=== PATIENT | female | born 1940 | race Caucasian/White ===

== ENCOUNTER 2018-11-05 11:22 | Inpatient (IN) ==
[2018-11-05 12:27] LABS: Basophils # (auto) 0.02 K/uL (0-0.2); Basophils % (auto) 0.2 %; Eosinophils # (auto) 0.08 K/uL (0-0.5); Eosinophils % (auto) 0.9 %; Hematocrit (blood only) 36.6 % (37-47); Hemoglobin 11.3 g/dL (12.0-16.0); Immature Granulocytes # (auto) 0.03 K/uL (0.00-0.02); Immature Granulocytes % (auto) 0.3 %; Lymphocytes # (auto) 0.52 K/uL (1.2-3.4); Mean Corpuscular Hgb Conc 30.9 g/dL (32-36); Mean Corpuscular Volume 79.9 fL (80-100); Mean Platelet Volume 9.9 fL (7.4-10.4); Monocytes # (auto) 0.63 K/uL (0.11-0.59); Monocytes % (auto) 7.3 %; Neutrophils # (auto) 7.35 K/uL (1.4-6.5); Neutrophils % (auto) 85.3 %; Platelet Count 189 K/uL (130-400); RDW Coefficient of Variation 19.1 % (11.5-14.5); RDW Standard Deviation 55.2 fL (36.4-46.3); Red Blood Count 4.58 M/uL (4.2-5.4); White Blood Count 8.63 K/uL (4.8-10.8)
[2018-11-05 12:38] LABS: Albumin Level 2.8 gm/dl (3.4-5.0); BUN Creatinine Ratio 22.7 (10-20); Calcium 9.1 mg/dl (8.5-10.1); Creatinine Clr Calc Pharmacy 29.3 ml/min; Est GFR (African American) 40.7; Est GFR (Non-African American) 35.1; Magnesium 2.4 mg/dl (1.8-2.4); Potassium 4.8 mmol/L (3.5-5.1)
[2018-11-05 12:51] LABS: Albumin Globulin Ratio 0.8 (0.9-2); Globulin 3.5 gm/dl (2.5-4.0); Total Protein 6.3 gm/dl (6.4-8.2); Troponin I 0.048 ng/ml (0-0.045)
[2018-11-05] MEDS ORDERED: NITROGLYCERIN 2% OINTMENT 30GM TUBE EXT STA (13:19)
[2018-11-05] MEDS ORDERED: FUROSEMIDE 40 MG/4 ML VIAL IV STA (13:19)
--- NOTE | 2018-11-05 13:24 | XRay Report ---
XR chest 1V portable CLINICAL HISTORY: sob COMPARISON STUDY: No previous studies for comparison. FINDINGS: Components of mild congestive heart failure present. Moderate prominence of pulmonary vascu lature. Moderate cardiomegaly. Degenerative change left shoulder. IMPRESSION: Developing congestive heart failure. The above report was generated using voice recognition software. It may contain grammatical, syntax or spelling errors. Electronically signed by: Fredo Hawkins M.D. 11/05/2018 1:23 PM
--- NOTE | 2018-11-05 14:51 | Emergency Department Note ---
Entered by Michelet Calixto acting as a scribe for Jovana Lucia DO History of Present Illness General Chief complaint: Leg Weakness, Bilateral Stated complaint: weakness/legs Time Seen by Provider: 11/05/18 11:54 Source: patient History of Present Illness Onset (ago): hour(s) (today) Location: lower extremity (bilateral) Pain Consistency: + other (persistent) Quality: + other (leg weakness) Exacerbated By: + other (walking) Associated symptoms: + shortness of breath; no chest pain, no fever/chills and no loss of appetite The patient is an 78 year old female with a history of COPD who presents to the Emergency Room with complaints of persistent bilateral leg weakness today. The patient reports that this morning when waking up she mostly felt fine aside from a little weakness when climbing steps. She states that she went to the [facility] at 09:00 for her usual standing morning exercise, but she needed to sit down in a wheelchair because �my legs wouldn�t hold me� and �I was slower to move.� EMS reports that the patient�s oxygen saturation was in the 80s, and she was placed on a non-rebreather. The patient states that she is unsure if her legs were weak yesterday. She notes that she has recently been short of breath exacerbated with walking. Family notes that she had been wheezing and coughing with her recent viral bronchitis a few weeks ago that is now improved, although she has been somewhat short of breath for the past two weeks per family. She states that she has been using an inhaler intermittently. The patient reports that she wears supplemental oxygen only at night. She notes that she does not feel any difference between currently wearing the supplemental oxygen or having it turned off. She reports that her legs are chronically swollen at baseline and denies recent changes. She denies recent leg injury, numbness, tingling, pain, arm weakness, dizziness, lightheadedness, nausea, back pain, chest pain, fevers, chills, changes in bowel movements, urinary symptoms, recent illness, changes in medications or exercise, loss of appetite, or history of these symptoms. She states that she usually uses a cane when walking. She denies a history of back problems or hip pain. She reports that she was diagnosed with A- fib a few months ago by Dr. Mcconnell � Cardiology. She states that she regularly takes Xarelto and has not missed any doses. The patient notes that her knee sometimes gives out when walking but does not feel that this contributed to her symptoms today. She has never smoked but reports second-hand exposure from her . Family notes that they were told by [facility] staff that the patient did not know where she was or what day it was, but the patient has been completely appropriate and oriented during her time in the ER. Home Medications Home Medications Medication Instructions Recorded Confirmed Type alprazolam 0.5 mg PO UD PRN 11/05/18 11/05/18 History atorvastatin 10 mg PO HS 11/05/18 11/05/18 History cholecalciferol (vitamin D3) 1,000 unit PO QAM 11/05/18 11/05/18 History [Vitamin D3] cyanocobalamin (vitamin B-12) 500 mcg PO QAM 11/05/18 11/05/18 History [Vitamin B-12] digoxin [Digox] 125 mcg PO Q2D 11/05/18 11/05/18 History furosemide 20 mg PO PM 11/05/18 11/05/18 History furosemide 30 mg PO QAM 11/05/18 11/05/18 History hydralazine 50 mg PO BID 11/05/18 11/05/18 History levothyroxine 50 mcg PO MOTUWETHFR 11/05/18 11/05/18 History levothyroxine 75 mg PO SUSA 11/05/18 11/05/18 History losartan 100 mg PO QAM 11/05/18 11/05/18 History metoprolol succinate 100 mg PO BID 11/05/18 11/05/18 History potassium chloride 20 meq PO TID 11/05/18 11/05/18 History rivaroxaban [Xarelto] 15 mg PO QAM 11/05/18 11/05/18 History tramadol 50 mg PO BID PRN 11/05/18 11/05/18 History Allergies Allergy/AdvReac Type Severity Reaction Status Date / Time quinapril AdvReac Mild H/A Verified 11/05/18 13:13 nifedipine AdvReac Unknown pounding Verified 11/05/18 13:13 headache Past Med/Surg History Medical History Atrial fibrillation (Chronic) COPD (chronic obstructive pulmonary disease) (Chronic) Family History Other Diabetes Hypertension Social History current occupational status: retired Feels Safe at Home: Yes Smoking Status: Never smoker Hx Alcohol Use: No Review of Systems See HPI for pertinent positives & negatives. and A total of 10 systems reviewed and were otherwise negative Physical Exam Vital Signs Vital Signs - 24 hr 11/05/18 11:25 11/05/18 11:26 11/05/18 11:31 Temperature 36.9 C Temperature Source Oral Sepsis Recent Fever Within 48 Hours No Sepsis Action Taken by Nursing No Action Required Pulse Rate 90 89 85 Pulse Strength Normal Respiratory Rate 30 H 12 22 Respiratory Depth Normal Blood Pressure 181/106 H 181/106 H Blood Pressure Mean 131 131 Blood Pressure Position Lying Pulse Oximetry 94 94 93 Oxygen Delivery Method Nasal Cannula Oxygen Flow Rate 2 11/05/18 11:57 11/05/18 12:00 11/05/18 12:01 Temperature Temperature Source Sepsis Recent Fever Within 48 Hours Sepsis Action Taken by Nursing Pulse Rate 94 H 95 H 83 Pulse Strength Respiratory Rate 31 H 18 16 Respiratory Depth Blood Pressure 158/112 H 155/116 H Blood Pressure Mean 127 129 Blood Pressure Position Pulse Oximetry 93 93 92 Oxygen Delivery Method Oxygen Flow Rate 11/05/18 12:30 11/05/18 12:31 11/05/18 13:00 Temperature Temperature Source Sepsis Recent Fever Within 48 Hours Sepsis Action Taken by Nursing Pulse Rate 89 97 H 86 Pulse Strength Respiratory Rate 15 28 H 34 H Respiratory Depth Blood Pressure 180/109 H Blood Pressure Mean 132 Blood Pressure Position Pulse Oximetry 90 90 91 Oxygen Delivery Method Oxygen Flow Rate 11/05/18 13:01 11/05/18 13:02 11/05/18 13:30 Temperature Temperature Source Sepsis Recent Fever Within 48 Hours Sepsis Action Taken by Nursing Pulse Rate 85 92 H 98 H Pulse Strength Respiratory Rate 33 H 28 H 25 H Respiratory Depth Blood Pressure 175/115 H Blood Pressure Mean 135 Blood Pressure Position Pulse Oximetry 91 90 92 Oxygen Delivery Method Oxygen Flow Rate 11/05/18 13:31 11/05/18 14:00 11/05/18 14:01 Temperature Temperature Source Sepsis Recent Fever Within 48 Hours Sepsis Action Taken by Nursing Pulse Rate 87 87 95 H Pulse Strength Respiratory Rate 25 H 28 H 31 H Respiratory Depth Blood Pressure 180/114 H 177/106 H Blood Pressure Mean 136 129 Blood Pressure Position Pulse Oximetry 92 91 95 Oxygen Delivery Method Oxygen Flow Rate GENERAL: alert, well appearing, well nourished, no distress, non-toxic EYE EXAM: normal conjunctiva, PERRL and EOM's grossly intact OROPHARYNX: no exudate, no erythema, lips, buccal mucosa, and tongue normal and mucous membranes are moist NECK: supple, no nuchal rigidity, no adenopathy, non-tender LUNGS: Clear to auscultation. Normal chest wall mechanics, no w/r/r HEART: A-fib on telemonitor, irregular, no murmurs, S1 normal and S2 normal ABDOMEN: abdomen soft, non-tender, normo-active bowel sounds, no masses, no rebound or guarding. BACK: Back is symmetrical on inspection and there is no deformity, no midline tenderness, no CVA tenderness. SKIN: no rashes and no bruising UPPER EXTREMITIES: upper extremities are grossly normal. FROM, nml pulses b/l. LOWER EXTREMITIES: 3+ pitting edema, right greater than left. FROM, nml pulses b/l. NEURO EXAM: Normal sensorium, cranial nerves II-XII grossly intact, normal speech, no gross weakness of arms, no gross weakness of legs. Gross sensation intact. Course 1159: Past medical records reviewed. The patient was evaluated in room C11A, and a complete history and physical examination were performed. 1208: The patient�s oxygen saturation decreased to 86% when the supplemental oxygen was turned off. The patient states that she does not notice any difference. 1245: Review of the echo from 02/28/2016 obtained by case management shows: Mild LV wall thickness. LVEF 55-59%. Left atrium moderately enlarged. Normal wall motion. Mild MR. Moderate TR. Moderate pulmonary hypertension. 1302: The patient�s troponin is elevated. 1323: I updated the patient on current results. 1345: I consulted Keyanna Kothari PA-C: [facility]. She will reevaluate the patient for hospitalization. Consultations Consultation #1: I consulted Keyanna Kothari PA-C: [facility]. She will reevaluate the patient for hospitalization. Time: 13:45 Administered Medications Discontinued Medications Furosemide (Lasix) 40 mg IV NOW STA Stop: 11/05/18 13:20 Last Admin: 11/05/18 14:26 Dose: 40 mg Nitroglycerin (Nitro-Bid 2%) 1 inch EXT NOW STA Stop: 11/05/18 13:20 Last Admin: 11/05/18 14:26 Dose: 1 inch Medical Decision Making Differential Diagnosis Differential diagnosis: Etiologies such as metabolic, infection, hypo/hyperglycemia, electrolyte abnormalities, cardiac sources, intracerebral event, toxicologic, neurologic, as well as others were entertained. Medical Records Attestation: I reviewed the patient's medical records. Home Medications Current Medication List: was personally reviewed by me Laboratory Data Attestation: I reviewed the patient's lab results. Result diagrams: 11/05/18 11:40 11/05/18 11:40 Lab Results 11/05/18 11/05/18 Range/Units 11:40 11:40 WBC 8.63 (4.8-10.8) K/uL RBC 4.58 (4.2-5.4) M/uL Hgb 11.3 L (12.0-16.0) g/dL Hct 36.6 L (37-47) % MCV 79.9 L (80-100) fL MCH 24.7 L (25-34) pg MCHC 30.9 L (32-36) g/dL RDW Std Deviation 55.2 H (36.4-46.3) fL RDW Coeff of Sandie 19.1 H (11.5-14.5) % Plt Count 189 (130-400) K/uL MPV 9.9 (7.4-10.4) fL Immature Gran % (Auto) 0.3 % Neut % (Auto) 85.3 % Lymph % (Auto) 6.0 % [place] % (Auto) 7.3 % Eos % (Auto) 0.9 % Baso % (Auto) 0.2 % Immature Gran # (Auto) 0.03 H (0.00-0.02) K/uL Neut # (Auto) 7.35 H (1.4-6.5) K/uL Lymph # (Auto) 0.52 L (1.2-3.4) K/uL [place] # (Auto) 0.63 H (0.11-0.59) K/uL Eos # (Auto) 0.08 (0-0.5) K/uL Baso # (Auto) 0.02 (0-0.2) K/uL Sodium 141 (136-145) mmol/L Potassium 4.8 (3.5-5.1) mmol/L Chloride 110 H (98-107) mmol/L Carbon Dioxide 27 (21-32) mmol/L Anion Gap 4.0 (3-11) BUN 32 H (7-18) mg/dl Creatinine 1.41 H (0.6-1.2) mg/dl Est Cr Clr Drug Dosing 29.3 ml/min Est GFR ( Amer) 40.7 Est GFR (Non-Af Amer) 35.1 BUN/Creatinine Ratio 22.7 H (10-20) Glucose 115 H (70-99) mg/dl Calcium 9.1 (8.5-10.1) mg/dl Magnesium 2.4 (1.8-2.4) mg/dl Total Bilirubin 1.0 (0.2-1) mg/dl AST 42 H (15-37) U/L ALT 60 (12-78) U/L Alkaline Phosphatase 97 (45-117) U/L Troponin I 0.048 H* (0-0.045) ng/ml NT-Pro-B Natriuret Pep 73479 H (0-1800) pg/ml Total Protein 6.3 L (6.4-8.2) gm/dl Albumin 2.8 L (3.4-5.0) gm/dl Globulin 3.5 (2.5-4.0) gm/dl Albumin/Globulin Ratio 0.8 L (0.9-2) TSH 1.200 (0.300-4.500) uIu/ml Imaging Data Radiologist's Impression: Radiology results as stated below per my review and the radiologist's interpretation: XR chest 1V portable CLINICAL HISTORY: sob COMPARISON STUDY: No previous studies for comparison. FINDINGS: Components of mild congestive heart failure present. Moderate prominence of pulmonary vasculature. Moderate cardiomegaly. Degenerative change left shoulder. IMPRESSION: Developing congestive heart failure. The above report was generated using voice recognition software. It may contain grammatical, syntax or spelling errors. Electronically signed by: Fredo Hawkins M.D. 11/05/2018 1:23 PM ECG Data Attestation: I personally reviewed and interpreted this ECG as follows: Indication: weakness Rate (beats per minute): 90 Rhythm: atrial fibrillation Findings: + other (normal axis, normal QRS and QTC); no ST depression and no ST elevation Blood Pressure Blood Pressure Findings: Elevated blood pressure Blood Pressure Disposition: further management by hospitalist [facility] Narrative Patient well-appearing here despite complaints. No focal neurologic deficit. I do not suspect [employer] cause of her lower extremity weakness. Patient's weakness is bilateral. No back pain or recent trauma. I do not suspect new spinal cord injury, cauda equina, epidural abscess/hematoma. Given new hypoxia noted with this, chest x-ray added to routine labs. Patient denies missing any of her Xarelto for atrial fibrillation recently. Patient found to be in congestive heart failure. Patient's troponin mildly elevated, I suspect secondary to the CHF. I do not suspect primary ACS. Patient's prior echo from 2016 was reviewed. Patient with mild renal insufficiency noted, no old to compare to in EMR. I feel the likely evolving CHF is the reason for her hypoxia, her noted increased shortness of breath, as well as her potential increased weakness particularly with exertion. I do not suspect occult infectious etiology, vascular etiology. Patient was started on Lasix as well as Nitropaste here in the emergency room, and case discussed with hospitalist for admission. Mild anemia noted, likely chronic for patient. Patient with no reported change in bowel movements, no black or bloody stools. Patient with no pain here, denies any trouble breathing while at rest. Patient and family aware of all results were in agreement with plan. Impression & Plan CHF (congestive heart failure), Hypoxia, Elevated troponin, A-fib, Weakness, Chronic kidney disease Discharge Plan Visit Data Chief Complaint: Leg Weakness, Bilateral Stated Complaint: weakness/legs ED Provider: Jovana Lucia Discharge Problem: CHF (congestive heart failure), Hypoxia, Elevated troponin, A-fib, Weakness, Chronic kidney disease Patient Disposition: Being Evaluated by Hospitalist Forms Stand Alone Forms: My [facility] Prescriptions Prescriptions: No Action atorvastatin 10 mg tablet 10 mg PO HS RF: 0 metoprolol succinate 100 mg tablet extended release 24 hr 100 mg PO BID RF: 0 tramadol 50 mg tablet 50 mg PO BID PRN (Reason: Pain) RF: 0 levothyroxine 75 mcg tablet 75 mg PO SUSA RF: 0 alprazolam 0.5 mg tablet 0.5 mg PO UD PRN (Reason: Anxiety) RF: 0 potassium chloride 20 mEq tablet,ER particles/crystals 20 meq PO TID RF: 0 cyanocobalamin (vitamin B-12) [Vitamin B-12] 500 mcg Tablet 500 mcg PO QAM RF: 0 levothyroxine 50 mcg tablet 50 mcg PO MOTUWETHFR RF: 0 hydralazine 50 mg tablet 50 mg PO BID RF: 0 digoxin [Digox] 125 mcg tablet 125 mcg PO Q2D RF: 0 furosemide 20 mg tablet 30 mg PO QAM RF: 0 furosemide 20 mg tablet 20 mg PO PM RF: 0 losartan 100 mg tablet 100 mg PO QAM RF: 0 cholecalciferol (vitamin D3) [Vitamin D3] 1,000 unit Capsule 1,000 unit PO QAM RF: 0 rivaroxaban [Xarelto] 15 mg tablet 15 mg PO QAM RF: 0 Referrals Referrals: Donna Tate MD [Primary Care Provider] - The scribe's documentation has been prepared under my direction and personally reviewed by me in its entirety. I confirm that the note above accurately reflects all work, treatment, procedures, and medical decision making performed by me.
--- NOTE | 2018-11-05 14:58 | Communication Note ---
Date of Service: November 05, 2018 Patient new to the area. Brought to the ED today because of confusion, abdominal pain, fluid retention. She was thought to be an uassigned patient and was admitted by the [facility] Medicine team. It became apparent that she is establishing with Dr. Leung ([facility]) for primary care. We will transfer the patient to the [facility] Medicine service and assume care. Son Fransico called and given update. Recently hospitalized at [facility] in [place] with CHF, pneumonia, cellulitis. Transferred to [facility] in [place] for skilled care, discharged last week. Now staying in [facility] with family. Fransico will sign release of information for [facility] and [facility] when he returns to the hospital.
--- NOTE | 2018-11-05 16:22 | History & Physical Report ---
Addendum entered and electronically signed by Keyanna Kothari PA-C 17:53: Addendum (Blank) Addendum November 05, 2018 17:52 Starting 11/06/18 Patient will be followed by Dr. Romero Original Note: Date of Service November 05, 2018 Assessment & Plan (1) Acute respiratory failure with hypoxia: (2) Acute on chronic diastolic CHF (congestive heart failure): Initial evaluation revealed CXR consistent [place] [address], troponin elevated 0.048 H/H 11.3 and 36.6, wbc 8.6 Bun/Cr stable at 32 and 1.41. ECG was consistent with rate controlled afib with nonspecific ST T wave changes -admit to med/surg telemetry -consult cardiology, Dr. Rod -IV lasix 40mg BID17, titrate based on response -Strict I and O -daily standing weights -Low NA, Heart Healthy diet -continue metoprolol, losartan, nitro paste -obtain echocardiogram (last done in 2015 revealed preserved EF, mod dilated LA , mild MR, mod TR, pulm HTN and AV sclerosis) -trend troponin -monitor renal function and electrolytes (3) Elevated troponin: -most likely in setting of demand ischemia given CHF -will trend troponin q6 -obtain echocardiogram -further plan as above (4) CKD (chronic kidney disease) stage 3, GFR 30-59 ml/min: -baseline Cr 1.4 -bun/cr stable at 32/1.41 -monitor renal function and electrolytes with diuresis (5) HTN (hypertension): -blood pressure significantly elevated upon admission, 182/119 -received IV lasix 40mg x 1 and nitro paste -continue IV lasix 40mg BID17 and nitropaste 1in q6 -continue home regimen of metoprolol, hydralazine, and losartan -monitor (per Dr. Mcconnell notes from 09/16/18 BP was notable elevated at office visit, recommendation was to monitor and if continues to elevate increase hydralazine to 75mg TID) -was on amlodipine, but this was recently discontinued due to peripheral edema (6) Permanent atrial fibrillation: -rate and rhythm controlled with metoprolol -continue xarelto for anticoagulation, renal dose (7) Hypothyroidism: -continue levothyroxine, TSH 1.2 (8) HLD (hyperlipidemia): -continue statin (9) Nocturnal hypoxia: -wears 2L O2 at HS (10) DVT prophylaxis: -continue xarelto Disposition: to be determined Follow up: with PCP Dr. Tate upon discharge Pt was seen in collaboration with Dr. Luna, please see addendum Starting 11/06/17 Patient will be followed by Dr. Romero History of Present Illness Chief Complaint: Weakness x 1 day. Primary Care Provider: Donna Tate MD This is a 78-year-old white female with significant PMH of chronic atrial fibrillation on Xarelto, chronic diastolic CHF, HTN, HLD, CKD stage III, YESICA, GERD, osteoporosis, OA DJD who presents to [facility] secondary to weakness times 1 day. Son and granddaughter at bedside. Patient awoke this morning, feeling very weak but still able to do ADLs. She goes to [employer] twice weekly in which she attempted to attend this morning. While at [facility] she persisted to feel more weak, EMS was summoned and she presented to the ED. Patient has chronic PUTNAM, and nocturnal hypoxia in which she wears O2 via NC at bedtime. She has noted increased in swelling in bilateral lower extremities x 1 week. Approximately 3 months ago she had episode of viral bronchitis, but this has since resolved. She denies fever, chills, sweats, lightheadedness, dizziness, syncope, chest pain, shortness of breath at rest, palpitations, hemoptysis, cough, nausea, vomiting, diarrhea, change in bowel habits. Today she noted decrease in urine frequency, denies hematuria, increased urinary urgency. Overall appetite has been normal. She does not monitor her weight on a regular basis; therefore, unsure if notable weight gain. States she has been eating microwavable dinners more frequently. Also of note she recently has not been taking her evening Lasix. Allergies Allergy/AdvReac Type Severity Reaction Status Date / Time quinapril AdvReac Mild H/A Verified 11/05/18 13:13 nifedipine AdvReac Unknown pounding Verified 11/05/18 13:13 headache Home Medications Home Medications Medication Instructions Recorded Confirmed Type alprazolam 0.5 mg PO UD PRN 11/05/18 11/05/18 History atorvastatin 10 mg PO HS 11/05/18 11/05/18 History cholecalciferol (vitamin D3) 1,000 unit PO QAM 11/05/18 11/05/18 History [Vitamin D3] cyanocobalamin (vitamin B-12) 500 mcg PO QAM 11/05/18 11/05/18 History [Vitamin B-12] digoxin [Digox] 125 mcg PO Q2D 11/05/18 11/05/18 History furosemide 20 mg PO PM 11/05/18 11/05/18 History furosemide 30 mg PO QAM 11/05/18 11/05/18 History hydralazine 50 mg PO TID 11/05/18 11/05/18 History levothyroxine 50 mcg PO MOTUWETHFR 11/05/18 11/05/18 History levothyroxine 75 mg PO SUSA 11/05/18 11/05/18 History losartan 100 mg PO QAM 11/05/18 11/05/18 History metoprolol succinate 100 mg PO BID 11/05/18 11/05/18 History potassium chloride 20 meq PO TID 11/05/18 11/05/18 History rivaroxaban [Xarelto] 15 mg PO QAM 11/05/18 11/05/18 History tramadol 50 mg PO BID PRN 11/05/18 11/05/18 History Past Med/Surg History Medical History Hypothyroidism Permanent atrial fibrillation YESICA (generalized anxiety disorder) (Chronic) GERD (gastroesophageal reflux disease) (Chronic) Osteoporosis (Chronic) CKD (chronic kidney disease) stage 3, GFR 30-59 ml/min (Chronic) HTN (hypertension) (Chronic) HLD (hyperlipidemia) (Chronic) Chronic diastolic (congestive) heart failure (Chronic) Atrial fibrillation (Chronic) COPD (chronic obstructive pulmonary disease) (Chronic) Surgical History History of total left knee replacement (TKR) (Chronic) Hx of fracture of radius (Chronic) History of nasal polypectomy (Chronic) Family History Mother Diabetes Hypertension Father Hypertension CAD (coronary artery disease) Social History marital status: / Current Living Situation: Alone current occupational status: retired Other Information That Helps Us Care for You: No Feels Safe at Home: Yes Smoking Status: Never smoker Second Hand Exposure: Yes ( was smoker) Hx Alcohol Use: No Hx Substance Use: No Beliefs That Will Affect Care: None Preferred Language: Wallisian Communication Ability: Effective Review of Systems All systems reviewed & are unremarkable except as noted in HPI & below Physical Exam 2 Vital Signs (Past 24 Hours): Last Vital Signs Temp 36.9 C 11/05/18 11:25 Pulse 95 H 11/05/18 14:01 Resp 31 H 11/05/18 14:01 BP 177/106 H 11/05/18 14:01 Pulse Ox 95 11/05/18 14:01 Physical Exam: Gen: WD/WN, Elderly, F, NAD, on O2 via NC, sitting up in bed, pleasant, conversing easily but dyspneic with conversation Head: Normocephalic, Atraumatic Eyes: Sclera normal, no conjunctival injection, PERRLA, EOMI ENT: Gross hearing intact, normal pharynx, mucous membranes moist Neck: supple, no adenopathy, No JVD, Resp: Bibasilar rales and rhonchi. 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 Extremities: B/L lower ext +2 pitting edema Skin: warm, moist, no rash, negative turgor, cap refill < 2sec Neuro: Alert and oriented x 3, speech normal, good mood/affect, cran nerve 2-12 intact grossly : deferred Results & Data Laboratory Results Short CBC 11/05/18 Range/Units 11:40 WBC 8.63 (4.8-10.8) K/uL Hgb 11.3 L (12.0-16.0) g/dL Hct 36.6 L (37-47) % Plt Count 189 (130-400) K/uL BMP 11/05/18 11:40 Sodium 141 Potassium 4.8 Chloride 110 H Carbon Dioxide 27 BUN 32 H Creatinine 1.41 H Glucose 115 H Calcium 9.1 Cardiac Enzymes 11/05/18 Range/Units 11:40 Troponin I 0.048 H* (0-0.045) ng/ml Liver Function 11/05/18 Range/Units 11:40 Total Bilirubin 1.0 (0.2-1) mg/dl AST 42 H (15-37) U/L ALT 60 (12-78) U/L Alkaline Phosphatase 97 (45-117) U/L Albumin 2.8 L (3.4-5.0) gm/dl Diagnostic Findings CXR: IMPRESSION: Developing congestive heart failure. ECG Rate (beats per minute): 90 Rhythm: atrial fibrillation Findings: + nonspecific-ST abn Code Status & VTE Plan Code Status Full Code VTE Prophylaxis Plan VTE Prophylaxis will be ordered: Yes Supervising Physician Co-Signing Physician Notes HISTORY: Record reviewed. Patient interviewed and examined. Care coordinated with Keyanna Kothari PA-C. Please refer to her documentation for patient's history. Briefly, 78-year-old female with history of diastolic CHF, chronic atrial fibrillation, CKD, and other problems noted below. She attended an exercise class this morning and was noted to be very weak. She was brought to the Emergency Department for evaluation and was found to be in congestive heart failure. EXAM: General- no distress Lungs- bilateral rales; no respiratory distress Cardiovascular- irregular; no gallop; + JVD; 1+ pretibial edema Abdomen- + bowel sounds, soft, nontender Extremities- no cyanosis; no calf tenderness Neuro- alert, mild confusion Skin- warm & dry DATA: Oxygen saturation 86% on room air at 1125. Oxygen saturation 80% on room air at time of my assessment. Hemoglobin 11.3, WBC 8630. BUN 32, creatinine 1.41. Troponin I 0.048. BNP 11,902. Other lab studies as noted. Chest x-ray reviewed by the undersigned and formally interpreted by Radiology. Cardiomegaly and congestive heart failure were noted. EKG performed at 1131 reviewed and demonstrated atrial fibrillation at 90/ minute, ST depression inferiorly and laterally.. ASSESSMENT AND PLAN: Acute on chronic left ventricular diastolic heart failure. Diuresed with furosemide 40 mg IV twice daily. Topical nitrates ordered for CHF and elevated blood pressures. Serum troponin slightly elevated, probably secondary to CHF. Cardiology consulted. History of nocturnal hypoxia on home O2. Hypoxic with O2 saturations as low as 80% in ED. Hypoxia secondary to congestive heart failure. Supplemental oxygen as needed, then wean as tolerated. Please refer to GENNARO Kothari's documentation for discussion of other issues.
[2018-11-05] MEDS ORDERED: ALPRAZolam 0.5 MG TABLET PO PRN (16:58)
[2018-11-05] MEDS ORDERED: ALUMINUM/MAGNESIUM SUSP 30 ML UDC PO PRN (16:58)
[2018-11-05] MEDS ORDERED: POLYETHYLENE (MIRALAX) 17 GM PACK PO PRN (16:58)
[2018-11-05] MEDS ORDERED: ACETAMINOPHEN 325 MG TAB PO PRN (16:58)
[2018-11-05] MEDS ORDERED: ONDANSETRON INJ 2 MG/ML 2 ML VIAL IV PRN (16:58)
[2018-11-05] MEDS ORDERED: MAGNESIUM HYDROXIDE SUSP 30 ML UDC PO PRN (16:58)
[2018-11-05] MEDS ORDERED: TRAMADOL HCL 50 MG TABLET PO PRN (16:58)
[2018-11-05] MEDS ORDERED: FUROSEMIDE 40 MG/4 ML VIAL IV SCH (17:00)
--- NOTE | 2018-11-05 17:06 | Cardiology Consultation ---
Date of Consultation November 05, 2018 Assessment & Plan (1) Acute on chronic diastolic CHF (congestive heart failure): I would continue diuretics overnight and reevaluate her in the morning. Cardiac markers should be obtained. An echocardiogram is planned. (2) Permanent atrial fibrillation: (3) Acute respiratory failure with hypoxia: History of Present Illness Attending Physician: Yuri Pino MD History of Present Illness This is a pleasant 78-year-old female who usually follows with Dr. Mcconnell through our clinic. He follows her for history of atrial fibrillation. She was in her usual state of health and went to the [facility] for Silver sneakers. While there she states her legs became weak and she was played out. She was taken from the [facility] in [place] to the emergency department where now she has been admitted with respiratory failure due to diastolic dysfunction. During my interview she is actually sitting in a chair comfortable and joking about going home. PAST MEDICAL HISTORY: 1. Persistent atrial fibrillation rate controlled on chronic Xarelto anticoagulation. 2. Stage III chronic kidney disease. 3. Chronic venous insufficiency 4. Nocturnal hypoxemia. Allergies Allergy/AdvReac Type Severity Reaction Status Date / Time quinapril AdvReac Mild H/A Verified 11/05/18 13:13 nifedipine AdvReac Unknown pounding Verified 11/05/18 13:13 headache Home Medications Home Medications Medication Instructions Recorded Confirmed Type alprazolam 0.5 mg PO UD PRN 11/05/18 11/05/18 History atorvastatin 10 mg PO HS 11/05/18 11/05/18 History cholecalciferol (vitamin D3) 1,000 unit PO QAM 11/05/18 11/05/18 History [Vitamin D3] cyanocobalamin (vitamin B-12) 500 mcg PO QAM 11/05/18 11/05/18 History [Vitamin B-12] digoxin [Digox] 125 mcg PO Q2D 11/05/18 11/05/18 History furosemide 20 mg PO PM 11/05/18 11/05/18 History furosemide 30 mg PO QAM 11/05/18 11/05/18 History hydralazine 50 mg PO TID 11/05/18 11/05/18 History levothyroxine 50 mcg PO MOTUWETHFR 11/05/18 11/05/18 History levothyroxine 75 mg PO SUSA 11/05/18 11/05/18 History losartan 100 mg PO QAM 11/05/18 11/05/18 History metoprolol succinate 100 mg PO BID 11/05/18 11/05/18 History potassium chloride 20 meq PO TID 11/05/18 11/05/18 History rivaroxaban [Xarelto] 15 mg PO QAM 11/05/18 11/05/18 History tramadol 50 mg PO BID PRN 11/05/18 11/05/18 History Patient History Medical History Hypothyroidism Permanent atrial fibrillation YESICA (generalized anxiety disorder) (Chronic) GERD (gastroesophageal reflux disease) (Chronic) Osteoporosis (Chronic) CKD (chronic kidney disease) stage 3, GFR 30-59 ml/min (Chronic) HTN (hypertension) (Chronic) HLD (hyperlipidemia) (Chronic) Chronic diastolic (congestive) heart failure (Chronic) Atrial fibrillation (Chronic) COPD (chronic obstructive pulmonary disease) (Chronic) Surgical History History of total left knee replacement (TKR) (Chronic) Hx of fracture of radius (Chronic) History of nasal polypectomy (Chronic) Family History Mother Diabetes Hypertension Father Hypertension CAD (coronary artery disease) Social History marital status: / Current Living Situation: Alone current occupational status: retired Other Information That Helps Us Care for You: No Feels Safe at Home: Yes Smoking Status: Never smoker Second Hand Exposure: Yes ( was smoker) Hx Alcohol Use: No Hx Substance Use: No Beliefs That Will Affect Care: None Preferred Language: Croatian Communication Ability: Effective Review of Systems Review of Systems: See HPI for pertinent positives. All other 10 point review of systems are negative. Physical Exam 2 Vital Signs (Past 24 Hours): Last Vital Signs Temp 36.9 C 11/05/18 11:25 Pulse 88 11/05/18 16:01 Resp 20 11/05/18 16:01 BP 182/119 H 11/05/18 16:01 Pulse Ox 90 11/05/18 16:01 Physical Exam: General: no acute distress and stated age Head: normocephalic, no masses, lesions, tenderness or abnormalities Eyes: conjunctiva are pink and non-injected, sclera clear Neck: supple, no adenopathy, no bruits, normal jugular venous pulse, no hepatojugular reflux Chest: normal shape and normal respiratory effort Lungs: clear to auscultation and percussion Cardiac Exam: - irregular rate & rhythm, no murmurs gallops or rubs - normal S1 , normal S2 Pulses: 2(+) throughout Abdomen: abdomen soft, non-tender, no abnormal masses and no hepatosplenomegaly Musculoskeletal: no gait disturbance, no joint inflammation, no deforming arthritis Extremities: no edema and no cyanosis Neuro: grossly normal exam Results & Data Laboratory Results Laboratory Results - last 24 hr 11/05/18 11/05/18 11:40 11:40 WBC 8.63 RBC 4.58 Hgb 11.3 L Hct 36.6 L MCV 79.9 L MCH 24.7 L MCHC 30.9 L RDW Std Deviation 55.2 H RDW Coeff of Sandie 19.1 H Plt Count 189 MPV 9.9 Immature Gran % (Auto) 0.3 Neut % (Auto) 85.3 Lymph % (Auto) 6.0 Stewart % (Auto) 7.3 Eos % (Auto) 0.9 Baso % (Auto) 0.2 Immature Gran # (Auto) 0.03 H Neut # (Auto) 7.35 H Lymph # (Auto) 0.52 L Stewart # (Auto) 0.63 H Eos # (Auto) 0.08 Baso # (Auto) 0.02 Sodium 141 Potassium 4.8 Chloride 110 H Carbon Dioxide 27 Anion Gap 4.0 BUN 32 H Creatinine 1.41 H Est Cr Clr Drug Dosing 29.3 Est GFR ( Amer) 40.7 Est GFR (Non-Af Amer) 35.1 BUN/Creatinine Ratio 22.7 H Glucose 115 H Calcium 9.1 Magnesium 2.4 Total Bilirubin 1.0 AST 42 H ALT 60 Alkaline Phosphatase 97 Troponin I 0.048 H* NT-Pro-B Natriuret Pep 60133 H Total Protein 6.3 L Albumin 2.8 L Globulin 3.5 Albumin/Globulin Ratio 0.8 L TSH 1.200 Medications Administered Current Inpatient Medications Acetaminophen (Tylenol) 650 mg PO Q4H PRN PRN Reason: Pain or Fever Stop: 12/05/18 16:57 Al Hydrox/Mg Hydrox/Simethicone (Maalox) 15 ml PO Q4H PRN PRN Reason: Dyspepsia Stop: 12/05/18 16:57 Alprazolam (Xanax) 0.5 mg PO UD PRN PRN Reason: Anxiety Stop: 12/05/18 16:57 Atorvastatin Calcium (Lipitor) 10 mg PO HS [facility] Stop: 12/05/18 20:59 Cyanocobalamin (Vitamin B-12) 500 mcg PO QAM [facility] Stop: 12/06/18 08:59 Digoxin (Lanoxin) 0.125 mg PO Q2D [facility] Stop: 12/05/18 16:57 Furosemide (Lasix) 40 mg IV BID17 [facility] Stop: 12/05/18 16:59 Hydralazine HCl (Apresoline) 50 mg PO TID [facility] Stop: 12/05/18 20:59 Levothyroxine Sodium (Synthroid) 50 mcg PO MOTUWETHFR [facility] Stop: 12/05/18 16:57 Levothyroxine Sodium (Synthroid) 75,000 mcg PO SUSA [facility] Stop: 12/09/18 14:50 Losartan Potassium (Cozaar) 100 mg PO QAM [facility] Stop: 12/06/18 08:59 Magnesium Hydroxide (Milk Of Magnesia) 30 ml PO Q12H PRN PRN Reason: Constipation Stop: 12/05/18 16:57 Metoprolol Succinate (Toprol Xl) 100 mg PO BID [facility] Stop: 12/05/18 20:59 Nitroglycerin (Nitro-Bid 2%) 1 inch EXT Q6H [facility] Stop: 12/05/18 16:57 Non-Formulary Medication (Cholecalciferol (Vitamin D3) [Vitamin D3]) 1,000 units PO QAM [facility] Stop: 12/06/18 08:59 Ondansetron HCl (Zofran) 4 mg IV Q6H PRN PRN Reason: Nausea Stop: 12/05/18 16:57 Polyethylene Glycol (Miralax Powder Packet) 17 gm PO DAILY PRN PRN Reason: Constipation Stop: 12/05/18 16:57 Potassium Chloride (Klor-Con M20) 20 meq PO TID [facility] Stop: 12/05/18 20:59 Rivaroxaban (Xarelto) 15 mg PO QAM [facility] Stop: 12/06/18 08:59 Tramadol HCl (Ultram) 50 mg PO BID PRN PRN Reason: Pain Stop: 12/05/18 16:57
[2018-11-05] MEDS: FUROSEMIDE 40 MG in SYRINGE 0 ML IV SCH (18:42)
[2018-11-05] MEDS: NITROGLYCERIN 2% OINTMENT 30GM TUBE EXT SCH (20:23)
[2018-11-05] MEDS: POTASSIUM CHLORIDE 20 MEQ TABCR PO SCH (20:25)
[2018-11-05] MEDS: HydrALAZINE TAB 50 MG TAB PO SCH (20:25)
[2018-11-05] MEDS: METOPROLOL SUCC 50MG EXT REL TAB PO SCH (20:26)
[2018-11-05] MEDS ORDERED: ATORVASTATIN 10 MG TAB PO SCH (21:00)
[2018-11-06] MEDS: NITROGLYCERIN 2% OINTMENT 30GM TUBE EXT SCH ×3 (02:07→13:48)
[2018-11-06 05:17] LABS: Appearance Urine Clear (Clear); Bilirubin Urine Negative (Negative); Color Urine Yellow; Glucose Urine UA Negative (Negative); Ketones Urine Negative (Negative); Leukocyte Esterase Urine Negative (Negative); Nitrite Urine Negative (Negative); Protein Urine Negative (Negative); Specific Gravity Urine 1.012 (1.000-1.030); Urobilinogen Urine Negative (Negative); pH Urine 6.5 (4.5-7.5)
[2018-11-06] MEDS ORDERED: LEVOTHYROXINE SODIUM 50 MCG TABLET PO SCH (06:30)
[2018-11-06 07:18] LABS: Hematocrit (blood only) 33.5 % (37-47); Hemoglobin 10.6 g/dL (12.0-16.0); Mean Corpuscular Hgb Conc 31.6 g/dL (32-36); Mean Corpuscular Volume 78.5 fL (80-100); Mean Platelet Volume 9.3 fL (7.4-10.4); Platelet Count 169 K/uL (130-400); RDW Coefficient of Variation 18.7 % (11.5-14.5); RDW Standard Deviation 53.6 fL (36.4-46.3); Red Blood Count 4.27 M/uL (4.2-5.4); White Blood Count 7.08 K/uL (4.8-10.8)
[2018-11-06 08:03] LABS: BUN Creatinine Ratio 25.2 (10-20); Calcium 8.5 mg/dl (8.5-10.1); Creatinine Clr Calc Pharmacy 33.4 ml/min; Magnesium 2.1 mg/dl (1.8-2.4); Potassium 3.5 mmol/L (3.5-5.1)
[2018-11-06] MEDS: METOPROLOL SUCC 50MG EXT REL TAB PO SCH (08:24)
[2018-11-06] MEDS: POTASSIUM CHLORIDE 20 MEQ TABCR PO SCH ×2 (08:25→13:48)
[2018-11-06] MEDS: HydrALAZINE TAB 50 MG TAB PO SCH ×2 (08:25→13:48)
[2018-11-06] MEDS: FUROSEMIDE 40 MG in SYRINGE 0 ML IV SCH (08:26)
[2018-11-06] MEDS ORDERED: CHOLECALCIFEROL 1,000 UNITS TAB PO SCH (09:00)
[2018-11-06] MEDS ORDERED: CYANOCOBALAMIN 500 MCG TABLET (VITAMIN B-12) PO SCH (09:00)
[2018-11-06] MEDS ORDERED: LOSARTAN POTASSIUM 50 MG TAB PO SCH (09:00)
--- NOTE | 2018-11-06 13:40 | Cardiology Progress Note ---
Date of Service November 06, 2018 Assessment & Plan (1) Acute on chronic diastolic CHF (congestive heart failure): I believe the patient is stable enough to go home with outpatient follow- up. She normally has home oxygen which she mainly uses at night. I would continue diuretics after discharge. (2) Permanent atrial fibrillation: (3) Acute respiratory failure with hypoxia: Subjective The patient had an uneventful night. She would like to go home. Physical Exam 2 Vital Signs (Past 24 Hours): Last Vital Signs Temp 36.7 C 11/06/18 12:01 Pulse 78 11/06/18 12:01 Resp 20 11/06/18 12:01 BP 108/67 11/06/18 12:01 Pulse Ox 95 11/06/18 12:01 Physical Exam: General: no acute distress and stated age Head: normocephalic, no masses, lesions, tenderness or abnormalities Eyes: conjunctiva are pink and non-injected, sclera clear Neck: supple, no adenopathy, no bruits, normal jugular venous pulse, no hepatojugular reflux Chest: normal shape and normal respiratory effort Lungs: clear to auscultation and percussion Cardiac Exam: - regular rate & rhythm, no murmurs gallops or rubs - normal S1, normal S2 Pulses: 2(+) throughout Abdomen: abdomen soft, non-tender, no abnormal masses and no hepatosplenomegaly Musculoskeletal: no gait disturbance, no joint inflammation, no deforming arthritis Extremities: Minimal edema bilateral lower extremities Neuro: grossly normal exam Results & Data Laboratory Results Laboratory Results - last 24 hr 11/05/18 11/05/18 11/05/18 16:56 21:50 23:49 WBC RBC Hgb Hct MCV MCH MCHC RDW Std Deviation RDW Coeff of Sandie Plt Count MPV Sodium Potassium Chloride Carbon Dioxide Anion Gap BUN Creatinine Est Cr Clr Drug Dosing Est GFR ( Amer) Est GFR (Non-Af Amer) BUN/Creatinine Ratio Glucose Calcium Magnesium Troponin I 0.041 0.037 Urine Color Cancelled Urine Appearance Cancelled Urine pH Cancelled Ur Specific [place] Cancelled Urine Protein Cancelled Urine Glucose (UA) Cancelled Urine Ketones Cancelled Urine Blood Cancelled Urine Nitrite Cancelled Urine Bilirubin Cancelled Urine Urobilinogen Cancelled Ur Leukocyte Esterase Cancelled Urine WBC (Auto) Cancelled Urine RBC (Auto) Cancelled U Hyaline Cast (Auto) Cancelled U Epithel Cells (Auto) Cancelled Urine Bacteria (Auto) Cancelled Ur Renal Epithelial Cell Cancelled Urine Crystals Cancelled Calcium Oxalate Crystal Cancelled Uric Acid Crystals Cancelled Triple Phos Crystals Cancelled Other Crystals Cancelled Amorphous Sediment Cancelled Granular Casts Cancelled Waxy Casts Cancelled RBC Casts Cancelled WBC Casts Cancelled Other Casts Cancelled Urine Mucus Cancelled Urine Other Cancelled Urine Trichomonas Cancelled Urine Yeast Cancelled Urine Sperm Cancelled Ur Oval Fat Bodies Cancelled 11/06/18 11/06/18 11/06/18 05:05 06:44 06:44 WBC 7.08 RBC 4.27 Hgb 10.6 L Hct 33.5 L MCV 78.5 L MCH 24.8 L MCHC 31.6 L RDW Std Deviation 53.6 H RDW Coeff of Sandie 18.7 H Plt Count 169 MPV 9.3 Sodium 142 Potassium 3.5 D Chloride 107 Carbon Dioxide 29 Anion Gap 6.0 BUN 30 H Creatinine 1.17 Est Cr Clr Drug Dosing 33.4 Est GFR ( Amer) 51.0 Est GFR (Non-Af Amer) 44.0 BUN/Creatinine Ratio 25.2 H Glucose 83 Calcium 8.5 Magnesium 2.1 Troponin I Urine Color Yellow Urine Appearance Clear Urine pH 6.5 Ur Specific [place] 1.012 Urine Protein Negative Urine Glucose (UA) Negative Urine Ketones Negative Urine Blood Negative Urine Nitrite Negative Urine Bilirubin Negative Urine Urobilinogen Negative Ur Leukocyte Esterase Negative Urine WBC (Auto) Urine RBC (Auto) U Hyaline Cast (Auto) U Epithel Cells (Auto) Urine Bacteria (Auto) Ur Renal Epithelial Cell Urine Crystals Calcium Oxalate Crystal Uric Acid Crystals Triple Phos Crystals Other Crystals Amorphous Sediment Granular Casts Waxy Casts RBC Casts WBC Casts Other Casts Urine Mucus Urine Other Urine Trichomonas Urine Yeast Urine Sperm Ur Oval Fat Bodies Medications Administered Current Inpatient Medications Acetaminophen (Tylenol) 650 mg PO Q4H PRN PRN Reason: Pain or Fever Stop: 12/05/18 16:57 Al Hydrox/Mg Hydrox/Simethicone (Maalox) 15 ml PO Q4H PRN PRN Reason: Dyspepsia Stop: 12/05/18 16:57 Alprazolam (Xanax) 0.5 mg PO DAILY PRN PRN Reason: Anxiety Stop: 12/05/18 16:57 Atorvastatin Calcium (Lipitor) 10 mg PO HS [facility] Stop: 12/05/18 20:59 Last Admin: 11/05/18 20:27 Dose: 10 mg Cyanocobalamin (Vitamin B-12) 500 mcg PO QAM [facility] Stop: 12/06/18 08:59 Last Admin: 11/06/18 08:24 Dose: 500 mcg Digoxin (Lanoxin) 0.125 mg PO Q2D@1600 [facility] Stop: 12/06/18 15:59 Hydralazine HCl (Apresoline) 50 mg PO TID [facility] Stop: 12/05/18 20:59 Last Admin: 11/06/18 08:25 Dose: 50 mg Furosemide 40 mg/ Syringe 4 mls @ 4 mls/min IV BID17 [facility] Stop: 12/05/18 17:59 Last Admin: 11/06/18 08:26 Dose: 4 mls/min Levothyroxine Sodium (Synthroid) 50 mcg PO [id number]@0630 [facility] Stop: 12/06/18 06:29 Last Admin: 11/06/18 06:01 Dose: 50 mcg Levothyroxine Sodium (Synthroid) 75 mcg PO [id number] [facility] Stop: 12/09/18 06:29 Losartan Potassium (Cozaar) 100 mg PO QAM [facility] Stop: 12/06/18 08:59 Last Admin: 11/06/18 08:24 Dose: 100 mg Magnesium Hydroxide (Milk Of Magnesia) 30 ml PO Q12H PRN PRN Reason: Constipation Stop: 12/05/18 16:57 Metoprolol Succinate (Toprol Xl) 100 mg PO BID [facility] Stop: 12/05/18 20:59 Last Admin: 11/06/18 08:24 Dose: 100 mg Nitroglycerin (Nitro-Bid 2%) 1 inch EXT Q6H [facility] Stop: 12/05/18 19:59 Last Admin: 11/06/18 08:28 Dose: 1 inch Ondansetron HCl (Zofran) 4 mg IV Q6H PRN PRN Reason: Nausea Stop: 12/05/18 16:57 Polyethylene Glycol (Miralax Powder Packet) 17 gm PO DAILY PRN PRN Reason: Constipation Stop: 12/05/18 16:57 Potassium Chloride (Klor-Con M20) 20 meq PO TID [facility] Stop: 12/05/18 20:59 Last Admin: 11/06/18 08:25 Dose: 20 meq Rivaroxaban (Xarelto) 15 mg PO QDD [facility] Stop: 12/06/18 16:29 Tramadol HCl (Ultram) 50 mg PO BID PRN PRN Reason: Pain Stop: 12/05/18 16:57 Vitamin D (Vitamin D3) 1,000 units PO QAM [facility] Stop: 12/06/18 08:59 Last Admin: 11/06/18 08:24 Dose: 1,000 units
--- NOTE | 2018-11-06 14:21 | Hospitalist Progress Note ---
Date of Service November 06, 2018 Assessment & Plan (1) Acute respiratory failure with hypoxia: (2) Acute on chronic diastolic CHF (congestive heart failure): Chronic respiratory failure: On 2 liters QHS Likely secondary to non-compliance 2/2 nocturnal enuresis CXR: Developing congestive heart failure. ECHO: EF:60%, Left and right atrium severely dilated Received IV lasix Appreciate Cardiology Input Continue I and O; daily weight Counselled on low salt diet and compliance with lasix Needs FU with Cardiology upon discharge (3) Elevated troponin: Likely demand ischemia 2/2 CHF, HTN Troponin trened down ECHO: no wall motion abnormalities (4) CKD (chronic kidney disease) stage 3, GFR 30-59 ml/min: Cr at baseline monitor renal function (5) HTN (hypertension): Elevated on Presentation BP stable now Continue metoprolol, hydralazine, and losartan Was on amlodipine, but this was recently discontinued due to peripheral edema (6) Permanent atrial fibrillation: Rate controlled Continue metoprolol continue xarelto for anticoagulation (7) Hypothyroidism: continue levothyroxine (8) HLD (hyperlipidemia): continue statin (9) Nocturnal hypoxia: On 2 liters HS (10) DVT prophylaxis: On xarelto Subjective Patient is seen and examined at bedside Feels much better today Eager to get discharged Leg swelling improved Denies chest pain, dyspnea, dizziness, nausea Family at bedside Physical Exam 2 Vital Signs (Past 24 Hours): Last Vital Signs Temp 36.7 C 11/06/18 12:01 Pulse 78 11/06/18 12:01 Resp 20 11/06/18 12:01 BP 108/67 11/06/18 12:01 Pulse Ox 95 11/06/18 12:01 Physical Exam: Physical Exam: Vitals signs as noted above General Appearance:Moderately built and nourished, no apparent distress Head: normocephalic, Atraumatic Eyes: normal inspection, EOMI Neck: supple, Trachea midline Respiratory/Chest: Normal breath sounds, CTA Cardiovascular: Irregularly Irregular, No murmur Abdomen/GI:Soft, Non tender, Bowel sounds present Extremities/Musculoskelatal:normal inspection, 1-1+ b/l le edema Neurologic/Psych:AAOX3, grossly no focal neurological deficits Skin: normal color, warm Results & Data Laboratory Results Short CBC 11/06/18 Range/Units 06:44 WBC 7.08 (4.8-10.8) K/uL Hgb 10.6 L (12.0-16.0) g/dL Hct 33.5 L (37-47) % Plt Count 169 (130-400) K/uL BMP 11/06/18 06:44 Sodium 142 Potassium 3.5 D Chloride 107 Carbon Dioxide 29 BUN 30 H Creatinine 1.17 Glucose 83 Calcium 8.5 Cardiac Enzymes 11/05/18 11/05/18 Range/Units 16:56 21:50 Troponin I 0.041 0.037 (0-0.045) ng/ml Urine 11/05/18 11/06/18 Range/Units 23:49 05:05 Urine Color Cancelled Yellow Urine Appearance Cancelled Clear Urine pH Cancelled 6.5 Ur Specific [place] Cancelled 1.012 Urine Protein Cancelled Negative Urine Glucose (UA) Cancelled Negative Diagnostic Findings CXR: Developing congestive heart failure.
--- NOTE | 2018-11-06 14:44 | Discharge Summary ---
Date of Service November 06, 2018 Admission HPI Per Admitting Provider This is a 78-year-old white female with significant PMH of chronic atrial fibrillation on Xarelto, chronic diastolic CHF, HTN, HLD, CKD stage III, YESICA, GERD, osteoporosis, OA DJD who presents to [facility] secondary to weakness times 1 day. Son and granddaughter at bedside. Patient awoke this morning, feeling very weak but still able to do ADLs. She goes to [facility] twice weekly in which she attempted to attend this morning. While at [facility] she persisted to feel more weak, EMS was summoned and she presented to the ED. Patient has chronic [place], and nocturnal hypoxia in which she wears O2 via NC at bedtime. She has noted increased in swelling in bilateral lower extremities x 1 week. Approximately 3 months ago she had episode of viral bronchitis, but this has since resolved. She denies fever, chills, sweats, lightheadedness, dizziness, syncope, chest pain, shortness of breath at rest, palpitations, hemoptysis, cough, nausea, vomiting, diarrhea, change in bowel habits. Today she noted decrease in urine frequency, denies hematuria, increased urinary urgency. Overall appetite has been normal. She does not monitor her weight on a regular basis; therefore, unsure if notable weight gain. States she has been eating microwavable dinners more frequently. Also of note she recently has not been taking her evening Lasix. Admission Exam Per Admitting Provider Gen: WD/WN, Elderly, F, NAD, on O2 via NC, sitting up in bed, pleasant, conversing easily but dyspneic with conversation Head: Normocephalic, Atraumatic Eyes: Sclera normal, no conjunctival injection, PERRLA, EOMI ENT: Gross hearing intact, normal pharynx, mucous membranes moist Neck: supple, no adenopathy, No JVD, Resp: Bibasilar rales and rhonchi. Normal insp/exp effort, no accessory muscle use on O2 via 2L CV: irregular rate, irregular rhythm, no murmur, rub, gallop, or ectopy Abd: +BS x 4, soft, nontender, nondistended Musculoskeletal: moves extremities active rom x 4, strength intact, good capacity manager strength Extremities: B/L lower ext +2 pitting edema Skin: warm, moist, no rash, negative turgor, cap refill < 2sec Neuro: Alert and oriented x 3, speech normal, good mood/affect, cran nerve 2-12 intact grossly : deferred Principal Diagnosis Discharge Information Discharge Diagnosis Acute Diastolic CHF Exacerbation Discharge Goals Decrease discomfort,Improve disease control, Improve function Discharge Activity Limitations Resume your previous activity Discharge Data Allergies Allergy/AdvReac Type Severity Reaction Status Date / Time quinapril AdvReac Mild H/A Verified 11/05/18 13:13 nifedipine AdvReac Unknown pounding Verified 11/05/18 13:13 headache Consultations 11/05/18 13:48 ED Decision to Admit Stat 11/05/18 14:53 Consult Cardiology Routine 11/05/18 16:58 Consult Case Management - Discharge Planning Routine Procedures Performed CXR: Developing congestive heart failure. ECHO: Patient is in atrial fibrillation during the study Qualitatively left ventricle systolic function is normal with an estimated left ventricular ejection fraction of 60% The right ventricular systolic function is normal Left and right atrium are severely dilated The right ventricular systolic function is normal No significant valvular pathology Hospital Course (1) Acute respiratory failure with hypoxia: (2) Acute on chronic diastolic CHF (congestive heart failure): Chronic respiratory failure: On 2 liters QHS Likely secondary to non-compliance 2/2 nocturnal enuresis CXR: Developing congestive heart failure. ECHO: EF:60%, Left and right atrium severely dilated Received IV lasix Appreciate Cardiology Input Continue I and O; daily weight Counselled on low salt diet and compliance with lasix Needs FU with Cardiology upon discharge (3) Elevated troponin: Likely demand ischemia 2/2 CHF, HTN Troponin trened down ECHO: no wall motion abnormalities (4) CKD (chronic kidney disease) stage 3, GFR 30-59 ml/min: Cr at baseline monitor renal function (5) HTN (hypertension): Elevated on Presentation BP stable now Continue metoprolol, hydralazine, and losartan Was on amlodipine, but this was recently discontinued due to peripheral edema (6) Permanent atrial fibrillation: Rate controlled Continue metoprolol continue xarelto for anticoagulation (7) Hypothyroidism: continue levothyroxine (8) HLD (hyperlipidemia): continue statin (9) Nocturnal hypoxia: On 2 liters HS (10) DVT prophylaxis: On xarelto Total Time Total Time Spent Total Time Spent (In Minutes): 38 minutes Total Time Includes: Examination of the Patient, Discharge Planning, Medication Reconciliation, Communication With Other Providers and Other Discharge Plan Discharge Items Patient Disposition: Home - Self-Care Reason For Visit: ACUTE ON CHRONIC DIASTOLIC CHF Discharge Diagnosis: Acute Diastolic CHF Exacerbation Discharge Goals: Decrease discomfort, Improve disease control and Improve function Activity: Resume your previous activity Non-emergency contact: Primary Care Provider and Cardiac Cath Lab Technologist Call non-emergency contact if: you have any medication questions, your symptoms worsen, your pain is not controlled, your pain is worsening, your pain is unusual for you, your pain is concerning for you and you have a fever Diet: Heart Healthy and Low Sodium (2gm) Addtl Provider Instructions: Follow up with your PCP on 11/11/18 at 12:45pm Follow up with your Cardiac Cath Lab Technologist on 11/18/18 at 10:45AM Seek immediate medical attention if your symptoms reoccur or worsen Call your Primary Care doctor if any of the following symptoms or problems start or get worse: * Shortness of breath or difficulty breathing * Wake up at night short of breath * Chest pain * Cough * Swelling of your hands, feet, or legs * More fatigued or tired with your normal activity * Palpitations - sudden fast heart beats WEIGHT * Weigh yourself every morning after using the bathroom. * Use the same scale. * Wear the same amount of clothing. * Write your weight down on a chart. * Call your Primary Care doctor if you gain more than 2-3 pounds in 1-2 days. MEDICATIONS * Use this discharge instruction sheet for medication instructions. * Take your medications at the time your doctor ordered. * Do not skip a dose of your medicines. * If you miss a dose of medicine, take it as soon as possible, but DO NOT DOUBLE A DOSE. * Read your medicine information when you get home. * Know all of the side effects of your medicine. If in doubt, ask your pharmacist * Call your Primary Care doctor's office if you have any side effects. * Be sure all of your doctors know what medicine and herbs you take (including cold, flu, and herbal medicine). Take the following with you to your follow-up doctor appointments: * Weight Chart * Medication List * List of questions Do not drink excessive alcohol, beer or wine. Prescriptions: Continue atorvastatin 10 mg tablet 10 mg PO HS RF: 0 metoprolol succinate 100 mg tablet extended release 24 hr 100 mg PO BID RF: 0 tramadol 50 mg tablet 50 mg PO BID PRN (Reason: Pain) RF: 0 levothyroxine 75 mcg tablet 75 mg PO SUSA RF: 0 alprazolam 0.5 mg tablet 0.5 mg PO UD PRN (Reason: Anxiety) RF: 0 potassium chloride 20 mEq tablet,ER particles/crystals 20 meq PO TID RF: 0 cyanocobalamin (vitamin B-12) [Vitamin B-12] 500 mcg Tablet 500 mcg PO QAM RF: 0 levothyroxine 50 mcg tablet 50 mcg PO MOTUWETHFR RF: 0 hydralazine 50 mg tablet 50 mg PO TID RF: 0 digoxin [Digox] 125 mcg tablet 125 mcg PO Q2D RF: 0 furosemide 20 mg tablet 30 mg PO QAM RF: 0 furosemide 20 mg tablet 20 mg PO PM RF: 0 losartan 100 mg tablet 100 mg PO QAM RF: 0 cholecalciferol (vitamin D3) [Vitamin D3] 1,000 unit Capsule 1,000 unit PO QAM RF: 0 rivaroxaban [Xarelto] 15 mg tablet 15 mg PO QAM RF: 0 Visit Report Forms: My [facility] Stand-Alone Forms: [facility] Discharge Orders: Discharge Order (Routine); Ordered 11/06/18 Ordered By: Berto Romero Admission Data Admit Date/Time: 11/05/18 14:53 Attending Provider: Berto Romero Admit Provider: Guillermo Luna Primary Care Provider: Donna Tate Other Providers: Diego Rod ; Guillermo Luna ; Yuri Pino Service: Telemetry Medical Other Pending Studies at Discharge: No
[2018-11-06] MEDS ORDERED: DIGOXIN 0.125 MG TAB PO SCH (16:00)
[2018-11-06] MEDS ORDERED: RIVAROXABAN 15 MG TAB PO SCH (16:30)
[2018-11-06] MEDS ORDERED: FUROSEMIDE 40 MG TAB PO SCH (17:00)
[2018-11-09] MEDS ORDERED: LEVOTHYROXINE SODIUM 75 MCG TABLET PO SCH (06:30)
== END 2018-11-06 15:26 | disposition home or self-care (01) | DRG 291 ==
LOC: ED 11:22 → SUATTDRO 14:53 → 2N 14:53

== ENCOUNTER 2020-09-11 20:28 | Inpatient (IN) ==
--- NOTE | 2020-09-11 20:51 | Emergency Department Note ---
Impression & Plan Unwitnessed fall, Elevated troponin, CKD (chronic kidney disease), Closed fracture of right anterior superior iliac spine, Closed fracture of right anterior inferior iliac spine ED Provider Note NAME: RADHA RAYA AGE: 80 SEX: F ARRIVES VIA: Walk-In INFORMANT: Patient, ED PROVIDER(S): Jai Bose MD CHIEF COMPLAINT: Fall PLAN: Disposition: Admit MEDICAL DECISION MAKING: The patient is an 80-year-old woman with a past medical history of A. fib on Xarelto, GERD, diastolic heart failure, CKD presents emergency department from home after being found down on the ground by her niece where there is question of whether she had been there for several hours though the patient reports she fell just prior to her knees finding her. However she is a poor historian and frequently forgets details. For instance, while she did tell me that her niece found her she also told me that she had called for help but then had to clarify that. Then I asked her if her niece was coming to the hospital and she replied that once she becomes aware that she is here despite the fact that she had told me that her niece had found her initially. The patient does feel as though she tripped on a rug it is unclear if this is a reliable report of what occurred. The patient's son arrived at the bedside and does report that her memory has b een poor recently and does not remember details. He is aware that the patient's niece called the patient and when she did not bean picker the phone grew concerned and that is why she went to her home where she found her down on the ground. He reports the patient's niece thought she had been down for hours given that her mouth was dry and cracked and the several hours that transpired from her initial phone call to finding her. He is not aware of any recent illnesses including fevers, chills, cough, congestion, nausea, vomiting, diarrhea, urinary symptoms. On arrival the patient is pleasantly confused but alert to self and place, no acute distress, afebrile stable vital signs. The patient's main complaint is pain in both elbows. However, she is able to fully range her elbows without difficulty including pronation and supination. She has no midline CT L-spine tenderness to palpation or step-offs. Does have mild right lateral thoracic/posterior lateral chest wall tenderness without bony crepitus. She moves all extremities equally with generalized weakness with 4+/5 strength. Flexion of the right hip and knee however are slightly more uncomfortable for the patient, or there is no overt shortening. Distal PMS intact. Pelvis is grossly stable. EKG demonstrates frequent PVCs without overt acute ischemia. Chest x-ray with question of possible right sided rib fractures with no overt pneumothorax. Otherwise, plain films of the bilateral elbows, pelvis, right knee without overt fracture per my preliminary review. WBC 13.6, nonspecific. H/H and platelets within normal limits. Chemistry without acidosis. Creatinine 1.5 within prior range of values in the setting of CKD. Total bilirubin 1.3, nonspecific. AST 176, also nonspecific given no abdominal pain. Troponin is slightly elevated at 0.279 which is likely related to demand in the patient in the setting of the patient's CKD and CHF. CT of the C-spine was negative for acute process. CT of the head with equivocal cortical finding where it is difficult to exclude trace left convexity subarachnoid hemorrhage. I did review the findings with the patient and her son at the bedside. After extensive discussion and the son reviewing this with his brother who was waiting in the parking lot they agreed that they would like to clarify if this is indeed a true subarachnoid hemorrhage and if it is and the recommendation is for transfer then they would agree to this. Given the patient's right chest wall tenderness on reevaluation we did order a CT of the chest and abdomen pelvis. This demonstrated right iliac bone fractures involving the superior and inferior iliac spines with surrounding soft tissue edema. CT of the chest per preliminary stat report identifies age- indeterminate fractures of the left anterior second and third ribs. Patient for likely acute left sixth anterior rib fracture and possibly left fifth anterior rib fracture. No pneumothorax. A Delta 3-hour CT head was ordered to further clarify her previous left cerebral convexity finding. I did review these results with Dr. Grande, [facility] radiologist, and repeat CT findings further clarified that previous finding is not consistent with blood/SAH. Favors vascular malformation or chronic parenchymal calcification. Thus, reasonable to admit the patient here to [facility] for further management including likely orthopedic consultation, and PT/OT. Patient and son were agreeable with plan. Case was discussed with Dr. Rose, [facility] hospitalist, who will evaluate the patient for admission. Triage Nursing notes reviewed and agree them. Prior medical records reviewed Vital Signs: reviewed and remarkable for no significant abnormalities Differential diagnosis: Fracture, dislocation, contusion, intra-abdominal, pneumothorax, intrathoracic, intracranial, neurologic, compartment syndrome, rhabdomyolysis, as well as other pathologies. ER treatment provided: See below. Diagnostics interpreted by me: ECG: Sinus rhythm with first-degree AV block with frequent PVCs, 90 bpm, nonsp ecific TW abnormality no overt ST elevation or depression. Cardiac Monitoring: An order for continuous cardiac monitoring was placed and demonstrated An order for continuous cardiac monitoring was placed and demonstrated Sinus rhythm with first-degree AV block with frequent PVCs, 90 bpm. Laboratory studies: See below Imaging studies: CXR and right rib series: question of possible right sided rib fractures with no overt pneumothorax per my preliminary review. XR bilateral elbows, pelvis, right knee: No overt fracture per my preliminary review. [facility] Preliminary Findings Only See Final Report For Complete Findings CT HEAD: Difficult to exclude trace left convexity subarachnoid hemorrhage axial 21 and 22 No calvarial fracture or mass effect Ventricles are within limits and midline Chronic and involutional changes Visualized paranasal sinuses, mastoids and orbits appear within limits Radiologist: Shady Cox M.D. Study ready at 21:38 and initial results transmitted at 22:00 -- Preliminary Findings Only See Final Report For Complete Findings CT C SPINE: No fracture or malalignment Accentuated cervical lordosis may represent positioning No evidence of prevertebral swelling Multilevel spondylosis/discogenic change Radiologist: Shady Cox M.D. Study ready at 21:48 and initial results transmitted at 21:59 -- Preliminary Findings Only See Final Report For Complete Findings CT ABDOMEN & PELVIS Without Contrast: Right iliac bone fractures involving the superior and inferior iliac spines Surrounding soft tissue swelling. No dislocation. L4 and L5 spinous process fractures, age-indeterminate. Degenerative changes of the spine. Mild anterolisthesis of L4 on 5, degenerative changes. No evidence of acute internal traumatic injury on somewhat limited noncontrast evaluation. Mild basilar atelectasis. Small hiatal hernia. Gallstone. Right renal isodense lesions, not adequately characterized. Bilateral adrenal adenomas. Normal appendix. Fat-containing umbilical hernia. Radiologist: Brent Grande M.D. -- Preliminary Findings Only See Final Report For Complete Findings CT HEAD: Prior 09/11/20 2137 hrs. No evidence of acute intracranial abnormality or skull fracture. Thinner cut images obtained in axial, coronal and sagittal. Minimal curvilinear hyperdensity in the left frontoparietal region favored to the vascular etiology or chronic parenchymal calcification rather than subarachnoid hemorrhage. Volume loss and small vessel disease. Radiologist: Brent Grande M.D. Study ready at 01:12 and initial results transmitted at 01:20 Communications: Clear Time Type Notes 09/12/20 01:22 Call Doctor Regarding Above results, called Dr. Bose on 01:22 (-05:00) Consultation(s): Dr. Rose, [facility] hospitalist. HPI: The patient is an 80-year-old woman with a past medical history of A. fib on Xarelto, GERD, diastolic heart failure, CKD presents emergency department from home after being found down on the ground by her niece where there is question of whether she had been there for several hours though the patient reports she fell just prior to her knees finding her. However she is a poor historian and frequently forgets details. For instance, while she did tell me that her niece found her she also told me that she had called for help but then had to clarify that. Then I asked her if her niece was coming to the hospital and she replied that once she becomes aware that she is here despite the fact that she had told me that her niece had found her initially. Patient's son is at the bedside and does report that her memory has been poor recently and does not remember details. He is aware that the patient's niece called the patient and when she did not bean picker the phone grew concerned and that is why she went to her home where she found her down on the ground. He reports the patient's niece thought she had been down for hours given that her mouth was dry and cracked and the several hours that transpired from her initial phone call to finding her. He is not aware of any recent illnesses including fevers, chills, cough, congestion, nausea, vomiting, diarrhea, urinary symptoms. ROS: See above HPI for pertinent positives & negatives. A total of 10 systems reviewed and were otherwise negative. PAST MEDICAL HISTORY:See Below PAST SURGICAL HISTORY:See Below FAMILY HISTORY:See Below SOCIAL HISTORY:See Below HOME MEDICATIONS:See Below ALLERGIES:See Below VITALS:See Below PHYSICAL EXAMINATION: GENERAL: Awake, alert, pleasantly confused, fatigued-appearing, in no distress HENT: Normocephalic, atraumatic. Oropharynx unremarkable. EYES: Normal conjunctiva. Sclera non-icteric. NECK: Supple. No nuchal rigidity. FROM. No JVD. RESPIRATORY: Clear to auscultation. CARDIAC: Regular rate, normal rhythm. Extremities warm and well perfused. Pulses equal. ABDOMEN: Soft, non-distended. No tenderness to palpation. No rebound or guarding. No masses. RECTAL: Deferred. MUSCULOSKELETAL: Elbows with FROM without difficulty including pronation and nieto pination. No midline CTL-spine tenderness to palpation or step-offs. Mild right lateral thoracic/posterior lateral chest wall tenderness without bony crepitus. Flexion of the right hip and knee with mild discomfort. No overt shortening. Distal PMS intact. Pelvis is grossly stable. There is no CVA tenderness to palpation. No joint edema. LOWER EXTREMITIES: Calves are equal size bilaterally and non-tender. No edema. No discoloration. NEURO: Pleasantly confused but alert to self and place. Moves all extremities equally with generalized weakness with 4+/5 strength. SKIN: No rash or jaundice noted. Jai Bose MD Past Med/Surg History Medical History Atrial fibrillation Chronic diastolic (congestive) heart failure CKD (chronic kidney disease) stage 3, GFR 30-59 ml/min COPD (chronic obstructive pulmonary disease) YESICA (generalized anxiety disorder) GERD (gastroesophageal reflux disease) HLD (hyperlipidemia) HTN (hypertension) Hypothyroidism Osteoporosis Permanent atrial fibrillation Surgical History History of nasal polypectomy History of total left knee replacement (TKR) Hx of fracture of radius Family History Mother Diabetes Hypertension Father Hypertension Coronary heart disease Social History Smoking Status: Former smoker Second Hand Exposure: Yes ( was smoker); Hx Alcohol Use: No Hx Substance Use: No Preferred Language: Italian Communication Ability: Effective Valance Cutter Required: No Beliefs That Will Affect Care: None marital status: / Current Living Situation: Alone current occupational status: retired Feels Safe at Home: Yes Assistive Devices: Cane and Oxygen - Continuous Allergies Allergies Allergy/AdvReac Type Severity Reaction Status Date / Time quinapril AdvReac Mild H/A Verified 09/11/20 21:39 nifedipine AdvReac Unknown pounding Verified 09/11/20 21:39 headache Home Meds Home Medications Medication Instructions Recorded Confirmed alprazolam 0.5 mg PO UD PRN 11/05/18 09/11/20 atorvastatin 10 mg PO HS 11/05/18 09/11/20 cholecalciferol (vitamin D3) 1,000 unit PO QAM 11/05/18 09/11/20 [Vitamin D3] cyanocobalamin (vitamin B-12) 500 mcg PO QAM 11/05/18 09/11/20 [Vitamin B-12] digoxin 125 mcg PO Q2D 11/05/18 09/11/20 furosemide 20 mg PO QAM 11/05/18 09/11/20 hydralazine 50 mg PO BID 11/05/18 09/11/20 levothyroxine 75 mg PO DAILY 11/05/18 09/11/20 losartan 100 mg PO QAM 11/05/18 09/11/20 metoprolol succinate 100 mg PO BID 11/05/18 09/11/20 potassium chloride 40 meq PO QAM 11/05/18 09/11/20 rivaroxaban 15 mg PO DAILY 11/05/18 09/11/20 tramadol 50 mg PO DAILY PRN 11/05/18 09/11/20 camphor-menthol [Icy Hot Advanced 1 applic TOPICAL UD 09/11/20 09/11/20 Relief] ferrous sulfate 325 mg PO DAILY 09/11/20 09/11/20 furosemide [Lasix] 40 mg PO BID 09/11/20 09/11/20 potassium chloride [Klor-Con M20] 20 meq PO .DAILY UD 09/11/20 09/11/20 Results & Data (ED) Vital Signs Vital Signs - 24 hr 09/11/20 20:30 09/11/20 20:48 09/11/20 22:31 Temperature 36.6 C Temperature Source Oral Pulse Rate 92 H 102 H Pulse Rate from SpO2 Sensor 85 Pulse Rhythm Regular Pulse Strength Normal Respiratory Rate 20 22 Respiratory Effort / Characteristics Non-Labored Spontaneous Respiratory Depth Normal Respiratory Pattern Regular Blood Pressure 170/74 H 166/99 H Blood Pressure Mean 106 140 Pulse Oximetry 93 91 Oxygen Delivery Method Nasal Cannula Room Air Nasal Cannula Oxygen Flow Rate 2.5 3 Sepsis Recent Fever Within 48 Hours No Sepsis New/Unexplained Change in Mental Status N/A Sepsis Action Taken by Nursing No Action Required Oxygen Flow Rate - Titration Pulse Oximetry Post Tiitration 09/11/20 22:59 09/11/20 23:00 09/11/20 23:30 Temperature Temperature Source Pulse Rate 97 H 98 H Pulse Rate from SpO2 Sensor 97 H 100 H Pulse Rhythm Pulse Strength Respiratory Rate 25 H 23 Respiratory Effort / Characteristics Respiratory Depth Respiratory Pattern Blood Pressure 173/94 H 163/90 H Blood Pressure Mean 118 110 Pulse Oximetry 88 L 93 93 Oxygen Delivery Method Nasal Cannula Nasal Cannula Nasal Cannula Oxygen Flow Rate 3 4 4 Sepsis Recent Fever Within 48 Hours Sepsis New/Unexplained Change in Mental Status Sepsis Action Taken by Nursing Oxygen Flow Rate - Titration 4 Pulse Oximetry Post Tiitration 94 09/12/20 00:00 09/12/20 00:30 09/12/20 01:00 Temperature Temperature Source Pulse Rate 91 H 89 93 H Pulse Rate from SpO2 Sensor 91 H 89 94 H Pulse Rhythm Pulse Strength Respiratory Rate 21 19 20 Respiratory Effort / Characteristics Respiratory Depth Respiratory Pattern Blood Pressure 143/76 H 117/63 142/71 H Blood Pressure Mean 115 76 100 Pulse Oximetry 93 92 90 Oxygen Delivery Method Nasal Cannula Nasal Cannula Nasal Cannula Oxygen Flow Rate 4 4 4 Sepsis Recent Fever Within 48 Hours Sepsis New/Unexplained Change in Mental Status Sepsis Action Taken by Nursing Oxygen Flow Rate - Titration Pulse Oximetry Post Tiitration 09/12/20 01:30 09/12/20 03:00 Temperature Temperature Source Pulse Rate 86 89 Pulse Rate from SpO2 Sensor 85 Pulse Rhythm Pulse Strength Respiratory Rate 24 24 Respiratory Effort / Characteristics Respiratory Depth Respiratory Pattern Blood Pressure 123/61 131/66 Blood Pressure Mean 77 89 Pulse Oximetry 94 91 Oxygen Delivery Method Nasal Cannula Oxygen Flow Rate 4 Sepsis Recent Fever Within 48 Hours Sepsis New/Unexplained Change in Mental Status Sepsis Action Taken by Nursing Oxygen Flow Rate - Titration Pulse Oximetry Post Tiitration Laboratory Data Attestation: I reviewed the patient's lab results. Result diagrams: 09/11/20 21:15 09/11/20 21:15 Lab Results 09/11/20 09/11/20 09/11/20 Range/Units 21:15 21:15 21:15 WBC 13.62 H (4.8-10.8) K/uL RBC 4.71 (4.2-5.4) M/uL Hgb 12.8 (12.0-16.0) g/dL Hct 39.9 (37-47) % MCV 84.7 (80-100) fL MCH 27.2 (25-34) pg MCHC 32.1 (32-36) g/dL RDW Std Deviation 46.3 (36.4-46.3) fL RDW Coeff of Sandie 14.9 H (11.5-14.5) % Plt Count 288 (130-400) K/uL MPV 9.6 (7.4-10.4) fL Immature Gran % (Auto) 0.4 % Neut % (Auto) 87.0 % Lymph % (Auto) 5.3 % Henry % (Auto) 7.1 % Eos % (Auto) 0.1 % Baso % (Auto) 0.1 % Neut # (Auto) 11.86 H (1.4-6.5) K/uL Lymph # (Auto) 0.72 L (1.2-3.4) K/uL Henry # (Auto) 0.97 H (0.11-0.59) K/uL Eos # (Auto) 0.01 (0-0.5) K/uL Baso # (Auto) 0.01 (0-0.2) K/uL Immature Gran # (Auto) 0.05 H (0.00-0.02) K/uL PT 10.7 (9.0-12.0) Seconds INR 1.0 (0.9-1.1) APTT 23.7 (21.0-31.0) Seconds PTT Ratio 0.8 Sodium 143 (136-145) mmol/L Potassium 4.1 (3.5-5.1) mmol/L Chloride 108 H (98-107) mmol/L Carbon Dioxide 29 (21-32) mmol/L Anion Gap 5.0 (3-11) BUN 34 H (7-18) mg/dl Creatinine 1.56 H (0.6-1.2) mg/dl Est Cr Clr Drug Dosing 24.6 ml/min Est GFR ( Amer) 35.5 Est GFR (Non-Af Amer) 30.6 BUN/Creatinine Ratio 22.0 H (10-20) Glucose 120 H (70-99) mg/dl Calcium 10.1 (8.5-10.1) mg/dl Phosphorus 2.6 (2.5-4.9) mg/dl Magnesium 2.3 (1.8-2.4) mg/dl Total Bilirubin 1.3 H (0.2-1) mg/dl AST 176 H (15-37) U/L ALT 53 (12-78) U/L Alkaline Phosphatase 73 (45-117) U/L Troponin I 0.279 H* (0-0.045) ng/ml Total Protein 7.2 (6.4-8.2) gm/dl Albumin 3.3 L (3.4-5.0) gm/dl Globulin 3.9 (2.5-4.0) gm/dl Albumin/Globulin Ratio 0.8 L (0.9-2) Lipase 225 (73-393) U/L Procalcitonin (0-0.5) ng/ml TSH 3.080 (0.300-4.500) uIu/ml COVID-19 Eval Order Influ A Molecular Assay (Negative) Influ B Molecular Assay (Negative) SARS-CoV-2, RNA, NAAT (NEGATIVE) 09/11/20 09/12/20 09/12/20 Range/Units 21:15 01:50 01:50 WBC (4.8-10.8) K/uL RBC (4.2-5.4) M/uL Hgb (12.0-16.0) g/dL Hct (37-47) % MCV (80-100) fL MCH (25-34) pg MCHC (32-36) g/dL RDW Std Deviation (36.4-46.3) fL RDW Coeff of Sandie (11.5-14.5) % Plt Count (130-400) K/uL MPV (7.4-10.4) fL Immature Gran % (Auto) % Neut % (Auto) % Lymph % (Auto) % Henry % (Auto) % Eos % (Auto) % Baso % (Auto) % Neut # (Auto) (1.4-6.5) K/uL Lymph # (Auto) (1.2-3.4) K/uL Henry # (Auto) (0.11-0.59) K/uL Eos # (Auto) (0-0.5) K/uL Baso # (Auto) (0-0.2) K/uL Immature Gran # (Auto) (0.00-0.02) K/uL PT (9.0-12.0) Seconds INR (0.9-1.1) APTT (21.0-31.0) Seconds PTT Ratio Sodium (136-145) mmol/L Potassium (3.5-5.1) mmol/L Chloride (98-107) mmol/L Carbon Dioxide (21-32) mmol/L Anion Gap (3-11) BUN (7-18) mg/dl Creatinine (0.6-1.2) mg/dl Est Cr Clr Drug Dosing ml/min Est GFR ( Amer) Est GFR (Non-Af Amer) BUN/Creatinine Ratio (10-20) Glucose (70-99) mg/dl Calcium (8.5-10.1) mg/dl Phosphorus (2.5-4.9) mg/dl Magnesium (1.8-2.4) mg/dl Total Bilirubin (0.2-1) mg/dl AST (15-37) U/L ALT (12-78) U/L Alkaline Phosphatase (45-117) U/L Troponin I (0-0.045) ng/ml Total Protein (6.4-8.2) gm/dl Albumin (3.4-5.0) gm/dl Globulin (2.5-4.0) gm/dl Albumin/Globulin Ratio (0.9-2) Lipase (73-393) U/L Procalcitonin 0.22 (0-0.5) ng/ml TSH (0.300-4.500) uIu/ml COVID-19 Eval [facility] A Molecular Assay (Negative) Influ B Molecular Assay (Negative) SARS-CoV-2, RNA, NAAT NEGATIVE (NEGATIVE) 09/12/20 Range/Units 02:15 WBC (4.8-10.8) K/uL RBC (4.2-5.4) M/uL Hgb (12.0-16.0) g/dL Hct (37-47) % MCV (80-100) fL MCH (25-34) pg MCHC (32-36) g/dL RDW Std Deviation (36.4-46.3) fL RDW Coeff of Sandie (11.5-14.5) % Plt Count (130-400) K/uL MPV (7.4-10.4) fL Immature Gran % (Auto) % Neut % (Auto) % Lymph % (Auto) % Henry % (Auto) % Eos % (Auto) % Baso % (Auto) % Neut # (Auto) (1.4-6.5) K/uL Lymph # (Auto) (1.2-3.4) K/uL Henry # (Auto) (0.11-0.59) K/uL Eos # (Auto) (0-0.5) K/uL Baso # (Auto) (0-0.2) K/uL Immature Gran # (Auto) (0.00-0.02) K/uL PT (9.0-12.0) Seconds INR (0.9-1.1) APTT (21.0-31.0) Seconds PTT Ratio Sodium (136-145) mmol/L Potassium (3.5-5.1) mmol/L Chloride (98-107) mmol/L Carbon Dioxide (21-32) mmol/L Anion Gap (3-11) BUN (7-18) mg/dl Creatinine (0.6-1.2) mg/dl Est Cr Clr Drug Dosing ml/min Est GFR ( Amer) Est GFR (Non-Af Amer) BUN/Creatinine Ratio (10-20) Glucose (70-99) mg/dl Calcium (8.5-10.1) mg/dl Phosphorus (2.5-4.9) mg/dl Magnesium (1.8-2.4) mg/dl Total Bilirubin (0.2-1) mg/dl AST (15-37) U/L ALT (12-78) U/L Alkaline Phosphatase (45-117) U/L Troponin I (0-0.045) ng/ml Total Protein (6.4-8.2) gm/dl Albumin (3.4-5.0) gm/dl Globulin (2.5-4.0) gm/dl Albumin/Globulin Ratio (0.9-2) Lipase (73-393) U/L Procalcitonin (0-0.5) ng/ml TSH (0.300-4.500) uIu/ml COVID-19 Eval Order Influ A Molecular Assay Negative (Negative) Influ B Molecular Assay Negative (Negative) SARS-CoV-2, RNA, NAAT (NEGATIVE) Administered Medications Discontinued Medications Acetaminophen (Ofirmev) 1,000 mg in 100 mls @ 400 mls/hr IV NOW STA Stop: 09/11/20 23:25 Last Infusion: 09/11/20 23:56 Dose: 0 mls/hr Documented by: [id number] Admin: 09/11/20 23:40 Dose: 400 mls/hr Documented by: [id number] Discharge Plan Visit Data Chief Complaint: Fall Stated Complaint: FALL X2 TODAY ED Provider: Jai Bose Discharge Problem: Unwitnessed fall, Elevated troponin, CKD (chronic kidney disease), Closed fracture of right anterior superior iliac spine, Closed fracture of right anterior inferior iliac spine Forms Stand Alone Forms: My [facility] Prescriptions Prescriptions: No Action atorvastatin 10 mg tablet 10 mg PO HS RF: 0 metoprolol succinate 100 mg tablet extended release 24 hr 100 mg PO BID RF: 0 tramadol 50 mg tablet 50 mg PO DAILY PRN (Reason: Pain) RF: 0 levothyroxine 75 mcg tablet 75 mg PO DAILY RF: 0 alprazolam 0.5 mg tablet 0.5 mg PO UD PRN (Reason: Anxiety) RF: 0 potassium chloride 20 mEq tablet,ER particles/crystals 40 meq PO QAM RF: 0 cyanocobalamin (vitamin B-12) [Vitamin B-12] 500 mcg Tablet 500 mcg PO QAM RF: 0 hydralazine 50 mg tablet 50 mg PO BID RF: 0 digoxin 125 mcg tablet 125 mcg PO Q2D RF: 0 furosemide 20 mg tablet 20 mg PO QAM RF: 0 losartan 100 mg tablet 100 mg PO QAM RF: 0 cholecalciferol (vitamin D3) [Vitamin D3] 1,000 unit Capsule 1,000 unit PO QAM RF: 0 rivaroxaban 15 mg tablet 15 mg PO DAILY RF: 0 furosemide [Lasix] 40 mg tablet 40 mg PO BID RF: 0 potassium chloride [Klor-Con M20] 20 mEq tablet,ER particles/crystals 20 meq PO .DAILY UD RF: 0 ferrous sulfate 325 mg (65 mg iron) Tablet 325 mg PO DAILY RF: 0 Icy Hot Advanced Relief 11-16 % Cream 1 applic TOPICAL UD RF: 0 Discharge Problem: CKD (chronic kidney disease) Qualifiers: Chronic kidney disease stage: unspecified stage Qualified Code(s): N18.9 - Chronic kidney disease, unspecified Closed fracture of right anterior superior iliac spine Qualifiers: Encounter type: initial encounter Qualified Code(s): S32.391A - Other fracture of right ilium, initial encounter for closed fracture Closed fracture of right anterior inferior iliac spine Qualifiers: Encounter type: initial encounter Qualified Code(s): S32.391A - Other fracture of right ilium, initial encounter for closed fracture
[2020-09-11 21:28] LABS: Basophils # (auto) 0.01 K/uL (0-0.2); Basophils % (auto) 0.1 %; Eosinophils # (auto) 0.01 K/uL (0-0.5); Eosinophils % (auto) 0.1 %; Hematocrit (blood only) 39.9 % (37-47); Hemoglobin 12.8 g/dL (12.0-16.0); Immature Granulocytes # (auto) 0.05 K/uL (0.00-0.02); Immature Granulocytes % (auto) 0.4 %; Lymphocytes # (auto) 0.72 K/uL (1.2-3.4); Lymphocytes % (auto) 5.3 %; Mean Corpuscular Hemoglobin 27.2 pg (25-34); Mean Corpuscular Hgb Conc 32.1 g/dL (32-36); Mean Corpuscular Volume 84.7 fL (80-100); Mean Platelet Volume 9.6 fL (7.4-10.4); Monocytes # (auto) 0.97 K/uL (0.11-0.59); Monocytes % (auto) 7.1 %; Neutrophils # (auto) 11.86 K/uL (1.4-6.5); Platelet Count 288 K/uL (130-400); RDW Coefficient of Variation 14.9 % (11.5-14.5); RDW Standard Deviation 46.3 fL (36.4-46.3); Red Blood Count 4.71 M/uL (4.2-5.4); White Blood Count 13.62 K/uL (4.8-10.8)
[2020-09-11 21:40] LABS: Partial Thromboplastin Ratio 0.8; Partial Thromboplastin Time 23.7 Seconds (21.0-31.0); Prothrombin Time 10.7 Seconds (9.0-12.0)
[2020-09-11 21:46] LABS: Albumin Level 3.3 gm/dl (3.4-5.0); Calcium 10.1 mg/dl (8.5-10.1); Creatinine Clr Calc Pharmacy 24.6 ml/min; Est GFR (African American) 35.5; Est GFR (Non-African American) 30.6; Magnesium 2.3 mg/dl (1.8-2.4); Potassium 4.1 mmol/L (3.5-5.1)
[2020-09-11 22:05] LABS: Albumin Globulin Ratio 0.8 (0.9-2); Bilirubin,Total 1.3 mg/dl (0.2-1); Globulin 3.9 gm/dl (2.5-4.0); Phosphorus 2.6 mg/dl (2.5-4.9); Thyroid Stimulating Hormone 3.08 uIu/ml (0.300-4.500); Total Protein 7.2 gm/dl (6.4-8.2); Troponin I 0.279 ng/ml (0-0.045)
[2020-09-11] MEDS ORDERED: ACETAMINOPHEN 1,000 MG/100 ML VIAL IV STA (23:11)
--- NOTE | 2020-09-12 02:44 | History & Physical Report ---
Date of Service September 12, 2020 Assessment & Plan (1) Acute on chronic respiratory failure with hypoxemia: History chronic respiratory failure on home O2 Secondary to traumatic rib fracture left ARF on CKD secondary to traumatic rhabdomyolysis Lip asymmetry ? unknown duration rule out CVA Transient encephalopathy secondary to illness rule out UTI chronic diastolic heart failure as per records, patient on the dry side A. fib on Xarelto hypertension, slight elevated Traumatic pelvic fracture secondary to mechanical fall prediabetes as per records, hemoglobin A1c of 5.30 June 2020 Medical telemetry Supplemental O2 Baseline ABG Analgesia, Lidoderm patch for rib fracture, encourage incentive spirometry Baseline UA, monitor creatinine, CPK response to IVF Appropriate to hold losartan and home diuretic until creatinine back to baseline Neurochecks for now until stroke ruled out, MRI/MRA brain RE lip asymmetry Orthopedics consult Re: Pelvic fracture PT OT eval DVT prophylaxis. SCDs for now until official appendicular x-ray results in Resume Xarelto if no bony injury requiring surgery. Full code Patient son requesting updates from providers. Mr. Fuentes Smith, contact #[phone]. Text document was generated using [employer] voice recognition software. It may contain grammatical or spelling errors. Kindly contact undersigned for clarification of any documentation item in question. History of Present Illness Chief Complaint: Fall Primary Care Provider: Donna Tate MD History obtained from patient, family, and records. Medical history significant for chronic hypoxemic respiratory failure secondary to nocturnal hypoxemia on home O2, chronic diastolic heart failure as per records, A. fib on Xarelto, hypertension, hyperlipidemia, CRI (baseline creatinine 1.2 ), prediabetes as per records. Last confinement October 2018 for CHF exacerbation. Both legs feeling weak and giving out as per patient. Patient had 2 unwitnessed falls at home yesterday. Appetite not too good the last few days. Was on the ground for a few hours. Patient denies syncope, headache, LOC, S OB. No unusual cough symptoms. Left-sided chest pain without radiation from chest trauma as per patient. Patient also complaining of achy right pelvic pain. Patient a little more confused than usual as per son. Lower lip symmetry somewhat new as per son. O2 sats noted to be 80s on room air at the ER at some point. 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 Allergies Allergy/AdvReac Type Severity Reaction Status Date / Time quinapril AdvReac Mild H/A Verified 09/11/20 21:39 nifedipine AdvReac Unknown pounding Verified 09/11/20 21:39 headache Home Medications Medication Instructions Recorded Confirmed Type alprazolam 0.5 mg PO UD PRN 11/05/18 09/11/20 History atorvastatin 10 mg PO HS 11/05/18 09/11/20 History cholecalciferol (vitamin D3) 1,000 unit PO QAM 11/05/18 09/11/20 History [Vitamin D3] cyanocobalamin (vitamin B-12) 500 mcg PO QAM 11/05/18 09/11/20 History [Vitamin B-12] digoxin 125 mcg PO Q2D 11/05/18 09/11/20 History furosemide 20 mg PO QAM 11/05/18 09/11/20 History hydralazine 50 mg PO BID 11/05/18 09/11/20 History levothyroxine 75 mcg PO DAILY 11/05/18 09/12/20 History losartan 100 mg PO QAM 11/05/18 09/11/20 History metoprolol succinate 100 mg PO BID 11/05/18 09/11/20 History potassium chloride 40 meq PO QAM 11/05/18 09/11/20 History rivaroxaban 15 mg PO DAILY 11/05/18 09/11/20 History tramadol 50 mg PO DAILY PRN 11/05/18 09/11/20 History camphor-menthol [Icy Hot Advanced 1 applic TOPICAL UD 09/11/20 09/11/20 History Relief] ferrous sulfate 325 mg PO DAILY 09/11/20 09/11/20 History furosemide [Lasix] 40 mg PO BID 09/11/20 09/11/20 History potassium chloride [Klor-Con M20] 20 meq PO .DAILY UD 09/11/20 09/11/20 History Past Med/Surg History Medical History (Updated 09/12/20 @ 11:50 by Bina Jules PA-C) Atrial fibrillation Chronic diastolic (congestive) heart failure CKD (chronic kidney disease) stage 3, GFR 30-59 ml/min COPD (chronic obstructive pulmonary disease) YESICA (generalized anxiety disorder) GERD (gastroesophageal reflux disease) HLD (hyperlipidemia) HTN (hypertension) Hypothyroidism Osteoporosis Permanent atrial fibrillation Surgical History History of nasal polypectomy History of total left knee replacement (TKR) Hx of fracture of radius Family History Mother Diabetes Hypertension Father Hypertension Coronary heart disease Social History Smoking Status: Never smoker Second Hand Exposure: Yes ( was smoker); Hx Alcohol Use: No Hx Substance Use: No Preferred Language: Welsh Communication Ability: Effective Nurse Technician Required: No Beliefs That Will Affect Care: None marital status: / Current Living Situation: Alone current occupational status: retired Feels Safe at Home: Yes Safety Concerns: Feels Safe At This Time Assistive Devices: Cane, Denture - Upper, Glasses and Oxygen - Continuous Review of Systems Review of Systems: As per HPI, all 10 systems reviewed, all other ROS negative Physical Exam Physical Exam: GENERAL: Comfortable, wane, no respiratory distress SKIN: Pallor , warm HEENT: [place] palpebral conjunctivae, no ptosis, dry buccal mucosa, lip asymmetry (new as per patient son), nasal cannula in place NECK : Supple, no tenderness CHEST : Decreased breath sounds, tenderness left chest wall HEART : RRR, no obvious murmurs ABDOMEN: Some distention, nontender EXTREMITIES : Chronic LE swelling (R greater than the left), right hip tenderness, no other conspicuous deformities noted NEUROLOGIC : Coherent, lip asymmetry more pronounced during speech, gait and stance not assessed Results & Data Results & Data ([facility]) Vital Signs (Past 12 Hours) Vital Signs Temp Pulse Resp BP Pulse Ox 09/12/20 01:30 86 24 123/61 94 09/12/20 01:00 93 H 20 142/71 H 90 09/12/20 00:30 89 19 117/63 92 09/12/20 00:00 91 H 21 143/76 H 93 09/11/20 23:30 98 H 23 163/90 H 93 09/11/20 23:00 97 H 25 H 173/94 H 93 09/11/20 22:59 88 L 09/11/20 22:31 102 H 22 166/99 H 91 09/11/20 20:30 36.6 C 92 H 20 170/74 H 93 Laboratory Results Laboratory Results WBC 13.62 K/uL (4.8-10.8) H 09/11/20 21:15 RBC 4.71 M/uL (4.2-5.4) 09/11/20 21:15 Hgb 12.8 g/dL (12.0-16.0) 09/11/20 21:15 Hct 39.9 % (37-47) 09/11/20 21:15 MCV 84.7 fL (80-100) 09/11/20 21:15 MCH 27.2 pg (25-34) 09/11/20 21:15 MCHC 32.1 g/dL (32-36) 09/11/20 21:15 RDW Std Deviation 46.3 fL (36.4-46.3) 09/11/20 21:15 RDW Coeff of Sandie 14.9 % (11.5-14.5) H 09/11/20 21:15 Plt Count 288 K/uL (130-400) 09/11/20 21:15 MPV 9.6 fL (7.4-10.4) 09/11/20 21:15 Immature Gran % (Auto) 0.4 % 09/11/20 21:15 Neut % (Auto) 87.0 % 09/11/20 21:15 Lymph % (Auto) 5.3 % 09/11/20 21:15 Esmeralda % (Auto) 7.1 % 09/11/20 21:15 Eos % (Auto) 0.1 % 09/11/20 21:15 Baso % (Auto) 0.1 % 09/11/20 21:15 Neut # (Auto) 11.86 K/uL (1.4-6.5) H 09/11/20 21:15 Lymph # (Auto) 0.72 K/uL (1.2-3.4) L 09/11/20 21:15 Esmeralda # (Auto) 0.97 K/uL (0.11-0.59) H 09/11/20 21:15 Eos # (Auto) 0.01 K/uL (0-0.5) 09/11/20 21:15 Baso # (Auto) 0.01 K/uL (0-0.2) 09/11/20 21:15 Immature Gran # (Auto) 0.05 K/uL (0.00-0.02) H 09/11/20 21:15 PT 10.7 Seconds (9.0-12.0) 09/11/20 21:15 INR 1.0 (0.9-1.1) 09/11/20 21:15 APTT 23.7 Seconds (21.0-31.0) 09/11/20 21:15 PTT Ratio 0.8 09/11/20 21:15 Sodium 143 mmol/L (136-145) 09/11/20 21:15 Potassium 4.1 mmol/L (3.5-5.1) 09/11/20 21:15 Chloride 108 mmol/L (98-107) H 09/11/20 21:15 Carbon Dioxide 29 mmol/L (21-32) 09/11/20 21:15 Anion Gap 5.0 (3-11) 09/11/20 21:15 BUN 34 mg/dl (7-18) H 09/11/20 21:15 Creatinine 1.56 mg/dl (0.6-1.2) H 09/11/20 21:15 Est Cr Clr Drug Dosing 24.6 ml/min 09/11/20 21:15 Est GFR ( Amer) 35.5 09/11/20 21:15 Est GFR (Non-Af Amer) 30.6 09/11/20 21:15 BUN/Creatinine Ratio 22.0 (10-20) H 09/11/20 21:15 Glucose 120 mg/dl (70-99) H 09/11/20 21:15 Calcium 10.1 mg/dl (8.5-10.1) 09/11/20 21:15 Phosphorus 2.6 mg/dl (2.5-4.9) 09/11/20 21:15 Magnesium 2.3 mg/dl (1.8-2.4) 09/11/20 21:15 Total Bilirubin 1.3 mg/dl (0.2-1) H 09/11/20 21:15 AST 176 U/L (15-37) H 09/11/20 21:15 ALT 53 U/L (12-78) 09/11/20 21:15 Alkaline Phosphatase 73 U/L (45-117) 09/11/20 21:15 Troponin I 0.279 ng/ml (0-0.045) H* 09/11/20 21:15 Total Protein 7.2 gm/dl (6.4-8.2) 09/11/20 21:15 Albumin 3.3 gm/dl (3.4-5.0) L 09/11/20 21:15 Globulin 3.9 gm/dl (2.5-4.0) 09/11/20 21:15 Albumin/Globulin Ratio 0.8 (0.9-2) L 09/11/20 21:15 Lipase 225 U/L (73-393) 09/11/20 21:15 TSH 3.080 uIu/ml (0.300-4.500) 09/11/20 21:15 [facility] 09/12/20 01:50 SARS-CoV-2, RNA, NAAT NEGATIVE (NEGATIVE) 09/12/20 01:[address] head initial read: No evidence of acute intracranial abnormality or skull fracture. Minimal curvilinear hyperdensity in left frontoparietal region favored to be vascular etiology or chronic parenchymal calcification rather than subarachnoid hemorrhage. Volume loss and small vessel disease. CT cervical spine initial read: No fracture or malalignment. Accentuated cervical lordosis. CT chest initial read: Mild deformity left anterior and second third ribs age-indeterminate. Left 6th anterior rib fracture likely acute. Possible left anterior fifth rib fracture. Minimal anterior wedging midthoracic spine. Exaggerated kyphosis. Chronic changes. Mild atelectasis. No pneumothorax. CT abdomen pelvis initial read: Right iliac bone fracture involving superior and inferior iliac spines with surrounding soft tissue swelling. No dislocation. L4 and L5 spinous process fractures, age indeterminate. Degenerative changes. Mild anterolisthesis of L4 and 5. Atelectasis. Hiatal hernia. Gallstones. Bilateral adrenal adenomas. Normal appendix. Fat-containing umbilical hernia. Right knee x-ray official read pending Bilateral elbow x-ray official read pending EKG as per my interpretation: Rate 98, NSR, LAD, LAFB, 1 AVB, PVCs
[2020-09-12 02:49] LABS: Influenza A virus by PCR Negative (Negative); Influenza B virus by PCR Negative (Negative)
[2020-09-12] MEDS ORDERED: SODIUM CHLORIDE 0.45 % 1,000 ML IV STA (03:01)
[2020-09-12 03:43] LABS: Basophils # (auto) 0.01 K/uL (0-0.2); Basophils % (auto) 0.1 %; Eosinophils # (auto) 0.04 K/uL (0-0.5); Eosinophils % (auto) 0.4 %; Hematocrit (blood only) 34.3 % (37-47); Hemoglobin 11.2 g/dL (12.0-16.0); Immature Granulocytes # (auto) 0.02 K/uL (0.00-0.02); Immature Granulocytes % (auto) 0.2 %; Lymphocytes # (auto) 1.15 K/uL (1.2-3.4); Lymphocytes % (auto) 10.6 %; Mean Corpuscular Hemoglobin 27.7 pg (25-34); Mean Corpuscular Hgb Conc 32.7 g/dL (32-36); Mean Corpuscular Volume 84.9 fL (80-100); Mean Platelet Volume 9.9 fL (7.4-10.4); Monocytes # (auto) 0.75 K/uL (0.11-0.59); Monocytes % (auto) 6.9 %; Neutrophils # (auto) 8.87 K/uL (1.4-6.5); Neutrophils % (auto) 81.8 %; Platelet Count 248 K/uL (130-400); RDW Standard Deviation 46.4 fL (36.4-46.3); Red Blood Count 4.04 M/uL (4.2-5.4); White Blood Count 10.84 K/uL (4.8-10.8)
[2020-09-12] MEDS ORDERED: ACETAMINOPHEN 325 MG TAB PO PRN (03:53)
[2020-09-12] MEDS ORDERED: traMADol HCL 50 MG TABLET PO PRN (03:53)
[2020-09-12] MEDS ORDERED: PROMETHAZINE HCL 6.25 MG in SODIUM CHLORIDE 0.9% 50 ML IV PRN (03:53)
[2020-09-12 04:00] LABS: Base Excess ABG 4.7 mEq/L (-9-1.8); HCO3 ABG 28 mmol/L (19-24); Oxygen Saturation ABG 93.7 % (90-95); PCO2 ABG 38 mmHg (35-46); PO2 ABG 70 mmHg (80-95); pH ABG 7.49 (7.35-7.45)
[2020-09-12 04:01] LABS: Allen Test Pos (Pos)
[2020-09-12 04:02] LABS: BUN Creatinine Ratio 22.5 (10-20); Calcium 9.3 mg/dl (8.5-10.1); Creatinine Clr Calc Pharmacy 26.7 ml/min; Est GFR (African American) 39.1; Est GFR (Non-African American) 33.7; Potassium 4.2 mmol/L (3.5-5.1)
[2020-09-12 04:19] LABS: Troponin I 0.234 ng/ml (0-0.045)
[2020-09-12] MEDS ORDERED: ALPRAZolam 0.25 MG TABLET PO PRN (04:52)
[2020-09-12] MEDS: LIDOCAINE 5% 1 PATCH TD SCH (04:54)
[2020-09-12] MEDS: LACTATED RINGER'S 1,000 ML IV SCH ×2 (05:09→18:33)
[2020-09-12] MEDS: LEVOTHYROXINE SODIUM 75 MCG TABLET PO SCH (06:13)
[2020-09-12] MEDS: hydrALAZINE TAB 50 MG TAB PO SCH ×2 (06:13→21:04)
--- NOTE | 2020-09-12 07:50 | CT Scan Report ---
CT head/brain wo con CLINICAL HISTORY: pain fall COMPARISON STUDY: No previous studies for comparison. TECHNIQUE: Axial CT of the brain is performed from the vertex to the skull base. IV contrast was not administered for this examination. A dose lowering technique was utilized adhering to the principles of ALARA. CT DOSE: FINDINGS: No intra or extra-axial mass lesions are visualized. There is no CT evidence of acute cortical infarc tion. There is no evidence of midline shift. No calvarial fractures are visualized. There are moderately extensive white matter hypodensities likely on a small vessel basis. There is equivocal trace subarachnoid hemorrhage within the left frontoparietal convexity. There is no evidence of pathologic ventricular dilatation. There is no evidence of acute sinusitis IMPRESSION: 1. Equivocal trace subarachnoid hemorrhage within the left frontoparietal convexity. ACT 112: Negative or not required by law. Electronically signed by: Pop James M.D. 09/12/2020 7:49 AM
--- NOTE | 2020-09-12 07:51 | CT Scan Report ---
HEAD CT NONCONTRAST CT DOSE: 537.48 mGy.cm HISTORY: re-eval trace L convexity ?SAH TECHNIQUE: Multiaxial CT images of the head were performed without the use of intravenous contrast. A utomated exposure control was utilized for this study. A dose lowering technique was utilized adheri ng to the principles of ALARA. Comparison: Head CT 09/11/2020. Findings: The paranasal sinuses and mastoid air cells are clear. The calvarium and skull base are int act. There is again noted a tiny focus of increased density within the left high convexity sulcus on image 22. Trace subarachnoid hemorrhage would be the diagnosis of exclusion. Mild atrophy and microva scular ischemic changes are again noted. There is no mass, midline shift, or acute infarct. Impression: No change in the tiny focus of increased density within the left high convexity sulcus. Trace subarac hnoid hemorrhage remains the diagnosis of exclusion. ACT 112: Negative or not required by law. Electronically signed by: Lloyd Angulo M.D. 09/12/2020 7:49 AM
[2020-09-12] MEDS: FERROUS SULFATE 325 MG TAB PO SCH (08:07)
--- NOTE | 2020-09-12 08:17 | CT Scan Report ---
CERVICAL SPINE CT CT DOSE: 862.55 mGy.cm HISTORY: Fall. Neck pain. TECHNIQUE: Multiaxial CT images of the cervical spine were performed and reformatted in the sagittal and coronal plane without the use of contrast. A dose lowering technique was utilized adhering to th e principles of ALARA. COMPARISON: None. FINDINGS: No fractures. No subluxation. Prevertebral soft tissues and the C1-C2 interval are intact. No pneumothorax. A 1 cm left thyroid nodule. IMPRESSION: No fractures within the cervical spine. ACT 112: Negative or not required by law. Electronically signed by: Lloyd Angulo M.D. 09/12/2020 8:16 AM
--- NOTE | 2020-09-12 08:28 | CT Scan Report ---
CT chest wo con CT DOSE: HISTORY: Right-sided chest pain. TECHNIQUE: Multiaxial CT images of the chest were performed without contrast. A dose lowering techni que was utilized adhering to the principles of ALARA. COMPARISON: None. FINDINGS: There is an old, healed distal sternal fracture. No acute fractures within the thoracic spi ne. A few old, healed right-sided rib fractures. Old, healed left anterior second and third rib fract ures. Deformity within the left anterior fifth and sixth ribs may represent acute fractures. No pneum othorax. The central airways are patent. Mild mosaic attenuation within the lungs suggestive of air-t rapping. This can be seen in the setting of small airways disease. Small patchy densities within the lung bases posteriorly. This favors atelectasis. A pneumonia could also have a similar appearance. Fo [place] irregular density within the right lower lobe medially adjacent to the vertebral body osteophytes favor scarring or chronic atelectasis. This measures 2.1 cm. However, a pulmonary lesion is not enti rely excluded. Moderate hiatus hernia. Normal caliber esophagus. No mediastinal hematoma. Normal deandre robinson thoracic aorta. The heart is enlarged. Trace pericardial effusion. No pleural effusions. No media stinal or hilar lymphadenopathy. IMPRESSION: 1. Deformity within the left fifth and sixth anterior ribs may represent acute fractures. 2. A few bilateral old, healed rib fractures. 3. No pneumothorax. 4. Moderate hiatus hernia. 5. Mild mosaic attenuation within the lungs suggestive of air-trapping. This could be seen in the set ting of small airways disease. 6. Small patchy densities within the lung bases posteriorly favor atelectasis. A pneumonia could also have a similar appearance. 7. A 2.1 cm focal irregular density within the right lower lobe medially adjacent to the vertebral kenji dy osteophytes. This favors scarring. A pulmonary lesion cannot be excluded but is considered less li horacio. ACT 112: Negative or not required by law. Electronically signed by: Lloyd Angulo M.D. 09/12/2020 8:27 AM
--- NOTE | 2020-09-12 08:38 | CT Scan Report ---
CT SCAN OF THE ABDOMEN AND PELVIS WITHOUT CONTRAST CLINICAL HISTORY: Abdominal pain status post trauma COMPARISON STUDY: No previous studies for comparison. TECHNIQUE: CT scan of the abdomen and pelvis was performed from the lung bases to the proximal femurs . Images are reviewed in the axial, sagittal, and coronal planes. IV contrast was not administered fo r this examination. A dose lowering technique was utilized adhering to the principles of ALARA. CT DOSE: 581.51 mGy.cm FINDINGS: Lower chest: The heart is enlarged. There is mild basilar septal edema and dependent atelectatic leger ge. There is trace pericardial fluid. There is a hiatal hernia. Liver: There is a to small to characterize subcentimeter hypodensity within the right hepatic lobe nieto periorly likely representing a cyst. Gallbladder: Cholelithiasis. Spleen: Normal in size and attenuation. Pancreas: Unremarkable. Adrenal glands: There is a 24 mm left adrenal adenoma Kidneys: There is a 14 mm exophytic right renal lesion which exceeds water attenuation and is therefo re indeterminate. There is a 29 mm left renal hypodense lesion which also exceeds water attenuation a nd is indeterminate. There is a punctate nonobstructing left renal calculus. Bowel: There are no transition zone to indicate bowel obstruction. The appendix appears normal. There is no evidence of acute diverticulitis. There is no pathologic interloop fluid. There are no extralu sina gas collections. Peritoneum: There is a fat-containing umbilical hernia. There is no ascites. There is no free intrape ritoneal air. There are bilateral fat-containing inguinal hernias Vasculature: The abdominal aorta is normal in course and caliber. Adenopathy: None. Pelvic viscera: There is evidence for pelvic floor relaxation. The uterus is enlarged, likely seconda ry to fibroids. Skeletal structures: There is a right iliac wing fracture extending to the superior acetabulum. The b ones are osteopenic. There are age indeterminant L4 and L5 spinous fractures IMPRESSION: 1. Acute right iliac bone fracture extending to the superior acetabulum 2. Age-indeterminate L4 and L5 spinous process fractures. 3. No evidence of solid organ injury given the limitations of a noncontrast study 4. Cholelithiasis 5. 24 mm left adrenal adenoma 6. Indeterminate bilateral renal masses including an indeterminate 29 mm left renal lesion. Dedicated renal imaging is recommended in follow-up. 7. Fat-containing umbilical and inguinal hernias. ACT 112: Negative or not required by law. Electronically signed by: Pop James M.D. 09/12/2020 8:37 AM
--- NOTE | 2020-09-12 09:02 | XRay Report ---
XR knee RT 3V CLINICAL HISTORY: Right knee pain status post trauma COMPARISON: None. DISCUSSION: The bones are osteopenic. There are advanced osteophytic changes with marked medial joint compartment narrowing. There are dorsal patellar spurs. There is chondrocalcinosis. Vascular calcifi cations are evident. There is a suprapatellar joint effusion. No acute fractures are visualized IMPRESSION: 1. No acute fractures identified 2. Advanced osteoarthritic changes. Chondrocalcinosis. 3. Joint effusion. ACT 112: Negative or not required by law. Electronically signed by: Pop James M.D. 09/12/2020 9:01 AM
--- NOTE | 2020-09-12 09:04 | XRay Report ---
XR elbow LT min 3V routine, XR elbow RT min 3V routine CLINICAL HISTORY: Fall. Bilateral elbow pain. COMPARISON STUDY: None. FINDINGS: No definite fracture or dislocation within the right or left elbow. Chondrocalcinosis and d egenerative changes are noted. Mild posterior soft tissue swelling bilaterally. Suspect small bilater al effusions. This may be chronic given the asymmetry. IMPRESSION: 1. No definite fracture or dislocation within the right or left elbow. 2. Suspect small bilateral effusions which may be chronic given the symmetry and associated degenerat jonathan change/chondrocalcinosis. ACT 112: Negative or not required by law. Electronically signed by: Lloyd Angulo M.D. 09/12/2020 9:02 AM
--- NOTE | 2020-09-12 09:09 | XRay Report ---
XR pelvis 1-2V routine CLINICAL HISTORY: Pelvic pain status post trauma COMPARISON: None DISCUSSION: The bones are osteopenic. There is an acute right iliac fracture extending to the superio r acetabulum. There is no evidence for hip dislocation. IMPRESSION: Acute right iliac fracture extending to the superior acetabulum. ACT 112: Negative or not required by law. Electronically signed by: Pop James M.D. 09/12/2020 9:08 AM
--- NOTE | 2020-09-12 09:13 | XRay Report ---
XR ribs RT min 2V w CXR1V CLINICAL HISTORY: Right-sided rib pain status post trauma COMPARISON STUDY: Chest x-ray dated November 05, 2018 FINDINGS: The heart is enlarged with mild vascular/interstitial prominence. No pneumothorax is visual ized. There is a right upper quadrant calcification likely representing a gallstone. There are fractu res of the right fourth, fifth, and seventh ribs. IMPRESSION: 1. Fractures of the right fourth, fifth, seventh ribs 2. No evidence of pneumothorax ACT 112: Negative or not required by law. Electronically signed by: Pop James M.D. 09/12/2020 9:11 AM
--- NOTE | 2020-09-12 11:34 | Orthopedic Consultation ---
Date of Consultation September 12, 2020 Assessment & Plan (1) Pelvis acetabulum fracture: Acute right iliac bone fracture extending to the superior acetabulum Age-indeterminate L4 and L5 spinous process fractures Patient may continue to use Walker for ambulation limiting weight to right leg. PT/OT evaluation May need rehab facility prior to returning home given 2 story home and living alone. DVT prophylaxis TEDS, SCDs, Please follow up [place] [address] [place] [facility] [phone]. Supervising Physician Co-Signing Physician Notes Patient was seen and examined at bedside. No acute complaints. Pleasant in conversation however poor historian. Physical exam demonstrates tenderness to moderate palpation right iliac wing and hemipelvis. Some discomfort with passive range of motion right hip and lower extremity. No significant bruising. Mild weakness due to discomfort. Neurovascular status intact bilateral lower extremities. No subcutaneous air or crepitation noted with passive range of motion bilateral hips. Skin is warm dry and intact. Assessment: Nonoperative acetabular and pelvic fractures right hemipelvis. Low energy fall. Recommendation: Weightbearing as tolerated with walker. Assist x1. Will likely require supervised rehabilitation. Follow-up in clinic with Dr. Johnson as noted above. [facility] [place] Thank you for the opportunity to consult in the care of this patient. Zen Johnson DO History of Present Illness Attending Physician: Grzegorz Perkins MD History of Present Illness 80-year-old female presenting to the ER last evening after a fall in her kitchen. She notes that she tripped over a rug and landed on her knees. She is unsure how long she was on the kitchen floor, she was unable to get up on her own. She notes that she does live alone however she has family that checks on her daily. And and her niece found her on the floor last evening. she has a medical history of atrial fibrillation congestive heart failure high blood pressure high cholesterol osteoporosis GERD anxiety COPD. She is sitting comfortably in the chair upon evaluation today and seems pleasantly confused. She denies any pain as she is sitting and notes that she is not having any difficulties getting around on her own. She notes that she does use a walker to ambulate she does live alone in a two-story house Allergies Allergy/AdvReac Type Severity Reaction Status Date / Time quinapril AdvReac Mild H/A Verified 09/11/20 21:39 nifedipine AdvReac Unknown pounding Verified 09/11/20 21:39 headache Home Medications Medication Instructions Recorded Confirmed Type alprazolam 0.5 mg PO UD PRN 11/05/18 09/11/20 History atorvastatin 10 mg PO HS 11/05/18 09/11/20 History cholecalciferol (vitamin D3) 1,000 unit PO QAM 11/05/18 09/11/20 History [Vitamin D3] cyanocobalamin (vitamin B-12) 500 mcg PO QAM 11/05/18 09/11/20 History [Vitamin B-12] digoxin 125 mcg PO Q2D 11/05/18 09/11/20 History furosemide 20 mg PO QAM 11/05/18 09/11/20 History hydralazine 50 mg PO BID 11/05/18 09/11/20 History levothyroxine 75 mcg PO DAILY 11/05/18 09/12/20 History losartan 100 mg PO QAM 11/05/18 09/11/20 History metoprolol succinate 100 mg PO BID 11/05/18 09/11/20 History potassium chloride 40 meq PO QAM 11/05/18 09/11/20 History rivaroxaban 15 mg PO DAILY 11/05/18 09/11/20 History tramadol 50 mg PO DAILY PRN 11/05/18 09/11/20 History camphor-menthol [Icy Hot Advanced 1 applic TOPICAL UD 09/11/20 09/11/20 History Relief] ferrous sulfate 325 mg PO DAILY 09/11/20 09/11/20 History furosemide [Lasix] 40 mg PO BID 09/11/20 09/11/20 History potassium chloride [Klor-Con M20] 20 meq PO .DAILY UD 09/11/20 09/11/20 History Patient History Medical History (Updated 09/12/20 @ 11:50 by Bina Jules PA-C) Atrial fibrillation Chronic diastolic (congestive) heart failure CKD (chronic kidney disease) stage 3, GFR 30-59 ml/min COPD (chronic obstructive pulmonary disease) YESICA (generalized anxiety disorder) GERD (gastroesophageal reflux disease) HLD (hyperlipidemia) HTN (hypertension) Hypothyroidism Osteoporosis Permanent atrial fibrillation Surgical History History of nasal polypectomy History of total left knee replacement (TKR) Hx of fracture of radius Family History Mother Diabetes Hypertension Father Hypertension Coronary heart disease Social History Smoking Status: Never smoker Second Hand Exposure: Yes ( was smoker); Hx Alcohol Use: No Hx Substance Use: No Preferred Language: Azeri Communication Ability: Effective 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: No Beliefs That Will Affect Care: None marital status: / Current Living Situation: Alone current occupational status: retired Feels Safe at Home: Yes Safety Concerns: Feels Safe At This Time Assistive Devices: Cane, Denture - Upper, Glasses and Oxygen - Continuous Review of Systems Constitutional: no fever, no chills, no sweats and no weight loss Respiratory: no cough and no dyspnea Cardiovascular: no chest pain and no dyspnea Musculoskeletal: + limited range of motion and + muscle weakness t Physical Exam Musculoskeletal: Hip: no deformity, no skin erythema and no ecchymosis She is able to lift the left leg without any discomfort. She does have some pain in to the pelvis with motion of the right leg, pain with IR and ER of the right hip. She denies any tenderness to light palpation of the pelvis. Some discomfort with moderate palpation of the pelvis. She does have some muscle weakness in the right leg. No edema or bruising noted. Neurovascularly intact Results & Data ([facility]) Vital Signs (Past 12 Hours) Vital Signs Temp Pulse Pulse Resp BP BP Pulse Ox 09/12/20 07:43 36.8 C 79 20 134/72 92 09/12/20 05:50 89 09/12/20 04:14 36.9 C 78 20 158/82 H 93 09/12/20 04:10 37.0 C 18 167/84 H 96 09/12/20 03:30 92 H 22 145/73 H 93 09/12/20 03:00 89 24 131/66 91 09/12/20 01:30 86 24 123/61 94 09/12/20 01:00 93 H 20 142/71 H 90 09/12/20 00:30 89 19 117/63 92 09/12/20 00:00 91 H 21 143/76 H 93
--- NOTE | 2020-09-12 13:12 | Magnetic Resonance Report ---
MRI OF THE BRAIN WITHOUT CONTRAST CLINICAL HISTORY: Trauma. Change in mental status. Confusion. Lip asymmetry. Possible acute stroke. COMPARISON STUDY: Noncontrast head CT dated 09/12/2020 FINDINGS: Sagittal T1, axial diffusion, proton density and T2 weighted axial, coronal FLAIR, and axial T1-weigh gisele images were acquired. No intra or extra-axial mass lesions are visualized Axial diffusion-weighted images reveal no evidence of acute or subacute infarction. There is no evidence of ventricular dilatation. Proton density T2-weighted and FLAIR images reveal moderate foci of increased T2 signal within the wh ite matter, likely on a small vessel basis. There are scattered small lacunar infarcts. There are no abnormal flow voids. There are foci of gyral decreased T2 signal within the left parietal convexity corresponding to the f ocus of equivocal subarachnoid hemorrhage on the prior CT scan. This could represent a tiny focus of hemorrhage or represent cortical mineralization/calcification, with the latter favored IMPRESSION: 1. No evidence of acute or subacute infarction 2. No evidence of intracranial mass given the limitations of a noncontrast study 3. Gyriform focus of decreased T2 signal within the left parietal convexity. Cortical mineralization/ calcification, favored over subarachnoid hemorrhage. ACT 112: Negative or not required by law. Electronically signed by: Pop James M.D. 09/12/2020 1:11 PM
--- NOTE | 2020-09-12 14:08 | Magnetic Resonance Report ---
MR ANGIOGRAPHY OF THE [place] NO CONTRAST CLINICAL HISTORY: Possible acute stroke COMPARISON STUDY: None. A 3-D [id number] MR angiographic sequence of the [place] was performed. Both the source and projection images were reviewed. There are no lesion suspicious for aneurysm. There is no evidence for anterior circulation stenosis o r occlusion. There is diminished signal within the distal right vertebral artery. A distal right vert ebral artery stenosis cannot be excluded. If desired, CT angiography could be obtained in follow-up f or further evaluation IMPRESSION: 1. Decreased signal within the distal right vertebral artery. A distal right vertebral artery stenosi s cannot be excluded 2. Otherwise unremarkable MR angiography of the [place] ACT 112: Negative or not required by law. Electronically signed by: Pop James M.D. 09/12/2020 2:06 PM
[2020-09-12] MEDS: DIGOXIN 0.125 MG TAB PO SCH (15:57)
--- NOTE | 2020-09-12 16:45 | CT Scan Report ---
CT head/brain wo con CLINICAL HISTORY: Head trauma. Possible trace subarachnoid hemorrhage. COMPARISON STUDY: 08/11/2020 TECHNIQUE: Axial CT of the brain is performed from the vertex to the skull base. IV contrast was not administered for this examination. A dose lowering technique was utilized adhering to the principles of ALARA. CT DOSE: 537.48 mGy.cm FINDINGS: No intra or extra-axial mass lesions are visualized. There is no CT evidence of acute cortical infarc tion. There is no evidence of midline shift. There is no acute hemorrhage. No calvarial fractures ar e visualized. There are moderate white matter hypodensities likely on a small vessel basis. There is no evidence of pathologic ventricular dilatation. There is no evidence of acute sinusitis IMPRESSION: 1. No acute intracranial findings 2. The previously queried subarachnoid hemorrhage is not visualized on current study. ACT 112: Negative or not required by law. Electronically signed by: Pop James M.D. 09/12/2020 4:44 PM
--- NOTE | 2020-09-12 18:52 | Hospitalist Progress Note ---
Date of Service September 12, 2020 Assessment & Plan Admission and Anticipated Discharge Date Admission Date: September 12, 2020 Subjective Patient admitted this morning. Currently using 4 L of oxygen. Patient states she uses about 3 L at home. She does remember falling however does not remember exactly what happened. Currently she is comfortable, sitting up in the chair, eating. Denies any pain despite her new fractures. Seen by orthopedics, nonoperable. Patient lives alone, PT OT needed prior to discharge. Continue to closely monitor her breathing status, oxygen requirement, and labs ordered on admission. Sima Perkins MD Results & Data Results & Data ([facility]) Vital Signs (Past 12 Hours) Vital Signs Temp Pulse Pulse Resp BP BP Pulse Ox 09/12/20 15:57 82 09/12/20 15:27 85 09/12/20 15:15 36.6 C 87 20 122/75 92 09/12/20 11:44 36.7 C 84 18 104/68 96 09/12/20 07:43 36.8 C 79 20 134/72 92
[2020-09-12 21:50] LABS: Appearance Urine Turbid (Clear); Bacteria Urine Automated 4+ (Negative); Bilirubin Urine Negative (Negative); Blood Urine Trace (Negative); Color Urine Yellow; Epithelial Cell Urine Auto >30 /lpf (0-5); Glucose Urine UA Negative (Negative); Ketones Urine Trace (Negative); Leukocyte Esterase Urine 3+ (Negative); Nitrite Urine Positive (Negative); Protein Urine 1+ (Negative); Specific Gravity Urine 1.023 (1.000-1.030); Urobilinogen Urine Negative (Negative); WBC Urine Automated >30 /hpf (0-5); pH Urine 5.5 (4.5-7.5)
--- NOTE | 2020-09-12 21:51 | Electrocardiogram Report ---
Test Reason : Blood Pressure : / mmHG Vent. Rate : 098 BPM Atrial Rate : 098 BPM P-R Int : 222 ms QRS Dur : 076 ms QT Int : 360 ms P-R-T Axes : 078 -04 012 degrees QTc Int : 459 ms Poor data quality, interpretation may be adversely affected Sinus rhythm with 1st degree A-V block with frequent Premature ventricular complexes Cannot rule out Anterior infarct (cited on or before 05-NOV-2018) Abnormal ECG When compared with ECG of 05-NOV-2018 11:31, Sinus rhythm has replaced Atrial fibrillation Questionable change in QRS axis Nonspecific T wave abnormality, worse in Lateral leads QT has lengthened Confirmed by Marcelo Shah ([id number]) on 09/12/2020 9:50:44 PM Referred By: REFERRED SELF Confirmed By:Marcelo Shah
--- NOTE | 2020-09-12 22:12 | Communication Note ---
Date of Service: September 12, 2020 Made aware by RN of abnormal UA results. WBC esterase, nitrite positive AP Complicated UTI Following urine cultures, Ceftriaxone for now Will relay to AM provider.
[2020-09-12 22:14] LABS: Amphetamines+Metham, Urine Neg (Neg); Barbiturates, Urine Neg (Neg); Benzodiazepine, Urine Neg (Neg); Cocaine, Urine Neg (Neg); MDMA (Ecstacy), Urine Neg (Neg); Methadone, Urine Neg (Neg); Opiate, Urine Neg (Neg); Phencyclidine, Urine Neg (Neg)
[2020-09-12] MEDS: cefTRIAXone SODIUM 1,000 MG in DEXTROSE 5% 50 ML IV SCH (22:58)
[2020-09-13] MEDS ORDERED: hydrALAZINE TAB 50 MG TAB PO STA (00:57)
[2020-09-13] MEDS: METOPROLOL SUCC 50MG EXT REL TAB PO SCH ×3 (01:32→21:40)
[2020-09-13] MEDS: LACTATED RINGER'S 1,000 ML IV SCH ×3 (01:43→21:40)
[2020-09-13] MEDS: LEVOTHYROXINE SODIUM 75 MCG TABLET PO SCH (06:17)
[2020-09-13 07:25] LABS: Basophils # (auto) 0.01 K/uL (0-0.2); Basophils % (auto) 0.1 %; Hematocrit (blood only) 33.3 % (37-47); Hemoglobin 10.4 g/dL (12.0-16.0); Immature Granulocytes # (auto) 0.02 K/uL (0.00-0.02); Immature Granulocytes % (auto) 0.2 %; Lymphocytes # (auto) 1.05 K/uL (1.2-3.4); Lymphocytes % (auto) 10.3 %; Mean Corpuscular Hemoglobin 26.9 pg (25-34); Mean Corpuscular Hgb Conc 31.2 g/dL (32-36); Mean Platelet Volume 9.8 fL (7.4-10.4); Monocytes # (auto) 0.72 K/uL (0.11-0.59); Monocytes % (auto) 7.1 %; Neutrophils % (auto) 80.3 %; Platelet Count 227 K/uL (130-400); RDW Coefficient of Variation 15.2 % (11.5-14.5); RDW Standard Deviation 47.7 fL (36.4-46.3); Red Blood Count 3.87 M/uL (4.2-5.4)
[2020-09-13 07:33] LABS: Albumin Level 2.4 gm/dl (3.4-5.0); BUN Creatinine Ratio 23.3 (10-20); Calcium 8.3 mg/dl (8.5-10.1); Creatinine Clr Calc Pharmacy 25.6 ml/min; Est GFR (African American) 38.8; Est GFR (Non-African American) 33.5; Magnesium 2.4 mg/dl (1.8-2.4); Potassium 3.9 mmol/L (3.5-5.1)
[2020-09-13 07:37] LABS: Albumin Globulin Ratio 0.7 (0.9-2); Bilirubin,Total 0.7 mg/dl (0.2-1); Globulin 3.3 gm/dl (2.5-4.0); Phosphorus 2.5 mg/dl (2.5-4.9); Total Protein 5.7 gm/dl (6.4-8.2)
[2020-09-13] MEDS: FERROUS SULFATE 325 MG TAB PO SCH (08:42)
[2020-09-13] MEDS: hydrALAZINE TAB 50 MG TAB PO SCH ×3 (08:42→21:40)
[2020-09-13] MEDS: LIDOCAINE 5% 1 PATCH TD SCH (08:42)
--- NOTE | 2020-09-13 10:23 | Hospitalist Progress Note ---
Date of Service September 13, 2020 Assessment & Plan (1) Acute on chronic respiratory failure with hypoxemia: Metabolic enecphalopathy secondary to UTI Chronic respiratory failure on home O2, at baseline uses 3L of O2 now only mildly incr. to 4L of O2 Secondary to traumatic rib fracture left and UTI, pelvic fx ARF on CKD secondary to traumatic rhabdomyolysis and UTI Metabolic encephalopathy - mental status seems to be improved UTI Started on ceftriaxone, will continue urine cultx - gram negative Pelvic fx, rib fx Traumatic pelvic fracture secondary to mechanical fall Acute right iliac bone fracture extending to the superior acetabulum Age-indeterminate L4 and L5 spinous process fractures Analgesia, Lidoderm patch for rib fracture, encourage incentive spirometry Orthopedics consulted Nonoperative acetabular and pelvic fractures right hemipelvis. Low energy fall. Weightbearing as tolerated with walker. Assist x1. Will likely require supervised rehabilitation. PT/OT evaluation. May need rehab facility prior to returning home given 2 story home and living alone. DVT prophylaxis TEDS, SCDs,pt is on xarelto Please follow up in [address] Johnson at [phone]. Rhabdomyolysis - pt started on IVF - CK decreased to 700 from 2700 - hold losartan and home diuretics - monitor BMP Lip asymmetry ? unknown duration rule out CVA MRI -no evidence of acute or subacute infarction. No evidence of intracranial mass given the limitations of a noncontrast study. Guarded from focus of decreased T2 signal within the left parietal convexity. Cortical mineralization/calcification, favored over subarachnoid hemorrhage. CT head repeated -the previously carried subarachnoid hemorrhage is not visualized on current study Chronic diastolic heart failure as per records, patient on the dry side on admission A. fib on Xarelto Hypertension, slight elevated Prediabetes as per records, hemoglobin A1c of 5.30 June 2020 PT OT eval - recommend SNF/ rehab DVT prophylaxis. SCDs, will resume xarelto Resume Xarelto if no bony injury requiring surgery. Full code Patient's son, Mr. Fuentes Smith, can be contacted at #[phone]. Admission and Anticipated Discharge Date Admission Date: September 12, 2020 Subjective Patient is sitting up bed, in no acute distress, she is alert and oriented and answering questions appropriately. Currently denies any complaints. Specifically denies any fevers, chills, chest pain, shortness of breath. She states that she uses 2.5 to 3 L of oxygen continuously. Denies any abdominal pain, nausea or vomiting. She has good appetite. Review of Systems Review of Systems: All systems reviewed & are unremarkable except as noted in HPI & below Constitutional: no fever and no chills Respiratory: no cough and no dyspnea Cardiovascular: no chest pain and no palpitations Gastrointestinal: no abdominal pain, no nausea and no vomiting Physical Exam Physical Exam: GENERAL: Elderly female, sitting up in the bed,comfortable, no respiratory distress, on suppl. O2 via NC HEENT: NC/AT, pink palpebral conjunctivae, no ptosis, nasal cannula in place NECK : Supple, no tenderness CHEST : Decreased breath sounds, no wheezing, rhonchi, crackles noted,+ tenderness left chest wall HEART : RRR, no obvious murmurs ABDOMEN: + bowel sounds, some distention, nontender, obese SKIN: warm, dry EXTREMITIES : Chronic LE swelling (R greater than the left), right hip tenderness, no other conspicuous deformities noted NEUROLOGIC : alert and oriented, mild lip asymmetry more pronounced during speech, moves extremities Results & Data Results & Data ([facility]) Vital Signs (Past 12 Hours) Vital Signs Temp Pulse Pulse Resp BP BP Pulse Ox 09/13/20 07:49 36.5 C 74 16 146/72 H 94 09/13/20 07:30 82 09/13/20 03:10 36.5 C 71 18 168/91 H 90 09/13/20 00:49 36.8 C 98 H 18 170/67 H 93 09/12/20 23:18 36.6 C 91 H 16 170/78 H 91 Laboratory Results 09/13/20 09/13/20 09/12/20 Range/Units 06:48 06:48 Unknown WBC 10.20 (4.8-10.8) K/uL RBC 3.87 L (4.2-5.4) M/uL Hgb 10.4 L (12.0-16.0) g/dL Hct 33.3 L (37-47) % MCV 86.0 (80-100) fL MCH 26.9 (25-34) pg MCHC 31.2 L (32-36) g/dL RDW Std Deviation 47.7 H (36.4-46.3) fL RDW Coeff of Sandie 15.2 H (11.5-14.5) % Plt Count 227 (130-400) K/uL MPV 9.8 (7.4-10.4) fL Immature Gran % (Auto) 0.2 % Neut % (Auto) 80.3 % Lymph % (Auto) 10.3 % Prentiss % (Auto) 7.1 % Eos % (Auto) 2.0 % Baso % (Auto) 0.1 % Neut # (Auto) 8.20 H (1.4-6.5) K/uL Lymph # (Auto) 1.05 L (1.2-3.4) K/uL Prentiss # (Auto) 0.72 H (0.11-0.59) K/uL Eos # (Auto) 0.20 (0-0.5) K/uL Baso # (Auto) 0.01 (0-0.2) K/uL Immature Gran # (Auto) 0.02 (0.00-0.02) K/uL Sodium 142 (136-145) mmol/L Potassium 3.9 (3.5-5.1) mmol/L Chloride 109 H (98-107) mmol/L Carbon Dioxide 28 (21-32) mmol/L Anion Gap 5.0 (3-11) BUN 34 H (7-18) mg/dl Creatinine 1.45 H (0.6-1.2) mg/dl Est Cr Clr Drug Dosing 25.6 ml/min Est GFR ( Amer) 38.8 Est GFR (Non-Af Amer) 33.5 BUN/Creatinine Ratio 23.3 H (10-20) Glucose 93 (70-99) mg/dl Calcium 8.3 L (8.5-10.1) mg/dl Phosphorus 2.5 (2.5-4.9) mg/dl Magnesium 2.4 (1.8-2.4) mg/dl Total Bilirubin 0.7 D (0.2-1) mg/dl AST 66 H (15-37) U/L ALT 37 (12-78) U/L Alkaline Phosphatase 53 (45-117) U/L Total Creatine Kinase 708 H (26-192) U/L Total Protein 5.7 L D (6.4-8.2) gm/dl Albumin 2.4 L (3.4-5.0) gm/dl Globulin 3.3 (2.5-4.0) gm/dl Albumin/Globulin Ratio 0.7 L (0.9-2) Urine Color Yellow Urine Appearance Turbid A (Clear) Urine pH 5.5 (4.5-7.5) Ur Specific Kiana 1.023 (1.000-1.030) Urine Protein 1+ H (Negative) Urine Glucose (UA) Negative (Negative) Urine Ketones Trace H (Negative) Urine Blood Trace H (Negative) Urine Nitrite Positive A (Negative) Urine Bilirubin Negative (Negative) Urine Urobilinogen Negative (Negative) Ur Leukocyte Esterase 3+ H (Negative) Urine WBC (Auto) >30 H (0-5) /hpf Urine RBC (Auto) 5-10 H (0-4) /hpf U Hyaline Cast (Auto) Not Reportable U Epithel Cells (Auto) >30 H (0-5) /lpf Urine Bacteria (Auto) 4+ H (Negative) Urine Opiates Screen (Neg) Ur Methadone, Qual (Neg) Urine Barbiturates (Neg) Ur Phencyclidine (PCP) (Neg) U Amphetamin/Meth Scrn (Neg) MDMA (Ecstasy) Screen (Neg) U Benzodiazepines Scrn (Neg) Ur Cocaine Metabolite (Neg) U Marijuana (THC) Screen (Neg) 09/12/20 Range/Units Unknown WBC (4.8-10.8) K/uL RBC (4.2-5.4) M/uL Hgb (12.0-16.0) g/dL Hct (37-47) % MCV (80-100) fL MCH (25-34) pg MCHC (32-36) g/dL RDW Std Deviation (36.4-46.3) fL RDW Coeff of Sandie (11.5-14.5) % Plt Count (130-400) K/uL MPV (7.4-10.4) fL Immature Gran % (Auto) % Neut % (Auto) % Lymph % (Auto) % Prentiss % (Auto) % Eos % (Auto) % Baso % (Auto) % Neut # (Auto) (1.4-6.5) K/uL Lymph # (Auto) (1.2-3.4) K/uL Prentiss # (Auto) (0.11-0.59) K/uL Eos # (Auto) (0-0.5) K/uL Baso # (Auto) (0-0.2) K/uL Immature Gran # (Auto) (0.00-0.02) K/uL Sodium (136-145) mmol/L Potassium (3.5-5.1) mmol/L Chloride (98-107) mmol/L Carbon Dioxide (21-32) mmol/L Anion Gap (3-11) BUN (7-18) mg/dl Creatinine (0.6-1.2) mg/dl Est Cr Clr Drug Dosing ml/min Est GFR ( Amer) Est GFR (Non-Af Amer) BUN/Creatinine Ratio (10-20) Glucose (70-99) mg/dl Calcium (8.5-10.1) mg/dl Phosphorus (2.5-4.9) mg/dl Magnesium (1.8-2.4) mg/dl Total Bilirubin (0.2-1) mg/dl AST (15-37) U/L ALT (12-78) U/L Alkaline Phosphatase (45-117) U/L Total Creatine Kinase (26-192) U/L Total Protein (6.4-8.2) gm/dl Albumin (3.4-5.0) gm/dl Globulin (2.5-4.0) gm/dl Albumin/Globulin Ratio (0.9-2) Urine Color Urine Appearance (Clear) Urine pH (4.5-7.5) Ur Specific Kiana (1.000-1.030) Urine Protein (Negative) Urine Glucose (UA) (Negative) Urine Ketones (Negative) Urine Blood (Negative) Urine Nitrite (Negative) Urine Bilirubin (Negative) Urine Urobilinogen (Negative) Ur Leukocyte Esterase (Negative) Urine WBC (Auto) (0-5) /hpf Urine RBC (Auto) (0-4) /hpf U Hyaline Cast (Auto) U Epithel Cells (Auto) (0-5) /lpf Urine Bacteria (Auto) (Negative) Urine Opiates Screen Neg (Neg) Ur Methadone, Qual Neg (Neg) Urine Barbiturates Neg (Neg) Ur Phencyclidine (PCP) Neg (Neg) U Amphetamin/Meth Scrn Neg (Neg) MDMA (Ecstasy) Screen Neg (Neg) U Benzodiazepines Scrn Neg (Neg) Ur Cocaine Metabolite Neg (Neg) U Marijuana (THC) Screen Neg (Neg) Medications Administered Current Inpatient Medications Acetaminophen (Acetaminophen 325 Mg Tab) 650 mg PO Q4H PRN PRN Reason: Pain or Fever Stop: 10/12/20 03:52 Alprazolam (Alprazolam 0.25 Mg Tablet) 0.25 mg PO DAILY PRN PRN Reason: Anxiety Stop: 10/12/20 04:51 Digoxin (Digoxin 0.125 Mg Tab) 0.125 mg PO Q2D@1600 [facility] Stop: 10/12/20 15:59 Last Admin: 09/12/20 15:57 Dose: 0.125 mg Documented by: Ferrous Sulfate (Ferrous Sulfate 325 Mg Tab) 325 mg PO DAILY [facility] Stop: 10/12/20 08:59 Last Admin: 09/13/20 08:42 Dose: 325 mg Documented by: Hydralazine HCl (Hydralazine Tab 50 Mg Tab) 50 mg PO TID [facility] Stop: 10/13/20 08:59 Last Admin: 09/13/20 08:42 Dose: 50 mg Documented by: Promethazine HCl 6.25 mg/ (Sodium Chloride) 50.25 mls @ 201 mls/hr IV Q6H PRN PRN Reason: Nausea And Vomiting Stop: 10/12/20 03:52 Ceftriaxone Sodium 1,000 mg/ (Dextrose) 50 mls @ 100 mls/hr IV Q24H [facility]; Protocol Stop: 09/22/20 22:14 Last Infusion: 09/12/20 23:20 Dose: Infused Documented by: Lactated Ringer's (Lr) 1,000 mls @ 100 mls/hr IV .Q10H [facility] Stop: 10/13/20 01:44 Last Admin: 09/13/20 01:43 Dose: 100 mls/hr Documented by: Levothyroxine Sodium (Levothyroxine Sodium 75 Mcg Tablet) 75 mcg PO DAILYBB [facility] Stop: 10/12/20 06:29 Last Admin: 09/13/20 06:17 Dose: 75 mcg Documented by: Lidocaine (Lidocaine 5% 1 Patch) 1 patch TD QAM [facility] Stop: 10/12/20 04:14 Last Admin: 09/13/20 08:42 Dose: 1 patch Documented by: Metoprolol Succinate (Metoprolol Succ 50mg Ext Rel Tab) 100 mg PO BID [facility] Stop: 10/13/20 00:59 Last Admin: 09/13/20 08:43 Dose: 100 mg Documented by: Miscellaneous (Remove Lidoderm Patch) 1 ea N/A DAILY@2100 [facility] Stop: 10/12/20 20:59 Last Admin: 09/12/20 21:04 Dose: Not Given Documented by: Tramadol HCl (Tramadol Hcl 50 Mg Tablet) 25 - 50 mg PO Q4H PRN PRN Reason: Pain Stop: 10/12/20 03:52 Last Admin: 09/12/20 21:06 Dose: 50 mg Documented by:
[2020-09-13] MEDS: cefTRIAXone SODIUM 1,000 MG in DEXTROSE 5% 50 ML IV SCH (22:41)
[2020-09-14] MEDS: LEVOTHYROXINE SODIUM 75 MCG TABLET PO SCH (06:18)
[2020-09-14] MEDS: LACTATED RINGER'S 1,000 ML IV SCH (06:18)
[2020-09-14] MEDS: METOPROLOL SUCC 50MG EXT REL TAB PO SCH (08:03)
[2020-09-14] MEDS: hydrALAZINE TAB 50 MG TAB PO SCH ×2 (08:03→15:29)
[2020-09-14] MEDS: LIDOCAINE 5% 1 PATCH TD SCH (08:04)
[2020-09-14] MEDS: FERROUS SULFATE 325 MG TAB PO SCH (08:04)
--- NOTE | 2020-09-14 12:03 | Hospitalist Progress Note ---
Date of Service September 14, 2020 Assessment & Plan (1) Acute on chronic respiratory failure with hypoxemia: Metabolic enecphalopathy secondary to UTI Chronic respiratory failure on home O2, at baseline uses 3L of O2 now only mildly incr. to 4L of O2 (can not say with certainty this is acute on chronic) Secondary to traumatic rib fracture left and UTI, pelvic fx ARF on CKD secondary to traumatic rhabdomyolysis and UTI Metabolic encephalopathy - mental status seems to be much improved, encephalopathy resolved Currently patient knows where she is, current year, she can even tell me the names of her children and where they reside. She does not seems to be confused at all. UTI Started on ceftriaxone, continued while inpt Urine cultx - positive for E.coli sensitive to ceftriaxone and cefuroxime Plan to switch to cefuroxime on discharge to finish Abx course Pelvic fx, rib fx Traumatic pelvic fracture secondary to mechanical fall Acute right iliac bone fracture extending to the superior acetabulum Age-indeterminate L4 and L5 spinous process fractures Analgesia, Lidoderm patch for rib fracture, encourage incentive spirometry Orthopedics consulted Nonoperative acetabular and pelvic fractures right hemipelvis. Low energy fall. Weightbearing as tolerated with walker. Assist x1. Will likely require supervised rehabilitation. PT/OT evaluation. May need rehab facility prior to returning home given 2 story home and living alone. DVT prophylaxis TEDS, SCDs,pt is on xarelto Please follow up in [address] Johnson at [facility] [phone]. Rhabdomyolysis - pt started on IVF on admission - CK decreased to 700 from 2700 - held losartan and home diuretics, recommend to cont. to hold for next 2 days and have a BMP obtained in 2 days -Monitor urine output and fluid status, daily weights -If BMP/renal function adequate, restart losartan and furosemide Lip asymmetry ? unknown duration rule out CVA MRI -no evidence of acute or subacute infarction. No evidence of intracranial mass given the limitations of a noncontrast study. Gyriform focus of decreased T2 signal within the left parietal convexity. Cortical mineralization/calcification, favored over subarachnoid hemorrhage. CT head repeated -the previously questioned subarachnoid hemorrhage is not visualized on current study Chronic diastolic heart failure as per records, patient on the dry side on admission A. fib on Xarelto Hypertension, slight elevated Prediabetes as per records, hemoglobin A1c of 5.30 June 2020 PT OT eval - recommend SNF/ rehab DVT prophylaxis. SCDs, will resume xarelto Full code Patient's son, Mr. Feuntes Smith, can be contacted at #[phone]. Disposition -plan to discharge to [facility] Admission and Anticipated Discharge Date Admission Date: September 12, 2020 Subjective Patient is sitting up bed, in no acute distress, she is alert and oriented and answering questions appropriately. She can tell me where she is, current year, names of her children and where they live. Patient does not seem to be confused at all at this time. Currently denies any complaints. Specifically denies any fevers, chills, chest pain, shortness of breath. She states that she uses 3 L of oxygen continuously at home. Denies any abdominal pain, nausea or vomiting. She has good appetite. Review of Systems Review of Systems: All systems reviewed & are unremarkable except as noted in HPI & below Constitutional: no fever and no chills Respiratory: no cough and no dyspnea Cardiovascular: no chest pain and no palpitations Gastrointestinal: no abdominal pain, no nausea and no vomiting Physical Exam Physical Exam: GENERAL: Elderly female, sitting up in the bed,comfortable, no respiratory distress, on suppl. O2 via NC HEENT: NC/AT, pink palpebral conjunctivae, no ptosis, nasal cannula in place NECK : Supple, no tenderness CHEST : Decreased breath sounds, no wheezing, rhonchi, crackles noted,+ tenderness left chest wall HEART : RRR, no obvious murmurs ABDOMEN: + bowel sounds, some distention, nontender, obese SKIN: warm, dry EXTREMITIES : Chronic LE swelling (R greater than the left), right hip tenderness, no other conspicuous deformities noted NEUROLOGIC : alert and oriented, mild lip asymmetry more pronounced during speech, moves extremities Results & Data Results & Data ([facility]) Vital Signs (Past 12 Hours) Vital Signs Temp Pulse Pulse Resp BP Pulse Ox 09/14/20 11:40 36.4 C L 58 L 16 151/78 H 91 09/14/20 07:31 36.4 C L 77 16 133/65 90 09/14/20 07:00 68 09/14/20 03:09 36.3 C L 57 L 67 16 144/67 H 95 Medications Administered Current Inpatient Medications Acetaminophen (Acetaminophen 325 Mg Tab) 650 mg PO Q4H PRN PRN Reason: Pain or Fever Stop: 10/12/20 03:52 Alprazolam (Alprazolam 0.25 Mg Tablet) 0.25 mg PO DAILY PRN PRN Reason: Anxiety Stop: 10/12/20 04:51 Atorvastatin Calcium (Atorvastatin 10 Mg Tab) 10 mg PO HS [facility] Stop: 10/14/20 20:59 Cyanocobalamin (Cyanocobalamin 500 Mcg Tablet (Vitamin B-12)) 500 mcg PO QAM [facility] Stop: 10/15/20 08:59 Digoxin (Digoxin 0.125 Mg Tab) 0.125 mg PO Q2D@1600 [facility] Stop: 10/12/20 15:59 Last Admin: 09/12/20 15:57 Dose: 0.125 mg Documented by: Ferrous Sulfate (Ferrous Sulfate 325 Mg Tab) 325 mg PO DAILY [facility] Stop: 10/12/20 08:59 Last Admin: 09/14/20 08:04 Dose: 325 mg Documented by: Hydralazine HCl (Hydralazine Tab 50 Mg Tab) 50 mg PO TID [facility] Stop: 10/13/20 08:59 Last Admin: 09/14/20 08:03 Dose: 50 mg Documented by: Promethazine HCl 6.25 mg/ (Sodium Chloride) 50.25 mls @ 201 mls/hr IV Q6H PRN PRN Reason: Nausea And Vomiting Stop: 10/12/20 03:52 Ceftriaxone Sodium 1,000 mg/ (Dextrose) 50 mls @ 100 mls/hr IV Q24H [facility]; Protocol Stop: 09/22/20 22:14 Last Infusion: 09/14/20 00:31 Dose: Infused Documented by: Levothyroxine Sodium (Levothyroxine Sodium 75 Mcg Tablet) 75 mcg PO DAILYBB [facility] Stop: 10/12/20 06:29 Last Admin: 09/14/20 06:18 Dose: 75 mcg Documented by: Lidocaine (Lidocaine 5% 1 Patch) 1 patch TD QAM [facility] Stop: 10/12/20 04:14 Last Admin: 09/14/20 08:04 Dose: Not Given Documented by: Metoprolol Succinate (Metoprolol Succ 50mg Ext Rel Tab) 100 mg PO BID [facility] Stop: 10/13/20 00:59 Last Admin: 09/14/20 08:03 Dose: 100 mg Documented by: Miscellaneous (Remove Lidoderm Patch) 1 ea N/A DAILY@2100 [facility] Stop: 10/12/20 20:59 Last Admin: 09/13/20 21:42 Dose: 1 ea Documented by: Rivaroxaban (Rivaroxaban 15 Mg Tab) 15 mg PO QDD [facility] Stop: 10/14/20 16:29 Tramadol HCl (Tramadol Hcl 50 Mg Tablet) 25 - 50 mg PO Q4H PRN PRN Reason: Pain Stop: 10/12/20 03:52 Last Admin: 09/12/20 21:06 Dose: 50 mg Documented by: Vitamin D (Cholecalciferol 1,000 Units 25 Mcg Tab) 1,000 units PO QAM [facility] Stop: 10/15/20 08:59
--- NOTE | 2020-09-14 14:51 | Discharge Summary ---
Date of Service September 14, 2020 Admission HPI Per Admitting Provider History obtained from patient, family, and records. Medical history significant for chronic hypoxemic respiratory failure secondary to nocturnal hypoxemia on home O2, chronic diastolic heart failure as per records, A. fib on Xarelto, hypertension, hyperlipidemia, CRI (baseline creatinine 1.2 ), prediabetes as per records. Last confinement October 2018 for CHF exacerbation. Both legs feeling weak and giving out as per patient. Patient had 2 unwitnessed falls at home yesterday. Appetite not too good the last few days. Was on the ground for a few hours. Patient denies syncope, headache, LOC, S OB. No unusual cough symptoms. Left-sided chest pain without radiation from chest trauma as per patient. Patient also complaining of achy right pelvic pain. Patient a little more confused than usual as per son. Lower lip symmetry somewhat new as per son. O2 sats noted to be 80s on room air at the ER at some point. 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 Admission Exam Per Admitting Provider GENERAL: Comfortable, wane, no respiratory distress SKIN: Pallor , warm HEENT: Boring palpebral conjunctivae, no ptosis, dry buccal mucosa, lip asymmetry (new as per patient son), nasal cannula in place NECK : Supple, no tenderness CHEST : Decreased breath sounds, tenderness left chest wall HEART : RRR, no obvious murmurs ABDOMEN: Some distention, nontender EXTREMITIES : Chronic LE swelling (R greater than the left), right hip tenderness, no other conspicuous deformities noted NEUROLOGIC : Coherent, lip asymmetry more pronounced during speech, gait and stance not assessed Principal Diagnosis Metabolic encephalopathy secondary to UTI Nonoperative acetabular and pelvic fractures right hemipelvis, rib fractures FABIOLA, rhabdomyolysis Discharge Exam GENERAL: Elderly female, sitting up in the bed,comfortable, no respiratory distress, on suppl. O2 via NC HEENT: NC/AT, pink palpebral conjunctivae, no ptosis, nasal cannula in place NECK : Supple, no tenderness CHEST : Decreased breath sounds, no wheezing, rhonchi, crackles noted,+ tenderness left chest wall HEART : RRR, no obvious murmurs ABDOMEN: + bowel sounds, some distention, nontender, obese SKIN: warm, dry EXTREMITIES : Chronic LE swelling (R greater than the left), right hip tenderness, no other conspicuous deformities noted NEUROLOGIC : alert and oriented, mild lip asymmetry more pronounced during speech, moves extremities Discharge Data Allergies Allergy/AdvReac Type Severity Reaction Status Date / Time quinapril AdvReac Mild H/A Verified 09/11/20 21:39 nifedipine AdvReac Unknown pounding Verified 09/11/20 21:39 headache Consultations 09/12/20 01:28 ED Decision to Admit Stat 09/12/20 03:53 Consult Case Management - Discharge Planning Routine 09/12/20 06:00 Consult Orthopedic Surgery QSE 09/12/20 14:00 Consult Orthopedic Surgery QSE 09/12/20 22:00 Consult Orthopedic Surgery QSE Ordered Studies 09/11/20 20:46 CT cervical spine wo con Urgent CT head/brain wo con Urgent 09/11/20 23:11 CT chest wo con Urgent 09/11/20 23:16 CT abd pelvis wo con Urgent IMPRESSION: 1. Acute right iliac bone fracture extending to the superior acetabulum 2. Age-indeterminate L4 and L5 spinous process fractures. 3. No evidence of solid organ injury given the limitations of a noncontrast anthony dy 4. Cholelithiasis 5. 24 mm left adrenal adenoma 6. Indeterminate bilateral renal masses including an indeterminate 29 mm left renal lesion. Dedicated renal imaging is recommended in follow-up. 7. Fat-containing umbilical and inguinal hernias. 09/12/20 00:39 CT head/brain wo con Urgent 09/12/20 03:53 MR angio head wo con Routine IMPRESSION: 1. Decreased signal within the distal right vertebral artery. A distal right vertebral artery stenosis cannot be excluded 2. Otherwise unremarkable MR angiography of the [place] MR brain wo con Routine IMPRESSION: 1. No evidence of acute or subacute infarction 2. No evidence of intracranial mass given the limitations of a noncontrast study 3. Gyriform focus of decreased T2 signal within the left parietal convexity. Cortical mineralization/calcification, favored over subarachnoid hemorrhage. 09/12/20 16:04 CT head/brain wo con Routine IMPRESSION: 1. No acute intracranial findings 2. The previously queried subarachnoid hemorrhage is not visualized on current study. Hospital Course (1) Acute on chronic respiratory failure with hypoxemia: Metabolic encephalopathy secondary to UTI Chronic respiratory failure on home O2, at baseline uses 3L of O2 now only mildly incr. to 4L of O2 (can not say with certainty this is acute on chronic) Secondary to traumatic rib fracture left and UTI, pelvic fx ARF on CKD secondary to traumatic rhabdomyolysis and UTI Metabolic encephalopathy - mental status seems to be much improved, encephalopathy resolved Currently patient knows where she is, current year, she can even tell me the names of her children and where they reside. She does not seems to be confused at all. UTI Started on ceftriaxone, continued while inpt Urine cultx - positive for E.coli sensitive to ceftriaxone and cefuroxime Plan to switch to cefuroxime on discharge to finish Abx course Pelvic fx, rib fx Traumatic pelvic fracture secondary to mechanical fall Acute right iliac bone fracture extending to the superior acetabulum Age-indeterminate L4 and L5 spinous process fractures Analgesia, Lidoderm patch for rib fracture, encourage incentive spirometry Orthopedics consulted Nonoperative acetabular and pelvic fractures right hemipelvis. Low energy fall. Weightbearing as tolerated with walker. Assist x1. Will likely require supervised rehabilitation. PT/OT evaluation. May need rehab facility prior to returning home given 2 story home and living alone. DVT prophylaxis TEDS, SCDs,pt is on xarelto Please follow up in [address] Johnson at [facility] [phone]. Rhabdomyolysis - pt started on IVF on admission - CK decreased to 700 from 2700 - held losartan and home diuretics, recommend to cont. to hold for next 2 days and have a BMP obtained in 2 days -Monitor urine output and fluid status, daily weights -If BMP/renal function adequate, restart losartan and furosemide Lip asymmetry ? unknown duration rule out CVA MRI -no evidence of acute or subacute infarction. No evidence of intracranial mass given the limitations of a noncontrast study. Gyriform focus of decreased T2 signal within the left parietal convexity. Cortical mineralization/calcification, favored over subarachnoid hemorrhage. CT head repeated -the previously questioned subarachnoid hemorrhage is not visualized on current study On MRA decreased signal within the distal right vertebral artery. A distal right vertebral artery stenosis cannot be excluded Follow up w/ outpt neurology Incidental finding Indeterminate bilateral renal masses including an indeterminate 29 mm left renal lesion. Dedicated renal imaging is recommended in follow-up. Follow up w/ PCP Chronic diastolic heart failure as per records, patient on the dry side on admission A. fib on Xarelto Hypertension, slight elevated Prediabetes as per records, hemoglobin A1c of 5.30 June 2020 PT OT eval - recommend SNF/ rehab DVT prophylaxis. SCDs, will resume xarelto Full code Patient's son, Mr. Fuentes Smith, can be contacted at #[phone]. Disposition - plan to discharge to [facility] Total Time Total Time Spent Total Time Spent (In Minutes): 45 Total Time Includes: Examination of the Patient, Discharge Planning, Medication Reconciliation and Communication With Other Providers Discharge Plan Discharge Items Patient Disposition: Transfer Longterm Fac Reason For Visit: RESP FAILURE Discharge Diagnosis: Metabolic encephalopathy secondary to UTI Nonoperative acetabular and pelvic fractures right hemipelvis, rib fractures FABIOLA, rhabdomyolysis Activity: Per Instructions section Non-emergency contact: Primary Care Provider and Surgeon Call non-emergency contact if: you have any medication questions and your symptoms worsen Follow-up/Referrals: Donna Tate MD [Primary Care Provider] - Diet: Heart Healthy Addtl Attending Provider Instructions: You should have a blood work done, BMP, in 2 days. For next 2 days do not take your diuretics, furosemide and losartan. After reviewing your BMP, if your kidney function is adequate, you can restart your diuretics-furosemide and losartan. You should also have your weight monitored daily and fluid status. Your urine output should also be monitored daily until rhabdomyolysis/FABIOLA resolved. Take antibiotic, cefuroxime, for your UTI. For pain you can take Tylenol 1000 mg 3 times a day, and use a lidocaine patch. For your pelvic fractures, please follow up in [address] Johnson (orthopedic surgeon ) at [facility] [phone]. Pending Studies at Discharge: No Stand-Alone Forms: My [facility] Skilled Items Patient informed of condition?: Yes DNR: No Discharge Level of Care: Skilled Communicable Disease: No Discharge Prognosis: Improving Lines: None Urinary Catheter: No Medications and DC Order Prescriptions: New lidocaine 5 % Adhesive Patch,Medicated 1 patch transdermal QAM Qty: 15 RF: 0 cefuroxime axetil 250 mg tablet 250 mg PO BID 3 Days Qty: 6 RF: 0 Continued atorvastatin 10 mg tablet 10 mg PO HS RF: 0 metoprolol succinate 100 mg tablet extended release 24 hr 100 mg PO BID RF: 0 tramadol 50 mg tablet 50 mg PO DAILY PRN (Reason: Pain) RF: 0 levothyroxine 75 mcg tablet 75 mcg PO DAILY RF: 0 alprazolam 0.5 mg tablet 0.5 mg PO UD PRN (Reason: Anxiety) RF: 0 cyanocobalamin (vitamin B-12) [Vitamin B-12] 500 mcg Tablet 500 mcg PO QAM RF: 0 hydralazine 50 mg tablet 50 mg PO BID RF: 0 digoxin 125 mcg tablet 125 mcg PO Q2D RF: 0 cholecalciferol (vitamin D3) [Vitamin D3] 1,000 unit Capsule 1,000 unit PO QAM RF: 0 rivaroxaban 15 mg tablet 15 mg PO DAILY RF: 0 ferrous sulfate 325 mg (65 mg iron) Tablet 325 mg PO DAILY RF: 0 Icy Hot Advanced Relief 11-16 % Cream 1 applic TOPICAL UD RF: 0 Discontinued potassium chloride 20 mEq tablet,ER particles/crystals 40 meq PO QAM RF: 0 furosemide 20 mg tablet 20 mg PO QAM RF: 0 losartan 100 mg tablet 100 mg PO QAM RF: 0 furosemide [Lasix] 40 mg tablet 40 mg PO BID RF: 0 potassium chloride [Klor-Con M20] 20 mEq tablet,ER particles/crystals 20 meq PO .DAILY UD RF: 0 Discharge Orders: Discharge Order (Routine); Ordered 09/14/20 Ordered By: Grzegorz Perkins Admission Data Admit Date/Time: 09/12/20 02:49 Attending Provider: Grzegorz Perkins Admit Provider: Casey Rose Primary Care Provider: Donna Tate Other Providers: Casey Rose ; Lico Taylor ; Zen Johnson ; Otilio Peres ; Enriqueta Amos ; Kevin Reddy ; Bina Potter ; Ayo Maxwell ; Fredo Velarde ; Anthony Jackson ; Fredo Tucker ; Ibrahima Navarro. ; Anthony Miller ; Diego Evans ; Sly Shaw ; Jayjay Bautista ; Rob Jimenez ; Zackery Smiley ; Bina Jules ; Derek Gutierrez ; Efra Wise ; Molly Escalante ; Guillermo Roblero ; Delia Gu ; [facility] ; [facility]
[2020-09-14] MEDS: DIGOXIN 0.125 MG TAB PO SCH (15:29)
[2020-09-14] MEDS ORDERED: RIVAROXABAN 15 MG TAB PO SCH (16:30)
[2020-09-14] MEDS ORDERED: ATORVASTATIN 10 MG TAB PO SCH (21:00)
[2020-09-15] MEDS ORDERED: CYANOCOBALAMIN 500 MCG TABLET (VITAMIN B-12) PO SCH (09:00)
[2020-09-15] MEDS ORDERED: CHOLECALCIFEROL 1,000 UNITS 25 MCG TAB PO SCH (09:00)
== END 2020-09-14 16:30 | DRG 557 ==
LOC: ED 20:28 → 2W 09-12 02:49

== ENCOUNTER 2020-10-19 10:54 | Inpatient (IN) ==
[2020-10-19] MEDS ORDERED: DEXAMETHASONE SOD INJ 10 MG/ML VIAL IV ONE (11:38)
[2020-10-19] MEDS ORDERED: ACETAMINOPHEN 1,000 MG/100 ML VIAL IV STA (11:38)
[2020-10-19 11:52] LABS: Basophils # (auto) 0.01 K/uL (0-0.2); Basophils % (auto) 0.2 %; Eosinophils # (auto) 0.02 K/uL (0-0.5); Eosinophils % (auto) 0.4 %; Hematocrit (blood only) 39.4 % (37-47); Hemoglobin 12.1 g/dL (12.0-16.0); Immature Granulocytes # (auto) 0.01 K/uL (0.00-0.02); Immature Granulocytes % (auto) 0.2 %; Lymphocytes # (auto) 0.75 K/uL (1.2-3.4); Lymphocytes % (auto) 16.1 %; Mean Corpuscular Hemoglobin 26.6 pg (25-34); Mean Corpuscular Hgb Conc 30.7 g/dL (32-36); Mean Corpuscular Volume 86.6 fL (80-100); Mean Platelet Volume 9.7 fL (7.4-10.4); Monocytes # (auto) 0.28 K/uL (0.11-0.59); Neutrophils # (auto) 3.58 K/uL (1.4-6.5); Neutrophils % (auto) 77.1 %; Platelet Count 172 K/uL (130-400); RDW Coefficient of Variation 17.2 % (11.5-14.5); RDW Standard Deviation 54.5 fL (36.4-46.3); Red Blood Count 4.55 M/uL (4.2-5.4); White Blood Count 4.65 K/uL (4.8-10.8)
[2020-10-19 12:04] LABS: Albumin Level 2.9 gm/dl (3.4-5.0); BUN Creatinine Ratio 17.2 (10-20); C Reactive Protein 3.94 mg/dl (0-0.29); Calcium 8.8 mg/dl (8.5-10.1); Creatinine Clr Calc Pharmacy 37.5 ml/min; Est GFR (African American) 57.3; Est GFR (Non-African American) 49.4; Magnesium 2.2 mg/dl (1.8-2.4); Potassium 4.3 mmol/L (3.5-5.1)
[2020-10-19 12:09] LABS: INR 1.1 (0.9-1.1); Partial Thromboplastin Ratio 1.1; Partial Thromboplastin Time 31.3 Seconds (21.0-31.0); Prothrombin Time 11.3 Seconds (9.0-12.0)
[2020-10-19 12:12] LABS: Albumin Globulin Ratio 0.8 (0.9-2); Bilirubin,Total 0.6 mg/dl (0.2-1); Ferritin 279.9 ng/ml (8-388); Globulin 3.7 gm/dl (2.5-4.0); Total Protein 6.6 gm/dl (6.4-8.2); Troponin I 0.187 ng/ml (0-0.045)
--- NOTE | 2020-10-19 13:02 | XRay Report ---
SINGLE VIEW CHEST CLINICAL HISTORY: Sepsis. FINDINGS: An AP, portable, upright chest radiograph is compared to chest x-ray and chest CT dated . The examination is degraded by portable technique and patient rotation. The heart is enlarge d noting atherosclerotic calcification of the thoracic aorta. Hazy airspace opacities are seen throug hout both lungs. No large pleural effusion or pneumothorax is identified. The skeletal structures are osteopenic. The bony thorax is grossly intact. IMPRESSION: 1. Cardiomegaly. 2. Hazy airspace opacities are seen throughout both lungs. Differential considerations including an i nfectious/inflammatory pneumonitis and/or pulmonary edema. Clinical correlation will be essential. ACT 112: Negative or not required by law. Electronically signed by: Tino Greenberg M.D. 10/19/2020 1:00 PM
[2020-10-19 13:21] LABS: D Dimer 1040 ug/L FEU (0-500)
[2020-10-19] MEDS ORDERED: OPTIRAY 320 125ml IV ONE (13:48)
--- NOTE | 2020-10-19 14:05 | CT Scan Report ---
CT ANGIOGRAM OF THE CHEST CLINICAL HISTORY: Dyspnea. Covid. COMPARISON STUDY: Chest x-ray dated 10/19/2020. Chest CT dated 09/11/2020. TECHNIQUE: Following the IV administration of 120 cc of Optiray 320, CT angiogram of the chest was pe rformed from the upper abdomen to the thoracic inlet utilizing the pulmonary embolus protocol. Images are reviewed in the axial, sagittal, and coronal planes. 3-D MIPS images are created and assessed. I V contrast was administered without complication. A dose lowering technique was utilized adhering to the principles of ALARA. The examination is degraded by motion artifact, and by streak artifact from the left arm which could not be elevated above the chest. CT DOSE: 438.37 mGycm FINDINGS: Thyroid: Imaged portions of the thyroid gland are normal in size and attenuation. Low-attenuation thy roid nodules measure up to 10 mm. Thoracic aorta: There is atherosclerotic calcification of the thoracic aorta, which is normal in deandre robinson and demonstrates bovine variant arch anatomy. The thoracic aorta is not well opacified. Pulmonary vasculature: The pulmonary trunk is dilated, measuring 3.4 cm diameter. This suggests pulmo nary artery hypertension. There are no filling defects identified in main, lobar, or segmental pulmon angelia branches to suggest pulmonary embolus. Evaluation of the peripheral branches is degraded by motio n artifact. Heart: The heart is enlarged noting a small pericardial effusion. Pulmonary arteries are densely calc ified. Lungs and pleural spaces: Evaluation of the lung parenchyma is degraded by motion artifact. Diffuse i ntralobular septal thickening is noted. There are small pleural effusions with bibasilar atelectasis. Patchy groundglass consolidation is seen throughout both lungs. The trachea and central airways are clear. Mediastinum: Mildly enlarged mediastinal nodes measure up to 10 mm in short axis. Sayda: Mildly enlarged hilar nodes measure up to 11 mm in short axis. Axillae: There is no axillary lymphadenopathy. Upper abdomen: There is a moderate hiatal hernia. Partially visualized upper abdominal viscera is oth erwise within normal limits. Skeletal structures: The skeletal structures are osteopenic. There is an acute to subacute compressio n fracture of T12 with moderate loss of height. Fragments are retropulsed by up to 7 mm. Paravertebra l edema is noted. There subacute/healing right-sided rib fractures. No lytic or blastic bony lesions are seen. IMPRESSION: 1. There is no evidence of pulmonary embolus in the main, lobar, or segmental pulmonary arteries. 2. Marked cardiomegaly with evidence of congestive failure. 3. Patchy airspace consolidation throughout both lungs could represent pulmonary edema and/or an infe ctious/inflammatory pneumonitis. Clinical correlation will be essential. 4. Small pleural effusions. 5. There is an acute to subacute compression fracture of T12 with moderate loss of height and retropu lsion of fragments. This is new from 09/11/2020. 6. There are subacute/healing right-sided rib fractures. 7. Mildly enlarged mediastinal and hilar nodes are likely reactive. 8. Additional findings as above. ACT 112: Negative or not required by law. Electronically signed by: Tino Greenberg M.D. 10/19/2020 2:04 PM
[2020-10-19] MEDS ORDERED: FUROSEMIDE 40 MG/4 ML VIAL IV STA ×3 (14:23→18:40)
[2020-10-19] MEDS ORDERED: hydrALAZINE HCL 20 MG/ML VIAL IV STA (14:36)
--- NOTE | 2020-10-19 14:42 | Emergency Department Note ---
History of Present Illness General Chief complaint: Shortness of Breath/Dyspnea Time Seen by Provider: 10/19/20 11:28 Source: patient, family (son, POA), EMS, RN notes reviewed and old records reviewed Mode of arrival: EMS Limitations: altered mental status History of Present Illness Provider complaint: Covid, increasing oxygen Onset (ago): day(s) 3 Maximum Pain Intensity: 0 Current Pain Intensity: 0 Relieved By: + immobilization and + rest Exacerbated By: + movement Associated symptoms: + confusion, + cough, + fever/chills and + nausea/vomiting; no chest pain Treatments prior to arrival: other (Increased oxygen ) This is an 80-year-old female who presents the emergency department after being diagnosed with Covid approximately 3 days ago. Per jail staff the patient has become more altered and is requiring more oxygen than she is normall y on. She they report that the patient is normally on 2 L of oxygen. Upon arrival to the emergency department the patient herself has no complaints. They report the hypoxia is made better with rest however exacerbation makes it worse. Her oxygen was increased to 4 L prior to arrival with improvement in her symptoms. Home Medications Medication Instructions Recorded Confirmed Type atorvastatin 10 mg PO HS 11/05/18 10/19/20 History cholecalciferol (vitamin D3) 1,000 unit PO QAM 11/05/18 10/19/20 History [Vitamin D3] cyanocobalamin (vitamin B-12) 500 mcg PO QAM 11/05/18 10/19/20 History [Vitamin B-12] digoxin 125 mcg PO Q2D 11/05/18 10/19/20 History hydralazine 50 mg PO BID 11/05/18 10/19/20 History levothyroxine 75 mcg PO DAILY 11/05/18 10/19/20 History metoprolol succinate 100 mg PO BID 11/05/18 10/19/20 History rivaroxaban 15 mg PO DAILY 11/05/18 10/19/20 History ferrous sulfate 325 mg PO DAILY 09/11/20 10/19/20 History lidocaine 1 patch TRANSDERMAL QAM #15 ea 09/14/20 10/19/20 Rx tramadol 50 mg PO Q8H PRN #14 tab 09/14/20 10/19/20 Rx acetaminophen [Tylenol Extra 1,000 mg PO TID 10/19/20 10/19/20 History Strength] acetaminophen [Tylenol] 650 mg PO Q4H PRN 10/19/20 10/19/20 History bisacodyl [Dulcolax (bisacodyl)] 10 mg IA DAILY PRN 10/19/20 10/19/20 History docusate sodium [Colace] 100 mg PO DAILY PRN 10/19/20 10/19/20 History furosemide 40 mg PO DAILY 10/19/20 10/19/20 History furosemide 40 mg PO DAILY PRN 10/19/20 10/19/20 History polyethylene glycol 3350 [Miralax] 17 g PO DAILY PRN 10/19/20 10/19/20 History potassium chloride 20 meq PO BID 10/19/20 10/19/20 History Allergies Allergy/AdvReac Type Severity Reaction Status Date / Time quinapril AdvReac Mild H/A Verified 09/11/20 21:39 nifedipine AdvReac Unknown pounding Verified 09/11/20 21:39 headache Past Med/Surg History Medical History Chronic diastolic (congestive) heart failure Chronic respiratory failure with hypoxia CKD (chronic kidney disease) stage 3, GFR 30-59 ml/min Closed fracture of right anterior inferior iliac spine Closed fracture of right anterior superior iliac spine COPD (chronic obstructive pulmonary disease) YESICA (generalized anxiety disorder) GERD (gastroesophageal reflux disease) HLD (hyperlipidemia) HTN (hypertension) Hypothyroidism Nocturnal hypoxia Osteoporosis Paroxysmal A-fib Pelvis acetabulum fracture Surgical History History of nasal polypectomy History of total left knee replacement (TKR) Hx of fracture of radius Family History Mother Diabetes Hypertension Father Hypertension Coronary heart disease Social History Smoking Status: Never smoker Second Hand Exposure: Yes ( was smoker); Hx Alcohol Use: No Hx Substance Use: No Preferred Language: Persian Communication Ability: Effective 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: No Beliefs That Will Affect Care: None marital status: / Current Living Situation: Alone current occupational status: retired Feels Safe at Home: Yes Assistive Devices: Denture - Upper, Glasses and Oxygen - Continuous Review of Systems A total of 10 systems reviewed and were otherwise negative Physical Exam Vital Signs Vital Signs - 24 hr 10/19/20 10:44 10/19/20 10:55 10/19/20 11:00 Temperature 37 C Temperature Source Oral Pulse Rate 52 L Pulse Rate from SpO2 Sensor Respiratory Rate 31 H Respiratory Effort / Characteristics Non-Labored Spontaneous Non-Labored Spontaneous Respiratory Depth Shallow Shallow Respiratory Pattern Tachypnea Tachypnea Blood Pressure 218/101 H Blood Pressure Mean 140 Blood Pressure Position Lying Pulse Oximetry 86 L 86 L Oxygen Delivery Method Nasal Cannula Nasal Cannula Room Air Nasal Cannula Oxygen Flow Rate 2 2 2 Sepsis Recent Fever Within 48 Hours Yes Sepsis New/Unexplained Change in Mental Status Yes Sepsis Action Taken by Nursing Physician Notified Oxygen Flow Rate - Titration 4 Pulse Oximetry Post Tiitration 95 10/19/20 11:01 10/19/20 11:21 10/19/20 11:31 Temperature Temperature Source Pulse Rate 49 L 51 L 45 L Pulse Rate from SpO2 Sensor 49 L 50 L 45 L Respiratory Rate 20 23 21 Respiratory Effort / Characteristics Respiratory Depth Respiratory Pattern Blood Pressure 218/101 H 205/95 H 162/79 H Blood Pressure Mean 180 133 98 Blood Pressure Position Pulse Oximetry 86 L 94 98 Oxygen Delivery Method Nasal Cannula Nasal Cannula Nasal Cannula Oxygen Flow Rate 2 4 4 Sepsis Recent Fever Within 48 Hours Sepsis New/Unexplained Change in Mental Status Sepsis Action Taken by Nursing Oxygen Flow Rate - Titration Pulse Oximetry Post Tiitration 10/19/20 11:38 10/19/20 12:00 10/19/20 12:01 Temperature Temperature Source Pulse Rate 52 L 45 L 43 L Pulse Rate from SpO2 Sensor 45 L 44 L Respiratory Rate 24 23 22 Respiratory Effort / Characteristics Non-Labored Spontaneous Respiratory Depth Respiratory Pattern Blood Pressure 167/87 H Blood Pressure Mean 114 Blood Pressure Position Pulse Oximetry 95 99 98 Oxygen Delivery Method Nasal Cannula Nasal Cannula Nasal Cannula Oxygen Flow Rate 4 4 4 Sepsis Recent Fever Within 48 Hours Sepsis New/Unexplained Change in Mental Status Sepsis Action Taken by Nursing Oxygen Flow Rate - Titration Pulse Oximetry Post Tiitration 10/19/20 12:15 10/19/20 12:30 10/19/20 12:31 Temperature Temperature Source Pulse Rate 45 L 50 L 51 L Pulse Rate from SpO2 Sensor 41 L 45 L 48 L Respiratory Rate 22 12 25 H Respiratory Effort / Characteristics Respiratory Depth Respiratory Pattern Blood Pressure 178/93 H Blood Pressure Mean 142 Blood Pressure Position Pulse Oximetry 99 99 98 Oxygen Delivery Method Nasal Cannula Nasal Cannula Nasal Cannula Oxygen Flow Rate 4 4 4 Sepsis Recent Fever Within 48 Hours Sepsis New/Unexplained Change in Mental Status Sepsis Action Taken by Nursing Oxygen Flow Rate - Titration Pulse Oximetry Post Tiitration 10/19/20 12:38 10/19/20 12:45 10/19/20 13:00 Temperature Temperature Source Pulse Rate 43 L 49 L Pulse Rate from SpO2 Sensor 43 L 46 L Respiratory Rate 12 22 Respiratory Effort / Characteristics Non-Labored Spontaneous Respiratory Depth Respiratory Pattern Blood Pressure 202/89 H Blood Pressure Mean 127 Blood Pressure Position Pulse Oximetry 99 99 Oxygen Delivery Method Nasal Cannula Nasal Cannula Oxygen Flow Rate 4 4 Sepsis Recent Fever Within 48 Hours Sepsis New/Unexplained Change in Mental Status Sepsis Action Taken by Nursing Oxygen Flow Rate - Titration Pulse Oximetry Post Tiitration 10/19/20 13:01 10/19/20 13:08 10/19/20 13:15 Temperature Temperature Source Pulse Rate 48 L 45 L Pulse Rate from SpO2 Sensor 43 L 41 L Respiratory Rate 22 20 Respiratory Effort / Characteristics Non-Labored Spontaneous Respiratory Depth Respiratory Pattern Blood Pressure Blood Pressure Mean Blood Pressure Position Pulse Oximetry 99 98 Oxygen Delivery Method Nasal Cannula Nasal Cannula Oxygen Flow Rate 4 4 Sepsis Recent Fever Within 48 Hours Sepsis New/Unexplained Change in Mental Status Sepsis Action Taken by Nursing Oxygen Flow Rate - Titration Pulse Oximetry Post Tiitration 10/19/20 13:30 10/19/20 13:31 Temperature Temperature Source Pulse Rate 44 L 40 L Pulse Rate from SpO2 Sensor 45 L 40 L Respiratory Rate 25 H 23 Respiratory Effort / Characteristics Respiratory Depth Respiratory Pattern Blood Pressure 192/71 H Blood Pressure Mean 89 Blood Pressure Position Pulse Oximetry 95 97 Oxygen Delivery Method Nasal Cannula Nasal Cannula Oxygen Flow Rate 4 4 Sepsis Recent Fever Within 48 Hours Sepsis New/Unexplained Change in Mental Status Sepsis Action Taken by Nursing Oxygen Flow Rate - Titration Pulse Oximetry Post Tiitration VITAL SIGNS - Vital signs and nursing notes were reviewed. GENERAL - 80-year-old female appearing stated age who is in no acute distress. SKIN - Without rashes. HEAD - NC/AT. EYES - PERRL with EOMI bilaterally. Sclera anicteric. Palpebral conjunctiva pink and moist with no injection noted. EARS - No deformities of external structures noted on gross examination bilaterally. No pain elicited with palpation of the tragus bilaterally. External auditory canals without discharge or otorrhea. Tympanic membranes pearly adams without retraction or bulging. No fluid or purulent material visualized behind the TM. Handle of malleus, umbo, cone of light, pars tensa/flaccid all easily visualized. NOSE - Midline and without cyanosis. No epistaxis or purulent drainage noted. Septum midline without deviation or septal hematoma noted. MOUTH/OROPHARYNX - Without perioral cyanosis. Buccal mucosa pink and moist and without leukoplakia. Tongue midline with equal elevation of palate bilaterally. No tonsillar hypertrophy, erythema, or exudates noted. dentition noted. NECK - Neck with FROM. Supple to palpation. lymphadenopathy noted. No nuchal rigidity. LUNGS - Chest wall symmetric without accessory muscle use, intercostals retractions, or central cyanosis. Normal vesicular breath sounds CTA B/L. No wheezes, rales, or rhonchi appreciated. CARDIAC - RRR with S1/S2. No murmur, rubs, or gallops appreciated. ABDOMEN - Abdominal contour without pulsations or visible masses. BS normoactive all four quadrants. No tenderness, palpable masses, hepatosplenomegaly, or ascites noted. EXTREMITIES - No clubbing or peripheral cyanosis. No pretibial edema present. +3/5 radial, posterior tibial, and dorsalis pedis pulses palpated throughout. +5/5 strength noted in UE/LE bilaterally. NEUROLOGIC - Cranial nerves II through XII grossly intact. Sensory intact to light touch throughout. Course Administered Medications Atorvastatin Calcium (Atorvastatin 10 Mg Tab) 10 mg PO HS [facility] Stop: 11/18/20 20:59 Last Admin: 10/20/20 20:34 Dose: 10 mg Documented by: [id number] Admin: 10/19/20 19:47 Dose: 10 mg Documented by: [id number] Cyanocobalamin (Cyanocobalamin 500 Mcg Tablet (Vitamin B-12)) 500 mcg PO QAM [facility] Stop: 11/19/20 08:59 Last Admin: 10/20/20 07:53 Dose: 500 mcg Documented by: [id number] Hydralazine HCl (Hydralazine Hcl 20 Mg/Ml Vial) 10 mg IV Q6H PRN PRN Reason: for SBP above 170 Stop: 11/18/20 18:22 Last Admin: 10/21/20 01:00 Dose: 10 mg Documented by: [id number] Admin: 10/20/20 18:13 Dose: 10 mg Documented by: [id number] Hydralazine HCl (Hydralazine Hcl 25 Mg Tab) 75 mg PO BID [facility] Stop: 11/19/20 20:59 Last Admin: 10/20/20 20:33 Dose: 75 mg Documented by: [id number] Ceftriaxone Sodium 1,000 mg/ (Dextrose) 50 mls @ 100 mls/hr IV Q24H [facility]; Protocol Stop: 10/26/20 14:59 Last Infusion: 10/20/20 17:19 Dose: 0 mls/hr Documented by: [id number] Admin: 10/20/20 15:29 Dose: 100 mls/hr Documented by: [id number] Infusion: 10/19/20 16:25 Dose: 0 mls/hr Documented by: [id number] Admin: 10/19/20 15:42 Dose: 100 mls/hr Documented by: [id number] Azithromycin 500 mg/ Dextrose 255 mls @ 125 mls/hr IV Q24H [facility] Stop: 10/26/20 19:59 Last Infusion: 10/20/20 19:25 Dose: 0 mls/hr Documented by: [id number] Admin: 10/20/20 17:18 Dose: 125 mls/hr Documented by: [id number] Infusion: 10/19/20 21:53 Dose: 0 mls/hr Documented by: [id number] Admin: 10/19/20 19:48 Dose: 125 mls/hr Documented by: [id number] Remdesivir 100 mg/ Sodium (Chloride) 250 mls @ 250 mls/hr IV Q24H [facility]; Protocol Stop: 10/23/20 20:59 Last Infusion: 10/20/20 21:32 Dose: 0 mls/hr Documented by: [id number] Admin: 10/20/20 20:31 Dose: 250 mls/hr Documented by: [id number] Furosemide 40 mg/ Syringe 4 mls @ 4 mls/min IV Q12H [facility] Stop: 11/19/20 05:59 Last Admin: 10/20/20 20:33 Dose: 4 mls/min Documented by: [id number] Admin: 10/20/20 07:49 Dose: 4 mls/min Documented by: [id number] Dexamethasone Sodium Phosphate (6 mg/ Syringe) 1.5 mls @ 1 mls/min IV DAILY [facility] Stop: 11/19/20 08:59 Last Admin: 10/20/20 07:50 Dose: 1 mls/min Documented by: [id number] Levothyroxine Sodium (Levothyroxine Sodium 75 Mcg Tablet) 75 mcg PO DAILYBB [facility] Stop: 11/19/20 06:29 Last Admin: 10/21/20 05:12 Dose: 75 mcg Documented by: [id number] Admin: 10/20/20 06:08 Dose: 75 mcg Documented by: [id number] Metoprolol Succinate (Metoprolol Succ 25mg Ext Rel Tab) 25 mg PO BID [facility] Stop: 11/19/20 20:59 Last Admin: 10/20/20 20:34 Dose: Not Given Documented by: [id number] Potassium Chloride (Potassium Chloride Crtab 20 Meq Tabcr) 20 meq PO BID17 [facility] Stop: 11/18/20 20:59 Last Admin: 10/20/20 17:16 Dose: 20 meq Documented by: [id number] Admin: 10/20/20 07:51 Dose: 20 meq Documented by: [id number] Admin: 10/19/20 19:47 Dose: 20 meq Documented by: [id number] Rivaroxaban (Rivaroxaban 15 Mg Tab) 15 mg PO DAILY [facility] Stop: 11/19/20 08:59 Last Admin: 10/20/20 07:52 Dose: 15 mg Documented by: [id number] Sodium Chloride (Sodium Chloride 0.9% 10ml Flush) 30 ml IV Q24H [facility] Stop: 10/23/20 20:01 Last Admin: 10/20/20 20:32 Dose: 30 ml Documented by: [id number] Admin: 10/19/20 19:47 Dose: 30 ml Documented by: [id number] Vitamin D (Cholecalciferol 1,000 Units 25 Mcg Tab) 1,000 units PO QAM [facility] Stop: 11/19/20 08:59 Last Admin: 10/20/20 07:51 Dose: 1,000 units Documented by: [id number] Discontinued Medications Dexamethasone (Dexamethasone Sod Inj 10 Mg/Ml Vial) 6 mg IV NOW ONE Stop: 10/19/20 11:39 Last Admin: 10/19/20 12:55 Dose: 6 mg Documented by: [id number] Furosemide (Furosemide 40 Mg/4 Ml Vial) 40 mg IV NOW STA Stop: 10/19/20 14:24 Last Admin: 10/19/20 15:38 Dose: 40 mg Documented by: [id number] Furosemide (Furosemide 40 Mg/4 Ml Vial) 40 mg IV NOW STA Stop: 10/19/20 15:17 Last Admin: 10/19/20 15:40 Dose: Not Given Documented by: [id number] Furosemide (Furosemide 40 Mg/4 Ml Vial) 40 mg IV ONE STA Stop: 10/19/20 18:41 Last Admin: 10/19/20 19:47 Dose: 40 mg Documented by: [id number] Hydralazine HCl (Hydralazine Hcl 20 Mg/Ml Vial) 5 mg IV NOW STA Stop: 10/19/20 14:37 Last Admin: 10/19/20 15:39 Dose: 5 mg Documented by: [id number] Hydralazine HCl (Hydralazine Hcl 20 Mg/Ml Vial) 5 mg IV Q6H PRN PRN Reason: Hypertension Stop: 11/18/20 18:22 Last Admin: 10/20/20 08:29 Dose: 5 mg Documented by: [id number] Hydralazine HCl (Hydralazine Tab 50 Mg Tab) 50 mg PO BID [facility] Stop: 11/18/20 18:29 Last Admin: 10/20/20 07:50 Dose: 50 mg Documented by: [id number] Admin: 10/19/20 21:53 Dose: 50 mg Documented by: [id number] Admin: 10/19/20 19:47 Dose: 50 mg Documented by: [id number] Acetaminophen (Ofirmev) 1,000 mg in 100 mls @ 400 mls/hr IV NOW STA Stop: 10/19/20 11:52 Last Admin: 10/19/20 12:07 Dose: Not Given Documented by: [id number] Remdesivir 200 mg/ Sodium (Chloride) 250 mls @ 125 mls/hr IV ONE STA; Protocol Stop: 10/19/20 16:55 Last Infusion: 10/19/20 19:00 Dose: 0 mls/hr Documented by: [id number] Admin: 10/19/20 15:42 Dose: 125 mls/hr Documented by: [id number] Ioversol (Optiray 320 125ml) 120 ml IV ONCE ONE Stop: 10/19/20 13:49 Last Admin: 10/19/20 13:48 Dose: 120 ml Documented by: [id number] Naloxone HCl (Naloxone Hcl 0.4 Mg/1 Ml Vial/Carp) 0.4 mg IV NOW STA Stop: 10/19/20 15:17 Last Admin: 10/19/20 15:39 Dose: 0.2 mg Documented by: [id number] Nitroglycerin (Nitroglycerin 2% Ointment 30gm Tube) 1 inch EXT Q6 [facility] Stop: 11/18/20 18:22 Last Admin: 10/20/20 17:17 Dose: Not Given Documented by: [id number] Admin: 10/20/20 12:37 Dose: 1 inch Documented by: [id number] Admin: 10/20/20 06:08 Dose: 1 inch Documented by: [id number] Admin: 10/20/20 00:25 Dose: 1 inch Documented by: [id number] Admin: 10/19/20 19:47 Dose: 1 inch Documented by: [id number] Critical Care Time I have personally spent greater than 90 minutes of critical care time in the direct management of this patient. This includes bedside care, interpretation of diagnostic studies, and testing, discussion with consultants, patient, and family members, and other required patient management activities. This 90 minutes is in excess of all separately billable procedures. Medical Decision Making Differential Diagnosis Infection, dehydration, metabolic abnormality, hypo/hyperglycemia, electrolyte disturbance, anemia, hypoxia, cardiac sources, intracerebral event, toxicologic, neurologic, as well as other pathologies. Medical Records Attestation: I reviewed the patient's medical records. Home Medications Current Medication List: was personally reviewed by me Laboratory Data Attestation: I reviewed the patient's lab results. Result diagrams: 10/20/20 04:48 10/21/20 04:43 Lab Results 10/19/20 10/19/20 10/19/20 Range/Units 11:11 11:11 11:11 WBC 4.65 L (4.8-10.8) K/uL RBC 4.55 (4.2-5.4) M/uL Hgb 12.1 (12.0-16.0) g/dL Hct 39.4 (37-47) % MCV 86.6 (80-100) fL MCH 26.6 (25-34) pg MCHC 30.7 L (32-36) g/dL RDW Std Deviation 54.5 H (36.4-46.3) fL RDW Coeff of Sandie 17.2 H (11.5-14.5) % Plt Count 172 (130-400) K/uL MPV 9.7 (7.4-10.4) fL Immature Gran % (Auto) 0.2 % Neut % (Auto) 77.1 % Lymph % (Auto) 16.1 % Haakon % (Auto) 6.0 % Eos % (Auto) 0.4 % Baso % (Auto) 0.2 % Neut # (Auto) 3.58 (1.4-6.5) K/uL Lymph # (Auto) 0.75 L (1.2-3.4) K/uL Haakon # (Auto) 0.28 (0.11-0.59) K/uL Eos # (Auto) 0.02 (0-0.5) K/uL Baso # (Auto) 0.01 (0-0.2) K/uL Immature Gran # (Auto) 0.01 (0.00-0.02) K/uL ESR 32 H (0-21) mm/hr PT 11.3 (9.0-12.0) Seconds INR 1.1 (0.9-1.1) APTT 31.3 H (21.0-31.0) Seconds PTT Ratio 1.1 D-Dimer (0-500) ug/L FEU ABG pH (7.35-7.45) ABG pCO2 (35-46) mmHg ABG pO2 (80-95) mmHg ABG HCO3 (19-24) mmol/L ABG O2 Saturation (90-95) % ABG Base Excess (-9-1.8) mEq/L Dixon Test (Pos) Barometric Pressure mm/Hg Oxygen Given Sodium (136-145) mmol/L Potassium (3.5-5.1) mmol/L Chloride (98-107) mmol/L Carbon Dioxide (21-32) mmol/L Anion Gap (3-11) BUN (7-18) mg/dl Creatinine (0.6-1.2) mg/dl Est Cr Clr Drug Dosing ml/min Est GFR ( Amer) Est GFR (Non-Af Amer) BUN/Creatinine Ratio (10-20) Glucose (70-99) mg/dl Lactate (0.4-2.0) mmol/L Calcium (8.5-10.1) mg/dl Magnesium (1.8-2.4) mg/dl Ferritin (8-388) ng/ml Total Bilirubin (0.2-1) mg/dl AST (15-37) U/L ALT (12-78) U/L Alkaline Phosphatase (45-117) U/L Lactate Dehydrogenase (84-246) U/L Troponin I (0-0.045) ng/ml C-Reactive Protein (0-0.29) mg/dl NT-Pro-B Natriuret Pep (0-1800) pg/ml Total Protein (6.4-8.2) gm/dl Albumin (3.4-5.0) gm/dl Globulin (2.5-4.0) gm/dl Albumin/Globulin Ratio (0.9-2) Procalcitonin (0-0.5) ng/ml Digoxin (0.8-2.0) ng/ml 10/19/20 10/19/20 10/19/20 Range/Units 11:11 11:11 11:11 WBC (4.8-10.8) K/uL RBC (4.2-5.4) M/uL Hgb (12.0-16.0) g/dL Hct (37-47) % MCV (80-100) fL MCH (25-34) pg MCHC (32-36) g/dL RDW Std Deviation (36.4-46.3) fL RDW Coeff of Sandie (11.5-14.5) % Plt Count (130-400) K/uL MPV (7.4-10.4) fL Immature Gran % (Auto) % Neut % (Auto) % Lymph % (Auto) % Haakon % (Auto) % Eos % (Auto) % Baso % (Auto) % Neut # (Auto) (1.4-6.5) K/uL Lymph # (Auto) (1.2-3.4) K/uL Haakon # (Auto) (0.11-0.59) K/uL Eos # (Auto) (0-0.5) K/uL Baso # (Auto) (0-0.2) K/uL Immature Gran # (Auto) (0.00-0.02) K/uL ESR (0-21) mm/hr PT (9.0-12.0) Seconds INR (0.9-1.1) APTT (21.0-31.0) Seconds PTT Ratio D-Dimer (0-500) ug/L FEU ABG pH (7.35-7.45) ABG pCO2 (35-46) mmHg ABG pO2 (80-95) mmHg ABG HCO3 (19-24) mmol/L ABG O2 Saturation (90-95) % ABG Base Excess (-9-1.8) mEq/L Dixon Test (Pos) Barometric Pressure mm/Hg Oxygen Given Sodium 142 (136-145) mmol/L Potassium 4.3 (3.5-5.1) mmol/L Chloride 106 (98-107) mmol/L Carbon Dioxide 31 (21-32) mmol/L Anion Gap 5.0 (3-11) BUN 18 (7-18) mg/dl Creatinine 1.05 (0.6-1.2) mg/dl Est Cr Clr Drug Dosing 37.5 ml/min Est GFR ( Amer) 57.3 Est GFR (Non-Af Amer) 49.4 BUN/Creatinine Ratio 17.2 (10-20) Glucose 104 H (70-99) mg/dl Lactate 0.9 (0.4-2.0) mmol/L Calcium 8.8 (8.5-10.1) mg/dl Magnesium 2.2 (1.8-2.4) mg/dl Ferritin 279.9 (8-388) ng/ml Total Bilirubin 0.6 (0.2-1) mg/dl AST 30 (15-37) U/L ALT 25 (12-78) U/L Alkaline Phosphatase 110 (45-117) U/L Lactate Dehydrogenase 346 H (84-246) U/L Troponin I 0.187 H* (0-0.045) ng/ml C-Reactive Protein 3.94 H (0-0.29) mg/dl NT-Pro-B Natriuret Pep (0-1800) pg/ml Total Protein 6.6 (6.4-8.2) gm/dl Albumin 2.9 L (3.4-5.0) gm/dl Globulin 3.7 (2.5-4.0) gm/dl Albumin/Globulin Ratio 0.8 L (0.9-2) Procalcitonin (0-0.5) ng/ml Digoxin (0.8-2.0) ng/ml 10/19/20 10/19/20 10/19/20 Range/Units 11:11 11:11 11:11 WBC (4.8-10.8) K/uL RBC (4.2-5.4) M/uL Hgb (12.0-16.0) g/dL Hct (37-47) % MCV (80-100) fL MCH (25-34) pg MCHC (32-36) g/dL RDW Std Deviation (36.4-46.3) fL RDW Coeff of Sandie (11.5-14.5) % Plt Count (130-400) K/uL MPV (7.4-10.4) fL Immature Gran % (Auto) % Neut % (Auto) % Lymph % (Auto) % Haakon % (Auto) % Eos % (Auto) % Baso % (Auto) % Neut # (Auto) (1.4-6.5) K/uL Lymph # (Auto) (1.2-3.4) K/uL Haakon # (Auto) (0.11-0.59) K/uL Eos # (Auto) (0-0.5) K/uL Baso # (Auto) (0-0.2) K/uL Immature Gran # (Auto) (0.00-0.02) K/uL ESR (0-21) mm/hr PT (9.0-12.0) Seconds INR (0.9-1.1) APTT (21.0-31.0) Seconds PTT Ratio D-Dimer 1040 H* (0-500) ug/L FEU ABG pH (7.35-7.45) ABG pCO2 (35-46) mmHg ABG pO2 (80-95) mmHg ABG HCO3 (19-24) mmol/L ABG O2 Saturation (90-95) % ABG Base Excess (-9-1.8) mEq/L Dixon Test (Pos) Barometric Pressure mm/Hg Oxygen Given Sodium (136-145) mmol/L Potassium (3.5-5.1) mmol/L Chloride (98-107) mmol/L Carbon Dioxide (21-32) mmol/L Anion Gap (3-11) BUN (7-18) mg/dl Creatinine (0.6-1.2) mg/dl Est Cr Clr Drug Dosing ml/min Est GFR ( Amer) Est GFR (Non-Af Amer) BUN/Creatinine Ratio (10-20) Glucose (70-99) mg/dl Lactate (0.4-2.0) mmol/L Calcium (8.5-10.1) mg/dl Magnesium (1.8-2.4) mg/dl Ferritin (8-388) ng/ml Total Bilirubin (0.2-1) mg/dl AST (15-37) U/L ALT (12-78) U/L Alkaline Phosphatase (45-117) U/L Lactate Dehydrogenase (84-246) U/L Troponin I (0-0.045) ng/ml C-Reactive Protein (0-0.29) mg/dl NT-Pro-B Natriuret Pep 20025 H (0-1800) pg/ml Total Protein (6.4-8.2) gm/dl Albumin (3.4-5.0) gm/dl Globulin (2.5-4.0) gm/dl Albumin/Globulin Ratio (0.9-2) Procalcitonin 0.06 (0-0.5) ng/ml Digoxin (0.8-2.0) ng/ml 10/19/20 10/19/20 Range/Units 14:46 14:55 WBC (4.8-10.8) K/uL RBC (4.2-5.4) M/uL Hgb (12.0-16.0) g/dL Hct (37-47) % MCV (80-100) fL MCH (25-34) pg MCHC (32-36) g/dL RDW Std Deviation (36.4-46.3) fL RDW Coeff of Sandie (11.5-14.5) % Plt Count (130-400) K/uL MPV (7.4-10.4) fL Immature Gran % (Auto) % Neut % (Auto) % Lymph % (Auto) % Haakon % (Auto) % Eos % (Auto) % Baso % (Auto) % Neut # (Auto) (1.4-6.5) K/uL Lymph # (Auto) (1.2-3.4) K/uL Haakon # (Auto) (0.11-0.59) K/uL Eos # (Auto) (0-0.5) K/uL Baso # (Auto) (0-0.2) K/uL Immature Gran # (Auto) (0.00-0.02) K/uL ESR (0-21) mm/hr PT (9.0-12.0) Seconds INR (0.9-1.1) APTT (21.0-31.0) Seconds PTT Ratio D-Dimer (0-500) ug/L FEU ABG pH 7.39 (7.35-7.45) ABG pCO2 48 H (35-46) mmHg ABG pO2 114 H (80-95) mmHg ABG HCO3 28 H (19-24) mmol/L ABG O2 Saturation 98.2 H (90-95) % ABG Base Excess 2.5 H (-9-1.8) mEq/L Dixon Test POS (Pos) Barometric Pressure 746.5 mm/Hg Oxygen Given 4L O2 Sodium (136-145) mmol/L Potassium (3.5-5.1) mmol/L Chloride (98-107) mmol/L Carbon Dioxide (21-32) mmol/L Anion Gap (3-11) BUN (7-18) mg/dl Creatinine (0.6-1.2) mg/dl Est Cr Clr Drug Dosing ml/min Est GFR ( Amer) Est GFR (Non-Af Amer) BUN/Creatinine Ratio (10-20) Glucose (70-99) mg/dl Lactate (0.4-2.0) mmol/L Calcium (8.5-10.1) mg/dl Magnesium (1.8-2.4) mg/dl Ferritin (8-388) ng/ml Total Bilirubin (0.2-1) mg/dl AST (15-37) U/L ALT (12-78) U/L Alkaline Phosphatase (45-117) U/L Lactate Dehydrogenase (84-246) U/L Troponin I (0-0.045) ng/ml C-Reactive Protein (0-0.29) mg/dl NT-Pro-B Natriuret Pep (0-1800) pg/ml Total Protein (6.4-8.2) gm/dl Albumin (3.4-5.0) gm/dl Globulin (2.5-4.0) gm/dl Albumin/Globulin Ratio (0.9-2) Procalcitonin (0-0.5) ng/ml Digoxin 1.0 (0.8-2.0) ng/ml Imaging Data Radiologist's Impression: [facility], [phone] XRay Report Patient: RADHA RAYA HAdmit Date: 10/19/20MR#: [id number]: 1951 [place] DRAcct ID:[id number]: [facility] - SNFBirth Date: [facility] Zip: [place], [place] [address]Yvc: [id number]: EDSex: FRoom/Bed:Att Phy:Diagnosis: SOBPri Phy: [facility] Date: 10/19/20Fam Phy:Interpreting Phy: Tino Greenberg MDAdmit Phy: Ordering Phy: Fuentes Roberts MD cc: ~ SINGLE VIEW CHEST CLINICAL HISTORY: Sepsis. FINDINGS: An AP, portable, upright chest radiograph is compared to chest x-ray and chest CT dated 09/11/2020. The examination is degraded by portable technique and patient rotation. The heart is enlarged noting atherosclerotic calcification of the thoracic aorta. Hazy airspace opacities are seen throughout both lungs. No large pleural effusion or pneumothorax is identified. The skeletal structures are osteopenic. The bony thorax is grossly intact. IMPRESSION: 1. Cardiomegaly. 2. Hazy airspace opacities are seen throughout both lungs. Differential considerations including an infectious/inflammatory pneumonitis and/or pulmonary edema. Clinical correlation will be essential. ACT 112: Negative or not required by law. Electronically signed by: Tino Greenberg M.D. 10/19/2020 1:00 PM Dictated: 10/19/20 1255Transcribed: 10/19/20 1255 [facility], [phone] CT Scan Report Patient: RADHA RAYA Date: 10/19/20MR#: [id number]: 1952 [facility] DRAcct ID:[id number]: MALU MONTGOMERY - SNFBirth Date: 1940City Zip: [place], [place] [address]Nhx: 80Location: EDSex: FRoom/Bed:Att Phy:Diagnosis: SOBPri Phy: [facility]: 10/19/20Fam Phy:Interpreting Phy: Tino Greenberg MDAdmit Phy: Ordering Phy: Fuentes Roberts MD cc: ~ CT ANGIOGRAM OF THE CHEST CLINICAL HISTORY: Dyspnea. Covid. COMPARISON STUDY: Chest x-ray dated 10/19/2020. Chest CT dated 09/11/2020. TECHNIQUE: Following the IV administration of 120 cc of Optiray 320, CT angiogram of the chest was performed from the upper abdomen to the thoracic inlet utilizing the pulmonary embolus protocol. Images are reviewed in the axial, sagittal, and coronal planes. 3-D MIPS images are created and assessed. IV contrast was administered without complication. A dose lowering technique was utilized adhering to the principles of ALARA. The examination is degraded by motion artifact, and by streak artifact from the left arm which could not be elevated above the chest. CT DOSE: 438.37 mGycm FINDINGS: Thyroid: Imaged portions of the thyroid gland are normal in size and attenuation. Low-attenuation thyroid nodules measure up to 10 mm. Thoracic aorta: There is atherosclerotic calcification of the thoracic aorta, which is normal in caliber and demonstrates bovine variant arch anatomy. The thoracic aorta is not well opacified. Pulmonary vasculature: The pulmonary trunk is dilated, measuring 3.4 cm diamet er. This suggests pulmonary artery hypertension. There are no filling defects identified in main, lobar, or segmental pulmonary branches to suggest pulmonary embolus. Evaluation of the peripheral branches is degraded by motion artifact. Heart: The heart is enlarged noting a small pericardial effusion. Pulmonary arteries are densely calcified. Lungs and pleural spaces: Evaluation of the lung parenchyma is degraded by motion artifact. Diffuse intralobular septal thickening is noted. There are sm all pleural effusions with bibasilar atelectasis. Patchy groundglass consolidation is seen throughout both lungs. The trachea and central airways are clear. Mediastinum: Mildly enlarged mediastinal nodes measure up to 10 mm in short axis. Sayda: Mildly enlarged hilar nodes measure up to 11 mm in short axis. Axillae: There is no axillary lymphadenopathy. Upper abdomen: There is a moderate hiatal hernia. Partially visualized upper abdominal viscera is otherwise within normal limits. Skeletal structures: The skeletal structures are osteopenic. There is an acute to subacute compression fracture of T12 with moderate loss of height. Fragments are retropulsed by up to 7 mm. Paravertebral edema is noted. There subacute/healing right-sided rib fractures. No lytic or blastic bony lesions are seen. IMPRESSION: 1. There is no evidence of pulmonary embolus in the main, lobar, or segmental pulmonary arteries. 2. Marked cardiomegaly with evidence of congestive failure. 3. Patchy airspace consolidation throughout both lungs could represent pulmonary edema and/or an infectious/inflammatory pneumonitis. Clinical correlation will be essential. 4. Small pleural effusions. 5. There is an acute to subacute compression fracture of T12 with moderate loss of height and retropulsion of fragments. This is new from 09/11/2020. 6. There are subacute/healing right-sided rib fractures. 7. Mildly enlarged mediastinal and hilar nodes are likely reactive. 8. Additional findings as above. ACT 112: Negative or not required by law. Electronically signed by: Tino Greenberg M.D. 10/19/2020 2:04 PM Dictated: 10/19/201352Transcribed: 10/19/201352 ECG Data Attestation: I personally reviewed and interpreted this ECG as follows: Indication: + weakness Rate (beats per minute): 52 Rhythm: + sinus bradycardia ECG Intervals/blocks: + First degree AV block and + Normal QT-c (383) ECG Turner: + Normal ECG ST segments: no ST depression and no ST elevation Comparison ECG Date: from (09/11/2020) Change: no significant change Additional Comments: Repeat EKG shows a sinus bradycardia no ST elevation or depression QTC is 399 ventricular rate is 499 it is unchanged from the previous EKG. MDM Narrative Patient was seen and evaluated as above in room B8. Review was performed of nursing notes and vital signs. I did review pertinent previous visits and patient history. After obtaining a thorough history and physical examination the above work up was performed. This is an 80-year-old female who presents emergency department with altered mental status. The patient has Covid pneumonia on her chest x-ray. She is requiring more oxygen. She was typed and screened. In addition the patient was also started on Decadron. Due to the fact that [facility] is full and there are no available beds I did discuss the case with the patient's son. I went over the patient's results as well as chest x-ray revealing worsening Covid pneumonia. I gave the patient's son to options to [facility] or to have the patient transferred. The patient's son would like the patient transferred to [facility]. I did discuss the case with Dr. Abarca at [place] who did accept the patient however they have a 1 to 2-day wait on beds. For this reason [facility]. In the meantime the patient was placed on Lasix. An order was placed for continuous cardiac monitoring. The monitor shows a rate of 40 with Sinus bradycardia rhythm. The patient was evaluated during a period of high volume and high acuity while the hospital was at overcapacity during the global COVID-19 pandemic, and that diagnosis was suspected/considered upon their initial presentation. Their evaluation, treatment and testing was consistent with current guidelines for patients who present with complaints or symptoms that may be related to COVID- 19. Impression & Plan Elevated troponin, Hypoxia, CKD (chronic kidney disease) stage 3, GFR 30-59 ml/min Discharge Plan Visit Data Chief Complaint: Shortness of Breath/Dyspnea ED Provider: Fuentes Roberts Discharge Problem: Elevated troponin, Hypoxia, CKD (chronic kidney disease) stage 3, GFR 30-59 ml/min Patient Disposition: Admitted As Inpatient Discharge Instructions Interventions: ED Discharge Assessment Last Done: 10/19/20 17:01 Discharge Problem: CKD (chronic kidney disease) stage 3, GFR 30-59 ml/min Qualifiers: Chronic kidney disease stage 3 subtype: unspecified whether 3a or 3b Qualified Code(s): N18.30 - Chronic kidney disease, stage 3 unspecified
[2020-10-19] MEDS ORDERED: REMDESIVIR 200 MG in SODIUM CHLORIDE 0.9% 210 ML IV STA (14:56)
--- NOTE | 2020-10-19 15:07 | Electrocardiogram Report ---
Test Reason : Blood Pressure : / mmHG Vent. Rate : 052 BPM Atrial Rate : 052 BPM P-R Int : 222 ms QRS Dur : 072 ms QT Int : 412 ms P-R-T Axes : 078 -04 -16 degrees QTc Int : 383 ms Sinus bradycardia with 1st degree A-V block Nonspecific ST abnormality Abnormal ECG Confirmed by Johann Luong ([id number]) on 10/19/2020 3:07:09 PM Referred By: Confirmed By:Chris Luong
--- NOTE | 2020-10-19 15:09 | Electrocardiogram Report ---
Test Reason : Blood Pressure : / mmHG Vent. Rate : 049 BPM Atrial Rate : 049 BPM P-R Int : 204 ms QRS Dur : 090 ms QT Int : 442 ms P-R-T Axes : 072 006 -14 degrees QTc Int : 399 ms Sinus bradycardia Nonspecific ST and T wave abnormality Abnormal ECG When compared with ECG of 19-OCT-2020 11:01, (unconfirmed) Minimal criteria for Inferior infarct are no longer Present Confirmed by Johann Luong ([id number]) on 10/19/2020 3:09:03 PM Referred By: Franco hawley [facility] Confirmed By:Chris Luong
[2020-10-19] MEDS ORDERED: NALOXONE HCL 0.4 MG/1 ML VIAL/CARP IV STA (15:16)
[2020-10-19 15:17] LABS: Base Excess ABG 2.5 mEq/L (-9-1.8); HCO3 ABG 28 mmol/L (19-24); Oxygen Saturation ABG 98.2 % (90-95); PCO2 ABG 48 mmHg (35-46); PO2 ABG 114 mmHg (80-95); pH ABG 7.39 (7.35-7.45)
--- NOTE | 2020-10-19 15:35 | History & Physical Report ---
Date of Service October 19, 2020 Assessment & Plan (1) Acute on chronic respiratory failure with hypoxemia: (2) Pneumonia due to COVID-19 virus: (3) Acute on chronic diastolic CHF (congestive heart failure): -Admit to telemetry -Patient presenting from [facility] for increasing lethargy and increasing O2 requirements. Tested positive for COVID-19 at the facility this morning. -Chronically on 2L, currently saturating well on 4 L however tachypneic. Given evidence of CHF and volume overload, will place patient on BiPAP. -CXR showing bilateral hazy opacities. CTA chest negative for pulmonary embolism however show evidence of CHF and bilateral pneumonia. -Afebrile, WBC 4.6K, D-dimer 1040, ferritin 279, procalcitonin 0.06, CRP 3.94 -IV dexamethasone, IV remdesivir. Will not start convalescent plasma at this time given patient's hypervolemic status. -Empiric IV ceftriaxone and IV azithromycin -Previously was on Lasix however discontinued during admission in 08/2020 due to FABIOLA. Lasix 40 mg p.o. resumed at long-term on 10/11. -Lasix 40 mg IV twice daily -Echo 10/2018: EF 60%, no significant valvular pathology (4) Bradycardia: (5) Paroxysmal A-fib: -Heart rate persistently in the 40s -EKG shows sinus bradycardia -Dig level 1.0 -Typically rate controlled with digoxin 125 mcg every other day and metoprolol succinate 100 mg twice daily -Discussed with cardiology, hold dig and metoprolol today. If heart rate impro ves tomorrow, resume metoprolol succinate at reduced dose 50 mg twice daily. (6) Hypertensive emergency: -Holding metoprolol as above due to bradycardia -Continue home dose p.o. hydralazine -Nitropaste 1 inch given acute CHF -As needed IV hydralazine -Continue Xarelto (7) Elevated troponin: -Troponin 0.187 -Likely due to demand ischemia in the setting of acute illness, doubt ACS -Continue to cycle cardiac enzymes (8) DVT prophylaxis: -Anticoagulated on Xarelto Admission and Anticipated Discharge Date Admission Date: October 19, 2020 History of Present Illness Chief Complaint: Weakness, dyspnea Primary Care Provider: Malu Gamez at [place] 80-year-old female with PMH chronic hypoxic respiratory failure on 2 L, paroxysmal atrial fibrillation anticoagulated on Xarelto, chronic diastolic CHF, HTN, hypothyroidism, CKD stage III, and other problems listed below who presents to the ED for evaluation of generalized weakness and dyspnea. Patient recently admitted to [facility] 09/12 through 09/14 for metabolic encephalopathy secondary to UTI, fall, pelvic fracture. Patient discharged to the [facility] for rehab needs. History is very limited from the patient at this time. Information obtained from patient's outpatient chart. Patient has been having increasing lethargy the past 2 days. Typically wears 2 L of oxygen at all times, now requiring 4 L of oxygen via nasal cannula. Patient tested positive for COVID-19 at the [facility] home this morning. Patient was sent to the ED for further evaluation. In the ED, CXR shows bilateral opacities. proBNP 14,000. Troponin 0.187, EKG without acute ST changes. Patient is bradycardic in the 40s, hypertensive with systolic BPs 170s-200s. Saturating well on 4 L of oxygen via nasal cannula however tachypneic. Patient was given IV Tylenol, IV dexamethasone. After hospitalist evaluation, patient was given Lasix 40 mg IV and started on BiPAP. Allergies Allergy/AdvReac Type Severity Reaction Status Date / Time quinapril AdvReac Mild H/A Verified 09/11/20 21:39 nifedipine AdvReac Unknown pounding Verified 09/11/20 21:39 headache Home Medications Medication Instructions Recorded Confirmed Type atorvastatin 10 mg PO HS 11/05/18 10/19/20 History cholecalciferol (vitamin D3) 1,000 unit PO QAM 11/05/18 10/19/20 History [Vitamin D3] cyanocobalamin (vitamin B-12) 500 mcg PO QAM 11/05/18 10/19/20 History [Vitamin B-12] digoxin 125 mcg PO Q2D 11/05/18 10/19/20 History hydralazine 50 mg PO BID 11/05/18 10/19/20 History levothyroxine 75 mcg PO DAILY 11/05/18 10/19/20 History metoprolol succinate 100 mg PO BID 11/05/18 10/19/20 History rivaroxaban 15 mg PO DAILY 11/05/18 10/19/20 History ferrous sulfate 325 mg PO DAILY 09/11/20 10/19/20 History lidocaine 1 patch TRANSDERMAL QAM #15 ea 09/14/20 10/19/20 Rx tramadol 50 mg PO Q8H PRN #14 tab 09/14/20 10/19/20 Rx acetaminophen [Tylenol Extra 1,000 mg PO TID 10/19/20 10/19/20 History Strength] acetaminophen [Tylenol] 650 mg PO Q4H PRN 10/19/20 10/19/20 History bisacodyl [Dulcolax (bisacodyl)] 10 mg MI DAILY PRN 10/19/20 10/19/20 History docusate sodium [Colace] 100 mg PO DAILY PRN 10/19/20 10/19/20 History furosemide 40 mg PO DAILY 10/19/20 10/19/20 History furosemide 40 mg PO DAILY PRN 10/19/20 10/19/20 History polyethylene glycol 3350 [Miralax] 17 g PO DAILY PRN 10/19/20 10/19/20 History potassium chloride 20 meq PO BID 10/19/20 10/19/20 History Past Med/Surg History Medical History Chronic diastolic (congestive) heart failure Chronic respiratory failure with hypoxia CKD (chronic kidney disease) stage 3, GFR 30-59 ml/min Closed fracture of right anterior inferior iliac spine Closed fracture of right anterior superior iliac spine COPD (chronic obstructive pulmonary disease) YESICA (generalized anxiety disorder) GERD (gastroesophageal reflux disease) HLD (hyperlipidemia) HTN (hypertension) Hypothyroidism Nocturnal hypoxia Osteoporosis Paroxysmal A-fib Pelvis acetabulum fracture Surgical History History of nasal polypectomy History of total left knee replacement (TKR) Hx of fracture of radius Family History Mother Diabetes Hypertension Father Hypertension Coronary heart disease Social History Smoking Status: Never smoker Second Hand Exposure: Yes ( was smoker); Hx Alcohol Use: No Hx Substance Use: No Preferred Language: Senegalese Communication Ability: Effective 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 Redmond's addendum for physical exam. Results & Data Results & Data ([facility]) Vital Signs (Past 12 Hours) Vital Signs Temp Pulse Resp BP Pulse Ox 10/19/20 13:31 40 L 23 192/71 H 97 10/19/20 13:30 44 L 25 H 95 10/19/20 13:15 45 L 20 98 10/19/20 13:01 48 L 22 99 10/19/20 13:00 49 L 22 202/89 H 99 10/19/20 12:45 43 L 12 99 10/19/20 12:31 51 L 25 H 98 10/19/20 12:30 50 L 12 178/93 H 99 10/19/20 12:15 45 L 22 99 10/19/20 12:01 43 L 22 167/87 H 98 10/19/20 12:00 45 L 23 99 10/19/20 11:38 52 L 24 95 10/19/20 11:31 45 L 21 162/79 H 98 10/19/20 11:21 51 L 23 205/95 H 94 10/19/20 11:01 49 L 20 218/101 H 86 L 10/19/20 11:00 86 L 10/19/20 10:55 37 C 52 L 31 H 218/101 H 86 L Laboratory Results Short CBC 10/19/20 Range/Units 11:11 WBC 4.65 L (4.8-10.8) K/uL Hgb 12.1 (12.0-16.0) g/dL Hct 39.4 (37-47) % Plt Count 172 (130-400) K/uL BMP 10/19/20 11:11 Sodium 142 Potassium 4.3 Chloride 106 Carbon Dioxide 31 BUN 18 Creatinine 1.05 Glucose 104 H Calcium 8.8 Cardiac Enzymes 10/19/20 Range/Units 11:11 Troponin I 0.187 H* (0-0.045) ng/ml Liver Function 10/19/20 Range/Units 11:11 Total Bilirubin 0.6 (0.2-1) mg/dl AST 30 (15-37) U/L ALT 25 (12-78) U/L Alkaline Phosphatase 110 (45-117) U/L Albumin 2.9 L (3.4-5.0) gm/dl Urine 10/19/20 Range/Units 15:27 Urine Color Yellow Urine Appearance Clear (Clear) Urine pH 7.5 (4.5-7.5) Ur Specific [place] 1.025 (1.000-1.030) Urine Protein 2+ H (Negative) Urine Glucose (UA) Negative (Negative) Diagnostic Findings CXR IMPRESSION: 1. Cardiomegaly. 2. Hazy airspace opacities are seen throughout both lungs. Differential considerations including an infectious/inflammatory pneumonitis and/or pulmonary edema. Clinical correlation will be essential. CTA CHEST IMPRESSION: 1. There is no evidence of pulmonary embolus in the main, lobar, or segmental pulmonary arteries. 2. Marked cardiomegaly with evidence of congestive failure. 3. Patchy airspace consolidation throughout both lungs could represent pulmonary edema and/or an infectious/inflammatory pneumonitis. Clinical correlation will be essential. 4. Small pleural effusions. 5. There is an acute to subacute compression fracture of T12 with moderate loss of height and retropulsion of fragments. This is new from 09/11/2020. 6. There are subacute/healing right-sided rib fractures. 7. Mildly enlarged mediastinal and hilar nodes are likely reactive. 8. Additional findings as above Code Status & VTE Plan Code Status Please refer to Dr. Redmond's addendum regarding discussion with patient's son. VTE Prophylaxis Plan VTE Prophylaxis will be ordered: No Supervising Physician Co-Signing Physician Notes Pt seen and examined by me, care coordinated with LAUREN Rousseau, pls see her note above for further detail. Pt is an 80-year-old female with hx of chronic hypoxic respiratory failure on 2- 3 L, paroxysmal atrial fibrillation anticoagulated on Xarelto, chronic diastolic CHF, HTN, hypothyroidism, CKD stage III, who presents with generalized weakness and dyspnea. History is very limited from the patient at this time. Patient has been having increasing lethargy the past 2 days. Patient tested positive for COVID-19 at the long-term this AM, now requiring 4L of suppl. O2. In the ED, CXR shows bilateral opacities. proBNP 14,000. Troponin 0.187, EKG without acute ST changes. Patient is bradycardic in the 40s, hypertensive with systolic BPs 170s-200s. Saturating well on 4 L of oxygen via nasal cannula however tachypneic. Patient was given IV Tylenol, IV dexamethasone. Pt is laying in bed appears tachypneic and only answers some questions. She denies any chest pain. She states that she is at [facility] however does not answer any other questions. Hx confirmed with RAMO Caballero who saw the pt at the long-term this AM. Lung sounds w/ diffuse crackles and some mild expiratory wheezing noted. Heart sounds seem regular, + bradycardic. Abdomen is soft, nontender, + bowel sounds, nondistended. Pt moves extremities spontaneously. Skin is warm, dry. Given crackles on lung exam and on imaging, incr. proBNP, ordered Lasix 40 mg IV and started on BiPAP. ABG ordered. Pulmonary notified. Discussed bradycardia and hypertension w/ cardiology. Contacted pt's son regarding code status - per son, has paperwork at home that he plans to bring to the hospital. At this point he can not make decisions such as DNR/DNI and therefore pt is Full code. Sima Perkins MD
[2020-10-19 15:40] LABS: Allen Test POS (Pos)
[2020-10-19] MEDS: cefTRIAXone SODIUM 1,000 MG in DEXTROSE 5% 50 ML IV SCH (15:42)
[2020-10-19 15:52] LABS: Appearance Urine Clear (Clear); Bacteria Urine Automated 1+ (Negative); Bilirubin Urine Negative (Negative); Blood Urine Trace (Negative); Color Urine Yellow; Glucose Urine UA Negative (Negative); Ketones Urine Negative (Negative); Leukocyte Esterase Urine Negative (Negative); Nitrite Urine Negative (Negative); RBC Urine Automated 0-4 /hpf (0-4); Specific Gravity Urine 1.025 (1.000-1.030); Urobilinogen Urine Negative (Negative); pH Urine 7.5 (4.5-7.5)
[2020-10-19 16:11] LABS: Protein Urine 2+ (Negative)
[2020-10-19 16:12] LABS: Sulfosalicylic Acid Urine Positive (Negative)
[2020-10-19] MEDS ORDERED: ACETAMINOPHEN 325 MG TAB PO PRN (18:23)
[2020-10-19] MEDS ORDERED: hydrALAZINE HCL 20 MG/ML VIAL IV PRN (18:23)
[2020-10-19] MEDS: NITROGLYCERIN 2% OINTMENT 30GM TUBE EXT SCH (19:47)
[2020-10-19] MEDS: ATORVASTATIN 10 MG TAB PO SCH (19:47)
[2020-10-19] MEDS: hydrALAZINE TAB 50 MG TAB PO SCH ×2 (19:47→21:53)
[2020-10-19] MEDS: SODIUM CHLORIDE 0.9% 10ML FLUSH IV SCH (19:47)
[2020-10-19] MEDS: POTASSIUM CHLORIDE CRTAB 20 MEQ TABCR PO SCH (19:47)
[2020-10-19] MEDS: AZITHROMYCIN 500 MG in DEXTROSE 5% 250 ML IV SCH (19:48)
[2020-10-19] MEDS ORDERED: hydrALAZINE TAB 50 MG TAB PO SCH (21:00)
[2020-10-20] MEDS: NITROGLYCERIN 2% OINTMENT 30GM TUBE EXT SCH ×4 (00:25→17:17)
[2020-10-20 05:04] LABS: Hematocrit (blood only) 39.6 % (37-47); Hemoglobin 12.1 g/dL (12.0-16.0); Mean Corpuscular Hemoglobin 26.2 pg (25-34); Mean Corpuscular Hgb Conc 30.6 g/dL (32-36); Mean Corpuscular Volume 85.9 fL (80-100); Mean Platelet Volume 9.7 fL (7.4-10.4); Platelet Count 175 K/uL (130-400); RDW Coefficient of Variation 17.1 % (11.5-14.5); RDW Standard Deviation 53.6 fL (36.4-46.3); Red Blood Count 4.61 M/uL (4.2-5.4); White Blood Count 2.36 K/uL (4.8-10.8)
[2020-10-20 05:28] LABS: BUN Creatinine Ratio 21.5 (10-20); Calcium 8.6 mg/dl (8.5-10.1); Est GFR (Non-African American) 51.8
[2020-10-20] MEDS: LEVOTHYROXINE SODIUM 75 MCG TABLET PO SCH (06:08)
[2020-10-20] MEDS: FUROSEMIDE 40 MG in SYRINGE 0 ML IV SCH ×2 (07:49→20:33)
[2020-10-20] MEDS: dexAMETHasone 6 MG in SYRINGE 0 ML IV SCH (07:50)
[2020-10-20] MEDS: hydrALAZINE TAB 50 MG TAB PO SCH (07:50)
[2020-10-20] MEDS: POTASSIUM CHLORIDE CRTAB 20 MEQ TABCR PO SCH ×2 (07:51→17:16)
[2020-10-20] MEDS: CHOLECALCIFEROL 1,000 UNITS 25 MCG TAB PO SCH (07:51)
[2020-10-20] MEDS: RIVAROXABAN 15 MG TAB PO SCH (07:52)
[2020-10-20] MEDS: CYANOCOBALAMIN 500 MCG TABLET (VITAMIN B-12) PO SCH (07:53)
--- NOTE | 2020-10-20 08:04 | XRay Report ---
XR chest 1V portable HISTORY: Covid positive. Follow-up. COMPARISON: Chest 10/19/2020. FINDINGS: Perihilar airspace opacities and interstitial thickening have improved. No pneumothorax. No pleural effusions. The heart remains mildly enlarged. Degenerative changes within the left shoulder with possible avascular necrosis of the humeral head. IMPRESSION: 1. Interval improvement in the perihilar airspace opacities and interstitial thickening. This could r epresent a resolving pulmonary edema or pneumonia. 2. Stable cardiomegaly. 3. Left humeral head avascular necrosis, unchanged. ACT 112: Negative or not required by law. Electronically signed by: Lloyd Angulo M.D. 10/20/2020 8:02 AM
[2020-10-20] MEDS ORDERED: DEXAMETHASONE SOD INJ 4 MG/ML VIAL IV SCH (09:00)
--- NOTE | 2020-10-20 12:16 | Pulmonary Consultation ---
Date of Consultation October 20, 2020 Assessment & Plan (1) Pneumonia due to COVID-19 virus: Continue with Decadron and remdesivir therapy as per hospital protocol. Procalcitonin was within normal limits. Can likely discontinue antibiotics from a pulmonary perspective. I personally reviewed the CT chest and chest x-ray. Chest x-ray demonstrates mild improvement in pulmonary edema status post Lasix. Continue with as needed Lasix. Management of hypertension bradycardia per hospitalist service. TSH on 09/11/2020 within normal limits. (2) Acute on chronic respiratory failure with hypoxemia: (3) Paroxysmal A-fib: (4) Bradycardia: History of Present Illness Reason for Consultation: Covid pneumonitis Requesting Physician: Dr. Perkins Attending Physician: Josh Trujillo MD History of Present Illness I did a chart review and evaluated the patient through the window in an effort to reduce exposure, risk and PPE utilization during the COVID-19 pandemic. I also discussed the case with the patient's hospitalist and bedside nurse. From chart review this appears to be an 80-year-old female with a past medical history of paroxysmal atrial fibrillation on Xarelto, chronic diastolic heart failure, hypertension, CKD stage III and chronic hypoxemic respiratory failure on 2 L of oxygen who resides in a intermediate and presented to the hospital due to weakness and dyspnea. She was recently discharged from the hospital on 09/14/2020 due to encephalopathy. She was found to have COVID-19 at the intermediate on 10/19/2020. She has been started on remdesivir, Decadron, ceftriaxone and azithromycin. proBNP was elevated to 14,000. Mild elevation in troponin was noted. Patient was admitted under telemetry and placed on BiPAP. She received 40 mg of IV Lasix yesterday. She does appear comfortable through the window at bedside. She is laying in bed. Allergies Allergy/AdvReac Type Severity Reaction Status Date / Time quinapril AdvReac Mild H/A Verified 09/11/20 21:39 nifedipine AdvReac Unknown pounding Verified 09/11/20 21:39 headache Home Medications Medication Instructions Recorded Confirmed Type atorvastatin 10 mg PO HS 11/05/18 10/19/20 History cholecalciferol (vitamin D3) 1,000 unit PO QAM 11/05/18 10/19/20 History [Vitamin D3] cyanocobalamin (vitamin B-12) 500 mcg PO QAM 11/05/18 10/19/20 History [Vitamin B-12] digoxin 125 mcg PO Q2D 11/05/18 10/19/20 History hydralazine 50 mg PO BID 11/05/18 10/19/20 History levothyroxine 75 mcg PO DAILY 11/05/18 10/19/20 History metoprolol succinate 100 mg PO BID 11/05/18 10/19/20 History rivaroxaban 15 mg PO DAILY 11/05/18 10/19/20 History ferrous sulfate 325 mg PO DAILY 09/11/20 10/19/20 History lidocaine 1 patch TRANSDERMAL QAM #15 ea 09/14/20 10/19/20 Rx tramadol 50 mg PO Q8H PRN #14 tab 09/14/20 10/19/20 Rx acetaminophen [Tylenol Extra 1,000 mg PO TID 10/19/20 10/19/20 History Strength] acetaminophen [Tylenol] 650 mg PO Q4H PRN 10/19/20 10/19/20 History bisacodyl [Dulcolax (bisacodyl)] 10 mg ID DAILY PRN 10/19/20 10/19/20 History docusate sodium [Colace] 100 mg PO DAILY PRN 10/19/20 10/19/20 History furosemide 40 mg PO DAILY 10/19/20 10/19/20 History furosemide 40 mg PO DAILY PRN 10/19/20 10/19/20 History polyethylene glycol 3350 [Miralax] 17 g PO DAILY PRN 10/19/20 10/19/20 History potassium chloride 20 meq PO BID 10/19/20 10/19/20 History Patient History Medical History Chronic diastolic (congestive) heart failure Chronic respiratory failure with hypoxia CKD (chronic kidney disease) stage 3, GFR 30-59 ml/min Closed fracture of right anterior inferior iliac spine Closed fracture of right anterior superior iliac spine COPD (chronic obstructive pulmonary disease) YESICA (generalized anxiety disorder) GERD (gastroesophageal reflux disease) HLD (hyperlipidemia) HTN (hypertension) Hypothyroidism Nocturnal hypoxia Osteoporosis Paroxysmal A-fib Pelvis acetabulum fracture Surgical History History of nasal polypectomy History of total left knee replacement (TKR) Hx of fracture of radius Family History Mother Diabetes Hypertension Father Hypertension Coronary heart disease Social History Smoking Status: Never smoker Second Hand Exposure: Yes ( was smoker); Hx Alcohol Use: No Hx Substance Use: No Preferred Language: Amharic Communication Ability: Effective 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 From the window she does appear comfortable. Nasal cannula in place. She is laying in bed. Results & Data Results & Data ([facility]) Vital Signs (Past 12 Hours) Vital Signs Temp Pulse Resp BP Pulse Ox 10/20/20 11:55 46 L 19 146/79 H 95 10/20/20 11:39 62 25 H 200/100 H 94 10/20/20 10:39 47 L 10/20/20 08:21 76 17 90 10/20/20 08:20 67 23 211/100 H 93 10/20/20 05:00 46 L 19 95 10/20/20 04:13 45 L 17 168/86 H 95 10/20/20 04:10 58 L 20 95 10/20/20 03:55 97.7 F 10/20/20 02:12 42 L 14 174/78 H 97 10/20/20 00:25 97.7 F 10/20/20 00:12 47 L 20 198/85 H 96 10/20/20 00:10 45 L 20 100 I reviewed the vital signs, labs and imaging PG Care Time/CCT Total # of Minutes Spent Total Time Spent with Patient: Total time spent is greater than 50% in coordination of care (as documented) at patient's floor/unit and/or counseling patient: Coding Level of Care Code 39268 Initial Inpt Care Lvl 2 Diagnoses Pneumonia due to COVID-19 virus U07.1; J12.89 Acute on chronic respiratory failure with hypoxemia J96.21 Paroxysmal A-fib I48.0 Bradycardia R00.1
[2020-10-20] MEDS: cefTRIAXone SODIUM 1,000 MG in DEXTROSE 5% 50 ML IV SCH (15:29)
--- NOTE | 2020-10-20 17:17 | Hospitalist Progress Note ---
Date of Service October 20, 2020 Assessment & Plan (1) Acute on chronic respiratory failure with hypoxemia: (2) Pneumonia due to COVID-19 virus: Present on admission with shortness of breath and lethargy Possible related to COVID 19 pneumonia vs acute on chronic diastolic CHF COVID 19 positive at the assisted facility CXR showing bilateral hazy opacities. CTA chest negative for pulmonary embolism. Marked cardiomegaly with evidence of congestive failure. Patchy airspace consolidation throughout both lungs Was placed on Bipap in the ER, then transition on 4L [place] oxygen Afebrile, WBC 4.6K, D-dimer 1040, ferritin 279, procalcitonin 0.06, CRP 3.94 Continue IV dexamethasone for 10 days and Remdesivir for 5 days or on discharge Will d/c abx if repeat procalcitonin negative Continue oxygen supplement (3) Acute on chronic diastolic CHF (congestive heart failure): CT showed marked cardiomegaly with evidence of congestive failure. Received Lasix IV in the ER Echo 10/2018: EF 60%, no significant valvular pathology Will monitor BMP while on IV lasix (4) Bradycardia: Metoprolol has been on hold due to HR was in the 40's Will decrease metoprolol to 50mg BID Continue monitor Metoprolol (5) Paroxysmal A-fib: Heart rate in the 40s on admission EKG shows sinus bradycardia Rate has been control on Digoxin and metoprolol Admitting team discussed with cardiology that recommended to hold dig and metoprolol, but If heart rate improves, resume metoprolol succinate at reduced dose 50 mg twice daily. (6) Hypertensive emergency: Might be related to hospital setting Will resume metoprolol at 50mg BID Will increase hydralazine to 75mg BID Will d/c Nitropaste Continue as needed IV hydralazine Continue Xarelto (7) Elevated troponin: Possible related to demand ischemia due to CHF and hypoxia Troponin 0.187 on admission, then trending to 0.133 Denies any chest pain Elevated D-Dimer Mostly related to COVID 19 CTA chest was negative for PE (8) DVT prophylaxis: On Anticoagulated on Xarelto CODE STATUS DNR Admission and Anticipated Discharge Date Admission Date: October 19, 2020 Subjective Pt was seen and examined for follow up of respiratory distress Pt said that she feels a lot better She said that her breathing slightly improves She said that she used oxygen supplement Denies any chest pain, palpitation, dizziness and fever Review of Systems Review of Systems: All systems reviewed & are unremarkable except as noted in Subjective Physical Exam Physical Exam: General- No acute distress Head- atraumatic Eyes- PERRL, EOMI, ENT- oropharynx clear Neck- supple, no JVD Lungs- diminished BS Heart- no murmur Abdomen- normal bowel sounds, soft, nontender Extremities- no calf tenderness Neuro- alert, oriented; PERRL, EOMI; no facial palsy; no dysarthria Skin- warm & dry Results & Data Results & Data ([facility]) Vital Signs (Past 12 Hours) Vital Signs Pulse Resp BP Pulse Ox 10/20/20 12:35 67 26 H 169/95 H 92 10/20/20 11:55 46 L 19 146/79 H 95 10/20/20 11:39 62 25 H 200/100 H 94 10/20/20 10:39 47 L 10/20/20 08:21 76 17 90 10/20/20 08:20 67 23 211/100 H 93
[2020-10-20] MEDS: AZITHROMYCIN 500 MG in DEXTROSE 5% 250 ML IV SCH (17:18)
[2020-10-20] MEDS: hydrALAZINE HCL 20 MG/ML VIAL IV PRN (18:13)
[2020-10-20] MEDS: REMDESIVIR 100 MG in SODIUM CHLORIDE 0.9% 230 ML IV SCH (20:31)
[2020-10-20] MEDS: SODIUM CHLORIDE 0.9% 10ML FLUSH IV SCH (20:32)
[2020-10-20] MEDS: hydrALAZINE HCL 25 MG TAB PO SCH (20:33)
[2020-10-20] MEDS: ATORVASTATIN 10 MG TAB PO SCH (20:34)
[2020-10-20] MEDS: METOPROLOL SUCC 25MG EXT REL TAB PO SCH (20:34)
[2020-10-21] MEDS: hydrALAZINE HCL 20 MG/ML VIAL IV PRN ×2 (01:00→11:45)
[2020-10-21] MEDS: LEVOTHYROXINE SODIUM 75 MCG TABLET PO SCH (05:12)
[2020-10-21 05:33] LABS: Creatinine Clr Calc Pharmacy 34.9 ml/min; Est GFR (African American) 56.6; Est GFR (Non-African American) 48.9
[2020-10-21 05:37] LABS: C Reactive Protein 2.24 mg/dl (0-0.29); Ferritin 327.4 ng/ml (8-388)
--- NOTE | 2020-10-21 07:12 | Communication Note ---
Date of Service: October 21, 2020 Made aware by RN of dark tarry stools. No abdominal pain complaints. AP Dark tarry stools rule out UGIB Stool FOBT Hold Xarelto for now until UGI bleed ruled out SCDs interim for DVT prophylaxis Will relay to AM provider.
[2020-10-21 08:27] LABS: Hematocrit (blood only) 39.6 % (37-47); Hemoglobin 12.4 g/dL (12.0-16.0); Immature Granulocytes # (auto) 0.01 K/uL (0.00-0.02); Immature Granulocytes % (auto) 0.2 %; Lymphocytes # (auto) 0.55 K/uL (1.2-3.4); Lymphocytes % (auto) 10.1 %; Mean Corpuscular Hemoglobin 26.5 pg (25-34); Mean Corpuscular Hgb Conc 31.3 g/dL (32-36); Mean Corpuscular Volume 84.6 fL (80-100); Mean Platelet Volume 9.4 fL (7.4-10.4); Monocytes # (auto) 0.71 K/uL (0.11-0.59); Monocytes % (auto) 13.1 %; Neutrophils # (auto) 4.16 K/uL (1.4-6.5); Neutrophils % (auto) 76.6 %; Platelet Count 225 K/uL (130-400); RDW Coefficient of Variation 17.2 % (11.5-14.5); RDW Standard Deviation 53.4 fL (36.4-46.3); Red Blood Count 4.68 M/uL (4.2-5.4); White Blood Count 5.43 K/uL (4.8-10.8)
[2020-10-21] MEDS: METOPROLOL SUCC 25MG EXT REL TAB PO SCH ×2 (08:44→19:46)
[2020-10-21] MEDS: hydrALAZINE HCL 25 MG TAB PO SCH ×2 (08:44→19:46)
[2020-10-21] MEDS: CHOLECALCIFEROL 1,000 UNITS 25 MCG TAB PO SCH (08:45)
[2020-10-21] MEDS: POTASSIUM CHLORIDE CRTAB 20 MEQ TABCR PO SCH ×2 (08:46→16:45)
[2020-10-21 08:55] LABS: Albumin Level 2.9 gm/dl (3.4-5.0); BUN Creatinine Ratio 27.6 (10-20); Calcium 8.9 mg/dl (8.5-10.1); Creatinine Clr Calc Pharmacy 32.7 ml/min; Est GFR (African American) 52.4; Est GFR (Non-African American) 45.2; Potassium 4.2 mmol/L (3.5-5.1)
[2020-10-21 08:57] LABS: Albumin Globulin Ratio 0.9 (0.9-2); Bilirubin,Total 0.5 mg/dl (0.2-1); Globulin 3.4 gm/dl (2.5-4.0); Total Protein 6.3 gm/dl (6.4-8.2)
[2020-10-21] MEDS: FUROSEMIDE 40 MG in SYRINGE 0 ML IV SCH ×2 (09:19→19:49)
[2020-10-21] MEDS: dexAMETHasone 6 MG in SYRINGE 0 ML IV SCH (09:19)
[2020-10-21] MEDS: CYANOCOBALAMIN 500 MCG TABLET (VITAMIN B-12) PO SCH (09:19)
[2020-10-21] MEDS ORDERED: amLODIPine BESYLATE 5 MG TAB PO ONE (11:45)
[2020-10-21] MEDS: cefTRIAXone SODIUM 1,000 MG in DEXTROSE 5% 50 ML IV SCH (16:40)
[2020-10-21] MEDS: AZITHROMYCIN 500 MG in DEXTROSE 5% 250 ML IV SCH (17:51)
--- NOTE | 2020-10-21 19:32 | Hospitalist Progress Note ---
Date of Service October 21, 2020 Assessment & Plan (1) Acute on chronic respiratory failure with hypoxemia: (2) Pneumonia due to COVID-19 virus: Present on admission with shortness of breath and lethargy Possible related to COVID 19 pneumonia vs acute on chronic diastolic CHF COVID 19 positive at the senior care facility CXR showing bilateral hazy opacities. CTA chest negative for pulmonary embolism. Marked cardiomegaly with evidence of congestive failure. Patchy airspace consolidation throughout both lungs Was placed on Bipap in the ER, then transition on 4L [place] oxygen Afebrile, WBC 4.6K, D-dimer 1040, ferritin 279, procalcitonin 0.06, CRP 3.94 Continue IV dexamethasone for 10 days and Remdesivir for 5 days or on discharge Pulmonary on board recommended to continue current therapy with Remdesivir and steroid CRP is trending down to 2.24. ferritin, ESR and procalcitonin Will d/c abx since repeat procalcitonin negative Continue oxygen supplement (3) Acute on chronic diastolic CHF (congestive heart failure): CT showed marked cardiomegaly with evidence of congestive failure. Received Lasix IV in the ER Echo 10/2018: EF 60%, no significant valvular pathology Will monitor BMP while on IV lasix (4) Bradycardia: Metoprolol has been on hold due to HR was in the 40's Metoprolol decrease to 25 mg BID Continue monitor Metoprolol (5) Paroxysmal A-fib: Heart rate in the 40s on admission EKG shows sinus bradycardia Rate has been control on Digoxin and metoprolol Admitting team discussed with cardiology that recommended to hold dig and metoprolol, but If heart rate improves, resume metoprolol succinate at reduced dose twice daily. (6) Hypertensive emergency: Might be related to hospital setting Will resume metoprolol at 50mg BID Continue hydralazine to 75mg BID Continue IV hydralazine prn Xarelto was held due to black stool (7) Elevated troponin: Possible related to demand ischemia due to CHF and hypoxia Troponin 0.187 on admission, then trending to 0.133 Denies any chest pain Elevated D-Dimer Mostly related to COVID 19 CTA chest was negative for PE (8) DVT prophylaxis: Xarelto on hold CODE STATUS DNR Admission and Anticipated Discharge Date Admission Date: October 19, 2020 Subjective Pt was seen and examined for follow up on her dyspnea Lying in be with no distress Pt said that her breathing is much better Denies any chest pain, palpitation and fever Physical Exam Physical Exam: General- No acute distress Head- atraumatic Eyes- PERRL, EOMI, ENT- oropharynx clear Neck- supple, no JVD Lungs- diminished BS Heart- no murmur Abdomen- normal bowel sounds, soft, nontender Extremities- no calf tenderness Neuro- alert, oriented; PERRL, EOMI; no facial palsy; no dysarthria Skin- warm & dry Results & Data Results & Data ([facility]) Vital Signs (Past 12 Hours) Vital Signs Temp Pulse Pulse Resp BP BP BP 10/21/20 16:01 36.6 C 48 L 140/61 10/21/20 10:59 36.9 C 61 24 200/90 H 193/97 H 10/21/20 08:00 66 Pulse Ox 10/21/20 16:01 98 10/21/20 10:59 98 10/21/20 08:00
[2020-10-21] MEDS: ATORVASTATIN 10 MG TAB PO SCH (19:46)
[2020-10-21] MEDS: REMDESIVIR 100 MG in SODIUM CHLORIDE 0.9% 230 ML IV SCH (19:48)
[2020-10-21] MEDS: SODIUM CHLORIDE 0.9% 10ML FLUSH IV SCH (19:49)
[2020-10-22] MEDS ORDERED: METOPROLOL TARTRATE 1 MG/ML VIAL IV STA (04:26)
[2020-10-22] MEDS ORDERED: METOPROLOL TARTRATE 1 MG/ML VIAL IV ONE (04:28)
[2020-10-22] MEDS ORDERED: dilTIAZem HCl 5 MG/ML 5 ML VIAL IV STA (05:04)
[2020-10-22] MEDS ORDERED: dilTIAZem HCl 5 MG/ML 5 ML VIAL IV ONE (05:07)
[2020-10-22] MEDS: LEVOTHYROXINE SODIUM 75 MCG TABLET PO SCH (05:16)
[2020-10-22] MEDS ORDERED: ALBUMIN 25% 12.5 GM/50 ML VIAL IV ONE (05:27)
[2020-10-22] MEDS ORDERED: DIGOXIN 250 MCG in SYRINGE 9 ML IV STA (05:27)
[2020-10-22] MEDS ORDERED: DIGOXIN 500 MCG/2 ML AMP IV ONE (05:33)
[2020-10-22 06:12] LABS: Hematocrit (blood only) 40.6 % (37-47); Hemoglobin 12.5 g/dL (12.0-16.0); Mean Corpuscular Hemoglobin 26.4 pg (25-34); Mean Corpuscular Hgb Conc 30.8 g/dL (32-36); Mean Corpuscular Volume 85.7 fL (80-100); Mean Platelet Volume 9.6 fL (7.4-10.4); Platelet Count 264 K/uL (130-400); RDW Coefficient of Variation 17.3 % (11.5-14.5); RDW Standard Deviation 54.1 fL (36.4-46.3); Red Blood Count 4.74 M/uL (4.2-5.4); White Blood Count 6.62 K/uL (4.8-10.8)
[2020-10-22 06:45] LABS: Albumin Level 2.8 gm/dl (3.4-5.0); BUN Creatinine Ratio 28.9 (10-20); Calcium 8.3 mg/dl (8.5-10.1); Creatinine Clr Calc Pharmacy 31.8 ml/min; Est GFR (African American) 50.8; Est GFR (Non-African American) 43.8; Magnesium 2.4 mg/dl (1.8-2.4); Potassium 3.6 mmol/L (3.5-5.1)
[2020-10-22 06:47] LABS: Albumin Globulin Ratio 0.8 (0.9-2); Bilirubin,Total 0.5 mg/dl (0.2-1); Globulin 3.3 gm/dl (2.5-4.0); Total Protein 6.1 gm/dl (6.4-8.2)
[2020-10-22] MEDS ORDERED: POTASSIUM CHLORIDE CRTAB 20 MEQ TABCR PO STA (07:00)
[2020-10-22] MEDS: CYANOCOBALAMIN 500 MCG TABLET (VITAMIN B-12) PO SCH (08:30)
[2020-10-22] MEDS: METOPROLOL SUCC 50MG EXT REL TAB PO SCH ×2 (08:31→20:12)
[2020-10-22] MEDS: amLODIPine BESYLATE 5 MG TAB PO SCH (08:31)
[2020-10-22] MEDS: hydrALAZINE HCL 25 MG TAB PO SCH ×2 (08:32→20:14)
[2020-10-22] MEDS: CHOLECALCIFEROL 1,000 UNITS 25 MCG TAB PO SCH (08:32)
[2020-10-22] MEDS: POTASSIUM CHLORIDE CRTAB 20 MEQ TABCR PO SCH ×2 (08:33→18:24)
[2020-10-22] MEDS: FUROSEMIDE 40 MG in SYRINGE 0 ML IV SCH ×2 (08:39→20:13)
[2020-10-22] MEDS: dexAMETHasone 6 MG in SYRINGE 0 ML IV SCH (08:39)
--- NOTE | 2020-10-22 16:03 | Hospitalist Progress Note ---
Date of Service October 22, 2020 Assessment & Plan (1) Acute on chronic respiratory failure with hypoxemia: (2) Pneumonia due to COVID-19 virus: Present on admission with shortness of breath and lethargy Possible related to COVID 19 pneumonia vs acute on chronic diastolic CHF COVID 19 positive at the [facility] facility CXR showing bilateral hazy opacities. CTA chest negative for pulmonary embolism. Marked cardiomegaly with evidence of congestive failure. Patchy airspace consolidation throughout both lungs Was placed on Bipap in the ER, then transition on 4L [place] oxygen Afebrile, WBC 4.6K, D-dimer 1040, ferritin 279, procalcitonin 0.06, CRP 3.94 Continue IV dexamethasone for 10 days and Remdesivir for 5 days or on discharge Pulmonary on board recommended to continue current therapy with Remdesivir and steroid CRP is trending down to 2.24. ferritin, ESR and procalcitonin Will d/c abx since repeat procalcitonin negative Continue oxygen supplement (3) Acute on chronic diastolic CHF (congestive heart failure): CT showed marked cardiomegaly with evidence of congestive failure. Received Lasix IV in the ER Echo 10/2018: EF 60%, no significant valvular pathology Continue Lasix IV BID Will monitor BMP while on IV lasix (4) UTI (urinary tract infection): Urine cx grew enterococcus faecalis Will add amoxicillin 500mg BID Continue monitor (5) Bradycardia: Metoprolol has been on hold due to HR was in the 40's Metoprolol decrease to 25 mg BID Continue monitor Metoprolol (6) Paroxysmal A-fib: Heart rate in the 40s on admission telemonitor showed in/out afib EKG shows sinus bradycardia Rate control with outpatient Digoxin and metoprolol Admitting team discussed with cardiology that recommended to hold dig and metoprolol, but If heart rate improves, resume metoprolol succinate at reduced dose twice daily. Xarelto was held due to black stool Will get FOBT and if negative and hgb stable, will resume Xarelto Will monitor electrolytes (7) Hypertensive emergency: Might be related to hospital setting Will resume metoprolol at 50mg BID Continue hydralazine to 75mg BID Continue IV hydralazine prn (8) Elevated troponin: Possible related to demand ischemia due to CHF and hypoxia Troponin 0.187 on admission, then trending to 0.133 Denies any chest pain Elevated D-Dimer Mostly related to COVID 19 CTA chest was negative for PE Compression Fracture Rib fracture CT showed acute to subacute compression fracture of T12 with moderate loss of height and retropulsion of fragments. There are subacute/healing right-sided rib fractures. Denies any pain Continue monitor (9) DVT prophylaxis: Will resume Xarelto today CODE STATUS DNR Admission and Anticipated Discharge Date Admission Date: October 19, 2020 Subjective Pt was seen and examined for respiratory distress and elevate BP Lying in bed with no distress Pt said that she feels a little better She said that she is breathing better Tele monitor showed Afib around 4AM, then converted back to sinus rhythm thi afternoon Denies any chest pain, palpitation, dizziness and fever Physical Exam Physical Exam: General- No acute distress Head- atraumatic Eyes- PERRL, EOMI, ENT- oropharynx clear Neck- supple, no JVD Lungs- diminished BS Heart- no murmur Abdomen- normal bowel sounds, soft, nontender Extremities- no calf tenderness Neuro- alert, oriented; PERRL, EOMI; no facial palsy; no dysarthria Skin- warm & dry Results & Data Results & Data ([facility]) Vital Signs (Past 12 Hours) Vital Signs Temp Pulse Pulse Resp BP BP BP 10/22/20 15:16 36.6 C 68 20 173/90 H 10/22/20 11:12 36.9 C 50 L 20 172/72 H 10/22/20 07:58 84 10/22/20 07:30 37.1 C 100 H 21 167/94 H 10/22/20 05:36 130 H 10/22/20 05:04 120 H 119/82 10/22/20 04:59 132 H 142/99 H 10/22/20 04:34 145 H 176/108 H 10/22/20 04:23 133 H 176/115 H 10/22/20 04:01 66 203/93 H 10/22/20 04:00 64 Pulse Ox 10/22/20 15:16 98 10/22/20 11:12 96 10/22/20 07:58 10/22/20 07:30 98 10/22/20 05:36 10/22/20 05:04 96 10/22/20 04:59 97 10/22/20 04:34 01/01/21 04:23 93 10/22/20 04:01 94 10/22/20 04:00 94
[2020-10-22] MEDS: AMOXICILLIN 500 MG CAP PO SCH (18:23)
[2020-10-22] MEDS: REMDESIVIR 100 MG in SODIUM CHLORIDE 0.9% 230 ML IV SCH (20:11)
[2020-10-22] MEDS: ATORVASTATIN 10 MG TAB PO SCH (20:12)
[2020-10-22] MEDS: SODIUM CHLORIDE 0.9% 10ML FLUSH IV SCH (21:35)
[2020-10-23] MEDS: hydrALAZINE HCL 20 MG/ML VIAL IV PRN (00:25)
[2020-10-23] MEDS: LEVOTHYROXINE SODIUM 75 MCG TABLET PO SCH (06:38)
[2020-10-23 07:52] LABS: Creatinine Clr Calc Pharmacy 34.9 ml/min; Est GFR (African American) 57.3; Est GFR (Non-African American) 49.4
[2020-10-23] MEDS: FUROSEMIDE 40 MG in SYRINGE 0 ML IV SCH ×2 (07:56→21:37)
[2020-10-23] MEDS: AMOXICILLIN 500 MG CAP PO SCH ×2 (07:56→17:09)
[2020-10-23] MEDS: CHOLECALCIFEROL 1,000 UNITS 25 MCG TAB PO SCH (07:57)
[2020-10-23] MEDS: hydrALAZINE HCL 25 MG TAB PO SCH (07:57)
[2020-10-23] MEDS: CYANOCOBALAMIN 500 MCG TABLET (VITAMIN B-12) PO SCH (07:57)
[2020-10-23] MEDS: amLODIPine BESYLATE 5 MG TAB PO SCH (07:57)
[2020-10-23] MEDS: dexAMETHasone 6 MG in SYRINGE 0 ML IV SCH (07:57)
[2020-10-23] MEDS: METOPROLOL SUCC 50MG EXT REL TAB PO SCH ×2 (07:58→21:37)
[2020-10-23] MEDS: POTASSIUM CHLORIDE CRTAB 20 MEQ TABCR PO SCH ×2 (08:36→17:12)
[2020-10-23 08:45] LABS: Hemoglobin 12.7 g/dL (12.0-16.0); Mean Corpuscular Hemoglobin 26.1 pg (25-34); Mean Corpuscular Hgb Conc 30.2 g/dL (32-36); Mean Corpuscular Volume 86.2 fL (80-100); Platelet Count 217 K/uL (130-400); RDW Coefficient of Variation 16.8 % (11.5-14.5); RDW Standard Deviation 52.7 fL (36.4-46.3); Red Blood Count 4.87 M/uL (4.2-5.4); White Blood Count 7.94 K/uL (4.8-10.8)
[2020-10-23] MEDS ORDERED: hydrALAZINE HCL 25 MG TAB PO ONE (09:30)
[2020-10-23] MEDS: hydrALAZINE TAB 50 MG TAB PO SCH ×2 (10:33→21:37)
--- NOTE | 2020-10-23 18:38 | Hospitalist Progress Note ---
Date of Service October 23, 2020 Assessment & Plan (1) Acute on chronic respiratory failure with hypoxemia: (2) Pneumonia due to COVID-19 virus: Present on admission with shortness of breath and lethargy Possible related to COVID 19 pneumonia vs acute on chronic diastolic CHF COVID 19 positive at the long term facility CXR showing bilateral hazy opacities. CTA chest negative for pulmonary embolism. Marked cardiomegaly with evidence of congestive failure. Patchy airspace consolidation throughout both lungs Was placed on Bipap in the ER, then transition on 4L [place] oxygen Afebrile, WBC 4.6K, D-dimer 1040, ferritin 279, procalcitonin 0.06, CRP 3.94 Continue IV dexamethasone for 10 days and Remdesivir for 5 days or on discharge Pulmonary on board recommended to continue current therapy with Remdesivir and steroid CRP is trending down to 2.24. ferritin, ESR and procalcitonin Will d/c abx since repeat procalcitonin negative Continue oxygen supplement (3) Acute on chronic diastolic CHF (congestive heart failure): CT showed marked cardiomegaly with evidence of congestive failure. Received Lasix IV in the ER Echo 10/2018: EF 60%, no significant valvular pathology Continue Lasix IV BID Will monitor BMP while on IV lasix (4) UTI (urinary tract infection): Urine cx grew enterococcus faecalis Will add amoxicillin 500mg BID Continue monitor (5) Bradycardia: Metoprolol has been on hold due to HR was in the 40's Metoprolol decrease to 25 mg BID Continue monitor Metoprolol (6) Fecal occult blood test positive: Had one episode of dark stool Hemoglobin normal Case discussed with gastro Dr. Chambers that recommended to hold Xarelto for 48hrs and add PPI daily Due to COVID 19 and hemoglobin normal, no plan for any scope (Will cancel official consult) Continue monitor CBC (7) Paroxysmal A-fib: Heart rate in the 40s on admission telemonitor showed in/out afib EKG shows sinus bradycardia Rate control with outpatient Digoxin and metoprolol Admitting team discussed with cardiology that recommended to hold dig and metoprolol, but If heart rate improves, resume metoprolol succinate at reduced dose twice daily. Xarelto on hold due to dark stool and positive FOBT Will monitor electrolytes (8) Hypertensive emergency: Might be related to hospital setting Will resume metoprololat 25 mg BID Continue hydralazine to 75mg BID Continue IV hydralazine prn (9) Elevated troponin: Possible related to demand ischemia due to CHF and hypoxia Troponin 0.187 on admission, then trending to 0.133 Denies any chest pain Elevated D-Dimer Mostly related to COVID 19 CTA chest was negative for PE Compression Fracture Rib fracture CT showed acute to subacute compression fracture of T12 with moderate loss of height and retropulsion of fragments. There are subacute/healing right-sided rib fractures. Denies any pain Continue monitor (10) DVT prophylaxis: Continue to hold Xarelto CODE STATUS DNR Admission and Anticipated Discharge Date Admission Date: October 19, 2020 Subjective Pt was seen and examined for follow up of COVID 19 Sitting in chair with no distress Pt said that she feels much better She has no more episodes of dark stool Denies any chest pain, palpitation, dizziness and SOB Physical Exam Physical Exam: General- No acute distress Head- atraumatic Eyes- PERRL, EOMI, ENT- oropharynx clear Neck- supple, no JVD Lungs- diminished BS Heart- no murmur, +bradycardia Abdomen- normal bowel sounds, soft, nontender Extremities- no calf tenderness Neuro- alert, oriented; PERRL, EOMI; no facial palsy; no dysarthria Skin- warm & dry Results & Data Results & Data ([facility]) Vital Signs (Past 12 Hours) Vital Signs Temp Pulse Resp BP Pulse Ox 10/23/20 15:23 37.2 C 53 L 20 163/77 H 100 10/23/20 11:05 36.7 C 59 L 20 156/97 H 99 10/23/20 07:35 37.0 C 67 20 197/94 H 93
[2020-10-23] MEDS: REMDESIVIR 100 MG in SODIUM CHLORIDE 0.9% 230 ML IV SCH (20:28)
[2020-10-23] MEDS: ATORVASTATIN 10 MG TAB PO SCH (21:37)
[2020-10-23] MEDS: SODIUM CHLORIDE 0.9% 10ML FLUSH IV SCH (21:43)
[2020-10-24] MEDS: LEVOTHYROXINE SODIUM 75 MCG TABLET PO SCH (06:03)
[2020-10-24 07:34] LABS: Creatinine Clr Calc Pharmacy 34.2 ml/min; Est GFR (Non-African American) 48.3
[2020-10-24] MEDS ORDERED: METOPROLOL SUCC 25MG EXT REL TAB PO SCH (09:00)
[2020-10-24] MEDS: FUROSEMIDE 40 MG in SYRINGE 0 ML IV SCH ×2 (09:43→20:56)
[2020-10-24] MEDS: dexAMETHasone 6 MG in SYRINGE 0 ML IV SCH (09:43)
[2020-10-24] MEDS: CYANOCOBALAMIN 500 MCG TABLET (VITAMIN B-12) PO SCH (09:43)
[2020-10-24] MEDS: CHOLECALCIFEROL 1,000 UNITS 25 MCG TAB PO SCH (09:44)
[2020-10-24] MEDS: hydrALAZINE TAB 50 MG TAB PO SCH ×2 (09:44→20:58)
[2020-10-24] MEDS: amLODIPine BESYLATE 5 MG TAB PO SCH (09:44)
[2020-10-24] MEDS: AMOXICILLIN 500 MG CAP PO SCH ×2 (09:45→17:34)
[2020-10-24] MEDS: POTASSIUM CHLORIDE CRTAB 20 MEQ TABCR PO SCH ×2 (09:46→17:36)
[2020-10-24] MEDS: PANTOprazole 40 MG TAB PO SCH (10:27)
--- NOTE | 2020-10-24 14:10 | Hospitalist Progress Note ---
Date of Service October 24, 2020 Assessment & Plan (1) Acute on chronic respiratory failure with hypoxemia: (2) Pneumonia due to COVID-19 virus: Present on admission with shortness of breath and lethargy Possible related to COVID 19 pneumonia vs acute on chronic diastolic CHF COVID [facility] the [facility] CXR showing bilateral hazy opacities. CTA chest negative for pulmonary embolism. Marked cardiomegaly with evidence of congestive failure. Patchy airspace consolidation throughout both lungs Was placed on Bipap in the ER, then transition on 4L [place] oxygen Afebrile, WBC 4.6K, D-dimer 1040, ferritin 279, procalcitonin 0.06, CRP 3.94 Continue IV dexamethasone for 10 days Completed Remdesivir for 5 days Pulmonary on board recommended to continue current therapy with Remdesivir and steroid CRP is trending down to 2.24. ferritin, ESR and procalcitonin Will d/c abx since repeat procalcitonin negative Continue oxygen supplement (3) Acute on chronic diastolic CHF (congestive heart failure): CT showed marked cardiomegaly with evidence of congestive failure. Received Lasix IV in the ER Echo 10/2018: EF 60%, no significant valvular pathology Continue Lasix IV BID Will monitor BMP while on IV lasix (4) UTI (urinary tract infection): Urine cx grew enterococcus faecalis Continue amoxicillin 500mg BID Continue monitor (5) Bradycardia: Metoprolol has been on hold due to HR was in the 40's Will decrease Metoprolol 12.5 mg BID Continue monitor Metoprolol (6) Fecal occult blood test positive: Had one episode of dark stool Hemoglobin normal Case discussed with gastro Dr. Chambers that recommended to hold Xarelto for 48hrs and add PPI daily Due to COVID 19 and hemoglobin normal, no plan for any scope (Will cancel official consult) Will resume Xarelto in am Continue monitor CBC (7) Paroxysmal A-fib: Heart rate in the 40s on admission telemonitor showed in/out afib and she had one episode of atrial tachycardia EKG shows sinus bradycardia Rate control with outpatient Digoxin and metoprolol Admitting team discussed with cardiology that recommended to hold dig and metoprolol, but If heart rate improves, resume metoprolol succinate at reduced dose twice daily. Will decrease metoprolol to 12.5 mg BID Xarelto on hold due to dark stool and positive FOBT Will resume Xarelto in am Will monitor electrolytes (8) Hypertensive emergency: Might be related to hospital setting Will resume metoprololat 25 mg BID Increase to hydralazine to 100 mg BID Continue IV hydralazine prn (9) Elevated troponin: Possible related to demand ischemia due to CHF and hypoxia Troponin 0.187 on admission, then trending to 0.133 Denies any chest pain Elevated D-Dimer Mostly related to COVID 19 CTA chest was negative for PE Compression Fracture Rib fracture CT showed acute to subacute compression fracture of T12 with moderate loss of height and retropulsion of fragments. There are subacute/healing right-sided rib fractures. Denies any pain Continue monitor (10) DVT prophylaxis: Continue to hold Xarelto CODE STATUS DNR Admission and Anticipated Discharge Date Admission Date: October 19, 2020 Subjective Pt was seen and examined for follow up COVID 19 Sitting in chair with no distress Pt said that she feels much better today Telemonitor showed one episode of atrial tachycardia and she has been Anuj Denies any chest pain, palpitation, dizziness and fever Physical Exam Physical Exam: General- No acute distress Head- atraumatic Eyes- PERRL, EOMI, ENT- oropharynx clear Neck- supple, no JVD Lungs- diminished BS Heart- no murmur, +bradycardia Abdomen- normal bowel sounds, soft, nontender Extremities- no calf tenderness Neuro- alert, oriented; PERRL, EOMI; no facial palsy; no dysarthria Skin- warm & dry Results & Data Results & Data ([facility]) Vital Signs (Past 12 Hours) Vital Signs Temp Pulse Resp BP BP Pulse Ox 10/24/20 11:37 36.6 C 52 L 18 168/77 H 92 10/24/20 10:28 61 10/24/20 08:23 36.4 C L 56 L 19 202/91 H 90
[2020-10-24] MEDS: METOPROLOL SUCC 25MG EXT REL TAB PO SCH (20:57)
[2020-10-24] MEDS: ATORVASTATIN 10 MG TAB PO SCH (20:58)
[2020-10-25] MEDS: LEVOTHYROXINE SODIUM 75 MCG TABLET PO SCH (05:23)
[2020-10-25 07:02] LABS: Hematocrit (blood only) 42.5 % (37-47); Hemoglobin 13.2 g/dL (12.0-16.0); Mean Corpuscular Hemoglobin 26.2 pg (25-34); Mean Corpuscular Hgb Conc 31.1 g/dL (32-36); Mean Corpuscular Volume 84.5 fL (80-100); Mean Platelet Volume 9.6 fL (7.4-10.4); Platelet Count 221 K/uL (130-400); RDW Coefficient of Variation 16.5 % (11.5-14.5); RDW Standard Deviation 50.7 fL (36.4-46.3); Red Blood Count 5.03 M/uL (4.2-5.4)
[2020-10-25 07:30] LABS: Calcium 9.5 mg/dl (8.5-10.1); Est GFR (African American) 44.7; Est GFR (Non-African American) 38.5
[2020-10-25] MEDS: CHOLECALCIFEROL 1,000 UNITS 25 MCG TAB PO SCH (08:51)
[2020-10-25] MEDS: hydrALAZINE TAB 50 MG TAB PO SCH ×2 (08:51→19:40)
[2020-10-25] MEDS: CYANOCOBALAMIN 500 MCG TABLET (VITAMIN B-12) PO SCH (08:51)
[2020-10-25] MEDS: PANTOprazole 40 MG TAB PO SCH (08:52)
[2020-10-25] MEDS: amLODIPine BESYLATE 5 MG TAB PO SCH (08:52)
[2020-10-25] MEDS: METOPROLOL SUCC 25MG EXT REL TAB PO SCH ×2 (08:52→19:40)
[2020-10-25] MEDS: AMOXICILLIN 500 MG CAP PO SCH ×2 (08:53→15:57)
[2020-10-25] MEDS: POTASSIUM CHLORIDE CRTAB 20 MEQ TABCR PO SCH ×2 (08:57→15:58)
[2020-10-25] MEDS: dexAMETHasone 6 MG in SYRINGE 0 ML IV SCH (08:57)
[2020-10-25] MEDS: FUROSEMIDE 40 MG in SYRINGE 0 ML IV SCH (08:57)
[2020-10-25] MEDS ORDERED: amLODIPine BESYLATE 5 MG TAB PO ONE (09:55)
[2020-10-25] MEDS: RIVAROXABAN 15 MG TAB PO SCH (10:55)
--- NOTE | 2020-10-25 17:10 | Hospitalist Progress Note ---
Date of Service October 25, 2020 Assessment & Plan (1) Acute on chronic respiratory failure with hypoxemia: (2) Pneumonia due to COVID-19 virus: Present on admission with shortness of breath and lethargy Possible related to COVID 19 pneumonia vs acute on chronic diastolic CHF COVID 19 positive at the [facility] facility CXR showing bilateral hazy opacities. CTA chest negative for pulmonary embolism. Marked cardiomegaly with evidence of congestive failure. Patchy airspace consolidation throughout both lungs Was placed on Bipap in the ER, then transition on 4L [place] oxygen Afebrile, WBC 4.6K, D-dimer 1040, ferritin 279, procalcitonin 0.06, CRP 3.94 Continue IV dexamethasone for 10 days Completed Remdesivir for 5 days Pulmonary on board recommended to continue current therapy with Remdesivir and steroid CRP is trending down to 2.24. ferritin, ESR and procalcitonin Will d/c abx since repeat procalcitonin negative Continue oxygen supplement (3) Acute on chronic diastolic CHF (congestive heart failure): CT showed marked cardiomegaly with evidence of congestive failure. Received Lasix IV in the ER Echo 10/2018: EF 60%, no significant valvular pathology Will hold Lasix IV since creatinine bumped to 1.2 today Continue monitor BMP (4) UTI (urinary tract infection): Urine cx grew enterococcus faecalis Continue amoxicillin 500mg BID Continue monitor (5) Bradycardia: Metoprolol has been on hold due to HR was in the 40's Metoprolol 12.5 mg BID Continue monitor Metoprolol Will talk to cardio if bradycardia continues (6) Fecal occult blood test positive: Had one episode of dark stool Hemoglobin normal Case discussed with gastro Dr. Chambers that recommended to hold Xarelto for 48hrs and add PPI daily Due to COVID 19 and hemoglobin normal, no plan for any scope (Will cancel official consult) Xarelto resumed this morning Continue monitor CBC (7) Paroxysmal A-fib: Heart rate in the 40s on admission telemonitor showed in/out afib and she had one episode of atrial tachycardia EKG shows sinus bradycardia Rate control with outpatient Digoxin and metoprolol Admitting team discussed with cardiology that recommended to hold dig and metoprolol, but If heart rate improves, resume metoprolol succinate at reduced dose twice daily. Will decrease metoprolol to 12.5 mg BID Xarelto on hold due to dark stool and positive FOBT Resumed Xarelto this morning (8) Hypertensive emergency: Might be related to hospital setting Metoprolol decreased to 12.5 mg due to Bradycardia Amlodipine increased to 10mg daily Increase to hydralazine to 100 mg BID Continue IV hydralazine prn (9) Elevated troponin: Possible related to demand ischemia due to CHF and hypoxia Troponin 0.187 on admission, then trending to 0.133 Denies any chest pain Elevated D-Dimer Mostly related to COVID 19 CTA chest was negative for PE Compression Fracture Rib fracture CT showed acute to subacute compression fracture of T12 with moderate loss of height and retropulsion of fragments. There are subacute/healing right-sided rib fractures. Denies any pain Continue monitor (10) DVT prophylaxis: Xarelto resumed CODE STATUS DNR Admission and Anticipated Discharge Date Admission Date: October 19, 2020 Subjective Pt was seen and examined Sitting in chair with no distress Pt said that she feels fine Denies any chest pain, palpitation and SOB Physical Exam Physical Exam: General- No acute distress Head- atraumatic Eyes- PERRL, EOMI, ENT- oropharynx clear Neck- supple, no JVD Lungs- diminished BS Heart- no murmur, +bradycardia Abdomen- normal bowel sounds, soft, nontender Extremities- no calf tenderness Neuro- alert, oriented; PERRL, EOMI; no facial palsy; no dysarthria Skin- warm & dry Results & Data Results & Data ([facility]) Vital Signs (Past 12 Hours) Vital Signs Temp Pulse Resp BP BP Pulse Ox 10/25/20 14:44 36.6 C 49 L 18 113/65 100 10/25/20 10:52 36.4 C L 96 H 20 146/74 H 96 10/25/20 07:40 36.5 C 56 L 20 199/89 H 93
[2020-10-25] MEDS: ATORVASTATIN 10 MG TAB PO SCH (19:40)
[2020-10-26] MEDS: LEVOTHYROXINE SODIUM 75 MCG TABLET PO SCH (06:14)
[2020-10-26 07:27] LABS: Hematocrit (blood only) 38.9 % (37-47); Hemoglobin 12.4 g/dL (12.0-16.0); Mean Corpuscular Hemoglobin 26.5 pg (25-34); Mean Corpuscular Hgb Conc 31.9 g/dL (32-36); Mean Corpuscular Volume 83.1 fL (80-100); Platelet Count 237 K/uL (130-400); RDW Coefficient of Variation 16.5 % (11.5-14.5); RDW Standard Deviation 49.5 fL (36.4-46.3); Red Blood Count 4.68 M/uL (4.2-5.4)
[2020-10-26 07:57] LABS: Calcium 9.2 mg/dl (8.5-10.1); Creatinine Clr Calc Pharmacy 24.9 ml/min; Est GFR (African American) 38.8; Est GFR (Non-African American) 33.5; Potassium 3.9 mmol/L (3.5-5.1)
[2020-10-26] MEDS: AMOXICILLIN 500 MG CAP PO SCH ×2 (08:02→16:36)
[2020-10-26] MEDS: CHOLECALCIFEROL 1,000 UNITS 25 MCG TAB PO SCH (08:02)
[2020-10-26] MEDS: dexAMETHasone 6 MG in SYRINGE 0 ML IV SCH (08:02)
[2020-10-26] MEDS: PANTOprazole 40 MG TAB PO SCH (08:02)
[2020-10-26] MEDS: CYANOCOBALAMIN 500 MCG TABLET (VITAMIN B-12) PO SCH (08:02)
[2020-10-26] MEDS: METOPROLOL SUCC 25MG EXT REL TAB PO SCH ×2 (08:03→21:24)
[2020-10-26] MEDS: hydrALAZINE TAB 50 MG TAB PO SCH ×2 (08:04→21:23)
[2020-10-26] MEDS: amLODIPine BESYLATE 5 MG TAB PO SCH (08:04)
[2020-10-26] MEDS: RIVAROXABAN 15 MG TAB PO SCH (08:07)
[2020-10-26] MEDS: POTASSIUM CHLORIDE CRTAB 20 MEQ TABCR PO SCH ×2 (11:51→16:35)
--- NOTE | 2020-10-26 20:42 | Hospitalist Progress Note ---
Date of Service October 26, 2020 Assessment & Plan (1) Acute on chronic respiratory failure with hypoxemia: (2) Pneumonia due to COVID-19 virus: Present on admission with shortness of breath and lethargy Possible related to COVID 19 pneumonia vs acute on chronic diastolic CHF COVID 19 positive at the assisted facility CXR showing bilateral hazy opacities. CTA chest negative for pulmonary embolism. Marked cardiomegaly with evidence of congestive failure. Patchy airspace consolidation throughout both lungs Was placed on Bipap in the ER, then transition on 4L [place] oxygen Afebrile, WBC 4.6K, D-dimer 1040, ferritin 279, procalcitonin 0.06, CRP 3.94 Continue IV dexamethasone for 10 days Completed Remdesivir for 5 days Pulmonary on board recommended to continue current therapy with Remdesivir and steroid CRP is trending down to 2.24. ferritin, ESR and procalcitonin Continue oxygen supplement (3) Acute on chronic diastolic CHF (congestive heart failure): CT showed marked cardiomegaly with evidence of congestive failure. Received Lasix IV in the ER Echo 10/2018: EF 60%, no significant valvular pathology Continue to hold Lasix IV since creatinine bumped to 1.2-->1.4 today Continue monitor BMP (4) UTI (urinary tract infection): Urine cx grew enterococcus faecalis Continue amoxicillin 500mg BID Continue monitor (5) Bradycardia: Metoprolol has been on hold due to HR was in the 40's HR has been stable in the 80 Will increase Metoprolol to 25mg mg BID l Will talk to cardio if bradycardia continues (6) Fecal occult blood test positive: Had one episode of dark stool Hemoglobin normal Case discussed with gastro Dr. Chambers that recommended to hold Xarelto for 48hrs and add PPI daily Due to COVID 19 and hemoglobin normal, no plan for any scope (Will cancel official consult) Xarelto resumed yesterday, No episode of dark stool as per nurse Continue monitor CBC (7) Paroxysmal A-fib: Heart rate in the 40s on admission telemonitor showed in/out afib and she had one episode of atrial tachycardia EKG shows sinus bradycardia Rate control with outpatient Digoxin and metoprolol Admitting team discussed with cardiology that recommended to hold dig and metoprolol, but If heart rate improves, resume metoprolol succinate at reduced dose twice daily. Will decrease metoprolol to 12.5 mg BID Xarelto was help due to dark stool and positive FOBT Continue monitor (8) Hypertensive emergency: Might be related to hospital setting Metoprolol was decreased to 12.5 mg due to Bradycardia Will increase Metoprolol to 25mg BID Continue Amlodipine 10mg daily Continue hydralazine to 100 mg BID Continue monitor BS (9) Elevated troponin: Possible related to demand ischemia due to CHF and hypoxia Troponin 0.187 on admission, then trending to 0.133 Denies any chest pain Elevated D-Dimer Mostly related to COVID 19 CTA chest was negative for PE Compression Fracture Rib fracture CT showed acute to subacute compression fracture of T12 with moderate loss of height and retropulsion of fragments. There are subacute/healing right-sided rib fractures. Denies any pain Continue monitor (10) DVT prophylaxis: Xarelto resumed CODE STATUS DNR Admission and Anticipated Discharge Date Admission Date: October 19, 2020 Subjective Pt was seen and examined Sitting in chair with no distress Pt said that she feels fine She said that her breathing is much better Denies any chest pain, palpitation, dizziness and SOB Physical Exam Physical Exam: General- No acute distress Head- atraumatic Eyes- PERRL, EOMI, ENT- oropharynx clear Neck- supple, no JVD Lungs- diminished BS Heart- no murmur, +bradycardia Abdomen- normal bowel sounds, soft, nontender Extremities- no calf tenderness Neuro- alert, oriented; PERRL, EOMI; no facial palsy; no dysarthria Skin- warm & dry Results & Data Results & Data ([facility]) Vital Signs (Past 12 Hours) Vital Signs Temp Pulse Pulse Resp BP Pulse Ox 10/26/20 19:57 36.4 C L 81 21 161/82 H 95 10/26/20 17:04 68 10/26/20 16:00 36.4 C L 65 22 132/79 98 10/26/20 11:51 36.4 C L 69 22 151/78 H 96
[2020-10-26] MEDS: ATORVASTATIN 10 MG TAB PO SCH (21:23)
[2020-10-27] MEDS: LEVOTHYROXINE SODIUM 75 MCG TABLET PO SCH (05:36)
[2020-10-27 08:46] LABS: Calcium 9.6 mg/dl (8.5-10.1); Creatinine Clr Calc Pharmacy 20.8 ml/min; Est GFR (Non-African American) 27.6; Potassium 4.2 mmol/L (3.5-5.1)
[2020-10-27] MEDS: amLODIPine BESYLATE 5 MG TAB PO SCH (09:20)
[2020-10-27] MEDS: hydrALAZINE TAB 50 MG TAB PO SCH ×2 (09:20→19:36)
[2020-10-27] MEDS: CYANOCOBALAMIN 500 MCG TABLET (VITAMIN B-12) PO SCH (09:21)
[2020-10-27] MEDS: METOPROLOL SUCC 25MG EXT REL TAB PO SCH ×2 (09:21→19:36)
[2020-10-27] MEDS: CHOLECALCIFEROL 1,000 UNITS 25 MCG TAB PO SCH (09:22)
[2020-10-27] MEDS: dexAMETHasone 4 MG TAB PO SCH (09:22)
[2020-10-27] MEDS: PANTOprazole 40 MG TAB PO SCH (09:22)
[2020-10-27] MEDS: RIVAROXABAN 15 MG TAB PO SCH (09:22)
[2020-10-27] MEDS: AMOXICILLIN 500 MG CAP PO SCH (09:27)
--- NOTE | 2020-10-27 13:00 | Hospitalist Progress Note ---
Date of Service October 27, 2020 Assessment & Plan (1) Acute on chronic respiratory failure with hypoxemia: (2) Pneumonia due to COVID-19 virus: Present on admission with shortness of breath and lethargy /metabolic encephalopathy Possible related to COVID 19 pneumonia vs acute on chronic diastolic CHF COVID 19 positive at the assisted facility on 10/19/2020 CXR showing bilateral hazy opacities. CTA chest negative for pulmonary embolism. Marked cardiomegaly with evidence of congestive failure. Patchy airspace consolidation throughout both lungs Was placed on Bipap in the ER, then transition on 4L [place] oxygen Afebrile, WBC 4.6K, D-dimer 1040, ferritin 279, procalcitonin 0.06, CRP 3.94 Continue dexamethasone for 10 days Completed Remdesivir for 5 days Pulmonary on board CRP is trending down to 2.24. ferritin, ESR and procalcitonin Continue oxygen supplement Has been medically stable, referral made for skilled rehab (3) Acute on chronic diastolic CHF (congestive heart failure): CT showed marked cardiomegaly with evidence of congestive failure. Received Lasix IV in the ER Echo 10/2018: EF 60%, no significant valvular pathology Does not have any rales, no evidence of volume overload, will lower extremity edema Patient was treated with Lasix 40 mg IV twice daily, has been kept on hold for worsening of creatinine. Acute renal failure with CKD stage III: Possibly secondary to diuresis Continue to hold Lasix IV since creatinine bumped to 1.2-->1.4 -> 1.7 Repeat BMP in a.m. (4) UTI (urinary tract infection): Urine cx grew enterococcus faecalis Continue amoxicillin 500mg BID -total 7 days of treatment Afebrile/no urinary symptoms (5) Bradycardia: HR has been stable in the 80 On metoprolol to 25mg mg BID (was 100 mg daily preadmission) No symptoms of dizzy spell dyspnea on exertion (6) Fecal occult blood test positive: Had one episode of dark stool Hemoglobin normal Case discussed with gastro Dr. Chambers that recommended to hold Xarelto for 48hrs and add PPI daily Due to COVID 19 and hemoglobin normal, no plan for any scope ( official consult consult) Xarelto resumed No episode of dark stool as per nurse Hemoglobin remained stable at 12 (7) Paroxysmal A-fib: Heart rate in the 40s on admission telemonitor showed in/out afib and she had one episode of atrial tachycardia EKG shows sinus bradycardia Rate control with outpatient Digoxin and metoprolol Admitting team discussed with cardiology that recommended to hold dig and metoprolol, but If heart rate improves, resume metoprolol succinate at reduced dose twice daily. Metoprolol dose decreased to 25 mg twice daily/on Xarelto for chronic anticoagulation (8) Hypertensive emergency: On metoprolol to 25mg BID Continue Amlodipine 10mg daily Continue hydralazine to 100 mg BID (9) Elevated troponin: Possible related to demand ischemia due to decompensated CHF and hypoxia Troponin 0.187 on admission, then trending to 0.133 Denies any chest pain Shows no wall motion abnormality Elevated D-Dimer Mostly related to COVID 19 CTA chest was negative for PE Compression Fracture Rib fracture CT showed acute to subacute compression fracture of T12 with moderate loss of height and retropulsion of fragments. There are subacute/healing right-sided rib fractures. Denies any pain Referral made for skilled rehab (10) DVT prophylaxis: Xarelto CODE STATUS DNR Disposition: Patient is accepted at [facility] for skilled rehab, possible transfer tomorrow Admission and Anticipated Discharge Date Admission Date: October 19, 2020 Subjective Follow-up visit for COVID-19 pneumonia/acute on chronic hypoxemic respiratory failure/acute on chronic diastolic CHF. Patient seen in Covid unit room 202 Sitting up on chair, currently on 4 L oxygen via nasal cannula, no sign of respiratory distress Patient is a very poor historian, does not have any cough, has been afebrile, No complaint of shortness of breath, dyspnea on exertion, no audible wheeze Patient says" I feel fine" Review of Systems Review of Systems: All systems reviewed & are unremarkable except as noted in HPI & below Constitutional: no fever and no chills Respiratory: no cough, no dyspnea, no dyspnea on exertion and no wheezing Cardiovascular: no chest pain, no dyspnea, no dyspnea at rest, no orthopnea, no lightheadedness, no syncope and no edema Physical Exam Constitutional: WD/WN, vitals as above Eyes: + anicteric sclerae ENMT: external ear and nose normal, oropharynx normal Neck: trachea midline, no thyromegaly Respiratory: no respiratory distress and no cough Auscultation: + diminished lung sounds; no rales, no rhonchi and no wheezes Cardiovascular: RRR, no murmur, no edema Gastrointestinal (Abdomen): Percussion/Palpation: abdomen soft; abdomen nontender Musculoskeletal: no cyanosis or clubbing, extremities motor strength 5/5 Skin: no rashes, warm and dry Neurologic: PERRL, EOMI, accommodation nl, no face palsy, no dysarthria Psychiatric: Orientation: alert, oriented to person and oriented to place Affect: + flat affect Results & Data Results & Data ([facility]) Vital Signs (Past 12 Hours) Vital Signs Temp Pulse Pulse Pulse Resp BP BP 10/27/20 11:10 36.7 C 69 20 153/80 H 10/27/20 08:00 70 10/27/20 07:40 36.4 C L 74 19 153/77 H 10/27/20 04:23 36.7 C 63 17 131/56 L Pulse Ox 10/27/20 11:10 98 10/27/20 08:00 10/27/20 07:40 90 10/27/20 04:23 98
[2020-10-27] MEDS: POTASSIUM CHLORIDE CRTAB 20 MEQ TABCR PO SCH (13:05)
[2020-10-27] MEDS: ATORVASTATIN 10 MG TAB PO SCH (19:36)
[2020-10-28] MEDS: LEVOTHYROXINE SODIUM 75 MCG TABLET PO SCH (05:27)
[2020-10-28 07:19] LABS: D Dimer 2200 ug/L FEU (0-500)
[2020-10-28 07:20] LABS: BUN Creatinine Ratio 47.7 (10-20); Calcium 9.4 mg/dl (8.5-10.1); Creatinine Clr Calc Pharmacy 21.5 ml/min; Est GFR (African American) 33.2; Est GFR (Non-African American) 28.6; Potassium 4.1 mmol/L (3.5-5.1)
[2020-10-28] MEDS: hydrALAZINE TAB 50 MG TAB PO SCH (08:50)
[2020-10-28] MEDS: CHOLECALCIFEROL 1,000 UNITS 25 MCG TAB PO SCH (08:50)
[2020-10-28] MEDS: METOPROLOL SUCC 25MG EXT REL TAB PO SCH (08:50)
[2020-10-28] MEDS: amLODIPine BESYLATE 5 MG TAB PO SCH (08:50)
[2020-10-28] MEDS: CYANOCOBALAMIN 500 MCG TABLET (VITAMIN B-12) PO SCH (08:50)
[2020-10-28] MEDS: PANTOprazole 40 MG TAB PO SCH (08:50)
[2020-10-28] MEDS: dexAMETHasone 4 MG TAB PO SCH (08:50)
[2020-10-28] MEDS: RIVAROXABAN 15 MG TAB PO SCH (08:51)
--- NOTE | 2020-10-28 14:33 | Discharge Summary ---
Date of Service October 28, 2020 Admission HPI Per Admitting Provider 80-year-old female with PMH chronic hypoxic respiratory failure on 2 L, paroxysmal atrial fibrillation anticoagulated on Xarelto, chronic diastolic CHF, HTN, hypothyroidism, CKD stage III, and other problems listed below who presents to the ED for evaluation of generalized weakness and dyspnea. Patient recently admitted to [facility] 09/12 through 09/14 for metabolic encephalopathy secondary to UTI, fall, pelvic fracture. Patient discharged to the [facility] for rehab needs. History is very limited from the patient at this time. Information obtained from patient's outpatient chart. Patient has been having increasing lethargy the past 2 days. Typically wears 2 L of oxygen at all times, now requiring 4 L of oxygen via nasal cannula. Patient tested positive for COVID-19 at the residential this morning. Patient was sent to the ED for further evaluation. In the ED, CXR shows bilateral opacities. proBNP 14,000. Troponin 0.187, EKG without acute ST changes. Patient is bradycardic in the 40s, hypertensive with systolic BPs 170s-200s. Saturating well on 4 L of oxygen via nasal cannula however tachypneic. Patient was given IV Tylenol, IV dexamethasone. After hospitalist evaluation, patient was given Lasix 40 mg IV and started on BiPAP. Principal Diagnosis COVID 19 pneumonia UTI Acute on chronic congestive heart failure with diastolic dysfunction Acute on chronic kidney failure with CKD stage III Discharge Exam Constitutional WD/WN, vitals as above Eyes + anicteric sclerae ENMT external ear and nose normal, oropharynx normal Neck trachea midline, no thyromegaly Respiratory no respiratory distress and no cough Auscultation: + diminished lung sounds; no rales, no rhonchi and no wheezes Cardiovascular RRR, no murmur, no edema Gastrointestinal (Abdomen) Percussion/Palpation: abdomen soft; abdomen nontender Musculoskeletal no cyanosis or clubbing, extremities motor strength 5/5 Skin no rashes, warm and dry Neurologic PERRL, EOMI, accommodation nl, no face palsy, no dysarthria Psychiatric Orientation: alert, oriented to person and oriented to place Affect: + flat affect Discharge Data Allergies Allergy/AdvReac Type Severity Reaction Status Date / Time quinapril AdvReac Mild H/A Verified 09/11/20 21:39 nifedipine AdvReac Unknown pounding Verified 09/11/20 21:39 headache Consultations 10/19/20 13:19 ED Decision to Admit Stat 10/19/20 18:23 Consult Case Management - Discharge Planning Routine Consult Pulmonology Routine Ordered Studies 10/19/20 12:20 CT angio chest PE protocol Stat Hospital Course (1) Acute on chronic respiratory failure with hypoxemia: (2) Pneumonia due to COVID-19 virus: Present on admission with shortness of breath and lethargy /metabolic encephalopathy Possible related to COVID 19 pneumonia vs acute on chronic diastolic CHF COVID 19 positive at the residential facility on 10/19/2020 CXR showing bilateral hazy opacities. CTA chest negative for pulmonary embolism. Marked cardiomegaly with evidence of congestive failure. Patchy airspace consolidation throughout both lungs respiratory status has been stable Afebrile, WBC 4.6K, D-dimer 1040, ferritin 279, procalcitonin 0.06, CRP 3.94 Continue dexamethasone for 10 days Completed Remdesivir for 5 days Pulmonary on board CRP is trending down to 2.24. ferritin, ESR and procalcitonin Continue oxygen supplement stable to transfer to skilled rehab (3) Acute on chronic diastolic CHF (congestive heart failure): CT showed marked cardiomegaly with evidence of congestive failure. Received Lasix IV in the ER Echo 10/2018: EF 60%, no significant valvular pathology Does not have any rales, no evidence of volume overload, will lower extremity edema Patient was treated with Lasix 40 mg IV twice daily, has been kept on hold for worsening of creatinine. Acute renal failure with CKD stage III: Possibly secondary to diuresis cr improved 1.6 after holding lasix lasix will be resumed on lower dose on discharge (4) UTI (urinary tract infection): Urine cx grew enterococcus faecalis Continue amoxicillin 500mg BID -total 7 days of treatment Afebrile/no urinary symptoms (5) Bradycardia: HR has been stable in the 80 On metoprolol to 25mg mg BID (was 100 mg daily preadmission) No symptoms of dizzy spell dyspnea on exertion (6) Fecal occult blood test positive: Had one episode of dark stool Hemoglobin normal Case discussed with gastro Dr. Chambers that recommended to hold Xarelto for 48hrs and add PPI daily Due to COVID 19 and hemoglobin normal, no plan for any scope ( official consult consult) Xarelto resumed No episode of dark stool as per nurse Hemoglobin remained stable at 12 (7) Paroxysmal A-fib: Heart rate in the 40s on admission telemonitor showed in/out afib and she had one episode of atrial tachycardia EKG shows sinus bradycardia Rate control with outpatient Digoxin and metoprolol Admitting team discussed with cardiology that recommended to hold dig and metoprolol, but If heart rate improves, resume metoprolol succinate at reduced dose twice daily. Metoprolol dose decreased to 25 mg twice daily/on Xarelto for chronic anticoagulation (8) Hypertensive emergency: On metoprolol to 25mg BID Continue Amlodipine 10mg daily Continue hydralazine to 100 mg BID (9) Elevated troponin: Possible related to demand ischemia due to decompensated CHF and hypoxia Troponin 0.187 on admission, then trending to 0.133 Denies any chest pain Shows no wall motion abnormality Elevated D-Dimer Mostly related to COVID 19 CTA chest was negative for PE Compression Fracture Rib fracture CT showed acute to subacute compression fracture of T12 with moderate loss of height and retropulsion of fragments. There are subacute/healing right-sided rib fractures. Denies any pain Referral made for skilled rehab (10) DVT prophylaxis: Xarelto CODE STATUS DNR Disposition: Patient is accepted at [facility] for skilled rehab, stable to transfer today Total Time Total Time Spent Total Time Spent (In Minutes): 35 mins Total Time Includes: Discharge Planning and Medication Reconciliation Discharge Plan Discharge Items Patient Disposition: Transfer [facility] Reason For Visit: COVID, PNEUMONIA Discharge Diagnosis: COVID 19 pneumonia UTI Acute on chronic congestive heart failure with diastolic dysfunction Acute on chronic kidney failure with CKD stage III Activity: As commented below Activity Comment: Continue physical therapy , occupational therapy at rehab Non-emergency contact: Primary Care Provider Call non-emergency contact if: you have any medication questions Follow-up/Referrals: Franco Toribio at [place] [Primary Care Provider] - Diet: Heart Healthy Fluids: 1500ml (6 cups) Diet Texture: Easy to Chew Addtl Attending Provider Instructions: Discharge instruction for congestive heart failure: Call your Primary Care doctor if any of the following symptoms or problems start or get worse: * Shortness of breath or difficulty breathing * Wake up at night short of breath * Chest pain * Cough * Swelling of your hands, feet, or legs * More fatigued or tired with your normal activity * Palpitations - sudden fast heart beats WEIGHT * Weigh yourself every morning after using the bathroom. * Use the same scale. * Wear the same amount of clothing. * Write your weight down on a chart. * Call your Primary Care doctor if you gain more than 2-3 pounds in 1-2 days. MEDICATIONS * Use this discharge instruction sheet for medication instructions. * Take your medications at the time your doctor ordered. * Do not skip a dose of your medicines. * If you miss a dose of medicine, take it as soon as possible, but DO NOT DOUBLE A DOSE. * Read your medicine information when you get home. * Know all of the side effects of your medicine. If in doubt, ask your pharmacist * Call your Primary Care doctor's office if you have any side effects. * Be sure all of your doctors know what medicine and herbs you take (including cold, flu, and herbal medicine). Take the following with you to your follow-up doctor appointments: * Weight Chart * Medication List * List of questions Do not drink excessive alcohol, beer or wine. The following information about Home Isolation is from the CDC Website: https://www.cdc.gov/coronavirus/2019-ncov/hcp/atcaxjkq-pbcckdd-fxaehg.html Discontinuing home isolation discontinue strict isolation after 10 days of onset of symptoms or positive test ( COVID positive test on 10/19/20) can discontinue isolation after 10/29/2020 To learn more To find out more about COVID-19, visit the CDC website at www.cdc.gov/coronavirus/2019-ncov/index.html. [employer]. [address] [place] [address]. All rights reserved. This information is not intended as a substitute for professional medical care. Always follow your healthcare professional's instructions. This information has been adapted from [employer] Add Clinical Services Director Provider Instructions: Lab work : Basic Metabolic panel on 11/01/2020 start taking Lasix 20 mg daily from Sunday10/29/2020 Lasix dose needs to be adjusted depending on Lab result /kidney function Metoprolol dose reduced to 25 mg twice daily(was on 100 mg twice daily) Do not take High dose aspirin , Aleve, Advil , Ibuprofen , naproxen , Motrin - avoid NSAID's -will cause further damage to your kidneys Pending Studies at Discharge: No Stand-Alone Forms: My [facility] Skilled Items Patient informed of condition?: Yes DNR: Yes Discharge Level of Care: Skilled Communicable Disease: Yes Discharge Prognosis: Stable Lines: None Urinary Catheter: No Medications and DC Order Prescriptions: New amlodipine [Norvasc] 5 mg Tablet 10 mg PO QAM 30 Days Qty: 60 RF: 0 metoprolol succinate 25 mg Tablet Extended Release 24 Hr 25 mg PO BID Qty: 60 RF: 0 pantoprazole 40 mg Tablet,Delayed Release (Dr/Ec) 40 mg PO QAM 30 Days Qty: 30 RF: 0 dexamethasone 4 mg Tablet 6 mg PO DAILY 2 Days Qty: 3 RF: 0 amoxicillin 500 mg Capsule 500 mg PO BIDM 2 Days Qty: 4 RF: 0 furosemide [Lasix] 20 mg tablet 20 mg PO DAILY Qty: 30 RF: 0 hydralazine 50 mg Tablet 100 mg PO BID Qty: 60 RF: 0 tramadol 50 mg tablet 50 mg PO Q8H PRN (Reason: pain) Qty: 14 RF: 0 Continued acetaminophen [Tylenol] 325 mg Tablet 650 mg PO Q4H PRN (Reason: Pain) RF: 0 polyethylene glycol 3350 [Miralax] 17 gram Powder In Packet 17 g PO DAILY PRN (Reason: Constipation) RF: 0 acetaminophen [Tylenol Extra Strength] 500 mg Tablet 1,000 mg PO TID RF: 0 bisacodyl [Dulcolax (bisacodyl)] 10 mg Suppository 10 mg KS DAILY PRN (Reason: Constipation) RF: 0 docusate sodium [Colace] 100 mg Capsule 100 mg PO DAILY PRN (Reason: Constipation) RF: 0 atorvastatin 10 mg tablet 10 mg PO HS RF: 0 levothyroxine 75 mcg tablet 75 mcg PO DAILY RF: 0 cyanocobalamin (vitamin B-12) [Vitamin B-12] 500 mcg Tablet 500 mcg PO QAM RF: 0 digoxin 125 mcg tablet 125 mcg PO Q2D RF: 0 cholecalciferol (vitamin D3) [Vitamin D3] 1,000 unit Capsule 1,000 unit PO QAM RF: 0 rivaroxaban 15 mg tablet 15 mg PO DAILY RF: 0 ferrous sulfate 325 mg (65 mg iron) Tablet 325 mg PO DAILY RF: 0 lidocaine 5 % Adhesive Patch,Medicated 1 patch transdermal QAM Qty: 15 RF: 0 Discontinued furosemide 40 mg Tablet 40 mg PO DAILY RF: 0 furosemide 40 mg Tablet 40 mg PO DAILY PRN (Reason: Edema) RF: 0 potassium chloride 20 mEq Tablet Extended Release 20 meq PO BID RF: 0 metoprolol succinate 100 mg tablet extended release 24 hr 100 mg PO BID RF: 0 hydralazine 50 mg tablet 50 mg PO BID RF: 0 Discharge Orders: Discharge Order (Routine); Ordered 10/28/20 Ordered By: Elizabeth Vazquez Admission Data Admit Date/Time: 10/19/20 15:21 Attending Provider: Elizabeth Vazquez Admit Provider: Grzegorz Perkins Primary Care Provider: Franco Toribio at [place] Other Providers: Jimy Cherry ; Franco Patel ; Josette ; Josh Trujillo ; Grzegorz Perkins ; Trenton Veloz Other Interventions: Discharge Summary Assessment (RN) Last Done: 10/28/20 11:28
== END 2020-10-28 13:40 | DRG 177 ==
LOC: ED 10:54 → EDINP 15:21 → SUATTDRO 15:21 → 1E 17:01 → 2E 10-21 06:22 → 3E 10-27 14:53

== ENCOUNTER 2021-09-05 15:59 | Inpatient (IN) ==
[2021-09-05] MEDS ORDERED: ASPIRIN CHEW 324 MG PO STA (16:14)
[2021-09-05 16:27] LABS: Basophils # (auto) 0.01 K/uL (0-0.2); Basophils % (auto) 0.1 %; Eosinophils # (auto) 0.01 K/uL (0-0.5); Eosinophils % (auto) 0.1 %; Hematocrit (blood only) 31.6 % (37-47); Hemoglobin 9.2 g/dL (12.0-16.0); Immature Granulocytes # (auto) 0.07 K/uL (0.00-0.02); Immature Granulocytes % (auto) 0.6 %; Lymphocytes # (auto) 0.26 K/uL (1.2-3.4); Lymphocytes % (auto) 2.2 %; Mean Corpuscular Hemoglobin 25.8 pg (25-34); Mean Corpuscular Hgb Conc 29.1 g/dL (32-36); Mean Corpuscular Volume 88.5 fL (80-100); Monocytes # (auto) 0.06 K/uL (0.11-0.59); Monocytes % (auto) 0.5 %; Neutrophils # (auto) 11.41 K/uL (1.4-6.5); Neutrophils % (auto) 96.5 %; Nucleated RBC % (auto) 0.8 %; Platelet Count 330 K/uL (130-400); RDW Coefficient of Variation 18.9 % (11.5-14.5); RDW Standard Deviation 60.1 fL (36.4-46.3); Red Blood Count 3.57 M/uL (4.2-5.4); White Blood Count 11.82 K/uL (4.8-10.8)
--- NOTE | 2021-09-05 16:27 | XRay Report ---
XR chest 1V portable CLINICAL HISTORY: Atypical chest pain TECHNIQUE: Single frontal radiograph of the chest was obtained. Comparison: Comparison is made to chest one view 10/20/2020 FINDINGS: No lines and tubes are seen. Cardiomegaly is noted. Prominence and cephalization of the vasculature i s seen. Bilateral lower lobe predominant airspace opacities are seen. No evidence of pleural effusion or pneumothorax. IMPRESSION: 1. Mild pulmonary edema. 2. Bilateral airspace opacities may represent atelectasis, pneumonia, and/or aspiration. ACT 112: Negative or not required by law. Electronically signed by: Charan Holbrook M.D. 09/05/2021 4:26 PM
[2021-09-05 16:38] LABS: Base Excess VBG 2.3 mEq/L; Oxygen Saturation VBG 86.8 %; pH VBG 7.4 (7.36-7.41)
[2021-09-05 16:39] LABS: Partial Thromboplastin Ratio 0.9; Partial Thromboplastin Time 23.7 Seconds (21.0-31.0); Prothrombin Time 10.2 Seconds (9.0-12.0)
[2021-09-05 16:49] LABS: BUN Creatinine Ratio 22.2 (10-20); Blood Urea Nitrogen 45 mg/dl (7-18); Calcium 9.8 mg/dl (8.5-10.1); Carbon Dioxide 25 mmol/L (21-32); Chloride 109 mmol/L (98-107); Creatinine Clr Calc Pharmacy 18.6 ml/min; Est GFR (African American) 25.6 ml/min; Est GFR (Non-African American) 22.1 ml/min; Glucose 229 mg/dl (70-99); Lipase 436 U/L (73-393); Potassium 5.3 mmol/L (3.5-5.1); Sodium 141 mmol/L (136-145)
[2021-09-05 16:53] LABS: NT Pro B Type Natriuretic Pept 11467 pg/ml (0-1800); Troponin I < 0.015 ng/ml (0-0.045)
[2021-09-05] MEDS ORDERED: FUROSEMIDE 40 MG/4 ML VIAL IV ONE (17:04)
--- NOTE | 2021-09-05 17:59 | Emergency Department Note ---
History of Present Illness General Chief Complaint: Shortness of Breath/Dyspnea Time Seen by Provider: 09/05/21 16:08 History of Present Illness Provider Complaint: shortness of breath Onset (ago): day(s) (1) Severity: severe Consistency/Duration: + constant and + progressively worsening Relieved By: + upright position Exacerbated By: + lying flat, + exertion and + coughing Context: + recent illness Known history of: COPD and congestive heart failure Associated symptoms: + sputum production and + orthopnea; no chest pain, no fever, no wheezing, no lower extremity pain, no polyuria, no paresthesias, no palpitations, no hemoptysis, no diaphoresis, no abdominal pain or no chest congestion Treatment prior to arrival: oxygen Home Medications Medication Instructions Recorded Confirmed Type atorvastatin 10 mg tablet 10 mg PO HS 11/05/18 09/05/21 History cholecalciferol (vitamin D3) 25 1,000 unit PO QAM 11/05/18 09/05/21 History mcg (1,000 unit) capsule (Vitamin D3) cyanocobalamin (vitamin B-12) 500 500 mcg PO QAM 11/05/18 09/05/21 History mcg tablet (Vitamin B-12) digoxin 125 mcg (0.125 mg) tablet 125 mcg PO Q2D 11/05/18 09/05/21 History levothyroxine 75 mcg tablet 75 mcg PO DAILY 11/05/18 09/05/21 History rivaroxaban 15 mg tablet 15 mg PO DAILY 11/05/18 09/05/21 History ferrous sulfate 325 mg (65 mg 325 mg PO DAILY 09/11/20 09/05/21 History iron) tablet lidocaine 5 % topical patch 1 patch TRANSDERMAL QAM #15 ea 09/14/20 09/05/21 Rx acetaminophen 325 mg tablet 650 mg PO Q4H PRN 10/19/20 09/05/21 History (Tylenol) acetaminophen 500 mg tablet 1,000 mg PO TID 10/19/20 09/05/21 History (Tylenol Extra Strength) bisacodyl 10 mg rectal suppository 10 mg OH DAILY PRN 10/19/20 09/05/21 History (Dulcolax (bisacodyl)) hydralazine 50 mg tablet 100 mg PO BID #60 tab 10/27/20 09/05/21 Rx metoprolol succinate 25 mg 25 mg PO BID #60 tab 10/27/20 09/05/21 Rx tablet,extended release 24 hr allopurinol 100 mg tablet 100 mg PO BID 06/21/21 09/05/21 History amlodipine 10 mg tablet 10 mg PO DAILY 06/21/21 09/05/21 History bumetanide 2 mg tablet 2 mg PO 1200 tab 06/21/21 09/05/21 History metolazone 2.5 mg tablet 2.5 mg PO Q OTHER DAY 06/21/21 09/05/21 History pantoprazole 20 mg tablet,delayed 20 mg PO DAILY 06/21/21 09/05/21 History release potassium chloride 20 mEq 20 meq PO DAILY 09/05/21 09/05/21 History tablet,extended release(part/cryst) Allergies Allergy/AdvReac Type Severity Reaction Status Date / Time quinapril AdvReac Mild H/A Verified 06/21/21 13:19 nifedipine AdvReac Unknown pounding Verified 06/21/21 13:19 headache Past Med/Surg History Medical History Acute on chronic diastolic CHF (congestive heart failure) Acute on chronic respiratory failure with hypoxemia Bradycardia Chronic diastolic (congestive) heart failure Chronic respiratory failure with hypoxia CKD (chronic kidney disease) stage 3, GFR 30-59 ml/min Closed fracture of right anterior inferior iliac spine Closed fracture of right anterior superior iliac spine COPD (chronic obstructive pulmonary disease) DVT prophylaxis Elevated troponin YESICA (generalized anxiety disorder) GERD (gastroesophageal reflux disease) History of Mohs micrographic surgery for skin cancer (05/11/21) Right Preauricular Area/[place] Dr. Alicia Charles History of Mohs micrographic surgery for skin cancer (04/04/21) Left Cheek Medial and Lateral Dr. Alicia Charles HLD (hyperlipidemia) HTN (hypertension) Hypertensive emergency Hypothyroidism Nocturnal hypoxia Osteoporosis Paroxysmal A-fib Pelvis acetabulum fracture Pneumonia due to COVID-19 virus Primary squamous cell carcinoma of skin UTI (urinary tract infection) Surgical History History of nasal polypectomy History of total left knee replacement (TKR) Hx of fracture of radius Status post excisional biopsy (06/01/21) Shave Biopsy - Right Neck Anterior + Right Neck Posterior Status post excisional biopsy (04/04/21) Shave Biopsy - Left Cheek Medial + Left Cheek Lateral + Left 3rd Dorsal Digit Family History Mother , Passed Age 89 Diabetes Hypertension Father , Passed Age 70 Hypertension Coronary heart disease Brother No problems noted. Brother No problems noted. Brother No problems noted. Sister , Passed Age 33 No problems noted. Son No problems noted. Son No problems noted. Son No problems noted. Daughter No problems noted. 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 How many Children do You have: 4 Feels Safe at Home: Yes Childhood Exposure to Second-Hand Smoke: Yes Diet Comment: Mechanical Soft, with 1500ml Fluid Restriction caffeine: Yes (1 cup of tea in AM) during the past year weight has: remained stable Dental Care, Regularly: Yes Assistive Devices: Denture - Upper, Glasses, Oxygen - Continuous, Walker and Wheelchair Review of Systems A total of 10 systems reviewed and were otherwise negative Physical Exam Vital Signs: Vital Signs - 24 hr 09/05/21 16:23 09/05/21 16:25 09/05/21 16:30 Temperature 37 C Temperature Source Oral Pulse Rate 81 81 81 Pulse Rate from Sp O2 Sensor 81 81 Respiratory Rate 26 H 26 H Respiratory Effort / Characteristics Spontaneous Blood Pressure 124/86 Blood Pressure Jane n 98 Pulse Oximetry 93 93 94 Oxygen Delivery Me thod Non-rebreather Oxygen Flow Rate 15 Sepsis Recent Feve r Within 48 Hours No Sepsis New/Unexpla ined Change in Men radhika Status N/A Sepsis Action Take n by Nursing No Action Required 09/05/21 16:40 09/05/21 16:50 09/05/21 17:00 Temperature Temperature Source Pulse Rate 96 H 81 82 Pulse Rate from Sp O2 Sensor 82 81 82 Respiratory Rate 27 H 30 H Respiratory Effort / Characteristics Blood Pressure 124/84 Blood Pressure Jane n 97 Pulse Oximetry 91 90 89 L Oxygen Delivery Me thod High Flow Nasal Ca nnula Oxygen Flow Rate Sepsis Recent Feve r Within 48 Hours Sepsis New/Unexpla ined Change in Men radhika Status Sepsis Action Take n by Nursing 09/05/21 17:10 09/05/21 17:20 09/05/21 17:30 Temperature Temperature Source Pulse Rate 79 81 77 Pulse Rate from Sp O2 Sensor 80 81 81 Respiratory Rate 27 H 24 Respiratory Effort / Characteristics Blood Pressure 153/71 H Blood Pressure Jane n 98 Pulse Oximetry 94 91 94 Oxygen Delivery Me thod BiPAP Oxygen Flow Rate Sepsis Recent Feve r Within 48 Hours Sepsis New/Unexpla ined Change in Men radhika Status Sepsis Action Take n by Nursing 09/05/21 17:40 09/05/21 17:50 Temperature Temperature Source Pulse Rate 78 76 Pulse Rate from Sp O2 Sensor 78 76 Respiratory Rate 22 24 Respiratory Effort / Characteristics Blood Pressure Blood Pressure Jane n Pulse Oximetry 94 93 Oxygen Delivery Me thod BiPAP BiPAP Oxygen Flow Rate Sepsis Recent Feve r Within 48 Hours Sepsis New/Unexpla ined Change in Men radhika Status Sepsis Action Take n by Nursing Physical Exam: Physical Exam GENERAL: She is oriented to person, place, and time. She appears well-developed and well-nourished. She does not appear distressed. HENT: Exam performed. -Head: Normocephalic and atraumatic. -Right Ear: External ear normal. No mastoid tenderness. -Left Ear: External ear normal. No mastoid tenderness. -Mouth/Throat: The oropharynx is clear and moist. No trismus in the jaw. No dental abscesses or uvula swelling. No oropharyngeal exudate or tonsillar absc esses. EYES: Conjunctivae and EOM are normal. Pupils are equal, round, and reactive to light. Right eye exhibits no discharge. Left eye exhibits no discharge. No scleral icterus. NECK: Normal range of motion. Neck supple. No JVD present. No spinous process tenderness present. No carotid bruit present. No rigidity. No tracheal deviation and normal range of motion present. No Brudzinski's sign and no Kernig's sign noted. CV: Normal rate, regular rhythm, normal heart sounds and intact distal pulses. Palpable radial pulses bue. PULM/CHEST: Tachypneic rales bilaterally. ABD: The abdomen is soft. Bowel sounds are normal. She has no distension. No mass is present. There is no tenderness. There is no rebound, no guarding, no Garcia's sign and no tenderness at McBurney's point. Rovsig negative MUSC/SKEL: Normal range of motion. There is no tenderness or deformity. LYMPH: No cervical adenopathy. NEURO: She is alert and oriented to person, place, and time. She has normal strength. No cranial nerve deficit or sensory deficit. Coordination and gait normal. GCS eye subscore is 4. GCS verbal subscore is 5. GCS motor subscore is 6. Cerebellar tests wnl. SKIN: Skin is warm and dry. She is not diaphoretic. PSYCH: She has a normal mood and affect. Behavior is normal. Judgment and thought content normal. Course Course 1608: The patient was evaluated in room A11B. A complete history and physical exam was performed Cardiac monitoring: An order was placed for continuous cardiac monitoring. The monitor shows a rate of 80 with sinusrhythm Patient found to be hypoxic at 71% on room air. Patient was placed on nonrebreather which only improved her oxygen saturation into the mid 80s. Patient will be placed on high flow nasal cannula. 1655: Called to bed by nursing. Patient becoming hypoxic and increasing respiratory distress on high flow nasal cannula. We will switch the patient to BiPAP. 1720: Patient tolerating BiPAP well. Labs show an elevated proBNP. Troponin negative. Potassium 5.3. No peak T waves. Creatinine 2.03, mildly elevated from the patient's baseline of 1.4-1.6. Imaging shows cardiomegaly with pulmonary edema. [facility] 40 mg ordered for the patient. Case discussed with Dr. Pino who will accept the patient and admit him. Administered Medications Discontinued Medications Aspirin (Aspirin Chew 324 Mg) 324 mg PO NOW STA Stop: 09/05/21 16:15 Last Admin: 09/05/21 16:39 Dose: 324 mg Documented by: [id number] Furosemide (Furosemide 40 Mg/4 Ml Vial) 40 mg IV ONE ONE Stop: 09/05/21 17:05 Last Admin: 09/05/21 17:15 Dose: 40 mg Documented by: [id number] Medical Decision Making Laboratory Data Result diagrams: 09/05/21 16:16 09/05/21 16:16 Lab Results 09/05/21 09/05/21 09/05/21 Range/Units 16:16 16:16 16:16 WBC 11.82 H (4.8-10.8) K/uL RBC 3.57 L (4.2-5.4) M/uL Hgb 9.2 L (12.0-16.0) g/dL Hct 31.6 L (37-47) % MCV 88.5 (80-100) fL MCH 25.8 (25-34) pg MCHC 29.1 L (32-36) g/dL RDW Std Deviation 60.1 H (36.4-46.3) fL RDW Coeff of Sandie 18.9 H (11.5-14.5) % Plt Count 330 (130-400) K/uL MPV 9.0 (7.4-10.4) fL Immature Gran % (Auto) 0.6 % Neut % (Auto) 96.5 % Lymph % (Auto) 2.2 % Swain % (Auto) 0.5 % Eos % (Auto) 0.1 % Baso % (Auto) 0.1 % Neut # (Auto) 11.41 H (1.4-6.5) K/uL Lymph # (Auto) 0.26 L (1.2-3.4) K/uL Swain # (Auto) 0.06 L (0.11-0.59) K/uL Eos # (Auto) 0.01 (0-0.5) K/uL Baso # (Auto) 0.01 (0-0.2) K/uL Immature Gran # (Auto) 0.07 H (0.00-0.02) K/uL Absolute Nucleated RBC 0.10 H (0-0) K/uL Nucleated RBC % (auto) 0.8 % PT 10.2 (9.0-12.0) Seconds INR 1.0 (0.9-1.1) APTT 23.7 (21.0-31.0) Seconds PTT Ratio 0.9 VBG pH (7.36-7.41) VBG pCO2 (38-50) mmHg VBG pO2 mmHg VBG HCO3 mmol/L VBG O2 Saturation % VBG Base Excess mEq/L Barometric Pressure mm/Hg Sodium 141 (136-145) mmol/L Potassium 5.3 H (3.5-5.1) mmol/L Chloride 109 H (98-107) mmol/L Carbon Dioxide 25 (21-32) mmol/L Anion Gap 7.0 (3-11) BUN 45 H (7-18) mg/dl Creatinine 2.03 H (0.6-1.2) mg/dl Est Cr Clr Drug Dosing 18.6 ml/min Est GFR ( Amer) 25.6 ml/min Est GFR (Non-Af Amer) 22.1 ml/min BUN/Creatinine Ratio 22.2 H (10-20) Glucose 229 H (70-99) mg/dl Calcium 9.8 (8.5-10.1) mg/dl Troponin I < 0.015 (0-0.045) ng/ml NT-Pro-B Natriuret Pep 21105 H (0-1800) pg/ml Lipase 436 H (73-393) U/L 09/05/ Range/Units 16:16 WBC (4.8-10.8) K/uL RBC (4.2-5.4) M/uL Hgb (12.0-16.0) g/dL Hct (37-47) % MCV (80-100) fL MCH (25-34) pg MCHC (32-36) g/dL RDW Std Deviation (36.4-46.3) fL RDW Coeff of Sandie (11.5-14.5) % Plt Count (130-400) K/uL MPV (7.4-10.4) fL Immature Gran % (Auto) % Neut % (Auto) % Lymph % (Auto) % Swain % (Auto) % Eos % (Auto) % Baso % (Auto) % Neut # (Auto) (1.4-6.5) K/uL Lymph # (Auto) (1.2-3.4) K/uL Swain # (Auto) (0.11-0.59) K/uL Eos # (Auto) (0-0.5) K/uL Baso # (Auto) (0-0.2) K/uL Immature Gran # (Auto) (0.00-0.02) K/uL Absolute Nucleated RBC (0-0) K/uL Nucleated RBC % (auto) % PT (9.0-12.0) Seconds INR (0.9-1.1) APTT (21.0-31.0) Seconds PTT Ratio VBG pH 7.40 (7.36-7.41) VBG pCO2 45 (38-50) mmHg VBG pO2 55 mmHg VBG HCO3 27 mmol/L VBG O2 Saturation 86.8 % VBG Base Excess 2.3 mEq/L Barometric Pressure 731.7 mm/Hg Sodium (136-145) mmol/L Potassium (3.5-5.1) mmol/L Chloride (98-107) mmol/L Carbon Dioxide (21-32) mmol/L Anion Gap (3-11) BUN (7-18) mg/dl Creatinine (0.6-1.2) mg/dl Est Cr Clr Drug Dosing ml/min Est GFR ( Amer) ml/min Est GFR (Non-Af Amer) ml/min BUN/Creatinine Ratio (10-20) Glucose (70-99) mg/dl Calcium (8.5-10.1) mg/dl Troponin I (0-0.045) ng/ml NT-Pro-B Natriuret Pep (0-1800) pg/ml Lipase (73-393) U/L Imaging Data Radiologist's Impression: Chest X-Ray 09/05/21 16:14 XR chest 1V portable CLINICAL HISTORY: Atypical chest pain TECHNIQUE: Single frontal radiograph of the chest was obtained. Comparison: Comparison is made to chest one view 10/20/2020 FINDINGS: No lines and tubes are seen. Cardiomegaly is noted. Prominence and cephalization of the vasculature is seen. Bilateral lower lobe predominant airspace opacities are seen. No evidence of pleural effusion or pneumothorax. IMPRESSION: 1. Mild pulmonary edema. 2. Bilateral airspace opacities may represent atelectasis, pneumonia, and/or as piration. ACT 112: Negative or not required by law. Electronically signed by: Charan Holbrook M.D. 09/05/2021 4:26 PM ECG Data Interpretation: Sinus rhythm with a rate of 81. OH 228. QRS [address] elevation or ST depression. First-degree AV block present. PVCs present. [facility] Narrative 1608: The patient was evaluated in room A11B. A complete history and physical exam was performed Cardiac monitoring: An order was placed for continuous cardiac monitoring. The monitor shows a rate of 80 with sinusrhythm Patient found to be hypoxic at 71% on room air. Patient was placed on nonrebreather which only improved her oxygen saturation into the mid 80s. Patient will be placed on high flow nasal cannula. 1655: Called to bed by nursing. Patient becoming hypoxic and increasing respiratory distress on high flow nasal cannula. We will switch the patient to BiPAP. 1720: Patient tolerating BiPAP well. Labs show an elevated proBNP. Troponin negative. Potassium 5.3. No peak T waves. Creatinine 2.03, mildly elevated from the patient's baseline of 1.4-1.6. Imaging shows cardiomegaly with pulmonary edema. [facility] Las[facility] 40 mg ordered for the patient. Case discussed with Dr. Pino who will accept the patient and admit him. Impression & Plan Hypoxia, Acute exacerbation of congestive heart failure Critical Care Time Critical Care Time: Yes Total Critical Care Time: 60 I have personally spent greater than 60 minutes of critical care time in the direct management of this patient. This includes bedside care, interpretation of diagnostic studies, and testing, discussion with consultants, patient, and family members, and other required patient management activities. This 60 minutes is in excess of all separately billable procedures. Discharge Plan Visit Data Chief Complaint: Shortness of Breath/Dyspnea Discharge Problem: Hypoxia, Acute exacerbation of congestive heart failure Patient Disposition: Admitted As Inpatient Forms Stand Alone Forms: [facility] Prescriptions Prescriptions: No Action allopurinol 100 mg tablet 100 mg PO BID RF: 0 amlodipine 10 mg tablet 10 mg PO DAILY RF: 0 pantoprazole 20 mg tablet,delayed release (DR/EC) 20 mg PO DAILY RF: 0 metolazone 2.5 mg tablet 2.5 mg PO Q OTHER DAY RF: 0 bumetanide 2 mg tablet 2 mg PO 1200 RF: 0 acetaminophen [Tylenol] 325 mg Tablet 650 mg PO Q4H PRN (Reason: Pain) RF: 0 acetaminophen [Tylenol Extra Strength] 500 mg Tablet 1,000 mg PO TID RF: 0 bisacodyl [Dulcolax (bisacodyl)] 10 mg Suppository 10 mg OH DAILY PRN (Reason: Constipation) RF: 0 metoprolol succinate 25 mg Tablet Extended Release 24 Hr 25 mg PO BID Qty: 60 RF: 0 hydralazine 50 mg Tablet 100 mg PO BID Qty: 60 RF: 0 atorvastatin 10 mg tablet 10 mg PO HS RF: 0 levothyroxine 75 mcg tablet 75 mcg PO DAILY RF: 0 cyanocobalamin (vitamin B-12) [Vitamin B-12] 500 mcg Tablet 500 mcg PO QAM RF: 0 digoxin 125 mcg tablet 125 mcg PO Q2D RF: 0 cholecalciferol (vitamin D3) [Vitamin D3] 1,000 unit Capsule 1,000 unit PO QAM RF: 0 rivaroxaban 15 mg tablet 15 mg PO DAILY RF: 0 ferrous sulfate 325 mg (65 mg iron) Tablet 325 mg PO DAILY RF: 0 lidocaine 5 % Adhesive Patch,Medicated 1 patch transdermal QAM Qty: 15 RF: 0 potassium chloride 20 mEq tablet,ER particles/crystals 20 meq PO DAILY RF: 0 Referrals Referrals: Franco Patel [Primary Care Provider] - Discharge Problem: Acute exacerbation of congestive heart failure Qualifiers: Heart failure type: unspecified Qualified Code(s): I50.9 - Heart failure, unspecified
--- NOTE | 2021-09-05 18:03 | History & Physical Report ---
Date of Service September 05, 2021 Assessment & Plan (1) Acute on chronic diastolic CHF (congestive heart failure): Plan: Presented with desaturation without significant shortness of breath from the [facility] Noted to have acute CHF with increasing proBNP Received 40 of Lasix intravenously and will continue 40 mg IV daily from tomorrow morning We will monitor intake output chart (2) Acute on chronic respiratory failure with hypoxemia: Plan: Has history of COPD and chronic respiratory failure on 2 L of oxygen as a baseline Noted to have low saturation of 70s no [facility] and did not improve with oxygen administration Has been on BiPAP now and the condition seems to be improving She does not use any CPAP and/or BiPAP as an outpatient (3) CKD (chronic kidney disease) stage 3, GFR 30-59 ml/min: Plan: History of chronic kidney disease and seems to be a little worse today Has acute on chronic kidney impairment Likely secondary to dehydration with increasing potassium We will hold potassium Monitor PRP (4) COPD (chronic obstructive pulmonary disease): Plan: Does not have any exacerbation (5) GERD (gastroesophageal reflux disease): Plan: Continue PPI (6) HTN (hypertension): Plan: Blood pressure remains on the upper side of normal We will continue current medications (7) Hypothyroidism: Plan: Continue supplement History of Covid pneumonia in October of this year Was told by the ER physician that she is fully vaccinated Awaiting Covid test today DVT prophylaxis Has histories of paroxysmal A. fib and has been on Xarelto We will continue Xarelto CODE STATUS Resuscitation without intubation History of Present Illness Chief Complaint: Noted to have low saturation at the alf with minimal shortness of breath Primary Care Provider: [facility] She is an 81-year-old female with significant past medical history of chronic hypoxic respiratory failure on 2 L of oxygen,Atrial fibrillation on anticoagulation, chronic diastolic CHF, hypertension, hypothyroidism CKD and other medical condition condition as mentioned below apparently was noted to be in low saturation at the [facility] today with some shortness of breath associated with it without any chest pain and or palpitation. She complains to have some leg swelling but denies any abdominal pain nausea or vomiting, any fever and/or chills, any cough or sputum or any shortness of breath at rest. She was noted to have CHF with elevated proBNP with worsening kidney function. She received a dose of Lasix and was admitted to medical telemetry unit for continuation of care Allergies Allergy/AdvReac Type Severity Reaction Status Date / Time quinapril AdvReac Mild H/A Verified 06/21/21 13:19 nifedipine AdvReac Unknown pounding Verified 06/21/21 13:19 headache Home Medications Medication Instructions Recorded Confirmed Type atorvastatin 10 mg tablet 10 mg PO HS 11/05/18 09/05/21 History cholecalciferol (vitamin D3) 25 1,000 unit PO QAM 11/05/18 09/05/21 History mcg (1,000 unit) capsule (Vitamin D3) cyanocobalamin (vitamin B-12) 500 500 mcg PO QAM 11/05/18 09/05/21 History mcg tablet (Vitamin B-12) digoxin 125 mcg (0.125 mg) tablet 125 mcg PO Q2D 11/05/18 09/05/21 History levothyroxine 75 mcg tablet 75 mcg PO DAILY 11/05/18 09/05/21 History rivaroxaban 15 mg tablet 15 mg PO DAILY 11/05/18 09/05/21 History ferrous sulfate 325 mg (65 mg 325 mg PO DAILY 09/11/20 09/05/21 History iron) tablet lidocaine 5 % topical patch 1 patch TRANSDERMAL QAM #15 ea 09/14/20 09/05/21 Rx acetaminophen 325 mg tablet 650 mg PO Q4H PRN 10/19/20 09/05/21 History (Tylenol) acetaminophen 500 mg tablet 1,000 mg PO TID 10/19/20 09/05/21 History (Tylenol Extra Strength) bisacodyl 10 mg rectal suppository 10 mg [place] DAILY PRN 10/19/20 09/05/21 History (Dulcolax (bisacodyl)) hydralazine 50 mg tablet 100 mg PO BID #60 tab 10/27/20 09/05/21 Rx metoprolol succinate 25 mg 25 mg PO BID #60 tab 10/27/20 09/05/21 Rx tablet,extended release 24 hr allopurinol 100 mg tablet 100 mg PO BID 06/21/21 09/05/21 History amlodipine 10 mg tablet 10 mg PO DAILY 06/21/21 09/05/21 History bumetanide 2 mg tablet 2 mg PO 1200 tab 06/21/21 09/05/21 History metolazone 2.5 mg tablet 2.5 mg PO Q OTHER DAY 06/21/21 09/05/21 History pantoprazole 20 mg tablet,delayed 20 mg PO DAILY 06/21/21 09/05/21 History release potassium chloride 20 mEq 20 meq PO DAILY 09/05/21 09/05/21 History tablet,extended release(part/cryst) Past Med/Surg History Medical History (Updated 09/05/21 @ 17:58 by Yuri Pino MD) Acute on chronic diastolic CHF (congestive heart failure) Acute on chronic respiratory failure with hypoxemia Bradycardia Chronic diastolic (congestive) heart failure Chronic respiratory failure with hypoxia CKD (chronic kidney disease) stage 3, GFR 30-59 ml/min Closed fracture of right anterior inferior iliac spine Closed fracture of right anterior superior iliac spine COPD (chronic obstructive pulmonary disease) DVT prophylaxis Elevated troponin YESICA (generalized anxiety disorder) GERD (gastroesophageal reflux disease) History of Mohs micrographic surgery for skin cancer (05/11/21) Right Preauricular Area/[place] Dr. Alicia Charles History of Mohs micrographic surgery for skin cancer (04/04/21) Left Cheek Medial and Lateral Dr. Alicia Charles HLD (hyperlipidemia) HTN (hypertension) Hypertensive emergency Hypothyroidism Nocturnal hypoxia Osteoporosis Paroxysmal A-fib Pelvis acetabulum fracture Pneumonia due to COVID-19 virus Primary squamous cell carcinoma of skin UTI (urinary tract infection) Surgical History (Updated 06/21/21 @ 10:42 by Dayana Mondragon RN) History of nasal polypectomy History of total left knee replacement (TKR) Hx of fracture of radius Status post excisional biopsy (06/01/21) Shave Biopsy - Right Neck Anterior + Right Neck Posterior Status post excisional biopsy (04/04/21) Shave Biopsy - Left Cheek Medial + Left Cheek Lateral + Left 3rd Dorsal Digit Family History (Updated 06/21/21 @ 13:25 by Dayana Mondragon, GAMAL) Mother , Passed Age 89 Diabetes Hypertension Father , Passed Age 70 Hypertension Coronary heart disease Brother No problems noted. Brother No problems noted. Brother No problems noted. Sister , Passed Age 33 No problems noted. Son No problems noted. Son No problems noted. Son No problems noted. Daughter No problems noted. 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 Beliefs That Will Affect Care: None marital status: / Current Living Situation: [facility] current occupational status: retired current occupation: Retired [employer]ing [employer] How many Children do You have: 4 Feels Safe at Home: Yes Childhood Exposure to Second-Hand Smoke: Yes Diet Comment: Mechanical Soft, with 1500ml Fluid Restriction caffeine: Yes (1 cup of tea in AM) during the past year weight has: remained stable Dental Care, Regularly: Yes Assistive Devices: Denture - Upper, Glasses, Oxygen - Continuous, Walker and Wheelchair Review of Systems Review of Systems: All systems reviewed & are unremarkable except as noted in HPI & below Respiratory: Minimal to no shortness of breath at rest. Physical Exam Physical Exam: Lying in bed with BiPAP without any acute distress Constitutional: well developed, well nourished and + obese; not ill appearing Eyes: PERRL, conjunctivae normal, anicteric sclerae ENMT: external ear and nose normal, oropharynx normal Neck: trachea midline, no thyromegaly Respiratory: no respiratory distress and no cough Auscultation: lungs clear to auscultation bilaterally and + crackles (Crackles at the bases) Cardiovascular: Rate/Rhythm: regular rate and regular rhythm; not tachycardic Heart Sounds: normal S1 and normal S2; no murmur Extremities: + edema (1+ edema bilaterally) Gastrointestinal (Abdomen): Inspection/Auscultation: normal bowel sounds; abdomen not distended Percussion/Palpation: abdomen soft; abdomen nontender Musculoskeletal: No acute arthritis in any joint Neurologic: Alert, awake and oriented x3. She is generally weak and lethargic Lymphatic: no cervical or axillary lymphadenopathy Results & Data Results & Data ([facility]) Vital Signs (Past 12 Hours) Vital Signs Temp Pulse Resp BP Pulse Ox 09/05/21 16:40 96 H 27 H 124/84 91 09/05/21 16:30 81 94 09/05/21 16:25 81 26 H 93 09/05/21 16:23 37 C 81 26 H 124/86 93 Laboratory Results Short CBC 09/05/21 Range/Units 16:16 WBC 11.82 H (4.8-10.8) K/uL Hgb 9.2 L (12.0-16.0) g/dL Hct 31.6 L (37-47) % Plt Count 330 (130-400) K/uL BMP 09/05/21 16:16 Sodium 141 Potassium 5.3 H Chloride 109 H Carbon Dioxide 25 BUN 45 H Creatinine 2.03 H Glucose 229 H Calcium 9.8 Cardiac Enzymes 09/05/21 Range/Units 16:16 Troponin I < 0.015 (0-0.045) ng/ml (1) CKD (chronic kidney disease) stage 3, GFR 30-59 ml/min Chronic kidney disease stage 3 subtype: unspecified whether 3a or 3b Qualified Code(s): N18.30 - Chronic kidney disease, stage 3 unspecified
[2021-09-05] MEDS ORDERED: bisacodyL 10 MG SUPP PR PRN (21:53)
[2021-09-05] MEDS: METOPROLOL SUCC 25MG EXT REL TAB PO SCH (23:50)
[2021-09-05] MEDS: hydrALAZINE TAB 50 MG TAB PO SCH (23:50)
[2021-09-05] MEDS: ATORVASTATIN 10 MG TAB PO SCH (23:51)
[2021-09-05] MEDS: allopurinoL 100 MG TAB PO SCH (23:51)
[2021-09-06] MEDS: LEVOTHYROXINE SODIUM 75 MCG TABLET PO SCH (06:11)
[2021-09-06 07:01] LABS: Hematocrit (blood only) 28.3 % (37-47); Hemoglobin 8.5 g/dL (12.0-16.0); Immature Granulocytes # (auto) 0.04 K/uL (0.00-0.02); Immature Granulocytes % (auto) 0.5 %; Lymphocytes # (auto) 0.34 K/uL (1.2-3.4); Lymphocytes % (auto) 4.4 %; Mean Corpuscular Volume 86.5 fL (80-100); Mean Platelet Volume 9.4 fL (7.4-10.4); Monocytes # (auto) 0.11 K/uL (0.11-0.59); Monocytes % (auto) 1.4 %; Neutrophils # (auto) 7.25 K/uL (1.4-6.5); Neutrophils % (auto) 93.7 %; Nucleated RBC # (auto) 0.11 K/uL (0-0); Nucleated RBC % (auto) 1.4 %; Platelet Count 277 K/uL (130-400); RDW Coefficient of Variation 18.6 % (11.5-14.5); RDW Standard Deviation 58.9 fL (36.4-46.3); Red Blood Count 3.27 M/uL (4.2-5.4); White Blood Count 7.74 K/uL (4.8-10.8)
--- NOTE | 2021-09-06 07:40 | Electrocardiogram Report ---
Test Reason : Blood Pressure : / mmHG Vent. Rate : 081 BPM Atrial Rate : 081 BPM P-R Int : 228 ms QRS Dur : 084 ms QT Int : 340 ms P-R-T Axes : 072 017 180 degrees QTc Int : 394 ms Sinus rhythm with 1st degree A-V block with occasional Premature ventricular complexes Low voltage QRS Diffuse Nonspecific ST and T wave abnormality Abnormal ECG When compared with ECG of 19-OCT-2020 12:54, Premature ventricular complexes are now Present Vent. rate has increased BY 32 BPM Confirmed by Quirino Fletcher ([id number]) on 09/06/2021 7:40:22 AM Referred By: Franco Ruiz Confirmed By:Quirino Fletcher
[2021-09-06 07:48] LABS: BUN Creatinine Ratio 26.5 (10-20); Calcium 9.4 mg/dl (8.5-10.1); Creatinine Clr Calc Pharmacy 21.8 ml/min; Est GFR (African American) 31.3 ml/min; Magnesium 2.5 mg/dl (1.8-2.4); Phosphorus 3.9 mg/dl (2.5-4.9); Potassium 3.9 mmol/L (3.5-5.1)
[2021-09-06] MEDS: FERROUS SULFATE 325 MG TAB PO SCH (08:16)
[2021-09-06] MEDS: hydrALAZINE TAB 50 MG TAB PO SCH ×2 (08:16→21:30)
[2021-09-06] MEDS: CHOLECALCIFEROL 1,000 UNITS 25 MCG TAB PO SCH (08:17)
[2021-09-06] MEDS: METOPROLOL SUCC 25MG EXT REL TAB PO SCH ×2 (08:17→21:30)
[2021-09-06] MEDS: allopurinoL 100 MG TAB PO SCH ×2 (08:17→21:31)
[2021-09-06] MEDS: CYANOCOBALAMIN 500 MCG TABLET (VITAMIN B-12) PO SCH (08:18)
[2021-09-06] MEDS: ACETAMINOPHEN 500 MG TAB PO SCH ×3 (08:18→21:26)
[2021-09-06] MEDS: amLODIPine BESYLATE 5 MG TAB PO SCH (08:18)
[2021-09-06] MEDS: RIVAROXABAN 15 MG TAB PO SCH (08:18)
[2021-09-06] MEDS: LIDOCAINE 5% 1 PATCH TD SCH (08:34)
[2021-09-06] MEDS ORDERED: PANTOprazole 40 MG TAB PO SCH (09:00)
[2021-09-06] MEDS ORDERED: FUROSEMIDE 40 MG/4 ML VIAL IV SCH (09:00)
--- NOTE | 2021-09-06 15:22 | Hospitalist Progress Note ---
Date of Service September 06, 2021 Assessment & Plan (1) Acute on chronic diastolic CHF (congestive heart failure): Plan: Presented with desaturation without significant shortness of breath from the [facility] Noted to have acute CHF with increasing proBNP Received 40 of Lasix intravenously and will continue 40 mg IV daily from tomorrow morning We will monitor intake output chart-cumulative balance is -154 0 mL Diuresing well and Lasix has been increased to 40 mg IV twice daily We will get an echo to evaluate cardiac functions- -LV is normal in size with moderate concentric LVH and normal wall motion, EF is 65 to 70%. Has grade 3 diastolic dysfunction with markedly increased left atrial pressure. Left atrium is severely dilated and right atrium is moderately dilated. Aortic valve sclerosis without significant stenosis. Moderate to severe tricuspid regurgitation. RV pressure is severely elevated at more than 60 mmHg We will get a cardiac consult (2) Acute on chronic respiratory failure with hypoxemia: Plan: Has history of COPD and chronic respiratory failure on 2 L of oxygen as a baseline Noted to have low saturation of 70s no [facility] and did not improve with oxygen administration Has been on BiPAP now and the condition seems to be improving She does not use any CPAP and/or BiPAP as an outpatient Has been requiring high flow oxygen to maintain saturation (3) CKD (chronic kidney disease) stage 3, GFR 30-59 ml/min: Plan: History of chronic kidney disease and seems to be a little worse today Has acute on chronic kidney impairment Likely secondary to dehydration with increasing potassium We will hold potassium Monitor PRP-creatinine remains stable at 1.72 (4) COPD (chronic obstructive pulmonary disease): Plan: Does not have any exacerbation Respiratory failure is worse and is complicated by CHF (5) GERD (gastroesophageal reflux disease): Plan: Continue PPI (6) HTN (hypertension): Plan: Blood pressure remains on the upper side of normal We will continue current medications (7) Hypothyroidism: Plan: Continue supplement History of Covid pneumonia in October of this year Was told by the ER physician that she is fully vaccinated Awaiting Covid test today-Negative DVT prophylaxis Has histories of paroxysmal A. fib and has been on Xarelto We will continue Xarelto CODE STATUS Resuscitation without intubation Discussed with the son Admission and Anticipated Discharge Date Admission Date: September 05, 2021 Subjective 09/06/2021 The patient was seen and examined in telemetry unit She has been feeling much better but is still requiring high flow oxygen to maintain saturation Denies any fever and/or chills No nausea or vomiting Review of Systems Review of Systems: All systems reviewed and are unremarkable except as noted below Respiratory: Minimal to no shortness of breath at rest. Physical Exam Physical Exam: Sitting on a chair with moderate distress due to shortness of breath Constitutional: well developed, well nourished and + obese; not ill appearing Eyes: PERRL, conjunctivae normal, anicteric sclerae ENMT: external ear and nose normal, oropharynx normal Neck: trachea midline, no thyromegaly Respiratory: no respiratory distress and no cough Auscultation: lungs clear to auscultation bilaterally and + crackles (Crackles at the bases) Cardiovascular: Rate/Rhythm: regular rate and regular rhythm; not tachycardic Heart Sounds: normal S1 and normal S2; no murmur Extremities: + edema (1+ edema bilaterally) Gastrointestinal (Abdomen): Inspection/Auscultation: normal bowel sounds; ab domen not distended Percussion/Palpation: abdomen soft; abdomen nontender Musculoskeletal: No acute arthritis in any joint Neurologic: Alert, awake and oriented x3. No focal sensory and motor deficit appreciated Lymphatic: no cervical or axillary lymphadenopathy Results & Data Results & Data ([facility]) Vital Signs (Past 12 Hours) Vital Signs Temp Pulse Pulse Resp BP Pulse Ox 09/06/21 11:34 36.6 C 82 23 139/64 94 09/06/21 10:50 80 18 92 09/06/21 07:54 89 09/06/21 07:43 36.9 C 91 H 24 144/67 H 91 09/06/21 07:24 88 22 94 09/06/21 05:04 37.1 C 87 125/80 93 Laboratory Results Short CBC 09/05/21 09/06/21 Range/Units 16:16 06:37 WBC 11.82 H 7.74 (4.8-10.8) K/uL Hgb 9.2 L 8.5 L (12.0-16.0) g/dL Hct 31.6 L 28.3 L (37-47) % Plt Count 330 277 (130-400) K/uL BMP 09/05/21 09/06/21 16:16 06:37 Sodium 141 142 Potassium 5.3 H 3.9 D Chloride 109 H 107 Carbon Dioxide 25 29 BUN 45 H 46 H Creatinine 2.03 H 1.72 H D Glucose 229 H 142 H Calcium 9.8 9.4 Cardiac Enzymes 09/05/21 Range/Units 16:16 Troponin I < 0.015 (0-0.045) ng/ml Medications Administered Current Inpatient Medications Acetaminophen (Acetaminophen 500 Mg Tab) 500 mg PO TID FLORA Stop: 10/06/21 08:59 Last Admin: 09/06/21 13:55 Dose: 500 mg Documented by: Allopurinol (Allopurinol 100 Mg Tab) 100 mg PO BID FLORA Stop: 10/05/21 21:52 Last Admin: 09/06/21 08:17 Dose: 100 mg Documented by: Amlodipine Besylate (Amlodipine Besylate 5 Mg Tab) 10 mg PO DAILY FLORA Stop: 10/06/21 08:59 Last Admin: 09/06/21 08:18 Dose: 10 mg Documented by: Atorvastatin Calcium (Atorvastatin 10 Mg Tab) 10 mg PO HS FLORA Stop: 10/05/21 21:52 Last Admin: 09/05/21 23:51 Dose: 10 mg Documented by: Bisacodyl (Bisacodyl 10 Mg Supp) 10 mg [place] DAILY PRN PRN Reason: Constipation Stop: 10/05/21 21:52 Cyanocobalamin (Cyanocobalamin 500 Mcg Tablet (Vitamin B-12)) 500 mcg PO QAM FLORA Stop: 10/06/21 08:59 Last Admin: 09/06/21 08:18 Dose: 500 mcg Documented by: Digoxin (Digoxin 0.125 Mg Tab) 0.125 mg PO Q2D@1600 FLORA Stop: 10/06/21 15:59 Ferrous Sulfate (Ferrous Sulfate 325 Mg Tab) 325 mg PO DAILY FLORA Stop: 10/06/21 08:59 Last Admin: 09/06/21 08:16 Dose: 325 mg Documented by: Furosemide (Furosemide 40 Mg/4 Ml Vial) 40 mg IV BID FLORA Stop: 10/06/21 20:59 Hydralazine HCl (Hydralazine Tab 50 Mg Tab) 100 mg PO BID FLORA Stop: 10/05/21 21:52 Last Admin: 09/06/21 08:16 Dose: 100 mg Documented by: Levothyroxine Sodium (Levothyroxine Sodium 75 Mcg Tablet) 75 mcg PO DAILYBB FLORA Stop: 10/06/21 06:29 Last Admin: 09/06/21 06:11 Dose: 75 mcg Documented by: Lidocaine (Lidocaine 5% 1 Patch) 1 patch TD QAM FLORA Stop: 10/06/21 08:59 Last Admin: 09/06/21 08:34 Dose: 1 patch Documented by: Metoprolol Succinate (Metoprolol Succ 25mg Ext Rel Tab) 25 mg PO BID FLORA Stop: 10/05/21 21:52 Last Admin: 09/06/21 08:17 Dose: 25 mg Documented by: Miscellaneous (Remove Lidoderm Patch) 1 ea N/A DAILY@2100 FLORA Stop: 10/05/21 21:52 Last Admin: 09/05/21 23:51 Dose: 1 ea Documented by: Pantoprazole Sodium (Pantoprazole 40 Mg Tab) 40 mg PO DAILY FLORA Stop: 10/07/21 08:59 Rivaroxaban (Rivaroxaban 15 Mg Tab) 15 mg PO DAILY FLORA Stop: 10/06/21 08:59 Last Admin: 09/06/21 08:18 Dose: 15 mg Documented by: Vitamin D (Cholecalciferol 1,000 Units 25 Mcg Tab) 1,000 units PO QAM FLORA Stop: 10/06/21 08:59 Last Admin: 09/06/21 08:17 Dose: 1,000 units Documented by: (1) CKD (chronic kidney disease) stage 3, GFR 30-59 ml/min Chronic kidney disease stage 3 subtype: unspecified whether 3a or 3b Q ualified Code(s): N18.30 - Chronic kidney disease, stage 3 unspecified
[2021-09-06] MEDS: DIGOXIN 0.125 MG TAB PO SCH (15:40)
[2021-09-06] MEDS: ATORVASTATIN 10 MG TAB PO SCH (21:30)
[2021-09-06] MEDS: FUROSEMIDE 40 MG/4 ML VIAL IV SCH (21:31)
[2021-09-07] MEDS: LEVOTHYROXINE SODIUM 75 MCG TABLET PO SCH (05:45)
[2021-09-07 06:20] LABS: Basophils # (auto) 0.01 K/uL (0-0.2); Basophils % (auto) 0.1 %; Hematocrit (blood only) 28.3 % (37-47); Hemoglobin 8.4 g/dL (12.0-16.0); Immature Granulocytes # (auto) 0.05 K/uL (0.00-0.02); Immature Granulocytes % (auto) 0.5 %; Lymphocytes # (auto) 0.72 K/uL (1.2-3.4); Lymphocytes % (auto) 6.9 %; Mean Corpuscular Hemoglobin 25.7 pg (25-34); Mean Corpuscular Hgb Conc 29.7 g/dL (32-36); Mean Corpuscular Volume 86.5 fL (80-100); Mean Platelet Volume 9.2 fL (7.4-10.4); Monocytes # (auto) 0.62 K/uL (0.11-0.59); Monocytes % (auto) 5.9 %; Neutrophils # (auto) 9.03 K/uL (1.4-6.5); Neutrophils % (auto) 86.6 %; Nucleated RBC # (auto) 0.06 K/uL (0-0); Nucleated RBC % (auto) 0.6 %; Platelet Count 306 K/uL (130-400); RDW Coefficient of Variation 18.5 % (11.5-14.5); RDW Standard Deviation 57.9 fL (36.4-46.3); Red Blood Count 3.27 M/uL (4.2-5.4); White Blood Count 10.43 K/uL (4.8-10.8)
[2021-09-07 07:07] LABS: BUN Creatinine Ratio 31.2 (10-20); Creatinine Clr Calc Pharmacy 19.7 ml/min; Est GFR (African American) 27.9 ml/min; Est GFR (Non-African American) 24.1 ml/min; Magnesium 2.5 mg/dl (1.8-2.4); Phosphorus 4.3 mg/dl (2.5-4.9); Potassium 2.8 mmol/L (3.5-5.1)
[2021-09-07] MEDS ORDERED: POTASSIUM CHLORIDE CRTAB 20 MEQ TABCR PO STA (07:32)
[2021-09-07 08:02] LABS: Anisocytosis Present
[2021-09-07] MEDS: LIDOCAINE 5% 1 PATCH TD SCH (09:00)
[2021-09-07] MEDS: hydrALAZINE TAB 50 MG TAB PO SCH ×2 (09:00→20:02)
[2021-09-07] MEDS: METOPROLOL SUCC 25MG EXT REL TAB PO SCH ×2 (09:01→20:04)
[2021-09-07] MEDS: allopurinoL 100 MG TAB PO SCH ×2 (09:01→20:04)
[2021-09-07] MEDS: ACETAMINOPHEN 500 MG TAB PO SCH ×3 (09:01→20:01)
[2021-09-07] MEDS: CYANOCOBALAMIN 500 MCG TABLET (VITAMIN B-12) PO SCH (09:01)
[2021-09-07] MEDS: FERROUS SULFATE 325 MG TAB PO SCH (09:02)
[2021-09-07] MEDS: amLODIPine BESYLATE 5 MG TAB PO SCH (09:02)
[2021-09-07] MEDS: CHOLECALCIFEROL 1,000 UNITS 25 MCG TAB PO SCH (09:02)
[2021-09-07] MEDS: PANTOprazole 40 MG TAB PO SCH (09:02)
[2021-09-07] MEDS: RIVAROXABAN 15 MG TAB PO SCH (09:03)
[2021-09-07] MEDS: FUROSEMIDE 40 MG/4 ML VIAL IV SCH ×2 (09:17→20:13)
--- NOTE | 2021-09-07 10:13 | Cardiology Consultation ---
Date of Consultation September 07, 2021 Assessment & Plan (1) Acute on chronic respiratory failure with hypoxemia: (2) Acute on chronic diastolic CHF (congestive heart failure): (3) COPD (chronic obstructive pulmonary disease): (4) CKD (chronic kidney disease) stage 3, GFR 30-59 ml/min: (5) HTN (hypertension): (6) Hypoxia: Outpatient pulmonary visit assessment: Assessment 1. Shortness of breath, multifactorial secondary to patient's pulmonary hypertension, chronic heart failure preserved EF, suspected airways disease that is untreated likely TH 1 asthma, deconditioning and patient being overweight. Overall the patient's PFTs show pseudo restriction with air trapping and a severely reduced DLCO. The patient's imaging show persistent ground-glass opacities and air trapping on expiratory imaging. She is a never smoker. Overall consistent with possible asthma. She has not have significant fibrotic distortion therefore my suspicion for post COVID I LD is decreased. 2. Pulmonary hypertension suspect this is worsening. Group 2/3 3. Heart failure preserved EF, acute on chronic today. Appears hypervolemic. Compensated 4. Chronic AFib, patient rate controlled today. Remains on full-dose anticoagulation. 5. Chronic hypoxic respiratory failure requiring 5 L at rest 6 L with exertion. 6. GERD, chronic, with esophagitis and history of hiatal hernia. Symptoms controlled (7) Afib: Pt admitted for acute on chronic repiratory failure, diagnosed as secondary to diastolic dysfunction Pt gained 3lbs of fluid as an outpatient, diuretics increased and started on treatment for possible pneumonia as well covid screen negative on presentation, BNP unchanged, slightly improved, compared back to 2019 cxr not overly impressive for CHF especially given her oxygen requirements has already diuresed almost 3L as an inpatient without decrease of O2 demand pulmonary pressures increased on repeat echo believe this is a primary pulmonary issue will continue to diurese at this time but will ask our pulmonary colleagues to evaluate would like to obtain further lung imaging but CKD precludes contrast doubt VQ would be helpful O2 requirements too great to transport for noncontrast CT of the chest will defer to pulmonary History of Present Illness Reason for Consultation: respiratory failure Requesting Physician: Dr. Serrato Attending Physician: Kieran Serrato MD History of Present Illness PAST MEDICAL HISTORY: 1.Persistent atrial fibrillation rate controlled on chronic Xarelto anticoagulation. 2.Stage 3 chronic kidney disease. 3.Chronic hypoxemia on home O2. 4.Chronic venous insufficiency. 5.Nocturnal hypoxemia. Allergies Allergy/AdvReac Type Severity Reaction Status Date / Time quinapril AdvReac Mild H/A Verified 06/21/21 13:19 nifedipine AdvReac Unknown pounding Verified 06/21/21 13:19 headache Home Medications Medication Instructions Recorded Confirmed Type atorvastatin 10 mg tablet 10 mg PO HS 11/05/18 09/05/21 History cholecalciferol (vitamin D3) 25 1,000 unit PO QAM 11/05/18 09/05/21 History mcg (1,000 unit) capsule (Vitamin D3) cyanocobalamin (vitamin B-12) 500 500 mcg PO QAM 11/05/18 09/05/21 History mcg tablet (Vitamin B-12) digoxin 125 mcg (0.125 mg) tablet 125 mcg PO Q2D 11/05/18 09/05/21 History levothyroxine 75 mcg tablet 75 mcg PO DAILY 11/05/18 09/05/21 History rivaroxaban 15 mg tablet 15 mg PO DAILY 11/05/18 09/05/21 History ferrous sulfate 325 mg (65 mg 325 mg PO DAILY 09/11/20 09/05/21 History iron) tablet lidocaine 5 % topical patch 1 patch TRANSDERMAL QAM #15 ea 09/14/20 09/05/21 Rx acetaminophen 325 mg tablet 650 mg PO Q4H PRN 10/19/20 09/05/21 History (Tylenol) acetaminophen 500 mg tablet 1,000 mg PO TID 10/19/20 09/05/21 History (Tylenol Extra Strength) bisacodyl 10 mg rectal suppository 10 mg HI DAILY PRN 10/19/20 09/05/21 History (Dulcolax (bisacodyl)) hydralazine 50 mg tablet 100 mg PO BID #60 tab 10/27/20 09/05/21 Rx metoprolol succinate 25 mg 25 mg PO BID #60 tab 10/27/20 09/05/21 Rx tablet,extended release 24 hr allopurinol 100 mg tablet 100 mg PO BID 06/21/21 09/05/21 History amlodipine 10 mg tablet 10 mg PO DAILY 06/21/21 09/05/21 History bumetanide 2 mg tablet 2 mg PO 1200 tab 06/21/21 09/05/21 History metolazone 2.5 mg tablet 2.5 mg PO Q OTHER DAY 06/21/21 09/05/21 History pantoprazole 20 mg tablet,delayed 20 mg PO DAILY 06/21/21 09/05/21 History release potassium chloride 20 mEq 20 meq PO DAILY 09/05/21 09/05/21 History tablet,extended release(part/cryst) Patient History Medical History Acute on chronic diastolic CHF (congestive heart failure) Acute on chronic respiratory failure with hypoxemia Bradycardia Chronic diastolic (congestive) heart failure Chronic respiratory failure with hypoxia CKD (chronic kidney disease) stage 3, GFR 30-59 ml/min Closed fracture of right anterior inferior iliac spine Closed fracture of right anterior superior iliac spine COPD (chronic obstructive pulmonary disease) DVT prophylaxis Elevated troponin YESICA (generalized anxiety disorder) GERD (gastroesophageal reflux disease) History of Mohs micrographic surgery for skin cancer (05/11/21) Right Preauricular Area/[place] Dr. Alicia Charles History of Mohs micrographic surgery for skin cancer (04/04/21) Left Cheek Medial and Lateral Dr. Alicia Charles HLD (hyperlipidemia) HTN (hypertension) Hypertensive emergency Hypothyroidism Nocturnal hypoxia Osteoporosis Paroxysmal A-fib Pelvis acetabulum fracture Pneumonia due to COVID-19 virus Primary squamous cell carcinoma of skin UTI (urinary tract infection) Surgical History History of nasal polypectomy History of total left knee replacement (TKR) Hx of fracture of radius Status post excisional biopsy (06/01/21) Shave Biopsy - Right Neck Anterior + Right Neck Posterior Status post excisional biopsy (04/04/21) Shave Biopsy - Left Cheek Medial + Left Cheek Lateral + Left 3rd Dorsal Digit Family History Mother , Passed Age 89 Diabetes Hypertension Father , Passed Age 70 Hypertension Coronary heart disease Brother No problems noted. Brother No problems noted. Brother No problems noted. Sister , Passed Age 33 No problems noted. Son No problems noted. Son No problems noted. Son No problems noted. Daughter No problems noted. 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 No acute distress. HEENT: Normocephalic, atraumatic. Pupils equal, round and reactive to light and accommodation. Extraocular muscles are intact. Anicteric sclera. Moist mucous membranes. Neck: No JVD. No bruit. Cardiovascular: Regular. Positive S-4. Normal S-1 and S-2. No S-3. 3/6 holosystolic ejection murmur, 5th intercostal space, mid-clavicular line without radiation. No rubs. Pulmonary: Poor air movement with diffuse rhonchi, scant bibasilar rales Abdomen: Bowel sounds x 4, soft. No rebound, guarding or tenderness. No organomegaly. Extremities: No clubbing, cyanosis or edema. +2 pedal pulses bilaterally. Skin: Warm and dry. several nonhealing ulcers Results & Data ([facility]) Vital Signs (Past 12 Hours) Vital Signs Temp Pulse Pulse Resp BP Pulse Ox 09/07/21 08:59 36.7 C 89 22 117/68 90 09/07/21 06:54 73 20 91 09/07/21 03:52 37.1 C 82 20 117/68 90 09/07/21 03:00 84 20 91 09/07/21 01:26 79 09/06/21 23:34 37.0 C 90 24 144/73 H 90 09/06/21 23:30 70 22 90 (1) CKD (chronic kidney disease) stage 3, GFR 30-59 ml/min Chronic kidney disease stage 3 subtype: unspecified whether 3a or 3b Qualified Code(s): N18.30 - Chronic kidney disease, stage 3 unspecified
[2021-09-07] MEDS ORDERED: POTASSIUM CHLORIDE CRTAB 20 MEQ TABCR PO SCH (11:00)
[2021-09-07] MEDS ORDERED: POTASSIUM CHLORIDE CRTAB 20 MEQ TABCR PO ONE (11:00)
--- NOTE | 2021-09-07 17:37 | Pulmonary Consultation ---
Date of Consultation September 07, 2021 Assessment & Plan (1) Acute on chronic respiratory failure with hypoxemia: (2) Acute on chronic diastolic CHF (congestive heart failure): CT chest 10/19/2020 personally reviewed:Minimal bilateral pleural effusion, Patchy groundglass opacities bilaterally likely pulmonary edema Minimal mosaicism No mediastinal adenopathy Cardiomegaly Chest x-ray 09/05/2021 personally reviewed: Portable film, rotated to the right, increased cardiac silhouette, increased pulmonary vascular markings, blunting of bilateral costophrenic angles. --Acute on chronic hypoxic respiratory failure Likely secondary to acute diastolic CHF BNP 11,467 Covid-19 negative --A. fib On rivaroxaban Plan: Continue with O2 supplementation to keep oxygen saturation between 90-92% BiPAP nightly and as needed shortness of breath would be better I highly doubt patient has any underlying asthma-like etiology playing a role in her shortness of breath Trial of Breo 100-25 MCG daily basis could be tried: The groundglass opacities are appreciated in September 2020 with some mosaicism could be seen in pulmonary edema as well Please note the above document was generated using voice recognition software. It may contain grammatical, syntax or spelling errors.Any formal questions or concerns about the content, text or information contained within the body of this dictation should be directly addressed to the provider for clarification. History of Present Illness Attending Physician: Kieran Serrato MD History of Present Illness 81-year-old female past medical history of chronic hypoxic respiratory failure on 2 L nasal cannula, A. fib on anticoagulation, diastolic CHF, CKD, hypothyroidism presented to hospital with complaints of shortness of breath progressively getting worse She was found to have a BNP of 11,000 in the ED Pulmonary consulted for hypoxia At the time of examination patient was not in any respiratory distress She was on high flow saturating at 93-94% Denied any shortness of breath she stated she is feeling better compared to when she came to the hospital Does complain of cough but not bringing up any phlegm No fever or chills. Denies any dysuria or diarrhea There is no personal family history of asthma. Social history: Lifetime non-smoker Allergies Allergy/AdvReac Type Severity Reaction Status Date / Time quinapril AdvReac Mild H/A Verified 06/21/21 13:19 nifedipine AdvReac Unknown pounding Verified 06/21/21 13:19 headache Home Medications Medication Instructions Recorded Confirmed Type atorvastatin 10 mg tablet 10 mg PO HS 11/05/18 09/05/21 History cholecalciferol (vitamin D3) 25 1,000 unit PO QAM 11/05/18 09/05/21 History mcg (1,000 unit) capsule (Vitamin D3) cyanocobalamin (vitamin B-12) 500 500 mcg PO QAM 11/05/18 09/05/21 History mcg tablet (Vitamin B-12) digoxin 125 mcg (0.125 mg) tablet 125 mcg PO Q2D 11/05/18 09/05/21 History levothyroxine 75 mcg tablet 75 mcg PO DAILY 11/05/18 09/05/21 History rivaroxaban 15 mg tablet 15 mg PO DAILY 11/05/18 09/05/21 History ferrous sulfate 325 mg (65 mg 325 mg PO DAILY 09/11/20 09/05/21 History iron) tablet lidocaine 5 % topical patch 1 patch TRANSDERMAL QAM #15 ea 09/14/20 09/05/21 Rx acetaminophen 325 mg tablet 650 mg PO Q4H PRN 10/19/20 09/05/21 History (Tylenol) acetaminophen 500 mg tablet 1,000 mg PO TID 10/19/20 09/05/21 History (Tylenol Extra Strength) bisacodyl 10 mg rectal suppository 10 mg NC DAILY PRN 10/19/20 09/05/21 History (Dulcolax (bisacodyl)) hydralazine 50 mg tablet 100 mg PO BID #60 tab 10/27/20 09/05/21 Rx metoprolol succinate 25 mg 25 mg PO BID #60 tab 10/27/20 09/05/21 Rx tablet,extended release 24 hr allopurinol 100 mg tablet 100 mg PO BID 06/21/21 09/05/21 History amlodipine 10 mg tablet 10 mg PO DAILY 06/21/21 09/05/21 History bumetanide 2 mg tablet 2 mg PO 1200 tab 06/21/21 09/05/21 History metolazone 2.5 mg tablet 2.5 mg PO Q OTHER DAY 06/21/21 09/05/21 History pantoprazole 20 mg tablet,delayed 20 mg PO DAILY 06/21/21 09/05/21 History release potassium chloride 20 mEq 20 meq PO DAILY 09/05/21 09/05/21 History tablet,extended release(part/cryst) Patient History Medical History Acute on chronic diastolic CHF (congestive heart failure) Acute on chronic respiratory failure with hypoxemia Bradycardia Chronic diastolic (congestive) heart failure Chronic respiratory failure with hypoxia CKD (chronic kidney disease) stage 3, GFR 30-59 ml/min Closed fracture of right anterior inferior iliac spine Closed fracture of right anterior superior iliac spine COPD (chronic obstructive pulmonary disease) DVT prophylaxis Elevated troponin YESICA (generalized anxiety disorder) GERD (gastroesophageal reflux disease) History of Mohs micrographic surgery for skin cancer (05/11/21) Right Preauricular Area/[place] Dr. Alicia Charels History of Mohs micrographic surgery for skin cancer (04/04/21) Left Cheek Medial and Lateral Dr. Alicia Charles HLD (hyperlipidemia) HTN (hypertension) Hypertensive emergency Hypothyroidism Nocturnal hypoxia Osteoporosis Paroxysmal A-fib Pelvis acetabulum fracture Pneumonia due to COVID-19 virus Primary squamous cell carcinoma of skin UTI (urinary tract infection) Surgical History History of nasal polypectomy History of total left knee replacement (TKR) Hx of fracture of radius Status post excisional biopsy (06/01/21) Shave Biopsy - Right Neck Anterior + Right Neck Posterior Status post excisional biopsy (04/04/21) Shave Biopsy - Left Cheek Medial + Left Cheek Lateral + Left 3rd Dorsal Digit Family History Mother , Passed Age 89 Diabetes Hypertension Father , Passed Age 70 Hypertension Coronary heart disease Brother No problems noted. Brother No problems noted. Brother No problems noted. Sister , Passed Age 33 No problems noted. Son No problems noted. Son No problems noted. Son No problems noted. Daughter No problems noted. 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 How many Children do You have: 4 Other Information That Helps Us Care for You: No Feels Safe at Home: Yes Safety Concerns: Feels Safe At This Time Childhood Exposure to Second-Hand Smoke: Yes Diet Comment: Mechanical Soft, with 1500ml Fluid Restriction caffeine: Yes (1 cup of tea in AM) during the past year weight has: remained stable Dental Care, Regularly: Yes Assistive Devices: Oxygen - Continuous Review of Systems Review of Systems: All systems reviewed & are unremarkable except as noted in HPI & below Physical Exam Physical Exam: Constitutional: No acute distress HEENT: EOMI, PERRLA Respiratory system: Decreased entry bilaterally, no wheeze, no rhonchi, positive crackles bilateral lower CVS: S1-S2 positive, no murmurs or gallops Abdomen: Soft, nontender, nondistended, positive bowel sounds x4 Extremities: +2 pulses bilaterally radialis/ dorsalis pedis, no cyanosis, +1 pitting bilateral lower extremity Neuro: Awake alert oriented x3 Psych: Normal mood and affect G/U: Positive [place] Skin: no rashes, warm and dry Lymphatic: no cervical or axillary lymphadenopathy Results & Data Results & Data ([facility]) Vital Signs (Past 12 Hours) Vital Signs Temp Pulse Resp BP BP Pulse Ox 09/07/21 14:48 36.6 C 74 20 115/76 97 09/07/21 11:44 89 24 60 L 09/07/21 08:59 36.7 C 89 22 117/68 90 09/07/21 06:54 73 20 91 09/07/21 05:39 09/07/21 05:39 PG Care Time/CCT Total # of Minutes Spent Total Time Spent with Patient: Total time spent is greater than 50% in coordination of care (as documented) at patient's floor/unit and/or counseling patient: Coding Level of Care Code 03618 Initial Inpt Care Lvl 3 Diagnoses Acute on chronic respiratory failure with hypoxemia J96.21 Acute on chronic diastolic CHF (congestive heart failure) I50.33
[2021-09-07] MEDS: ATORVASTATIN 10 MG TAB PO SCH (20:04)
--- NOTE | 2021-09-07 20:05 | Hospitalist Progress Note ---
Date of Service September 07, 2021 Assessment & Plan (1) Acute on chronic respiratory failure with hypoxemia: Plan: #. Acute on chronic diastolic CHF (congestive heart failure): Presented with desaturation without significant shortness of breath from the [facility] Noted to have acute CHF with increasing proBNP received diuresis, c/w same I/O2 -2.7, monitor daily. ECHO this admission: LV is normal in size with moderate concentric LVH and normal wall motion, EF is 65 to 70%. Has grade 3 diastolic dysfunction with markedly increased left atrial pressure. Left atrium is severely dilated and right atrium is moderately dilated. Aortic valve sclerosis without significant stenosis. Moderate to severe tricuspid regurgitation. RV pressure is severely elevated at more than 60 mmHg Cardio on board: BNP on presentation unchanged or slightly improved compared to 2019, pulmonary pressures increased on repeat echo, believes primary pulmonary issue, continue with diuresis, get pulmonology on board. #. Acute on chronic respiratory failure with hypoxemia: Has history of COPD and chronic respiratory failure on 2 L of oxygen as a baseli ne Noted to have low saturation of 70s at [facility] and did not improve with oxygen administration Has been on BiPAP now and the condition seems to be improving She does not use any CPAP and/or BiPAP as an outpatient Has been requiring high flow oxygen to maintain saturation Pulmonology consulted: Await recommendation. #. CKD (chronic kidney disease) stage 3, GFR 30-59 ml/min: #. Potassium abnormality Baseline creatinine seems to be around 1.6-1.7. History of chronic kidney disease and seems to be a little worse today Has acute on chronic kidney impairment Likely secondary to dehydration with increasing potassium Creatinine elevated, continue to monitor. Monitor potassium and replete as appropriate If no improvement in creatinine, consider nephrology consult. #. COPD (chronic obstructive pulmonary disease): Does not have any exacerbation #. GERD (gastroesophageal reflux disease): Continue PPI #. HTN (hypertension): Blood pressure remains on the upper side of normal We will continue current medications #. Hypothyroidism: Continue supplement History of Covid pneumonia in October of this year Was told by the ER physician that she is fully vaccinated Awaiting Covid test today-Negative DVT prophylaxis Has histories of paroxysmal A. fib and has been on Xarelto We will continue Xarelto CODE STATUS Resuscitation without intubation Prior attending discussed with the son Admission and Anticipated Discharge Date Admission Date: September 05, 2021 Subjective Patient was lying in bed, on 30 L high flow oxygen, NAD, no acute events overnight. Patient reports eating and moving bowels okay. Patient denies any headache/chills/chest pain/palpitation/other review of symptoms. Urinary catheter in situ with light yellow urine collection. Physical Exam Physical Exam: GENERAL: Alert and oriented x3. NAD, on 30L 60% HF O2 HEENT: No pallor, no icterus. Pupils equal, round and reactive to light. Oral mucosa moist. NECK: No JVD, no neck masses. HEART: S1 and S2 heard. Regular rate and rhythm. No murmur, no gallop.tachycardic RESPIRATORY SYSTEM: Normal AP diameter. No accessory muscle use. No wheezing, diffuse and b/l crackles. ABDOMEN: Soft, bowel sounds present, nontender, no distention. Umbilicial hernia noted. CENTRAL NERVOUS SYSTEM: No facial droop. Speech is clear. Obeys simple commands. Moves extremities. EXTREMITIES: No edema, no erythema seen. Results & Data Results & Data ([facility]) Vital Signs (Past 12 Hours) Vital Signs Temp Pulse Resp BP BP Pulse Ox 09/07/21 14:48 36.6 C 74 20 115/76 97 09/07/21 11:44 89 24 60 L 09/07/21 08:59 36.7 C 89 22 117/68 90
[2021-09-08] MEDS ORDERED: METOPROLOL TARTRATE 25 MG TAB PO STA (01:26)
[2021-09-08 02:24] LABS: Basophils # (auto) 0.01 K/uL (0-0.2); Basophils % (auto) 0.1 %; Eosinophils # (auto) 0.08 K/uL (0-0.5); Eosinophils % (auto) 0.8 %; Hematocrit (blood only) 31.8 % (37-47); Hemoglobin 9.7 g/dL (12.0-16.0); Immature Granulocytes # (auto) 0.06 K/uL (0.00-0.02); Immature Granulocytes % (auto) 0.6 %; Lymphocytes # (auto) 0.64 K/uL (1.2-3.4); Mean Corpuscular Hemoglobin 26.4 pg (25-34); Mean Corpuscular Hgb Conc 30.5 g/dL (32-36); Mean Corpuscular Volume 86.6 fL (80-100); Monocytes # (auto) 0.71 K/uL (0.11-0.59); Monocytes % (auto) 6.7 %; Neutrophils # (auto) 9.16 K/uL (1.4-6.5); Neutrophils % (auto) 85.8 %; Platelet Count 301 K/uL (130-400); RDW Coefficient of Variation 18.2 % (11.5-14.5); RDW Standard Deviation 57.3 fL (36.4-46.3); Red Blood Count 3.67 M/uL (4.2-5.4); White Blood Count 10.66 K/uL (4.8-10.8)
[2021-09-08 03:05] LABS: Albumin Level 2.6 gm/dl (3.4-5.0); BUN Creatinine Ratio 36.1 (10-20); Calcium 9.2 mg/dl (8.5-10.1); Creatinine Clr Calc Pharmacy 21.3 ml/min; Est GFR (African American) 30.7 ml/min; Est GFR (Non-African American) 26.5 ml/min; Magnesium 2.3 mg/dl (1.8-2.4)
[2021-09-08] MEDS ORDERED: POTASSIUM CHLORIDE PWD 20 MEQ PACK PO STA (03:08)
[2021-09-08 03:33] LABS: Albumin Globulin Ratio 0.7 (0.9-2); Bilirubin,Total 0.5 mg/dl (0.2-1); Globulin 3.8 gm/dl (2.5-4.0); Phosphorus 3.6 mg/dl (2.5-4.9); Thyroid Stimulating Hormone 1.14 uIu/ml (0.300-4.500); Total Protein 6.4 gm/dl (6.4-8.2)
[2021-09-08] MEDS ORDERED: POTASSIUM CHLORIDE PWD 20 MEQ PACK PO ONE (05:30)
[2021-09-08] MEDS: LEVOTHYROXINE SODIUM 75 MCG TABLET PO SCH (05:47)
[2021-09-08] MEDS: ACETAMINOPHEN 500 MG TAB PO SCH ×3 (08:09→20:27)
[2021-09-08] MEDS: CYANOCOBALAMIN 500 MCG TABLET (VITAMIN B-12) PO SCH (08:09)
[2021-09-08] MEDS: PANTOprazole 40 MG TAB PO SCH (08:09)
[2021-09-08] MEDS: RIVAROXABAN 15 MG TAB PO SCH (08:09)
[2021-09-08] MEDS: LIDOCAINE 5% 1 PATCH TD SCH (08:10)
[2021-09-08] MEDS: hydrALAZINE TAB 50 MG TAB PO SCH ×2 (08:10→20:27)
[2021-09-08] MEDS: CHOLECALCIFEROL 1,000 UNITS 25 MCG TAB PO SCH (08:11)
[2021-09-08] MEDS: allopurinoL 100 MG TAB PO SCH ×2 (08:11→20:27)
[2021-09-08] MEDS: amLODIPine BESYLATE 5 MG TAB PO SCH (08:11)
[2021-09-08] MEDS: FUROSEMIDE 40 MG/4 ML VIAL IV SCH ×2 (08:11→21:24)
[2021-09-08] MEDS: FERROUS SULFATE 325 MG TAB PO SCH (08:11)
[2021-09-08] MEDS ORDERED: POTASSIUM CHLORIDE CRTAB 20 MEQ TABCR PO STA (08:38)
[2021-09-08] MEDS ORDERED: POTASSIUM CHLORIDE PWD 20 MEQ PACK PO SCH (09:00)
--- NOTE | 2021-09-08 09:47 | Cardiology Progress Note ---
Date of Service September 08, 2021 Assessment & Plan (1) Acute on chronic respiratory failure with hypoxemia: (2) Acute on chronic diastolic CHF (congestive heart failure): (3) COPD (chronic obstructive pulmonary disease): (4) CKD (chronic kidney disease) stage 3, GFR 30-59 ml/min: (5) HTN (hypertension): (6) Hypoxia: Plan: Outpatient pulmonary visit assessment: Assessment 1. Shortness of breath, multifactorial secondary to patient's pulmonary hypertension, chronic heart failure preserved EF, suspected airways disease that is untreated likely TH 1 asthma, deconditioning and patient being overweight. Overall the patient's PFTs show pseudo restriction with air trapping and a severely reduced DLCO. The patient's imaging show persistent ground-glass opacities and air trapping on expiratory imaging. She is a never smoker. Overall consistent with possible asthma. She has not have significant fibrotic distortion therefore my suspicion for post COVID I LD is decreased. 2. Pulmonary hypertension suspect this is worsening. Group 2/3 3. Heart failure preserved EF, acute on chronic today. Appears hypervolemic. Compensated 4. Chronic AFib, patient rate controlled today. Remains on full-dose anticoagulation. 5. Chronic hypoxic respiratory failure requiring 5 L at rest 6 L with exertion. 6. GERD, chronic, with esophagitis and history of hiatal hernia. Symptoms controlled (7) Afib: Plan: Pt admitted for acute on chronic repiratory failure, diagnosed as secondary to diastolic dysfunction Pt gained 3lbs of fluid as an outpatient, diuretics increased and started on treatment for possible pneumonia as well covid screen negative on presentation, BNP unchanged, slightly improved, compared back to 2019 cxr not overly impressive for CHF especially given her oxygen requirements has already diuresed almost 4L as an inpatient without decrease of O2 demand pulmonary pressures increased on repeat echo believe this is a primary pulmonary issue will continue to diurese at this time but defer further hypoxic treatment to pulmonary Admission and Anticipated Discharge Date Admission Date: September 05, 2021 Subjective Patient seen and examined, chart reviewed. No complaints overnight. Still requiring high flow O2 despite 4L diuresis. Denies cp, palpitations, lightheadedness or dizziness. Tele reviewed: afib, rate controlled. Review of Systems Review of Systems: All systems reviewed & are unremarkable except as noted in HPI & below Physical Exam Physical Exam: General: Awake, alert and oriented x 3. No acute distress. HEENT: Normocephalic, atraumatic. Pupils equal, round and reactive to light and accommodation. Extraocular muscles are intact. Anicteric sclera. Moist mucous membranes. Neck: No JVD. No bruit. Cardiovascular: Regular. Positive S-4. Normal S-1 and S-2. No S-3. 3/6 holosystolic ejection murmur, 5th intercostal space, mid-clavicular line without radiation. No rubs. Pulmonary: Poor air movement with diffuse rhonchi, scant bibasilar rales Abdomen: Bowel sounds x 4, soft. No rebound, guarding or tenderness. No organomegaly. Extremities: No clubbing, cyanosis or edema. +2 pedal pulses bilaterally. Skin: Warm and dry. several nonhealing ulcers Results & Data ([facility]) Vital Signs (Past 12 Hours) Vital Signs Temp Pulse Pulse Resp BP Pulse Ox 09/08/21 07:59 36.5 C 69 23 146/70 H 89 L 09/08/21 07:25 67 20 91 09/08/21 05:50 70 09/08/21 03:25 71 20 91 09/07/21 23:44 36.8 C 76 18 126/68 90 09/07/21 22:28 73 22 91 (1) CKD (chronic kidney disease) stage 3, GFR 30-59 ml/min Chronic kidney disease stage 3 subtype: unspecified whether 3a or 3b Qualified Code(s): N18.30 - Chronic kidney disease, stage 3 unspecified
[2021-09-08] MEDS: METOPROLOL SUCC 25MG EXT REL TAB PO SCH ×2 (10:01→20:27)
[2021-09-08] MEDS: FLUTICASONE/VILANTEROL 100/25MCG 14 PUFFS/INHALER INH SCH (10:01)
[2021-09-08] MEDS ORDERED: POTASSIUM CHLORIDE CRTAB 20 MEQ TABCR PO ONE (11:00)
--- NOTE | 2021-09-08 14:10 | Pulmonology Progress Note ---
Date of Service September 08, 2021 Assessment & Plan (1) Acute on chronic respiratory failure with hypoxemia: (2) Acute on chronic diastolic CHF (congestive heart failure): (3) Pulmonary hypertension: Plan: CT chest 10/19/2020 personally reviewed:Minimal bilateral pleural effusion, Patchy groundglass opacities bilaterally likely pulmonary edema Minimal mosaicism No mediastinal adenopathy Cardiomegaly Chest x-ray 09/05/2021 personally reviewed: Portable film, rotated to the right, increased cardiac silhouette, increased pulmonary vascular markings, blunting of bilateral costophrenic angles. --Acute on chronic hypoxic respiratory failure Likely secondary to acute diastolic CHF BNP 11,467 Covid-19 negative BiPAP nightly and as needed shortness of breath --Pulmonary hypertension Likely from type II from grade 2 diastolic dysfunction Continue with diuretics as above --A. fib On rivaroxaban Plan: Continue with diuretics to keep the patient negative balance O2 supplementation with BiPAP nightly and as needed shortness of breath Keep O2 saturation between 90-92% No further recommendation from pulmonary perspective. Please call directly with any questions Please note the above document was generated using voice recognition software. It may contain grammatical, syntax or spelling errors.Any formal questions or concerns about the content, text or information contained within the body of this dictation should be directly addressed to the provider for clarification. Admission and Anticipated Discharge Date Admission Date: September 05, 2021 Subjective Patient seen and examined at bedside. No acute distress. She was on high flow 85% FiO2, 30 L saturating 94% Went down to 65% and she was still saturating 91% Stated that she is feeling better. Denies any complaints She was actually taking a nap prior to me seeing her Review of Systems Review of Systems: All systems reviewed & are unremarkable except as noted in Subjective Physical Exam Physical Exam: Constitutional: No acute distress HEENT: EOMI, PERRLA Respiratory system: Decreased entry bilaterally, no wheeze, no rhonchi, positive crackles bilateral lower CVS: S1-S2 positive, no murmurs or gallops Abdomen: Soft, nontender, nondistended, positive bowel sounds x4 Extremities: +2 pulses bilaterally radialis/ dorsalis pedis, no cyanosis, +1 pitting bilateral lower extremity Neuro: Awake alert oriented x3 Psych: Normal mood and affect G/U: Positive Stuart Skin: no rashes, warm and dry Lymphatic: no cervical or axillary lymphadenopathy Results & Data Results & Data ([facility]) Vital Signs (Past 12 Hours) Vital Signs Temp Pulse Pulse Resp BP Pulse Ox 09/08/21 13:45 86 L 09/08/21 11:42 36.5 C 71 18 127/64 91 09/08/21 10:52 55 L 20 89 L 09/08/21 07:59 36.5 C 69 23 146/70 H 89 L 09/08/21 07:25 67 20 91 09/08/21 05:50 70 09/08/21 03:25 71 20 91 09/08/21 01:54 09/08/21 01:54 PG Care Time/CCT Total # of Minutes Spent Total Time Spent with Patient: Total time spent is greater than 50% in coordination of care (as documented) at patient's floor/unit and/or counseling patient: Coding Level of Care Code 13687 Subseq Hosp Care Lvl 2 Diagnoses Acute on chronic respiratory failure with hypoxemia J96.21 Acute on chronic diastolic CHF (congestive heart failure) I50.33 Pulmonary hypertension I27.20
[2021-09-08] MEDS: POTASSIUM CHLORIDE PWD 20 MEQ PACK PO SCH ×2 (14:31→20:28)
--- NOTE | 2021-09-08 15:20 | Hospitalist Progress Note ---
Date of Service September 08, 2021 Assessment & Plan (1) Acute on chronic respiratory failure with hypoxemia: Plan: #. Acute on chronic diastolic CHF (congestive heart failure): Presented with desaturation without significant shortness of breath from the [facility] Noted to have acute CHF with increasing proBNP received diuresis, c/w same I/O2 -2.7, monitor daily. ECHO this admission: LV is normal in size with moderate concentric LVH and normal wall motion, EF is 65 to 70%. Has grade 3 diastolic dysfunction with markedly increased left atrial pressure. Left atrium is severely dilated and right atrium is moderately dilated. Aortic valve sclerosis without significant stenosis. Moderate to severe tricuspid regurgitation. RV pressure is severely elevated at more than 60 mmHg Cardio on board: BNP on presentation unchanged or slightly improved compared to 2019, pulmonary pressures increased on repeat echo, believes primary pulmonary issue, continue with diuresis Is and Os so far -4.1L c/w diuresis. #. Acute on chronic respiratory failure with hypoxemia: Has history of COPD and chronic respiratory failure on 2 L of oxygen as a baseli ne Noted to have low saturation of 70s at [facility] and did not improve with oxygen administration Has been on BiPAP now and the condition seems to be improving She does not use any CPAP and/or BiPAP as an outpatient Has been requiring high flow oxygen to maintain saturation Pulmonology consulted: BPAP prn and HS; Breo daily, SaO2 90-92%. #. Pul HTN likely Type 2 2/2 CHF c/w diuresis per Pulm #. CKD (chronic kidney disease) stage 3, GFR 30-59 ml/min: #. Potassium abnormality Baseline creatinine seems to be around 1.6-1.7. Creatinine around baseline Continue to monitor with ongoing diuresis Monitor electrolytes and replace as appropriate. #. COPD (chronic obstructive pulmonary disease): Does not have any exacerbation #. GERD (gastroesophageal reflux disease): Continue PPI #. HTN (hypertension): Blood pressure remains on the upper side of normal We will continue current medications #. Hypothyroidism: Continue supplement History of Covid pneumonia in October of this year Was told by the ER physician that she is fully vaccinated Awaiting Covid test today-Negative DVT prophylaxis Has histories of paroxysmal A. fib and has been on Xarelto We will continue Xarelto CODE STATUS Resuscitation without intubation Prior attending discussed with the son Admission and Anticipated Discharge Date Admission Date: September 05, 2021 Subjective Patient was napping in chair at time of exam, woke up easily, on 30 L oxygen, NAD, no acute events overnight. Patient reports eating and moving bowels okay. Patient denies headache/dizziness/chest pain/palpitation/increased shortness of breath/other review of symptoms. Physical Exam Physical Exam: GENERAL: Alert and oriented x3. NAD, on 30L 65% HF O2 HEENT: No pallor, no icterus. Pupils equal, round and reactive to light. Oral mucosa moist. NECK: No JVD, no neck masses. HEART: S1 and S2 heard. Regular rate and rhythm. No murmur, no gallop. RESPIRATORY SYSTEM: Normal AP diameter. No accessory muscle use. No wheezing, diffuse and b/l crackles. ABDOMEN: Soft, bowel sounds present, nontender, no distention. Umbilicial hernia noted. CENTRAL NERVOUS SYSTEM: No facial droop. Speech is clear. Obeys simple commands. Moves extremities. EXTREMITIES: No edema, no erythema seen. Results & Data Results & [facility] ([facility]) Vital Signs (Past 12 Hours) Vital Signs Temp Pulse Pulse Resp BP Pulse Ox Pulse Ox 09/08/21 14:04 86 L 09/08/21 13:45 86 L 09/08/21 11:42 36.5 C 71 18 127/64 91 09/08/21 10:52 55 L 20 89 L 09/08/21 07:59 36.5 C 69 23 146/70 H 89 L 09/08/21 07:25 67 20 91 09/08/21 05:50 70 09/08/21 03:25 71 20 91 Pulse Ox Pulse Ox 09/08/21 14:04 91 79 L 09/08/21 13:45 09/08/21 11:42 09/08/21 10:52 09/08/21 07:59 09/08/21 07:25 09/08/21 05:50 09/08/21 03:25
[2021-09-08] MEDS: DIGOXIN 0.125 MG TAB PO SCH (15:30)
[2021-09-08] MEDS: ATORVASTATIN 10 MG TAB PO SCH (20:27)
[2021-09-09] MEDS: LEVOTHYROXINE SODIUM 75 MCG TABLET PO SCH (06:07)
[2021-09-09 08:25] LABS: BUN Creatinine Ratio 36.4 (10-20); Calcium 9.1 mg/dl (8.5-10.1); Creatinine Clr Calc Pharmacy 23.4 ml/min; Est GFR (African American) 34.4 ml/min; Est GFR (Non-African American) 29.7 ml/min; Magnesium 2.5 mg/dl (1.8-2.4)
[2021-09-09] MEDS: RIVAROXABAN 15 MG TAB PO SCH (09:14)
[2021-09-09] MEDS: POTASSIUM CHLORIDE PWD 20 MEQ PACK PO SCH ×3 (09:15→21:03)
[2021-09-09] MEDS: PANTOprazole 40 MG TAB PO SCH (09:15)
[2021-09-09] MEDS: METOPROLOL SUCC 25MG EXT REL TAB PO SCH ×2 (09:16→21:02)
[2021-09-09] MEDS: LIDOCAINE 5% 1 PATCH TD SCH (09:17)
[2021-09-09] MEDS: hydrALAZINE TAB 50 MG TAB PO SCH ×2 (09:17→21:03)
[2021-09-09] MEDS: FERROUS SULFATE 325 MG TAB PO SCH (09:18)
[2021-09-09] MEDS: CHOLECALCIFEROL 1,000 UNITS 25 MCG TAB PO SCH (09:18)
[2021-09-09] MEDS: allopurinoL 100 MG TAB PO SCH ×2 (09:18→21:02)
[2021-09-09] MEDS: amLODIPine BESYLATE 5 MG TAB PO SCH (09:18)
--- NOTE | 2021-09-09 09:18 | XRay Report ---
XR chest 2V PA/lateral CLINICAL HISTORY: hypoxia, portable ok due to O2 demands TECHNIQUE: AP and lateral frontal radiograph of the chest was obtained. Comparison: Comparison is made to chest one view 09/05/2021 FINDINGS: No lines and tubes are seen. Cardiomegaly is noted. Multifocal airspace opacities are seen most promi nent in the left retrocardiac region and right upper lung. Prominence and indistinctness of the vascu lature is seen. No evidence of pleural effusion or pneumothorax. IMPRESSION: 1. Mild pulmonary edema. Stable cardiomegaly. 2. Multifocal airspace opacities are favored to represent atelectasis, pneumonia, and/or aspiration. ACT 112: Negative or not required by law. Electronically signed by: Charan Holbrook M.D. 09/09/2021 9:17 AM
[2021-09-09] MEDS: ACETAMINOPHEN 500 MG TAB PO SCH ×3 (09:19→21:06)
[2021-09-09] MEDS: FUROSEMIDE 40 MG/4 ML VIAL IV SCH ×2 (09:19→21:06)
[2021-09-09] MEDS: FLUTICASONE/VILANTEROL 100/25MCG 14 PUFFS/INHALER INH SCH (09:31)
[2021-09-09] MEDS: CYANOCOBALAMIN 500 MCG TABLET (VITAMIN B-12) PO SCH (09:31)
--- NOTE | 2021-09-09 09:56 | Cardiology Progress Note ---
Date of Service September 09, 2021 Assessment & Plan (1) Acute on chronic respiratory failure with hypoxemia: (2) Acute on chronic diastolic CHF (congestive heart failure): (3) COPD (chronic obstructive pulmonary disease): (4) CKD (chronic kidney disease) stage 3, GFR 30-59 ml/min: (5) HTN (hypertension): (6) Hypoxia: Plan: Outpatient pulmonary visit assessment: Assessment 1. Shortness of breath, multifactorial secondary to patient's pulmonary hypertension, chronic heart failure preserved EF, suspected airways disease that is untreated likely TH 1 asthma, deconditioning and patient being overweight. Overall the patient's PFTs show pseudo restriction with air trapping and a severely reduced DLCO. The patient's imaging show persistent ground-glass opacities and air trapping on expiratory imaging. She is a never smoker. Overall consistent with possible asthma. She has not have significant fibrotic distortion therefore my suspicion for post COVID I LD is decreased. 2. Pulmonary hypertension suspect this is worsening. Group 2/3 3. Heart failure preserved EF, acute on chronic today. Appears hypervolemic. Compensated 4. Chronic AFib, patient rate controlled today. Remains on full-dose anticoagulation. 5. Chronic hypoxic respiratory failure requiring 5 L at rest 6 L with exertion. 6. GERD, chronic, with esophagitis and history of hiatal hernia. Symptoms controlled (7) Afib: Plan: Pt admitted for acute on chronic repiratory failure, diagnosed as secondary to diastolic dysfunction Pt gained 3lbs of fluid as an outpatient, diuretics increased and started on treatment for possible pneumonia as well covid screen negative on presentation, BNP unchanged, slightly improved, compared back to 2019 cxr not overly impressive for CHF especially given her oxygen requirements has diuresed over 5L as an inpatient without decrease of O2 demand pulmonary pressures increased on repeat echo increased work of breathing this AM will continue to diurese at this time but defer further hypoxic treatment to pulmonary given failure to improve clinically despite diuresis, will ask our palliative care colleagues to discuss goals of care along with code status. Admission and Anticipated Discharge Date Admission Date: September 05, 2021 Subjective Pt seen and examined, chart reviewed. Working harder to breath this morning but states that she feels well. Still with unchanged O2 requirements despite continued diuresis. Tele reviewed: sinus rhythm with frequent PAC's. Review of Systems Review of Systems: All systems reviewed & are unremarkable except as noted in HPI & below Physical Exam Physical Exam: General: Awake, alert and oriented x 3. No acute distress. HEENT: Normocephalic, atraumatic. Pupils equal, round and reactive to light and accommodation. Extraocular muscles are intact. Anicteric sclera. Moist mucous membranes. Neck: No JVD. No bruit. Cardiovascular: Regular. Positive S-4. Normal S-1 and S-2. No S-3. 3/6 holosystolic ejection murmur, 5th intercostal space, mid-clavicular line without radiation. No rubs. Pulmonary: Poor air movement with diffuse rhonchi, scant bibasilar rales Abdomen: Bowel sounds x 4, soft. No rebound, guarding or tenderness. No organomegaly. Extremities: No clubbing, cyanosis or edema. +2 pedal pulses bilaterally. Skin: Warm and dry. several nonhealing ulcers Results & Data ([facility]) Vital Signs (Past 12 Hours) Vital Signs Temp Pulse Pulse Resp BP Pulse Ox 09/09/21 09:38 58 L 09/09/21 08:17 37.0 C 65 19 121/62 92 09/09/21 03:51 36.7 C 66 18 125/66 92 09/09/21 02:51 66 20 92 09/09/21 00:14 36.6 C 54 L 18 120/64 92 09/08/21 23:22 54 L 09/08/21 22:35 52 L 20 91 (1) CKD (chronic kidney disease) stage 3, GFR 30-59 ml/min Chronic kidney disease stage 3 subtype: unspecified whether 3a or 3b Qualified Code(s): N18.30 - Chronic kidney disease, stage 3 unspecified
--- NOTE | 2021-09-09 16:36 | Hospitalist Progress Note ---
Date of Service September 09, 2021 Assessment & Plan (1) Acute on chronic respiratory failure with hypoxemia: Plan: #. Acute on chronic diastolic CHF (congestive heart failure): Presented with desaturation without significant shortness of breath from the [facility] Noted to have acute CHF with increasing proBNP received diuresis, c/w same I/O2 -2.7, monitor daily. ECHO this admission: LV is normal in size with moderate concentric LVH and normal wall motion, EF is 65 to 70%. Has grade 3 diastolic dysfunction with markedly increased left atrial pressure. Left atrium is severely dilated and right atrium is moderately dilated. Aortic valve sclerosis without significant stenosis. Moderate to severe tricuspid regurgitation. RV pressure is severely elevated at more than 60 mmHg Cardio on board: BNP on presentation unchanged or slightly improved compared to 2019, pulmonary pressures increased on repeat echo, believes primary pulmonary issue, continue with diuresis Is and Os so far -5.3L c/w diuresis. Continued high oxygen requirement, no concerns of infection [afebrile, WBC WNL], pulmonary says no further input [cause for respiratory failure unknown versus less likely AE CHF] will continue with diuresis for now, palliative care consulted. #. Acute on chronic respiratory failure with hypoxemia: Has history of COPD and chronic respiratory failure on 2 L of oxygen as a baseli ne Noted to have low saturation of 70s at [facility] and did not improve with oxygen administration She does not use any CPAP and/or BiPAP as an outpatient Has been requiring high flow oxygen to maintain saturation Pulmonology consulted: BPAP prn and HS; Breo daily, SaO2 90-92%. No further input from pulmonology per Pulm. #. Pul HTN likely Type 2 2/2 CHF c/w diuresis per Pulm #. CKD (chronic kidney disease) stage 3, GFR 30-59 ml/min: #. Potassium abnormality Baseline creatinine seems to be around 1.6-1.7. Creatinine around baseline Continue to monitor with ongoing diuresis Monitor electrolytes and replace as appropriate. #. COPD (chronic obstructive pulmonary disease): Does not have any exacerbation #. GERD (gastroesophageal reflux disease): Continue PPI #. HTN (hypertension): Blood pressure remains on the upper side of normal We will continue current medications #. Hypothyroidism: Continue supplement History of Covid pneumonia in October of this year Was told by the ER physician that she is fully vaccinated Awaiting Covid test today-Negative DVT prophylaxis Has histories of paroxysmal A. fib and has been on Xarelto We will continue Xarelto CODE STATUS Resuscitation without intubation Prior attending discussed with the son Admission and Anticipated Discharge Date Admission Date: September 05, 2021 Subjective Patient lying in bed, on 30 L high flow oxygen, NAD, no acute events overnight. Patient reports eating and moving bowels okay. Patient denies any headache/chills/chest pain/palpitations/increased shortness of breath/other review of symptoms. Physical Exam Physical Exam: GENERAL: Alert and oriented x3. NAD, on 30L 75% HF O2 HEENT: No pallor, no icterus. Pupils equal, round and reactive to light. Oral mucosa moist. NECK: No JVD, no neck masses. HEART: S1 and S2 heard. Regular rate and rhythm. No murmur, no gallop. RESPIRATORY SYSTEM: Normal AP diameter. No accessory muscle use. No wheezing, diffuse and b/l crackles - similar ABDOMEN: Soft, bowel sounds present, nontender, no distention. Umbilicial hernia noted. CENTRAL NERVOUS SYSTEM: No facial droop. Speech is clear. Obeys simple commands. Moves extremities. EXTREMITIES: No edema, no erythema seen. Results & Data Results & Data ([facility]) Vital Signs (Past 12 Hours) Vital Signs Temp Pulse Pulse Resp BP Pulse Ox 09/09/21 15:36 36.8 C 60 20 133/66 88 L 09/09/21 15:05 18 92 09/09/21 13:00 65 09/09/21 11:29 36.9 C 56 L 20 120/67 90 09/09/21 10:40 18 92 09/09/21 09:38 58 L 09/09/21 08:17 37.0 C 65 19 121/62 92
--- NOTE | 2021-09-09 19:46 | Communication Note ---
Date of Service: September 09, 2021 Notified by RN of hematochezia without abdominal pain complaints. AP L GIB CBC now Hold NOAC until results back Will relay to AM provider.
[2021-09-09] MEDS: ATORVASTATIN 10 MG TAB PO SCH (21:03)
[2021-09-09 21:22] LABS: Basophils # (auto) 0.01 K/uL (0-0.2); Basophils % (auto) 0.1 %; Eosinophils # (auto) 0.09 K/uL (0-0.5); Hematocrit (blood only) 31.3 % (37-47); Hemoglobin 9.4 g/dL (12.0-16.0); Immature Granulocytes # (auto) 0.04 K/uL (0.00-0.02); Immature Granulocytes % (auto) 0.4 %; Lymphocytes # (auto) 0.54 K/uL (1.2-3.4); Lymphocytes % (auto) 5.9 %; Mean Corpuscular Hemoglobin 25.9 pg (25-34); Mean Corpuscular Volume 86.2 fL (80-100); Mean Platelet Volume 9.2 fL (7.4-10.4); Monocytes # (auto) 0.42 K/uL (0.11-0.59); Monocytes % (auto) 4.6 %; Neutrophils # (auto) 8.03 K/uL (1.4-6.5); Platelet Count 267 K/uL (130-400); RDW Standard Deviation 56.7 fL (36.4-46.3); Red Blood Count 3.63 M/uL (4.2-5.4); White Blood Count 9.13 K/uL (4.8-10.8)
[2021-09-10] MEDS: LEVOTHYROXINE SODIUM 75 MCG TABLET PO SCH (06:12)
[2021-09-10 07:25] LABS: BUN Creatinine Ratio 38.3 (10-20); Calcium 9.4 mg/dl (8.5-10.1); Creatinine Clr Calc Pharmacy 26.3 ml/min; Est GFR (African American) 39.8 ml/min; Est GFR (Non-African American) 34.4 ml/min; Potassium 3.9 mmol/L (3.5-5.1)
[2021-09-10] MEDS: FERROUS SULFATE 325 MG TAB PO SCH (08:38)
[2021-09-10] MEDS: hydrALAZINE TAB 50 MG TAB PO SCH ×2 (08:38→20:27)
[2021-09-10] MEDS: CYANOCOBALAMIN 500 MCG TABLET (VITAMIN B-12) PO SCH (08:38)
[2021-09-10] MEDS: CHOLECALCIFEROL 1,000 UNITS 25 MCG TAB PO SCH (08:39)
[2021-09-10] MEDS: METOPROLOL SUCC 25MG EXT REL TAB PO SCH ×2 (08:39→20:28)
[2021-09-10] MEDS: allopurinoL 100 MG TAB PO SCH ×2 (08:39→20:27)
[2021-09-10] MEDS: FLUTICASONE/VILANTEROL 100/25MCG 14 PUFFS/INHALER INH SCH (08:39)
[2021-09-10] MEDS: amLODIPine BESYLATE 5 MG TAB PO SCH (08:39)
[2021-09-10] MEDS: PANTOprazole 40 MG TAB PO SCH (08:39)
[2021-09-10] MEDS: POTASSIUM CHLORIDE PWD 20 MEQ PACK PO SCH ×3 (08:40→20:27)
[2021-09-10] MEDS: LIDOCAINE 5% 1 PATCH TD SCH (08:40)
[2021-09-10] MEDS: ACETAMINOPHEN 500 MG TAB PO SCH ×3 (08:51→20:26)
[2021-09-10] MEDS: FUROSEMIDE 40 MG/4 ML VIAL IV SCH ×2 (08:51→20:28)
--- NOTE | 2021-09-10 11:52 | Gastrointestinal Consultation ---
Date of Consultation September 10, 2021 Assessment & Plan (1) Hematochezia: in the setting of CHF, afib on xarelto; possible PUD vs. AVM recs: protonix 40 mg BID trend H/H daily diet as tolerated for now if continues to worsen/persistent bleeding, may need EGD, for now will monitor Thank you for allowing me to participate in the care of this patient History of Present Illness Attending Physician: Kieran Serrato MD History of Present Illness 81 yo female with hx COPD, CHF here with worsening CHF. GI consulted for hematochezia. She is noted to be anemic, improved overall since beginning of hospitalization but worse since prior to hospitalization. Currently HD stable. No prior EGD. She is on xarelto daily. labs reviewed. Allergies Allergy/AdvReac Type Severity Reaction Status Date / Time quinapril AdvReac Mild H/A Verified 06/21/21 13:19 nifedipine AdvReac Unknown pounding Verified 06/21/21 13:19 headache Home Medications Medication Instructions Recorded Confirmed Type atorvastatin 10 mg tablet 10 mg PO HS 11/05/18 09/05/21 History cholecalciferol (vitamin D3) 25 1,000 unit PO QAM 11/05/18 09/05/21 History mcg (1,000 unit) capsule (Vitamin D3) cyanocobalamin (vitamin B-12) 500 500 mcg PO QAM 11/05/18 09/05/21 History mcg tablet (Vitamin B-12) digoxin 125 mcg (0.125 mg) tablet 125 mcg PO Q2D 11/05/18 09/05/21 History levothyroxine 75 mcg tablet 75 mcg PO DAILY 11/05/18 09/05/21 History rivaroxaban 15 mg tablet 15 mg PO DAILY 11/05/18 09/05/21 History ferrous sulfate 325 mg (65 mg 325 mg PO DAILY 09/11/20 09/05/21 History iron) tablet lidocaine 5 % topical patch 1 patch TRANSDERMAL QAM #15 ea 09/14/20 09/05/21 Rx acetaminophen 325 mg tablet 650 mg PO Q4H PRN 10/19/20 09/05/21 History (Tylenol) acetaminophen 500 mg tablet 1,000 mg PO TID 10/19/20 09/05/21 History (Tylenol Extra Strength) bisacodyl 10 mg rectal suppository 10 mg [place] DAILY PRN 10/19/20 09/05/21 History (Dulcolax (bisacodyl)) hydralazine 50 mg tablet 100 mg PO BID #60 tab 10/27/20 09/05/21 Rx metoprolol succinate 25 mg 25 mg PO BID #60 tab 10/27/20 09/05/21 Rx tablet,extended release 24 hr allopurinol 100 mg tablet 100 mg PO BID 06/21/21 09/05/21 History amlodipine 10 mg tablet 10 mg PO DAILY 06/21/21 09/05/21 History bumetanide 2 mg tablet 2 mg PO 1200 tab 06/21/21 09/05/21 History metolazone 2.5 mg tablet 2.5 mg PO Q OTHER DAY 06/21/21 09/05/21 History pantoprazole 20 mg tablet,delayed 20 mg PO DAILY 06/21/21 09/05/21 History release potassium chloride 20 mEq 20 meq PO DAILY 09/05/21 09/05/21 History tablet,extended release(part/cryst) Patient History Medical History Acute on chronic diastolic CHF (congestive heart failure) Acute on chronic respiratory failure with hypoxemia Bradycardia Chronic diastolic (congestive) heart failure Chronic respiratory failure with hypoxia CKD (chronic kidney disease) stage 3, GFR 30-59 ml/min Closed fracture of right anterior inferior iliac spine Closed fracture of right anterior superior iliac spine COPD (chronic obstructive pulmonary disease) DVT prophylaxis Elevated troponin YESICA (generalized anxiety disorder) GERD (gastroesophageal reflux disease) History of Mohs micrographic surgery for skin cancer (05/11/21) Right Preauricular Area/[facility] Dr. Alicia Charles History of Mohs micrographic surgery for skin cancer (04/04/21) Left Cheek Medial and Lateral Dr. Alicia Charles HLD (hyperlipidemia) HTN (hypertension) Hypertensive emergency Hypothyroidism Nocturnal hypoxia Osteoporosis Paroxysmal A-fib Pelvis acetabulum fracture Pneumonia due to COVID-19 virus Primary squamous cell carcinoma of skin UTI (urinary tract infection) Surgical History History of nasal polypectomy History of total left knee replacement (TKR) Hx of fracture of radius Status post excisional biopsy (06/01/21) Shave Biopsy - Right Neck Anterior + Right Neck Posterior Status post excisional biopsy (04/04/21) Shave Biopsy - Left Cheek Medial + Left Cheek Lateral + Left 3rd Dorsal Digit Family History Mother , Passed Age 89 Diabetes Hypertension Father , Passed Age 70 Hypertension Coronary heart disease Brother No problems noted. Brother No problems noted. Brother No problems noted. Sister , Passed Age 33 No problems noted. Son No problems noted. Son No problems noted. Son No problems noted. Daughter No problems noted. Social History Smoking Status: Never smoker Second Hand Exposure: Yes ( was smoker); Hx Alcohol Use: No Hx Substance Use: No Preferred Language: Faroese Communication Ability: Effective Visual Impairment: Limited Hearing Ability: Hard of Hearing Auricular Therapist Required: No Beliefs That Will Affect Care: None marital status: / Current Living Situation: [facility] current occupational status: retired current occupation: Retired [employer] How many Children do You have: 4 Other Information That Helps Us Care for You: No Feels Safe at Home: Yes Safety Concerns: Feels Safe At This Time Childhood Exposure to Second-Hand Smoke: Yes Diet Comment: Mechanical Soft, with 1500ml Fluid Restriction caffeine: Yes (1 cup of tea in AM) during the past year weight has: remained stable Dental Care, Regularly: Yes Assistive Devices: Glasses Review of Systems Constitutional: no fever, no chills and no weight loss Eyes: as per Subjective / HPI Ear, Nose, Mouth, Throat: as per Subjective / HPI Respiratory: no dyspnea and no dyspnea on exertion Cardiovascular: no chest pain and no palpitations Gastrointestinal: as per Subjective / HPI Musculoskeletal: no joint pain and no swelling Integumentary: no rash and no lesions Neurologic: no numbness and no paresthesia Psychiatric: no depression and no anxiety Endocrine: no fatigue Hematologic / Lymphatic: no easy bleeding and no easy bruising Physical Exam Constitutional: WD/WN, vitals as above Eyes: EOM intact bilaterally Neck: normal visual inspection Respiratory: normal respiratory effort, lungs clear to auscultation Cardiovascular: RRR, no murmur, no edema Gastrointestinal (Abdomen): Inspection/Auscultation: abdomen normal to inspection; abdomen not distended Percussion/Palpation: abdomen soft; abdomen nontender and no hepatosplenomegaly Musculoskeletal: Extremities: no cyanosis Gait: normal gait Skin: no rashes, warm and dry Neurologic: moves all extremities Psychiatric: A+Ox3, euthymic affect Results & Data ([facility]) Vital Signs (Past 12 Hours) Vital Signs Temp Pulse Pulse Resp BP Pulse Ox 09/10/21 10:45 71 20 95 09/10/21 08:00 64 09/10/21 07:17 64 18 09/10/21 07:06 36.8 C 65 24 121/65 94 09/10/21 04:27 36.6 C 66 20 127/68 93 09/10/21 03:00 68 18 94 09/09/21 23:52 36.8 C 54 L 21 123/65 96 PG Care Time/CCT Total # of Minutes Spent Total Time Spent with Patient: Total time spent is greater than 50% in coordination of care (as documented) at patient's floor/unit and/or counseling patient: Coding Level of Care Code 60603 Initial Inpt Care Lvl 3 Diagnoses Hematochezia K92.1
--- NOTE | 2021-09-10 14:03 | Cardiology Progress Note ---
Date of Service September 10, 2021 Assessment & Plan (1) Acute on chronic respiratory failure with hypoxemia: (2) Acute on chronic diastolic CHF (congestive heart failure): (3) COPD (chronic obstructive pulmonary disease): (4) CKD (chronic kidney disease) stage 3, GFR 30-59 ml/min: (5) HTN (hypertension): (6) Hypoxia: Plan: Outpatient pulmonary visit assessment: Assessment 1. Shortness of breath, multifactorial secondary to patient's pulmonary hypertension, chronic heart failure preserved EF, suspected airways disease that is untreated likely TH 1 asthma, deconditioning and patient being overweight. Overall the patient's PFTs show pseudo restriction with air trapping and a severely reduced DLCO. The patient's imaging show persistent ground-glass opacities and air trapping on expiratory imaging. She is a never smoker. Overall consistent with possible asthma. She has not have significant fibrotic distortion therefore my suspicion for post COVID I LD is decreased. 2. Pulmonary hypertension suspect this is worsening. Group 2/3 3. Heart failure preserved EF, acute on chronic today. Appears hypervolemic. Compensated 4. Chronic AFib, patient rate controlled today. Remains on full-dose anticoagulation. 5. Chronic hypoxic respiratory failure requiring 5 L at rest 6 L with exertion. 6. GERD, chronic, with esophagitis and history of hiatal hernia. Symptoms controlled (7) Afib: Plan: Pt admitted for acute on chronic repiratory failure, diagnosed as secondary to diastolic dysfunction Pt gained 3lbs of fluid as an outpatient, diuretics increased and started on treatment for possible pneumonia as well covid screen negative on presentation, BNP unchanged, slightly improved, compared back to 2019 cxr not overly impressive for CHF especially given her oxygen requirements has diuresed over 7L as an inpatient and now with increasing O2 demand, currently on 85%FiO2 on high flow oxygen mask pulmonary pressures increased on repeat echo increased work of breathing this AM will continue to diurese at this time but defer further hypoxic treatment to pulmonary given failure to improve clinically despite diuresis, will ask our palliative care colleagues to discuss goals of care along with code status. Admission and Anticipated Discharge Date Admission Date: September 05, 2021 Subjective Patient seen and examined, chart reviewed. States that she is feeling okay today without complaints but again with obvious increased work of breathing.. Telemetry reviewed: Sinus rhythm with frequent PACs. Review of Systems Review of Systems: All systems reviewed & are unremarkable except as noted in HPI & below Physical Exam Physical Exam: General: Awake, alert and oriented x 3. No acute distress. HEENT: Normocephalic, atraumatic. Pupils equal, round and reactive to light and accommodation. Extraocular muscles are intact. Anicteric sclera. Moist mucous membranes. Neck: No JVD. No bruit. Cardiovascular: Regular. Positive S-4. Normal S-1 and S-2. No S-3. 3/6 holosystolic ejection murmur, 5th intercostal space, mid-clavicular line without radiation. No rubs. Pulmonary: Poor air movement with diffuse rhonchi, scant bibasilar rales Abdomen: Bowel sounds x 4, soft. No rebound, guarding or tenderness. No organomegaly. Extremities: No clubbing, cyanosis or edema. +2 pedal pulses bilaterally. Skin: Warm and dry. several nonhealing ulcers Results & Data ([facility]) Vital Signs (Past 12 Hours) Vital Signs Temp Pulse Pulse Resp BP BP Pulse Ox 09/10/21 11:42 36.5 C 60 22 126/69 92 09/10/21 10:45 71 20 95 09/10/21 08:00 64 09/10/21 07:17 64 18 09/10/21 07:06 36.8 C 65 24 121/65 94 09/10/21 04:27 36.6 C 66 20 127/68 93 09/10/21 03:00 68 18 94 (1) CKD (chronic kidney disease) stage 3, GFR 30-59 ml/min Chronic kidney disease stage 3 subtype: unspecified whether 3a or 3b Qualified Code(s): N18.30 - Chronic kidney disease, stage 3 unspecified
[2021-09-10] MEDS: DIGOXIN 0.125 MG TAB PO SCH (16:21)
[2021-09-10] MEDS: ATORVASTATIN 10 MG TAB PO SCH (20:26)
--- NOTE | 2021-09-10 20:30 | Hospitalist Progress Note ---
Date of Service September 10, 2021 Assessment & Plan (1) Acute on chronic respiratory failure with hypoxemia: Plan: #. Acute on chronic diastolic CHF (congestive heart failure): Presented with desaturation without significant shortness of breath from the [facility] Noted to have acute CHF with increasing proBNP received diuresis, c/w same I/O2 -2.7, monitor daily. ECHO this admission: LV is normal in size with moderate concentric LVH and normal wall motion, EF is 65 to 70%. Has grade 3 diastolic dysfunction with markedly increased left atrial pressure. Left atrium is severely dilated and right atrium is moderately dilated. Aortic valve sclerosis without significant stenosis. Moderate to severe tricuspid regurgitation. RV pressure is severely elevated at more than 60 mmHg Cardio on board: BNP on presentation unchanged or slightly improved compared to 2019, pulmonary pressures increased on repeat echo, believes primary pulmonary issue, continue with diuresis Is and Os so far -7L c/w diuresis. Continued high oxygen requirement -increasing, no concerns of infection [afebrile, WBC WNL], pulmonary static poor prognosis [cause for respiratory failure unknown versus likely pulmonary hypertension secondary to CHF] will continue with diuresis for now, palliative care consulted. #. Acute on chronic respiratory failure with hypoxemia: Has history of COPD and chronic respiratory failure on 2 L of oxygen as a baseli ne Noted to have low saturation of 70s at [facility] and did not improve with oxygen administration She does not use any CPAP and/or BiPAP as an outpatient Has been requiring high flow oxygen to maintain saturation Pulmonology consulted: BPAP prn and HS; Breo daily, SaO2 90-92%. Poor prognosis. No further input from pulmonology per Pulm. #. Pul HTN likely Type 2 2/2 CHF c/w diuresis per Pulm recommendation #. Lower GI bleed Xarelto held, hemoglobin around 9, GI consulted, plan for scope on Sunday. Continue to hold rivaroxaban. #. CKD (chronic kidney disease) stage 3, GFR 30-59 ml/min: #. Potassium abnormality Baseline creatinine seems to be around 1.6-1.7. Creatinine around baseline Continue to monitor with ongoing diuresis Monitor electrolytes and replace as appropriate. #. COPD (chronic obstructive pulmonary disease): Does not have any exacerbation #. GERD (gastroesophageal reflux disease): Continue PPI #. HTN (hypertension): Blood pressure remains on the upper side of normal We will continue current medications #. Hypothyroidism: Continue supplement History of Covid pneumonia in October of this year Was told by the ER physician that she is fully vaccinated Awaiting Covid test today-Negative DVT prophylaxis Has histories of paroxysmal A. fib and has been on Xarelto We will continue Xarelto CODE STATUS Resuscitation without intubation Prior attending discussed with the son Admission and Anticipated Discharge Date Admission Date: September 05, 2021 Subjective Patient seen and examined at the bedside. Patient was lying in bed, on 35 L high flow oxygen, NAD. Patient reports no acute events overnight. Patient reports eating and moving bowels okay. Patient denies headaches/dizziness/increased shortness of breath/other review of symptoms. Physical Exam Physical Exam: GENERAL: Alert and oriented x3. NAD, on 35L 85% HF O2 HEENT: No pallor, no icterus. Pupils equal, round and reactive to light. Oral mucosa moist. NECK: No JVD, no neck masses. HEART: S1 and S2 heard. Regular rate and rhythm. No murmur, no gallop. RESPIRATORY SYSTEM: Normal AP diameter. No accessory muscle use. No wheezing, diffuse and b/l crackles - similar ABDOMEN: Soft, bowel sounds present, nontender, no distention. Umbilicial hernia noted. CENTRAL NERVOUS SYSTEM: No facial droop. Speech is clear. Obeys simple commands. Moves extremities. EXTREMITIES: No edema, no erythema seen. Results & Data Results & Data ([facility]) Vital Signs (Past 12 Hours) Vital Signs Temp Pulse Pulse Resp BP BP Pulse Ox 09/10/21 19:52 36.8 C 63 26 H 145/67 H 91 09/10/21 18:28 19 90 09/10/21 16:00 61 09/10/21 15:08 36.7 C 61 22 124/63 92 09/10/21 14:15 18 91 09/10/21 11:42 36.5 C 60 22 126/69 92 09/10/21 10:45 71 20 95
[2021-09-11] MEDS: LEVOTHYROXINE SODIUM 75 MCG TABLET PO SCH (05:59)
[2021-09-11 07:02] LABS: Hematocrit (blood only) 31.9 % (37-47); Hemoglobin 9.5 g/dL (12.0-16.0); Mean Corpuscular Hemoglobin 25.6 pg (25-34); Mean Corpuscular Hgb Conc 29.8 g/dL (32-36); Mean Platelet Volume 9.4 fL (7.4-10.4); Platelet Count 269 K/uL (130-400); RDW Coefficient of Variation 17.8 % (11.5-14.5); RDW Standard Deviation 55.6 fL (36.4-46.3); Red Blood Count 3.71 M/uL (4.2-5.4); White Blood Count 9.25 K/uL (4.8-10.8)
[2021-09-11 07:47] LABS: BUN Creatinine Ratio 35.4 (10-20); Calcium 9.5 mg/dl (8.5-10.1); Creatinine Clr Calc Pharmacy 30.3 ml/min; Est GFR (African American) 47.4 ml/min; Est GFR (Non-African American) 40.9 ml/min; Potassium 3.3 mmol/L (3.5-5.1)
[2021-09-11] MEDS: ACETAMINOPHEN 500 MG TAB PO SCH ×3 (08:59→21:41)
[2021-09-11] MEDS: amLODIPine BESYLATE 5 MG TAB PO SCH (08:59)
[2021-09-11] MEDS: FERROUS SULFATE 325 MG TAB PO SCH (08:59)
[2021-09-11] MEDS: LIDOCAINE 5% 1 PATCH TD SCH (09:00)
[2021-09-11] MEDS: METOPROLOL SUCC 25MG EXT REL TAB PO SCH ×2 (09:00→21:41)
[2021-09-11] MEDS: PANTOprazole 40 MG TAB PO SCH (09:01)
[2021-09-11] MEDS: allopurinoL 100 MG TAB PO SCH ×2 (09:01→21:41)
[2021-09-11] MEDS: hydrALAZINE TAB 50 MG TAB PO SCH ×2 (09:01→21:41)
[2021-09-11] MEDS: CHOLECALCIFEROL 1,000 UNITS 25 MCG TAB PO SCH (09:01)
[2021-09-11] MEDS: POTASSIUM CHLORIDE PWD 20 MEQ PACK PO SCH ×3 (09:01→21:41)
[2021-09-11] MEDS: FLUTICASONE/VILANTEROL 100/25MCG 14 PUFFS/INHALER INH SCH (09:02)
[2021-09-11] MEDS: CYANOCOBALAMIN 500 MCG TABLET (VITAMIN B-12) PO SCH (09:02)
[2021-09-11] MEDS: FUROSEMIDE 40 MG/4 ML VIAL IV SCH ×2 (09:08→21:41)
--- NOTE | 2021-09-11 12:50 | Cardiology Progress Note ---
Date of Service September 11, 2021 Assessment & Plan (1) Acute on chronic respiratory failure with hypoxemia: (2) Acute on chronic diastolic CHF (congestive heart failure): (3) COPD (chronic obstructive pulmonary disease): (4) CKD (chronic kidney disease) stage 3, GFR 30-59 ml/min: (5) HTN (hypertension): (6) Hypoxia: Plan: Outpatient pulmonary visit assessment: Assessment 1. Shortness of breath, multifactorial secondary to patient's pulmonary hypertension, chronic heart failure preserved EF, suspected airways disease that is untreated likely TH 1 asthma, deconditioning and patient being overweight. Overall the patient's PFTs show pseudo restriction with air trapping and a severely reduced DLCO. The patient's imaging show persistent ground-glass opacities and air trapping on expiratory imaging. She is a never smoker. Overall consistent with possible asthma. She has not have significant fibrotic distortion therefore my suspicion for post COVID I LD is decreased. 2. Pulmonary hypertension suspect this is worsening. Group 2/3 3. Heart failure preserved EF, acute on chronic today. Appears hypervolemic. Compensated 4. Chronic AFib, patient rate controlled today. Remains on full-dose anticoagulation. 5. Chronic hypoxic respiratory failure requiring 5 L at rest 6 L with exertion. 6. GERD, chronic, with esophagitis and history of hiatal hernia. Symptoms controlled (7) Afib: Plan: Pt admitted for acute on chronic repiratory failure, diagnosed as secondary to diastolic dysfunction Pt gained 3lbs of fluid as an outpatient, diuretics increased and started on treatment for possible pneumonia as well covid screen negative on presentation, BNP unchanged, slightly improved, compared back to 2019 cxr not overly impressive for CHF especially given her oxygen requirements has diuresed over 9L as an inpatient and now with increasing O2 demand, currently on 85%FiO2 on high flow oxygen mask pulmonary pressures increased on repeat echo increased work of breathing this AM will continue to diurese at this time but defer further hypoxic treatment to pulmonary given failure to improve clinically despite diuresis, will ask our palliative care colleagues to discuss goals of care along with code status. We will hold digoxin for her bradycardia and may decrease metoprolol dose as necessary. Admission and Anticipated Discharge Date Admission Date: September 05, 2021 Subjective Patient seen and examined, chart reviewed. Currently with significant conversational dyspnea but patient denies complaints. Telemetry reviewed: Sinus rhythm with frequent PACs and significant episodes of bradycardia overnight. Review of Systems Review of Systems: All systems reviewed & are unremarkable except as noted in HPI & below Physical Exam Physical Exam: General: Awake, alert and oriented x 3. No acute distress. HEENT: Normocephalic, atraumatic. Pupils equal, round and reactive to light a nd accommodation. Extraocular muscles are intact. Anicteric sclera. Moist mucous membranes. Neck: No JVD. No bruit. Cardiovascular: Regular. Positive S-4. Normal S-1 and S-2. No S-3. 3/6 hol osystolic ejection murmur, 5th intercostal space, mid-clavicular line without radiation. No rubs. Pulmonary: Poor air movement with diffuse rhonchi, scant bibasilar rales Abdomen: Bowel sounds x 4, soft. No rebound, guarding or tenderness. No organomegaly. Extremities: No clubbing, cyanosis or edema. +2 pedal pulses bilaterally. Skin: Warm and dry. several nonhealing ulcers Results & Data ([facility]) Vital Signs (Past 12 Hours) Vital Signs Temp Pulse Pulse Pulse Resp BP Pulse Ox 09/11/21 11: 36.6 C 58 L 18 112/67 90 09/11/21 10:59 60 18 91 09/11/21 07:35 36.4 C L 71 26 H 142/69 H 92 09/11/21 07:22 63 09/11/21 07:05 65 18 92 09/11/21 04:08 66 16 91 09/11/21 03:26 36.7 C 65 24 122/62 90 (1) CKD (chronic kidney disease) stage 3, GFR 30-59 ml/min Chronic kidney disease stage 3 subtype: unspecified whether 3a or 3b Qualified Code(s): N18.30 - Chronic kidney disease, stage 3 unspecified
--- NOTE | 2021-09-11 16:10 | Hospitalist Progress Note ---
Date of Service September 11, 2021 Assessment & Plan (1) Acute on chronic respiratory failure with hypoxemia: Plan: #. Acute on chronic diastolic CHF (congestive heart failure): Presented with desaturation without significant shortness of breath from the [facility] Noted to have acute CHF with increasing proBNP received diuresis, c/w same I/O2 -2.7, monitor daily. ECHO this admission: LV is normal in size with moderate concentric LVH and normal wall motion, EF is 65 to 70%. Has grade 3 diastolic dysfunction with markedly increased left atrial pressure. Left atrium is severely dilated and right atrium is moderately dilated. Aortic valve sclerosis without significant stenosis. Moderate to severe tricuspid regurgitation. RV pressure is severely elevated at more than 60 mmHg Cardio on board: BNP on presentation unchanged or slightly improved compared to 2019, pulmonary pressures increased on repeat echo, believes primary pulmonary issue, continue with diuresis Is and Os so far -9.2L c/w diuresis. Continued high oxygen requirement -increasing, no concerns of infection [afebrile, WBC WNL], pulmonary stating poor prognosis [cause for respiratory failure unknown versus likely pulmonary hypertension secondary to CHF] will continue with diuresis for now, palliative care consulted. #. Acute on chronic respiratory failure with hypoxemia: Has history of COPD and chronic respiratory failure on 2 L of oxygen as a baseli ne Noted to have low saturation of 70s at [facility] and did not improve with oxygen administration She does not use any CPAP and/or BiPAP as an outpatient Has been requiring high flow oxygen to maintain saturation Pulmonology consulted: BPAP prn and HS; Breo daily, SaO2 90-92%. Poor prognosis. No further input from pulmonology per Pulm. #. Pul HTN likely Type 2 2/2 CHF c/w diuresis per Pulm recommendation #. Lower GI bleed Xarelto held, hemoglobin around 9, GI consulted, plan for scope on Sunday. Continue to hold rivaroxaban. If there is plan for GI to scope tomorrow, patient will need to be n.p.o. midnight, unsure as of now. #. CKD (chronic kidney disease) stage 3, GFR 30-59 ml/min: #. Potassium abnormality Baseline creatinine seems to be around 1.6-1.7. Creatinine better than baseline Continue to monitor with ongoing diuresis Monitor electrolytes and replace as appropriate. #. COPD (chronic obstructive pulmonary disease): Does not have any exacerbation #. GERD (gastroesophageal reflux disease): Continue PPI #. HTN (hypertension): Blood pressure remains on the upper side of normal We will continue current medications #. Hypothyroidism: Continue supplement History of Covid pneumonia in October of this year Was told by the ER physician that she is fully vaccinated Covid test in hospital-Negative DVT prophylaxis Has histories of paroxysmal A. fib and has been on Xarelto Plan: Continue to hold Xarelto, await GI's decision to scope her, patient will need to be n.p.o. midnight if there is a plan for scope tomorrow. will resume Xarelto tomorrow in coordination with GI if they do not plan to scope her. CODE STATUS Resuscitation without intubation Prior attending discussed with the son Admission and Anticipated Discharge Date Admission Date: September 05, 2021 Subjective Patient was sitting up in bed, requiring increasing oxygen, NAD, denies acute events overnight. Patient is eating and moving bowels okay per her. Patient denies headache/dizziness/chest pain/palpitation/other review of symptoms. Urinary catheter was in situ with light yellow urine collection. Physical Exam Physical Exam: GENERAL: Alert and oriented x3. NAD, on 40L 100% HF O2 HEENT: No pallor, no icterus. Pupils equal, round and reactive to light. Oral mucosa moist. NECK: No JVD, no neck masses. HEART: S1 and S2 heard. Regular rate and rhythm. No murmur, no gallop. RESPIRATORY SYSTEM: Normal AP diameter. No accessory muscle use. No wheezing, diffuse and b/l crackles - similar ABDOMEN: Soft, bowel sounds present, nontender, no distention. Umbilicial hernia noted. CENTRAL NERVOUS SYSTEM: No facial droop. Speech is clear. Obeys simple commands. Moves extremities. EXTREMITIES: No edema, no erythema seen. Results & Data Results & Data ([facility]) Vital Signs (Past 12 Hours) Vital Signs Temp Pulse Pulse Pulse Resp BP BP 09/11/21 15:48 36.9 C 61 20 123/79 09/11/21 15:01 58 L 18 09/11/21 11:21 36.6 C 58 L 18 112/67 09/11/21 10:59 60 18 09/11/21 07:35 36.4 C L 71 26 H 142/69 H 09/11/21 07:22 63 09/11/21 07:05 65 18 09/11/21 04:08 66 16 Pulse Ox 09/11/21 15:48 91 09/11/21 15:01 93 09/11/21 11:21 90 09/11/21 10:59 91 09/11/21 07:35 92 09/11/21 07:22 09/11/21 07:05 92 09/11/21 04:08 91
--- NOTE | 2021-09-11 19:51 | CT Scan Report ---
CT chest diagnostic wo con CT DOSE: 401.44 mGy.cm CLINICAL HISTORY: 81 years-old Female with hypoxia. Acute hypoxia TECHNIQUE: Multiaxial CT images of the chest were performed without contrast. A dose lowering techni que was utilized adhering to the principles of ALARA. COMPARISON: CTA chest 10/19/2020, chest radiographs 09/09/2021 FINDINGS: No thyroid nodule. Mildly prominent nonenlarged mediastinal and hilar lymph nodes measuring up to 8 mm are likely reactive. Moderate cardiomegaly. Moderate coronary artery calcifications. Trac e pericardial effusion. Atherosclerosis of the aorta without aneurysm. Bibasilar consolidation and ai r bronchograms. Patchy multifocal bilateral groundglass densities with areas of irregular nodular con solidation including a 1.2 cm focus within the right lung apex on image 43. Mild intralobular septal thickening. Central airways are patent. Mild wall thickening of the distal esophagus with small hiatal hernia. Partially imaged 2.67 m lesion of the left adrenal gland with Hounsfield 3 suggests probable adenoma. Unremarkable soft tissues. No acute fracture. Healed chronic right-sided rib fractures. Chronic T12 compression fracture with retr opulsion demonstrates progressive vertebral body height loss. IMPRESSION: 1. Cardiomegaly with pulmonary edema, small pleural effusions and bibasilar consolidation. 2. Patchy bilateral groundglass opacities with a few areas of irregular nodular consolidation are sug gestive of a superimposed infectious or inflammatory pneumonitis. 3. Mildly prominent mediastinal and hilar lymph nodes, likely reactive. 4. Chronic T12 compression deformity with retropulsion demonstrates progressively worsened vertebral body height loss compared to the 10/19/2020 study. 5. Additional findings as above. ACT 112: Negative or not required by law. Electronically signed by: John Miguel M.D. 09/11/2021 7:50 PM
[2021-09-11] MEDS: ATORVASTATIN 10 MG TAB PO SCH (21:41)
[2021-09-12] MEDS: LEVOTHYROXINE SODIUM 75 MCG TABLET PO SCH (06:14)
[2021-09-12 06:31] LABS: Hematocrit (blood only) 32.9 % (37-47); Mean Corpuscular Hemoglobin 26.2 pg (25-34); Mean Corpuscular Hgb Conc 30.4 g/dL (32-36); Mean Corpuscular Volume 86.1 fL (80-100); Mean Platelet Volume 9.1 fL (7.4-10.4); Platelet Count 260 K/uL (130-400); RDW Coefficient of Variation 17.9 % (11.5-14.5); RDW Standard Deviation 56.8 fL (36.4-46.3); Red Blood Count 3.82 M/uL (4.2-5.4); White Blood Count 10.03 K/uL (4.8-10.8)
[2021-09-12 07:07] LABS: BUN Creatinine Ratio 31.3 (10-20); Calcium 9.5 mg/dl (8.5-10.1); Creatinine Clr Calc Pharmacy 31.3 ml/min; Est GFR (African American) 49.4 ml/min; Est GFR (Non-African American) 42.6 ml/min; Magnesium 2.5 mg/dl (1.8-2.4); Potassium 3.6 mmol/L (3.5-5.1)
[2021-09-12 07:08] LABS: Phosphorus 2.5 mg/dl (2.5-4.9)
[2021-09-12] MEDS: CYANOCOBALAMIN 500 MCG TABLET (VITAMIN B-12) PO SCH (08:31)
[2021-09-12] MEDS: PANTOprazole 40 MG TAB PO SCH (08:31)
[2021-09-12] MEDS: CHOLECALCIFEROL 1,000 UNITS 25 MCG TAB PO SCH (08:32)
[2021-09-12] MEDS: FERROUS SULFATE 325 MG TAB PO SCH (08:32)
[2021-09-12] MEDS: amLODIPine BESYLATE 5 MG TAB PO SCH (08:33)
[2021-09-12] MEDS: METOPROLOL SUCC 25MG EXT REL TAB PO SCH ×2 (08:33→21:30)
[2021-09-12] MEDS: hydrALAZINE TAB 50 MG TAB PO SCH ×2 (08:34→21:29)
[2021-09-12] MEDS: allopurinoL 100 MG TAB PO SCH ×2 (08:34→21:28)
[2021-09-12] MEDS: POTASSIUM CHLORIDE PWD 20 MEQ PACK PO SCH ×3 (08:35→21:31)
[2021-09-12] MEDS: FUROSEMIDE 40 MG/4 ML VIAL IV SCH ×2 (08:37→21:47)
[2021-09-12] MEDS: FLUTICASONE/VILANTEROL 100/25MCG 14 PUFFS/INHALER INH SCH (08:37)
[2021-09-12] MEDS: LIDOCAINE 5% 1 PATCH TD SCH (08:37)
[2021-09-12] MEDS: ACETAMINOPHEN 500 MG TAB PO SCH ×3 (08:43→21:47)
[2021-09-12] MEDS ORDERED: RIVAROXABAN 15 MG TAB PO ONE (10:15)
--- NOTE | 2021-09-12 15:29 | Cardiology Progress Note ---
Date of Service September 12, 2021 Assessment & Plan (1) Acute on chronic respiratory failure with hypoxemia: (2) Acute on chronic diastolic CHF (congestive heart failure): (3) COPD (chronic obstructive pulmonary disease): (4) CKD (chronic kidney disease) stage 3, GFR 30-59 ml/min: (5) HTN (hypertension): (6) Hypoxia: Plan: Outpatient pulmonary visit assessment: Assessment 1. Shortness of breath, multifactorial secondary to patient's pulmonary hypertension, chronic heart failure preserved EF, suspected airways disease that is untreated likely TH 1 asthma, deconditioning and patient being overweight. Overall the patient's PFTs show pseudo restriction with air trapping and a severely reduced DLCO. The patient's imaging show persistent ground-glass opacities and air trapping on expiratory imaging. She is a never smoker. Overall consistent with possible asthma. She has not have significant fibrotic distortion therefore my suspicion for post COVID I LD is decreased. 2. Pulmonary hypertension suspect this is worsening. Group 2/3 3. Heart failure preserved EF, acute on chronic today. Appears hypervolemic. Compensated 4. Chronic AFib, patient rate controlled today. Remains on full-dose anticoagulation. 5. Chronic hypoxic respiratory failure requiring 5 L at rest 6 L with exertion. 6. GERD, chronic, with esophagitis and history of hiatal hernia. Symptoms controlled (7) Afib: Plan: Pt admitted for acute on chronic repiratory failure, diagnosed as secondary to diastolic dysfunction Pt gained 3lbs of fluid as an outpatient, diuretics increased and started on treatment for possible pneumonia as well covid screen negative on presentation, BNP unchanged, slightly improved, compared back to 2019 cxr not overly impressive for CHF especially given her oxygen requirements has diuresed over 10L as an inpatient and now with increasing O2 demand, currently on 95%FiO2 on high flow oxygen mask pulmonary pressures increased on repeat echo Noncontrast CT of the chest performed. We will perform a limited echocardiogram with bubble study to rule out shunting as per pulmonary recommendations. increased work of breathing this AM will continue to diurese at this time but defer further hypoxic treatment to pulmonary given failure to improve clinically despite diuresis, will ask our palliative care colleagues to discuss goals of care along with code status. We will hold digoxin for her bradycardia and may decrease metoprolol dose as necessary. Admission and Anticipated Discharge Date Admission Date: September 05, 2021 Subjective Patient seen and examined, chart reviewed. Continues to deny any complaints despite increasing O2 demands. Telemetry reviewed: Review of Systems Review of Systems: All systems reviewed & are unremarkable except as noted in HPI & below Physical Exam Physical Exam: General: Awake, alert and oriented x 3. No acute distress. HEENT: Normocephalic, atraumatic. Pupils equal, round and reactive to light and accommodation. Extraocular muscles are intact. Anicteric sclera. Moist mucous membranes. Neck: No JVD. No bruit. Cardiovascular: Regular. Positive S-4. Normal S-1 and S-2. No S-3. 3/6 holosystolic ejection murmur, 5th intercostal space, mid-clavicular line without radiation. No rubs. Pulmonary: Poor air movement with diffuse rhonchi, scant bibasilar rales Abdomen: Bowel sounds x 4, soft. No rebound, guarding or tenderness. No organomegaly. Extremities: No clubbing, cyanosis or edema. +2 pedal pulses bilaterally. Skin: Warm and dry. several nonhealing ulcers Results & Data ([facility]) Vital Signs (Past 12 Hours) Vital Signs Temp Pulse Pulse Resp BP Pulse Ox 09/12/21 15:12 66 09/12/21 11:51 36.6 C 64 16 124/76 91 09/12/21 07:49 36.8 C 73 18 160/71 H 93 09/12/21 07:40 66 18 92 09/12/21 07:17 74 09/12/21 03:39 36.8 C 67 20 137/69 95 (1) CKD (chronic kidney disease) stage 3, GFR 30-59 ml/min Chronic kidney disease stage 3 subtype: unspecified whether 3a or 3b Qualified Code(s): N18.30 - Chronic kidney disease, stage 3 unspecified
--- NOTE | 2021-09-12 18:14 | Hospitalist Progress Note ---
Date of Service September 12, 2021 Assessment & Plan (1) Acute on chronic respiratory failure with hypoxemia: Plan: #. Acute on chronic diastolic CHF (congestive heart failure): Presented with desaturation without significant shortness of breath from the [facility] Noted to have acute CHF with increasing proBNP received diuresis, c/w same ECHO this admission: LV is normal in size with moderate concentric LVH and normal wall motion, EF is 65 to 70%. Has grade 3 diastolic dysfunction with markedly increased left atrial pressure. Left atrium is severely dilated and right atrium is moderately dilated. Aortic valve sclerosis without significant stenosis. Moderate to severe tricuspid regurgitation. RV pressure is severely elevated at more than 60 mmHg Cardio on board: BNP on presentation unchanged or slightly improved compared to 2019, pulmonary pressures increased on repeat echo, believes primary pulmonary issue, continue with diuresis. Plan to repeat echo with bubble. Is and Os so far -10.2L c/w diuresis. Continued high oxygen requirement -increasing, no concerns of infection [afebrile, WBC WNL], pulmonary stating poor prognosis [cause for respiratory failure unknown versus likely pulmonary hypertension secondary to CHF] will continue with diuresis for now, palliative care consulted. #. Acute on chronic respiratory failure with hypoxemia: Has history of COPD and chronic respiratory failure on 2 L of oxygen as a baseli ne Noted to have low saturation of 70s at [facility] and did not improve with oxygen administration She does not use any CPAP and/or BiPAP as an outpatient Has been requiring high flow oxygen to maintain saturation Pulmonology consulted: BPAP prn and HS; Breo daily, SaO2 90-92%. Poor prognosis. No further input from pulmonology per Pulm. Rediscussed with Pulm 09/12 : states HF, suggested repeating echo with bubble to see ASD/PFO shunt, no further recs. #. Pul HTN likely Type 2 2/2 CHF c/w diuresis per Pulm recommendation #. Lower GI bleed Xarelto held, hemoglobin around 9, GI consulted, plan for scope on Sunday. No plan for scope from GI, Joyrelto resumed 09/12. #. CKD (chronic kidney disease) stage 3, GFR 30-59 ml/min: #. Potassium abnormality Baseline creatinine seems to be around 1.6-1.7. Creatinine better than baseline Continue to monitor with ongoing diuresis Monitor electrolytes and replace as appropriate. #. COPD (chronic obstructive pulmonary disease): Does not have any exacerbation #. GERD (gastroesophageal reflux disease): Continue PPI #. HTN (hypertension): Blood pressure remains on the upper side of normal We will continue current medications #. Hypothyroidism: Continue supplement History of Covid pneumonia in October of this year Was told by the ER physician that she is fully vaccinated Covid test in hospital-Negative DVT prophylaxis Has histories of paroxysmal A. fib and on Xarelto. CODE STATUS Resuscitation without intubation Prior attending discussed with the son Admission and Anticipated Discharge Date Admission Date: September 05, 2021 Subjective Patient seen and examined at the bedside. Patient still requiring high amount of oxygen, at 35 L [90%] at bedside, NAD. Denies any new acute events overnight. Patient reports eating and moving bowels okay. Patient denies any fever/chills/headache/increased shortness of breath/other review of symptoms. Physical Exam Physical Exam: GENERAL: Alert and oriented x3. NAD, on 35L 95% HF O2 HEENT: No pallor, no icterus. Pupils equal, round and reactive to light. Oral mucosa moist. NECK: No JVD, no neck masses. HEART: S1 and S2 heard. Regular rate and rhythm. No murmur, no gallop. RESPIRATORY SYSTEM: Normal AP diameter. No accessory muscle use. No wheezing, diffuse and b/l crackles - similar ABDOMEN: Soft, bowel sounds present, nontender, no distention. Umbilicial hernia noted. CENTRAL NERVOUS SYSTEM: No facial droop. Speech is clear. Obeys simple commands. Moves extremities. EXTREMITIES: trace edema, no erythema seen. Results & Data Results & Data ([facility]) Vital Signs (Past 12 Hours) Vital Signs Temp Pulse Pulse Resp BP BP Pulse Ox 09/12/21 16:02 36.8 C 62 18 119/67 95 09/12/21 15:49 62 16 96 09/12/21 15:12 66 09/12/21 11:51 36.6 C 64 16 124/76 91 09/12/21 07:49 36.8 C 73 18 160/71 H 93 09/12/21 07:40 66 18 92 09/12/21 07:17 74
[2021-09-12] MEDS: ATORVASTATIN 10 MG TAB PO SCH (21:29)
[2021-09-13] MEDS: LEVOTHYROXINE SODIUM 75 MCG TABLET PO SCH (05:55)
[2021-09-13 08:18] LABS: BUN Creatinine Ratio 24.6 (10-20); Calcium 8.9 mg/dl (8.5-10.1); Creatinine Clr Calc Pharmacy 29.3 ml/min; Est GFR (African American) 46.5 ml/min; Est GFR (Non-African American) 40.1 ml/min; Potassium 3.5 mmol/L (3.5-5.1)
[2021-09-13] MEDS: FUROSEMIDE 40 MG/4 ML VIAL IV SCH ×2 (09:10→20:44)
[2021-09-13] MEDS: CHOLECALCIFEROL 1,000 UNITS 25 MCG TAB PO SCH (09:10)
[2021-09-13] MEDS: ACETAMINOPHEN 500 MG TAB PO SCH ×3 (09:10→20:44)
[2021-09-13] MEDS: RIVAROXABAN 15 MG TAB PO SCH (09:11)
[2021-09-13] MEDS: CYANOCOBALAMIN 500 MCG TABLET (VITAMIN B-12) PO SCH (09:11)
[2021-09-13] MEDS: amLODIPine BESYLATE 5 MG TAB PO SCH (09:11)
[2021-09-13] MEDS: FERROUS SULFATE 325 MG TAB PO SCH (09:11)
[2021-09-13] MEDS: allopurinoL 100 MG TAB PO SCH ×2 (09:12→20:46)
[2021-09-13] MEDS: PANTOprazole 40 MG TAB PO SCH (09:12)
[2021-09-13] MEDS: hydrALAZINE TAB 50 MG TAB PO SCH ×2 (09:12→20:46)
[2021-09-13] MEDS: METOPROLOL SUCC 25MG EXT REL TAB PO SCH ×2 (09:13→20:44)
[2021-09-13] MEDS: FLUTICASONE/VILANTEROL 100/25MCG 14 PUFFS/INHALER INH SCH (09:13)
[2021-09-13] MEDS: POTASSIUM CHLORIDE PWD 20 MEQ PACK PO SCH ×3 (09:14→20:46)
[2021-09-13] MEDS: LIDOCAINE 5% 1 PATCH TD SCH (09:18)
--- NOTE | 2021-09-13 09:38 | Palliative Care Consultation ---
Date of Consultation September 13, 2021 Assessment & Plan (1) Palliative care encounter: Ms. Smith is an 81 year old patient that was admitted to [facility] from [facility] with increased SOB. She has a long standing history of CHF and was noted to have an acute on chronic exacerbation. She has additional PMH that includes: AF, CHF, hypothyroidism, and CKD. She has close monitoring as an outpatient with cardiology for her strict diuresis. Unfortunately, her oxygen demand has been increasing without signs of improvement. Per Cardiology, she has been ultimately maximized with her diuresis and palliative medicine was consulted to discuss overall goals of care. I did meet with Vaishnavi at her bedside. SHe was sitting up in her bed in no apparent distress. She is currently on HIghFlow oxygen at 30L and 55%. She was able to answer some simple questions like the names of her children and where she was. I do hesitate that she has full understanding of the complexity of her illness and while she can participate in conversation, I would feel more comfortable with having a directed goals of care conversation with her son, Jacinto who is listed as POA. Ultimately, I think its important to recognize if we have maximized this individuals respiratory drive. Should the goal be to shift away from aggressive treatment, she certainly would qualify for hospice services with a diagnosis of: CHF or COPD. Her code status is important to be addressed and clarified when speaking with her son, Jacinto. I did reach out to Jacinto at [phone] and left him a voicemail. I will continue to attempt to reach him to clarify goals. (2) Hypoxia: (3) Weakness: History of Present Illness Reason for Consultation: Goals of care Requesting Physician: Dr. Mcconnell Attending Physician: Kieran Serrato MD History of Present Illness Ms. Smith is an 81 year old patient that was admitted to [facility] from [facility] with increased SOB. She has a long standing history of CHF and was noted to have an acute on chronic exacerbation. She has additional PMH that includes: AF, CHF, hypothyroidism, and CKD. She has close monitoring as an outpatient with cardiology for her strict diuresis. Unfortunately, her oxygen demand has been increasing without signs of improvement. Per Cardiology, she has been ultimately maximized with her diuresis and palliative medicine was consulted to discuss overall goals of care. Please see A/P for further details. Thanks for involving Palliative Medicine with this patient. Allergies Allergy/AdvReac Type Severity Reaction Status Date / Time quinapril AdvReac Mild H/A Verified 06/21/21 13:19 nifedipine AdvReac Unknown pounding Verified 06/21/21 13:19 headache Home Medications Medication Instructions Recorded Confirmed Type atorvastatin 10 mg tablet 10 mg PO HS 11/05/18 09/05/21 History cholecalciferol (vitamin D3) 25 1,000 unit PO QAM 11/05/18 09/05/21 History mcg (1,000 unit) capsule (Vitamin D3) cyanocobalamin (vitamin B-12) 500 500 mcg PO QAM 11/05/18 09/05/21 History mcg tablet (Vitamin B-12) digoxin 125 mcg (0.125 mg) tablet 125 mcg PO Q2D 11/05/18 09/05/21 History levothyroxine 75 mcg tablet 75 mcg PO DAILY 11/05/18 09/05/21 History rivaroxaban 15 mg tablet 15 mg PO DAILY 11/05/18 09/05/21 History ferrous sulfate 325 mg (65 mg 325 mg PO DAILY 09/11/20 09/05/21 History iron) tablet lidocaine 5 % topical patch 1 patch TRANSDERMAL QAM #15 ea 09/14/20 09/05/21 Rx acetaminophen 325 mg tablet 650 mg PO Q4H PRN 10/19/20 09/05/21 History (Tylenol) acetaminophen 500 mg tablet 1,000 mg PO TID 10/19/20 09/05/21 History (Tylenol Extra Strength) bisacodyl 10 mg rectal suppository 10 mg MS DAILY PRN 10/19/20 09/05/21 History (Dulcolax (bisacodyl)) hydralazine 50 mg tablet 100 mg PO BID #60 tab 10/27/20 09/05/21 Rx metoprolol succinate 25 mg 25 mg PO BID #60 tab 10/27/20 09/05/21 Rx tablet,extended release 24 hr allopurinol 100 mg tablet 100 mg PO BID 06/21/21 09/05/21 History amlodipine 10 mg tablet 10 mg PO DAILY 06/21/21 09/05/21 History bumetanide 2 mg tablet 2 mg PO 1200 tab 06/21/21 09/05/21 History metolazone 2.5 mg tablet 2.5 mg PO Q OTHER DAY 06/21/21 09/05/21 History pantoprazole 20 mg tablet,delayed 20 mg PO DAILY 06/21/21 09/05/21 History release potassium chloride 20 mEq 20 meq PO DAILY 09/05/21 09/05/21 History tablet,extended release(part/cryst) Patient History Medical History (Updated 09/13/21 @ 09:43 by LAUREN Jara) Acute on chronic diastolic CHF (congestive heart failure) Acute on chronic respiratory failure with hypoxemia Bradycardia Chronic diastolic (congestive) heart failure Chronic respiratory failure with hypoxia CKD (chronic kidney disease) stage 3, GFR 30-59 ml/min Closed fracture of right anterior inferior iliac spine Closed fracture of right anterior superior iliac spine COPD (chronic obstructive pulmonary disease) DVT prophylaxis Elevated troponin YESICA (generalized anxiety disorder) GERD (gastroesophageal reflux disease) History of Mohs micrographic surgery for skin cancer (05/11/21) Right Preauricular Area/Jew Dr. Alicia Charles History of Mohs micrographic surgery for skin cancer (04/04/21) Left Cheek Medial and Lateral Dr. Alicia Charles HLD (hyperlipidemia) HTN (hypertension) Hypertensive emergency Hypothyroidism Hypoxia Nocturnal hypoxia Osteoporosis Palliative care encounter Paroxysmal A-fib Pelvis acetabulum fracture Pneumonia due to COVID-19 virus Primary squamous cell carcinoma of skin UTI (urinary tract infection) Weakness Surgical History History of nasal polypectomy History of total left knee replacement (TKR) Hx of fracture of radius Status post excisional biopsy (06/01/21) Shave Biopsy - Right Neck Anterior + Right Neck Posterior Status post excisional biopsy (04/04/21) Shave Biopsy - Left Cheek Medial + Left Cheek Lateral + Left 3rd Dorsal Digit Family History Mother , Passed Age 89 Diabetes Hypertension Father , Passed Age 70 Hypertension Coronary heart disease Brother No problems noted. Brother No problems noted. Brother No problems noted. Sister , Passed Age 33 No problems noted. Son No problems noted. Son No problems noted. Son No problems noted. Daughter No problems noted. Social History (Reviewed 09/13/21 @ 09:37 by NAZ Jara Smoking Status: Never smoker Second Hand Exposure: Yes ( was smoker); Hx Alcohol Use: No Hx Substance Use: No Preferred Language: Yemeni Communication Ability: Effective Visual Impairment: Limited Hearing Ability: Hard of Hearing Sanitation Engineer Required: No Beliefs That Will Affect Care: None marital status: / Current Living Situation: [facility] current occupational status: retired current occupation: Retired [employer] How many Children do You have: 4 Other Information That Helps Us Care for You: No Feels Safe at Home: Yes Safety Concerns: Feels Safe At This Time Childhood Exposure to Second-Hand Smoke: Yes Diet Comment: Mechanical Soft, with 1500ml Fluid Restriction caffeine: Yes (1 cup of tea in AM) during the past year weight has: remained stable Dental Care, Regularly: Yes Assistive Devices: Oxygen - Continuous Review of Systems Review of Systems: [place] [facility] Assessment Scale: Pain: 0/3 SOB: 2/3 Anxiety: 1/3 Lack of Appetite: 1/3 Palliative Performance Scale: 40% Physical Exam Constitutional: + frail appearing, cooperative and comfortable ENMT: Mouth: + dry oral mucous membranes Respiratory: Auscultation: + rhonchi Cardiovascular: Rate/Rhythm: regular rate and regular rhythm Heart Sounds: normal S1, normal S2 and + murmur Extremities: normal capillary refill and + edema Gastrointestinal (Abdomen): Inspection/Auscultation: abdomen normal to inspection Percussion/Palpation: abdomen soft Skin: + pallor Psychiatric: Orientation: alert and oriented x 3 Insight: + limited insight Results & Data ([facility]) Vital Signs (Past 12 Hours) Vital Signs Temp Pulse Pulse Pulse Resp BP Pulse Ox 09/13/21 08:12 36.9 C 69 20 142/69 H 89 L 09/13/21 07:25 69 20 89 L 09/13/21 05:01 36.4 C L 72 20 146/70 H 91 09/12/21 22:50 68 18 90 09/12/21 22:43 36.9 C 65 17 121/67 94 09/12/21 22:18 63 PG Care Time/CCT Total # of Minutes Spent Total Time Spent with Patient: Total time spent is greater than 50% in coordination of care (as documented) at patient's floor/unit and/or counseling patient: 70 minutes with >50% of that time spent assessing the patient, discussing goals of care with the patient, attempting to reach family and collaborating with IDT Coding Level of Care Code 69562 Initial Inpt Care Lvl 3 Diagnoses Palliative care encounter Z51.5 Hypoxia R09.02 Weakness R53.1 Time Spent (min) 70
--- NOTE | 2021-09-13 11:02 | Cardiology Progress Note ---
Date of Service September 13, 2021 Assessment & Plan (1) Acute on chronic respiratory failure with hypoxemia: (2) Acute on chronic diastolic CHF (congestive heart failure): (3) COPD (chronic obstructive pulmonary disease): (4) CKD (chronic kidney disease) stage 3, GFR 30-59 ml/min: (5) HTN (hypertension): (6) Hypoxia: Plan: Outpatient pulmonary visit assessment: Assessment 1. Shortness of breath, multifactorial secondary to patient's pulmonary hypertension, chronic heart failure preserved EF, suspected airways disease that is untreated likely TH asthma, deconditioning and patient being overweight. Overall the patient's PFTs show pseudo restriction with air trapping and a severely reduced DLCO. The patient's imaging show persistent ground-glass opacities and air trapping on expiratory imaging. She is a never smoker. Overall consistent with possible asthma. She has not have significant fibrotic distortion therefore my suspicion for post COVID I LD is decreased. 2. Pulmonary hypertension suspect this is worsening. Group 2/3 3. Heart failure preserved EF, acute on chronic today. Appears hypervolemic. Compensated 4. Chronic AFib, patient rate controlled today. Remains on full-dose anticoagulation. 5. Chronic hypoxic respiratory failure requiring 5 L at rest 6 L with exertion. 6. GERD, chronic, with esophagitis and history of hiatal hernia. Symptoms controlled (7) Afib: Plan: Pt admitted for acute on chronic repiratory failure, diagnosed as secondary to diastolic dysfunction Pt gained 3lbs of fluid as an outpatient, diuretics increased and started on treatment for possible pneumonia as well covid screen negative on presentation, BNP unchanged, slightly improved, compared back to 2019 cxr not overly impressive for CHF especially given her oxygen requirements has diuresed over 12L as an inpatient and now with increasing O2 demand, currently on 95%FiO2 on high flow oxygen mask pulmonary pressures increased on repeat echo Noncontrast CT of the chest performed. We will perform a limited echocardiogram with bubble study to rule out shunting as per pulmonary recommendations. Breathing appears stable today with significantly increased O2 demands. will continue to diurese at this time but defer further hypoxic treatment to pulmonary given failure to improve clinically despite diuresis, will ask our palliative care colleagues to discuss goals of care along with code status. Appreciate their input. We will hold digoxin for her bradycardia and may decrease metoprolol dose as necessary. Admission and Anticipated Discharge Date Admission Date: September 05, 2021 Subjective Patient seen and examined, chart reviewed. States that she feels well today and denies any cardiac complaints of chest pain, shortness of breath, palpitations, lightheadedness or dizziness. Review of Systems Review of Systems: All systems reviewed & are unremarkable except as noted in HPI & below Physical Exam Physical Exam: General: Awake, alert and oriented x 3. No acute distress. HEENT: Normocephalic, atraumatic. Pupils equal, round and reactive to light and accommodation. Extraocular muscles are intact. Anicteric sclera. Moist mucous membranes. Neck: No JVD. No bruit. Cardiovascular: Regular. Positive S-4. Normal S-1 and S-2. No S-3. 3/6 holosystolic ejection murmur, 5th intercostal space, mid-clavicular line without radiation. No rubs. Pulmonary: Poor air movement with diffuse rhonchi, scant bibasilar rales Abdomen: Bowel sounds x 4, soft. No rebound, guarding or tenderness. No organomegaly. Extremities: No clubbing, cyanosis or edema. +2 pedal pulses bilaterally. Skin: Warm and dry. several nonhealing ulcers Results & Data ([facility]) Vital Signs (Past 12 Hours) Vital Signs Temp Pulse Pulse Pulse Resp BP Pulse Ox 09/13/21 10:51 37.1 C 64 20 124/60 96 09/13/21 09:46 68 09/13/21 08:12 36.9 C 69 20 142/69 H 89 L 09/13/21 07:25 69 20 89 L 09/13/21 05:01 36.4 C L 72 20 146/70 H 91 (1) CKD (chronic kidney disease) stage 3, GFR 30-59 ml/min Chronic kidney disease stage 3 subtype: unspecified whether 3a or 3b Qualified Code(s): N18.30 - Chronic kidney disease, stage 3 unspecified
--- NOTE | 2021-09-13 19:17 | Hospitalist Progress Note ---
Date of Service September 13, 2021 Assessment & Plan (1) Acute on chronic respiratory failure with hypoxemia: Plan: #. Acute on chronic diastolic CHF (congestive heart failure): Presented with desaturation without significant shortness of breath from the [facility] Noted to have acute CHF with increasing proBNP received diuresis, c/w same ECHO this admission: LV is normal in size with moderate concentric LVH and normal wall motion, EF is 65 to 70%. Has grade 3 diastolic dysfunction with markedly increased left atrial pressure. Left atrium is severely dilated and right atrium is moderately dilated. Aortic valve sclerosis without significant stenosis. Moderate to severe tricuspid regurgitation. RV pressure is severely elevated at more than 60 mmHg Cardio on board: BNP on presentation unchanged or slightly improved compared to 2019, pulmonary pressures increased on repeat echo, believes primary pulmonary issue, continue with diuresis. 09/13 echo with bubble revealed no atrial shunting. Is and Os so far -11.7L c/w diuresis. Continued high oxygen requirement , no concerns of infection [afebrile, WBC WNL], pulmonary stating poor prognosis [cause for respiratory failure unknown versus likely pulmonary hypertension secondary to CHF] will continue with diuresis for now, palliative care on board. #. Acute on chronic respiratory failure with hypoxemia: Has history of COPD and chronic respiratory failure on 2 L of oxygen as a baseli ne Noted to have low saturation of 70s at [facility] and did not improve with oxygen administration She does not use any CPAP and/or BiPAP as an outpatient Has been requiring high flow oxygen to maintain saturation Pulmonology consulted: BPAP prn and HS; Breo daily, SaO2 90-92%. Poor prognosis. No further input from pulmonology per Pulm. Rediscussed with Pulm 09/12 : states HF, suggested repeating echo with bubble to see ASD/PFO shunt, no further recs. --> 09/13 echo with bubble revealed no ult rasonic. #. Pul HTN likely Type 2 2/2 CHF c/w diuresis per Pulm recommendation #. Lower GI bleed Hemoglobin has been stable, GI evaluated, no plan for scope. No plan for scope from GI, Xarelto resumed 09/12. #. CKD (chronic kidney disease) stage 3, GFR 30-59 ml/min: #. Potassium abnormality Baseline creatinine seems to be around 1.6-1.7. Creatinine better than baseline Continue to monitor with ongoing diuresis Monitor electrolytes and replace as appropriate. #. COPD (chronic obstructive pulmonary disease): Does not have any exacerbation #. GERD (gastroesophageal reflux disease): Continue PPI #. HTN (hypertension): Blood pressure remains on the upper side of normal We will continue current medications #. Hypothyroidism: Continue supplement History of Covid pneumonia in October of this year Was told by the ER physician that she is fully vaccinated Covid test in hospital-Negative DVT prophylaxis Has histories of paroxysmal A. fib and on Xarelto. CODE STATUS Resuscitation without intubation Prior attending discussed with the son. Admission and Anticipated Discharge Date Admission Date: September 05, 2021 Subjective Patient seen and examined at the bedside, patient on 30 L high flow at 90%, NAD, no acute events overnight per patient. Patient is eating and moving bowels okay per patient. Patient denies any headache/dizziness/chills/chest pain/other review of symptoms. Urinary catheter in situ with yellow urine collection. Physical Exam Physical Exam: GENERAL: Alert and oriented x3. NAD, on 30L 90% HF O2 HEENT: No pallor, no icterus. Pupils equal, round and reactive to light. Oral mucosa moist. NECK: No JVD, no neck masses. HEART: S1 and S2 heard. Regular rate and rhythm. No murmur, no gallop. RESPIRATORY SYSTEM: Normal AP diameter. No accessory muscle use. No wheezing, diffuse and b/l crackles - similar ABDOMEN: Soft, bowel sounds present, nontender, no distention. Umbilicial hernia noted. CENTRAL NERVOUS SYSTEM: No facial droop. Speech is clear. Obeys simple commands. Moves extremities. EXTREMITIES: trace edema, no erythema seen. Results & Data Results & Data ([facility]) Vital Signs (Past 12 Hours) Vital Signs Temp Pulse Pulse Pulse Resp BP Pulse Ox 09/13/21 15:09 36.7 C 59 L 20 132/61 91 09/13/21 15:06 54 L 09/13/21 15:03 58 L 17 91 09/13/21 10:51 37.1 C 64 20 124/60 96 09/13/21 09:46 68 09/13/21 08:12 36.9 C 69 20 142/69 H 89 L 09/13/21 07:25 69 20 89 L
[2021-09-13] MEDS: ATORVASTATIN 10 MG TAB PO SCH (20:45)
[2021-09-14] MEDS: LEVOTHYROXINE SODIUM 75 MCG TABLET PO SCH (06:38)
[2021-09-14 08:29] LABS: Hematocrit (blood only) 36.8 % (37-47); Hemoglobin 10.8 g/dL (12.0-16.0); Mean Corpuscular Hemoglobin 25.5 pg (25-34); Mean Corpuscular Hgb Conc 29.3 g/dL (32-36); Mean Platelet Volume 9.9 fL (7.4-10.4); Platelet Count 265 K/uL (130-400); RDW Standard Deviation 57.5 fL (36.4-46.3); Red Blood Count 4.23 M/uL (4.2-5.4); White Blood Count 10.99 K/uL (4.8-10.8)
[2021-09-14] MEDS: FLUTICASONE/VILANTEROL 100/25MCG 14 PUFFS/INHALER INH SCH (09:03)
[2021-09-14] MEDS: POTASSIUM CHLORIDE PWD 20 MEQ PACK PO SCH ×3 (09:04→21:24)
[2021-09-14] MEDS: amLODIPine BESYLATE 5 MG TAB PO SCH (09:05)
[2021-09-14] MEDS: CHOLECALCIFEROL 1,000 UNITS 25 MCG TAB PO SCH (09:05)
[2021-09-14] MEDS: FERROUS SULFATE 325 MG TAB PO SCH (09:05)
[2021-09-14] MEDS: RIVAROXABAN 15 MG TAB PO SCH (09:05)
[2021-09-14 09:06] LABS: BUN Creatinine Ratio 21.3 (10-20); Calcium 9.5 mg/dl (8.5-10.1); Creatinine Clr Calc Pharmacy 27.1 ml/min; Est GFR (African American) 42.7 ml/min; Est GFR (Non-African American) 36.9 ml/min; Magnesium 2.4 mg/dl (1.8-2.4); Phosphorus 2.7 mg/dl (2.5-4.9); Potassium 3.6 mmol/L (3.5-5.1)
[2021-09-14] MEDS: CYANOCOBALAMIN 500 MCG TABLET (VITAMIN B-12) PO SCH (09:06)
[2021-09-14] MEDS: hydrALAZINE TAB 50 MG TAB PO SCH ×2 (09:06→21:24)
[2021-09-14] MEDS: PANTOprazole 40 MG TAB PO SCH (09:06)
[2021-09-14] MEDS: allopurinoL 100 MG TAB PO SCH ×2 (09:06→21:23)
[2021-09-14] MEDS: METOPROLOL SUCC 25MG EXT REL TAB PO SCH ×2 (09:06→21:24)
[2021-09-14] MEDS: FUROSEMIDE 40 MG/4 ML VIAL IV SCH ×2 (09:30→21:23)
--- NOTE | 2021-09-14 11:14 | Cardiology Progress Note ---
Date of Service September 14, 2021 Assessment & Plan (1) Acute on chronic respiratory failure with hypoxemia: (2) Acute on chronic diastolic CHF (congestive heart failure): (3) COPD (chronic obstructive pulmonary disease): (4) CKD (chronic kidney disease) stage 3, GFR 30-59 ml/min: (5) HTN (hypertension): (6) Hypoxia: Plan: Outpatient pulmonary visit assessment: Assessment 1. Shortness of breath, multifactorial secondary to patient's pulmonary hypertension, chronic heart failure preserved EF, suspected airways disease that is untreated likely TH 1 asthma, deconditioning and patient being overweight. Overall the patient's PFTs show pseudo restriction with air trapping and a severely reduced DLCO. The patient's imaging show persistent ground-glass opacities and air trapping on expiratory imaging. She is a never smoker. Overall consistent with possible asthma. She has not have significant fibrotic distortion therefore my suspicion for post COVID I LD is decreased. 2. Pulmonary hypertension suspect this is worsening. Group 2/3 3. Heart failure preserved EF, acute on chronic today. Appears hypervolemic. Compensated 4. Chronic AFib, patient rate controlled today. Remains on full-dose anticoagulation. 5. Chronic hypoxic respiratory failure requiring 5 L at rest 6 L with exertion. 6. GERD, chronic, with esophagitis and history of hiatal hernia. Symptoms controlled (7) Afib: Plan: Pt admitted for acute on chronic repiratory failure, diagnosed as secondary to diastolic dysfunction Pt gained 3lbs of fluid as an outpatient, diuretics increased and started on treatment for possible pneumonia as well covid screen negative on presentation, BNP unchanged, slightly improved, compared back to 2019 cxr not overly impressive for CHF especially given her oxygen requirements has diuresed over 12L as an inpatient and now with increasing O2 demand, currently on 100%FiO2 on high flow oxygen mask pulmonary pressures increased on repeat echo No intracardiac shunt Breathing appears stable today with significantly increased O2 demands. will continue to diurese at this time but defer further hypoxic treatment to pulmonary Appreciate palliative care input. Admission and Anticipated Discharge Date Admission Date: September 05, 2021 Subjective Patient seen and examined, chart reviewed. States that she feels well but seems little bit more confused today. Denies chest pain or shortness of breath. Oxygen demand continues to increase. Telemetry reviewed: Normal sinus rhythm/sinus bradycardia. Review of Systems Review of Systems: All systems reviewed & are unremarkable except as noted in HPI & below Physical Exam Physical Exam: General: Awake, alert and oriented x 3. No acute distress. HEENT: Normocephalic, atraumatic. Pupils equal, round and reactive to light and accommodation. Extraocular muscles are intact. Anicteric sclera. Moist mucous membranes. Neck: No JVD. No bruit. Cardiovascular: Regular. Positive S-4. Normal S-1 and S-2. No S-3. 3/6 holosystolic ejection murmur, 5th intercostal space, mid-clavicular line without radiation. No rubs. Pulmonary: Poor air movement with diffuse rhonchi, scant bibasilar rales Abdomen: Bowel sounds x 4, soft. No rebound, guarding or tenderness. No organomegaly. Extremities: No clubbing, cyanosis or edema. +2 pedal pulses bilaterally. Skin: Warm and dry. several nonhealing ulcers Results & Data ([facility]) Vital Signs (Past 12 Hours) Vital Signs Temp Pulse Resp BP BP Pulse Ox 09/14/21 08:00 36.6 C 74 20 154/69 H 90 09/14/21 07:54 77 20 90 09/14/21 04:33 37.0 C 66 24 131/68 93 09/14/21 00:28 78 18 93 (1) CKD (chronic kidney disease) stage 3, GFR 30-59 ml/min Chronic kidney disease stage 3 subtype: unspecified whether 3a or 3b Qualified Code(s): N18.30 - Chronic kidney disease, stage 3 unspecified
--- NOTE | 2021-09-14 11:35 | Palliative Care Progress Note ---
Date of Service September 14, 2021 Assessment & Plan (1) Hypoxia: Plan: Diuresis per cardiology. Sats running in low 90s. (2) Weakness: Plan: with illness and hospitalization. She currently resides at [facility] (3) Palliative care encounter: Plan: I talked with Vaishnavi about her understanding of her illness. We reviewed her increasing oxygen needs despite medical treatment. I asked her if she had ever thought about what she would want for her care. She told me that she would not want a tube in her throat and be hooked up to a machine which is consistent with her current code status. We discussed CPR and concern that given the severity of her disease, cardiac resuscitation without intubation would not likely have the desired outcome and may cause her more discomfort. She replied "I don't think I 'd want that". She did tell me "I'm not ready to ". She denies any particular fears or worries. We discussed continuing current level of care but not escalating to bipap or intubation or CPR if she declined. She feels this would be the best approach. I also spoke to her son, Jacinto, on the phone and updated him. He tells me that he has been preparing for this. He notes that Vaishnavi has an advance directive. He is her healthcare POA. She indicated on the directive that she would not want CPR, intubation or to be dependent on artificial means. This is consistent with Vaishnavi's wishes expressed today and code status is changed to reflect this. (4) Acute on chronic respiratory failure with hypoxemia: (5) Acute on chronic diastolic CHF (congestive heart failure): (6) Pulmonary hypertension: (7) COPD (chronic obstructive pulmonary disease): Admission and Anticipated Discharge Date Admission Date: September 05, 2021 Subjective Increased oxygen requirements despite diuresis. She is awake and alert. Ate 100% of breakfast per RN. She denies feeling short of breath. Review of Systems Review of Systems: [place] Symptom Assessment Scale Pain 0/3 Dyspnea 0/3 Fatigue 2/3 Anorexia 0/3 Drowsiness 0/3 Palliative Performance Score 40% Physical Exam Constitutional: + ill appearing Respiratory: + uses accessory muscles Cardiovascular: Rate/Rhythm: regular rate and regular rhythm Neurologic: moves all extremities and awake; not confused Results & Data ([facility]) Vital Signs (Past 12 Hours) Vital Signs Temp Pulse Pulse Resp BP BP Pulse Ox 09/14/21 08:00 97.9 F 74 20 154/69 H 90 09/14/21 07:54 77 20 90 09/14/21 04:33 98.6 F 66 24 131/68 93 09/14/21 00:28 78 18 93 09/13/21 22:27 98.4 F 59 L 21 120/68 91 09/13/21 22:19 55 L PG Care Time/CCT Total # of Minutes Spent Total Time Spent: 40 Total Time Spent with Patient: Total time spent is greater than 50% in coordination of care (as documented) at patient's floor/unit and/or counseling patient: goals of care, code status, family update and support Coding Level of Care Code 21303 Subseq Hosp Care Lvl 3 Diagnoses Hypoxia R09.02 Weakness R53.1 Palliative care encounter Z51.5 Acute on chronic respiratory failure with hypoxemia J96.21 Acute on chronic diastolic CHF (congestive heart failure) I50.33 Pulmonary hypertension I27.20 COPD (chronic obstructive pulmonary disease) J44.9
[2021-09-14] MEDS: LIDOCAINE 5% 1 PATCH TD SCH (14:19)
[2021-09-14] MEDS: ACETAMINOPHEN 500 MG TAB PO SCH ×3 (14:19→21:23)
--- NOTE | 2021-09-14 16:56 | Hospitalist Progress Note ---
Date of Service September 14, 2021 Assessment & Plan (1) Acute on chronic respiratory failure with hypoxemia: Plan: Acute on chronic diastolic CHF (congestive heart failure): Presented with desaturation without significant shortness of breath from the [facility] Noted to have acute CHF with increasing proBNP received diuresis, c/w same ECHO this admission: LV is normal in size with moderate concentric LVH and normal wall motion, EF is 65 to 70%. Has grade 3 diastolic dysfunction with markedly increased left atrial pressure. Left atrium is severely dilated and right atrium is moderately dilated. Aortic valve sclerosis without significant stenosis. Moderate to severe tricuspid regurgitation. RV pressure is severely elevated at more than 60 mmHg Cardiology consulted: BNP on presentation unchanged or slightly improved compare d to 2019, pulmonary pressures increased on repeat echo, believes primary pulmonary issue, continue with diuresis. 09/13 echo with bubble revealed no atrial shunting. Is and Os c/w diuresis. Continued high oxygen requirement , no concerns of infection [afebrile, WBC WNL], pulmonary stating poor prognosis [cause for respiratory failure unknown versus likely pulmonary hypertension secondary to CHF] will continue with diuresis for now, palliative care consulted - CODE STATUS changed to DNR/DNI Acute on chronic respiratory failure with hypoxemia: Has history of COPD and chronic respiratory failure on 2 L of oxygen as a baseli ne Noted to have low saturation of 70s at [facility] and did not improve with oxygen administration She does not use any CPAP and/or BiPAP as an outpatient Has been requiring high flow oxygen to maintain saturation Pulmonology consulted: BPAP prn and HS; Breo daily, SaO2 90-92%. Poor prognosis. No further input from pulmonology per Pulm. Rediscussed with Pulm 09/12 : states HF, suggested repeating echo with bubble to see ASD/PFO shunt, no further recs. --> 09/13 echo with bubble revealed no ASD, no interatrial shunt Pulmonary HTN likely Type 2 2/2 CHF c/w diuresis per Pulm recommendation Lower GI bleed Hemoglobin has been stable, GI evaluated, no plan for scope. No plan for scope from GI, Xarelto resumed 09/12. CKD (chronic kidney disease) stage 3, GFR 30-59 ml/min: Potassium abnormality Baseline creatinine seems to be around 1.6-1.7. Creatinine better than baseline Continue to monitor with ongoing diuresis Monitor electrolytes and replace as appropriate. COPD (chronic obstructive pulmonary disease): Does not have any exacerbation GERD (gastroesophageal reflux disease): Continue PPI #. HTN (hypertension): Blood pressure remains on the upper side of normal We will continue current medications #. Hypothyroidism: Continue supplement History of Covid pneumonia in October of this year Was told by the ER physician that she is fully vaccinated Covid test in hospital-Negative DVT prophylaxis Has histories of paroxysmal A. fib and on Xarelto. CODE STATUS - DNR/DN (per discussion with palliative medicine) Admission and Anticipated Discharge Date Admission Date: September 05, 2021 Subjective Patient seen in follow-up of resp. failure w/ hypoxia Patient continues to be on high flow nasal cannula, with increased oxygen requirements despite diuresis. She is lying in bed, in no acute distress. She is able to answer simple questions appropriately. Seen by palliative medicine, change CODE STATUS to DNR/DNI today Followed by cardiology as well Currently has no complaints Review of Systems Review of Systems: All systems reviewed & are unremarkable except as noted in Subjective Physical Exam Physical Exam: GENERAL: Alert and oriented x3. NAD, on HF O2 HEENT: NC/AT. EOMI, PERRL. Oral mucosa moist. NECK: No JVD, no neck masses. HEART: S1 and S2 heard. Regular rate and rhythm. No murmur, no gallop. RESPIRATORY: Normal AP diameter. No accessory muscle use. No wheezing, diffuse and b/l crackles - similar ABDOMEN: Soft, bowel sounds present, nontender, no distention. Umbilical hernia noted. NEURO: No facial droop. Speech is clear.Moves extremities. EXTREMITIES: trace edema, no erythema seen. Results & Data Results & Data ([facility]) Vital Signs (Past 12 Hours) Vital Signs Temp Pulse Pulse Pulse Resp BP Pulse Ox 09/14/21 14:30 68 20 91 09/14/21 11:41 66 09/14/21 11:35 63 20 94 09/14/21 11:15 37.1 C 62 22 127/64 92 09/14/21 08:00 36.6 C 74 20 154/69 H 90 09/14/21 07:54 77 20 90 Laboratory Results 09/14/21 09/14/21 09/14/21 Range/Units 16:49 07:46 07:46 WBC 10.99 H (4.8-10.8) K/uL RBC 4.23 (4.2-5.4) M/uL Hgb 10.8 L (12.0-16.0) g/dL Hct 36.8 L (37-47) % MCV 87.0 (80-100) fL MCH 25.5 (25-34) pg MCHC 29.3 L (32-36) g/dL RDW Std Deviation 57.5 H (36.4-46.3) fL RDW Coeff of Sandie 18.0 H (11.5-14.5) % Plt Count 265 (130-400) K/uL MPV 9.9 (7.4-10.4) fL Sodium 143 (136-145) mmol/L Potassium 3.6 (3.5-5.1) mmol/L Chloride 104 (98-107) mmol/L Carbon Dioxide 31 (21-32) mmol/L Anion Gap 8.0 (3-11) BUN 28 H (7-18) mg/dl Creatinine 1.33 H (0.6-1.2) mg/dl Est Cr Clr Drug Dosing 27.1 ml/min Est GFR ( Amer) 42.7 ml/min Est GFR (Non-Af Amer) 36.9 ml/min BUN/Creatinine Ratio 21.3 H (10-20) Glucose 115 H (70-99) mg/dl POC Glucose 143 H (70-99) mg/dl Calcium 9.5 (8.5-10.1) mg/dl Phosphorus 2.7 (2.5-4.9) mg/dl Magnesium 2.4 (1.8-2.4) mg/dl Medications Administered Current Inpatient Medications Acetaminophen (Acetaminophen 500 Mg Tab) 500 mg PO TID FLORA Stop: 10/06/21 08:59 Last Admin: 09/14/21 14:33 Dose: Not Given Documented by: Allopurinol (Allopurinol 100 Mg Tab) 100 mg PO BID FLORA Stop: 10/05/21 21:52 Last Admin: 09/14/21 09:06 Dose: 100 mg Documented by: Amlodipine Besylate (Amlodipine Besylate 5 Mg Tab) 10 mg PO DAILY FLORA Stop: 10/06/21 08:59 Last Admin: 09/14/21 09:05 Dose: 10 mg Documented by: Atorvastatin Calcium (Atorvastatin 10 Mg Tab) 10 mg PO HS FLORA Stop: 10/05/21 21:52 Last Admin: 09/13/21 20:45 Dose: 10 mg Documented by: Bisacodyl (Bisacodyl 10 Mg Supp) 10 mg MS DAILY PRN PRN Reason: Constipation Stop: 10/05/21 21:52 Cyanocobalamin (Cyanocobalamin 500 Mcg Tablet (Vitamin B-12)) 500 mcg PO QAM FLORA Stop: 10/06/21 08:59 Last Admin: 09/14/21 09:06 Dose: 500 mcg Documented by: Digoxin (Digoxin 0.125 Mg Tab) 0.125 mg PO Q2D@1600 [facility] Stop: 10/06/21 15:59 Last Admin: 09/10/21 16:21 Dose: Not Given Documented by: Ferrous Sulfate (Ferrous Sulfate 325 Mg Tab) 325 mg PO DAILY [facility]ORA Stop: 10/06/21 08:59 Last Admin: 09/14/21 09:05 Dose: 325 mg Documented by: Fluticasone/Vilanterol (Fluticasone/Vilanterol 100/25mcg 14 Puffs/Inhaler) 1 puffs INH DAILY FLORA Stop: 10/08/21 08:59 Last Admin: 09/14/21 09:03 Dose: 1 puffs Documented by: Furosemide (Furosemide 40 Mg/4 Ml Vial) 40 mg IV BID FLORA Stop: 10/06/21 20:59 Last Admin: 09/14/21 09:30 Dose: 40 mg Documented by: Hydralazine HCl (Hydralazine Tab 50 Mg Tab) 100 mg PO BID FLORA Stop: 10/05/21 21:52 Last Admin: 09/14/21 09:06 Dose: 100 mg Documented by: Levothyroxine Sodium (Levothyroxine Sodium 75 Mcg Tablet) 75 mcg PO DAILYBB [facility]OR[facility] Stop: 10/06/21 06:29 Last Admin: 09/14/21 06:38 Dose: 75 mcg Documented by: Lidocaine (Lidocaine 5% 1 Patch) 1 patch TD QAM [facility] Stop: 10/06/21 08:59 Last Admin: 09/14/21 14:19 Dose: Not Given Documented by: Metoprolol Succinate (Metoprolol Succ 25mg Ext Rel Tab) 25 mg PO BID [facility]OR[facility] Stop: 10/05/21 21:52 Last Admin: 09/14/21 09:06 Dose: 25 mg Documented by: Miscellaneous (Remove Lidoderm Patch) 1 ea N/A DAILY@2100 [facility] Stop: 10/05/21 21:52 Last Admin: 09/13/21 20:47 Dose: Not Given Documented by: Pantoprazole Sodium (Pantoprazole 40 Mg Tab) 40 mg PO DAILY [facility] Stop: 10/07/21 08:59 Last Admin: 09/14/21 09:06 Dose: 40 mg Documented by: Potassium Chloride (Potassium Chloride Pwd 20 Meq Pack) 40 meq PO TID [facility] Stop: 10/08/21 13:59 Last Admin: 09/14/21 14:34 Dose: Not Given Documented by: Rivaroxaban (Rivaroxaban 15 Mg Tab) 15 mg PO DAILY [facility] Stop: 10/06/21 08:59 Last Admin: 09/14/21 09:05 Dose: 15 mg Documented by: Vitamin D (Cholecalciferol 1,000 Units 25 Mcg Tab) 1,000 units PO QAM [facility] Stop: 10/06/21 08:59 Last Admin: 09/14/21 09:05 Dose: 1,000 units Documented by:
[2021-09-14] MEDS: ATORVASTATIN 10 MG TAB PO SCH (21:23)
[2021-09-15] MEDS: LEVOTHYROXINE SODIUM 75 MCG TABLET PO SCH (06:34)
[2021-09-15] MEDS: CYANOCOBALAMIN 500 MCG TABLET (VITAMIN B-12) PO SCH (08:26)
[2021-09-15] MEDS: allopurinoL 100 MG TAB PO SCH ×2 (08:26→20:39)
[2021-09-15] MEDS: METOPROLOL SUCC 25MG EXT REL TAB PO SCH ×2 (08:26→20:39)
[2021-09-15] MEDS: PANTOprazole 40 MG TAB PO SCH (08:26)
[2021-09-15] MEDS: hydrALAZINE TAB 50 MG TAB PO SCH ×2 (08:27→20:38)
[2021-09-15] MEDS: RIVAROXABAN 15 MG TAB PO SCH (08:27)
[2021-09-15] MEDS: CHOLECALCIFEROL 1,000 UNITS 25 MCG TAB PO SCH (08:27)
[2021-09-15] MEDS: FERROUS SULFATE 325 MG TAB PO SCH (08:27)
[2021-09-15] MEDS: amLODIPine BESYLATE 5 MG TAB PO SCH (08:27)
[2021-09-15] MEDS: POTASSIUM CHLORIDE PWD 20 MEQ PACK PO SCH ×3 (08:28→20:39)
[2021-09-15] MEDS: FLUTICASONE/VILANTEROL 100/25MCG 14 PUFFS/INHALER INH SCH (08:28)
[2021-09-15] MEDS: LIDOCAINE 5% 1 PATCH TD SCH (08:29)
[2021-09-15] MEDS: FUROSEMIDE 40 MG/4 ML VIAL IV SCH (08:44)
[2021-09-15] MEDS: ACETAMINOPHEN 500 MG TAB PO SCH ×3 (08:44→20:38)
[2021-09-15 09:30] LABS: BUN Creatinine Ratio 22.7 (10-20); Calcium 9.1 mg/dl (8.5-10.1); Creatinine Clr Calc Pharmacy 27.9 ml/min; Est GFR (African American) 42.7 ml/min; Est GFR (Non-African American) 36.9 ml/min; Magnesium 2.3 mg/dl (1.8-2.4); Potassium 3.4 mmol/L (3.5-5.1)
--- NOTE | 2021-09-15 12:43 | Cardiology Progress Note ---
Date of Service September 15, 2021 Assessment & Plan (1) Acute on chronic respiratory failure with hypoxemia: (2) Acute on chronic diastolic CHF (congestive heart failure): (3) COPD (chronic obstructive pulmonary disease): (4) CKD (chronic kidney disease) stage 3, GFR 30-59 ml/min: (5) HTN (hypertension): (6) Hypoxia: (7) Afib: Plan: The patient is resting comfortably. Her oxygenation is improved in the past 24 hours. I think we can back down on her diuretics and I will make them oral today. Admission and Anticipated Discharge Date Admission Date: September 05, 2021 Subjective The patient is resting comfortably. Review of Systems Review of Systems: Review of Systems: See HPI for pertinent positives. All other 10 point review of systems are negative. Physical Exam Physical Exam: General: no acute distress and stated age Head: normocephalic, no masses, lesions, tenderness or abnormalities Eyes: conjunctiva are pink and non-injected, sclera clear Neck: supple, no adenopathy, no bruits, normal jugular venous pulse, no hepatojugular reflux Chest: normal shape and normal respiratory effort Lungs: clear to auscultation and percussion Cardiac Exam: - regular rate & rhythm, no murmurs gallops or rubs - normal S1, normal S2 Pulses: 2(+) throughout Abdomen: abdomen soft, non-tender, no abnormal masses and no hepatosplenomegaly Musculoskeletal: no gait disturbance, no joint inflammation, no deforming arthritis Extremities: no edema and no cyanosis Neuro: grossly normal exam Results & Data ([facility]) Vital Signs (Past 12 Hours) Vital Signs Temp Pulse Pulse Pulse Resp BP Pulse Ox 09/15/21 11:27 37 C 63 12 116/64 91 09/15/21 10:18 66 18 93 09/15/21 08:00 60 09/15/21 07:00 36.9 C 65 20 126/67 90 09/15/21 03:51 36.6 C 62 20 150/78 H 95 09/15/21 02:32 68 20 94 Laboratory Results Laboratory Results - last 24 hr 09/14/21 09/15/21 16:49 08:29 Sodium 144 Potassium 3.4 L Chloride 105 Carbon Dioxide 32 Anion Gap 7.0 BUN 30 H Creatinine 1.33 H Est Cr Clr Drug Dosing 27.9 Est GFR ( Amer) 42.7 Est GFR (Non-Af Amer) 36.9 BUN/Creatinine Ratio 22.7 H Glucose 134 H POC Glucose 143 H Calcium 9.1 Phosphorus 3.0 Magnesium 2.3 Medications Administered Current Inpatient Medications Acetaminophen (Acetaminophen 500 Mg Tab) 500 mg PO TID FLORA Stop: 10/06/21 08:59 Last Admin: 09/15/21 08:44 Dose: 500 mg Documented by: Allopurinol (Allopurinol 100 Mg Tab) 100 mg PO BID FLORA Stop: 10/05/21 21:52 Last Admin: 09/15/21 08:26 Dose: 100 mg Documented by: Amlodipine Besylate (Amlodipine Besylate 5 Mg Tab) 10 mg PO DAILY FLORA Stop: 10/06/21 08:59 Last Admin: 09/15/21 08:27 Dose: 10 mg Documented by: Atorvastatin Calcium (Atorvastatin 10 Mg Tab) 10 mg PO HS FLORA Stop: 10/05/21 21:52 Last Admin: 09/14/21 21:23 Dose: Not Given Documented by: Bisacodyl (Bisacodyl 10 Mg Supp) 10 mg [place] DAILY PRN PRN Reason: Constipation Stop: 10/05/21 21:52 Cyanocobalamin (Cyanocobalamin 500 Mcg Tablet (Vitamin B-12)) 500 mcg PO QAM FLORA Stop: 10/06/21 08:59 Last Admin: 09/15/21 08:26 Dose: 500 mcg Documented by: Digoxin (Digoxin 0.125 Mg Tab) 0.125 mg PO Q2D@1600 FLORA Stop: 10/06/21 15:59 Last Admin: 09/10/21 16:21 Dose: Not Given Documented by: Ferrous Sulfate (Ferrous Sulfate 325 Mg Tab) 325 mg PO DAILY FLORA Stop: 10/06/21 08:59 Last Admin: 09/15/21 08:27 Dose: 325 mg Documented by: Fluticasone/Vilanterol (Fluticasone/Vilanterol 100/25mcg 14 Puffs/Inhaler) 1 puffs INH DAILY FLORA Stop: 10/08/21 08:59 Last Admin: 09/15/21 08:28 Dose: 1 puffs Documented by: Furosemide (Furosemide 40 Mg/4 Ml Vial) 40 mg IV BID FLORA Stop: 10/06/21 20:59 Last Admin: 09/15/21 08:44 Dose: 40 mg Documented by: Hydralazine HCl (Hydralazine Tab 50 Mg Tab) 100 mg PO BID FLORA Stop: 10/05/21 21:52 Last Admin: 09/15/21 08:27 Dose: 100 mg Documented by: Levothyroxine Sodium (Levothyroxine Sodium 75 Mcg Tablet) 75 mcg PO DAILYBB FLORA Stop: 10/06/21 06:29 Last Admin: 09/15/21 06:34 Dose: 75 mcg Documented by: Lidocaine (Lidocaine 5% 1 Patch) 1 patch TD QAM FLORA Stop: 10/06/21 08:59 Last Admin: 09/15/21 08:29 Dose: 1 patch Documented by: Metoprolol Succinate (Metoprolol Succ 25mg Ext Rel Tab) 25 mg PO BID FLORA Stop: 10/05/21 21:52 Last Admin: 09/15/21 08:26 Dose: 25 mg Documented by: Miscellaneous (Remove Lidoderm Patch) 1 ea N/A DAILY@2100 FLORA Stop: 10/05/21 21:52 Last Admin: 09/14/21 21:25 Dose: 1 ea Documented by: Pantoprazole Sodium (Pantoprazole 40 Mg Tab) 40 mg PO DAILY FLORA Stop: 10/07/21 08:59 Last Admin: 09/15/21 08:26 Dose: 40 mg Documented by: Potassium Chloride (Potassium Chloride Pwd 20 Meq Pack) 40 meq PO TID FLORA Stop: 10/08/21 13:59 Last Admin: 09/15/21 08:28 Dose: 40 meq Documented by: Rivaroxaban (Rivaroxaban 15 Mg Tab) 15 mg PO DAILY FLORA Stop: 10/06/21 08:59 Last Admin: 09/15/21 08:27 Dose: 15 mg Documented by: Vitamin D (Cholecalciferol 1,000 Units 25 Mcg Tab) 1,000 units PO QAM FLORA Stop: 10/06/21 08:59 Last Admin: 09/15/21 08:27 Dose: 1,000 units Documented by: (1) CKD (chronic kidney disease) stage 3, GFR 30-59 ml/min Chronic kidney disease stage 3 subtype: unspecified whether 3a or 3b Qualified Code(s): N18.30 - Chronic kidney disease, stage 3 unspecified
[2021-09-15] MEDS ORDERED: FUROSEMIDE 40 MG/4 ML VIAL IV ONE (16:18)
[2021-09-15] MEDS: FUROSEMIDE 40 MG TAB PO SCH (16:20)
[2021-09-15] MEDS: ATORVASTATIN 10 MG TAB PO SCH (20:39)
[2021-09-16] MEDS: LEVOTHYROXINE SODIUM 75 MCG TABLET PO SCH (05:56)
--- NOTE | 2021-09-16 07:29 | Hospitalist Progress Note ---
Date of Service September 15, 2021 Assessment & Plan (1) Acute on chronic respiratory failure with hypoxemia: Plan: Acute on chronic diastolic CHF (congestive heart failure): Presented with desaturation without significant shortness of breath from the [facility] Noted to have acute CHF with increasing proBNP received diuresis, c/w same ECHO this admission: LV is normal in size with moderate concentric LVH and normal wall motion, EF is 65 to 70%. Has grade 3 diastolic dysfunction with markedly increased left atrial pressure. Left atrium is severely dilated and right atrium is moderately dilated. Aortic valve sclerosis without significant stenosis. Moderate to severe tricuspid regurgitation. RV pressure is severely elevated at more than 60 mmHg Cardiology consulted: BNP on presentation unchanged or slightly improved compare d to 2019, pulmonary pressures increased on repeat echo, believes primary pulmonary issue, continue with diuresis. 09/13 echo with bubble revealed no atrial shunting. Is and Os c/w diuresis. Continued high oxygen requirement , no concerns of infection [afebrile, WBC WNL], pulmonary stating poor prognosis [cause for respiratory failure unknown versus likely pulmonary hypertension secondary to CHF] will continue with diuresis for now, palliative care consulted - CODE STATUS changed to DNR/DNI Acute on chronic respiratory failure with hypoxemia: Has history of COPD and chronic respiratory failure on 2 L of oxygen as a baseli ne Noted to have low saturation of 70s at [facility] and did not improve with oxygen administration She does not use any CPAP and/or BiPAP as an outpatient Has been requiring high flow oxygen to maintain saturation Pulmonology consulted: BPAP prn and HS; Breo daily, SaO2 90-92%. Poor prognosis. No further input from pulmonology per Pulm. Rediscussed with Pulm 09/12 : states HF, suggested repeating echo with bubble to see ASD/PFO shunt, no further recs. --> 09/13 echo with bubble revealed no ASD, no interatrial shunt Pulmonary HTN likely Type 2 2/2 CHF c/w diuresis per Pulm recommendation Lower GI bleed Hemoglobin has been stable, GI evaluated, no plan for scope. No plan for scope from GI, Xarelto resumed 09/12. CKD (chronic kidney disease) stage 3, GFR 30-59 ml/min: Potassium abnormality Baseline creatinine seems to be around 1.6-1.7. Creatinine better than baseline Continue to monitor with ongoing diuresis Monitor electrolytes and replace as appropriate. COPD (chronic obstructive pulmonary disease): Does not have any exacerbation GERD (gastroesophageal reflux disease): Continue PPI #. HTN (hypertension): Blood pressure remains on the upper side of normal We will continue current medications #. Hypothyroidism: Continue supplement History of Covid pneumonia in October of this year Was told by the ER physician that she is fully vaccinated Covid test in hospital-Negative DVT prophylaxis Has histories of paroxysmal A. fib and on Xarelto. CODE STATUS - DNR/DN (per discussion with palliative medicine) Admission and Anticipated Discharge Date Admission Date: September 05, 2021 Subjective Patient seen in follow-up of resp. failure w/ hypoxia Patient continues to be on high flow nasal cannula, despite diuresis. She is lying in bed, in no acute distress. She is able to answer simple questions appropriately. Seen by palliative medicine, changed CODE STATUS to DNR/DNI Followed by cardiology as well -plan to switch to p.o. diuretics instead of IV Currently pt has no complaints Review of Systems Review of Systems: All systems reviewed & are unremarkable except as noted in Subjective Physical Exam Physical Exam: GENERAL: Alert and oriented x3. NAD, on HF O2 HEENT: NC/AT. EOMI, PERRL. Oral mucosa moist. NECK: No JVD, no neck masses. HEART: S1 and S2 heard. Regular rate and rhythm. No murmur, no gallop. RESPIRATORY: Normal AP diameter. No accessory muscle use. No wheezing, diffuse b/l crackles ABDOMEN: Soft, bowel sounds present, nontender, no distention. Umbilical hernia noted. NEURO: No facial droop. Speech is clear.Moves extremities. EXTREMITIES: trace edema, no erythema seen. Results & Data Results & Data ([facility]) Vital Signs (Past 12 Hours) Vital Signs Temp Pulse Pulse Resp BP Pulse Ox 09/15/21 23:13 36.6 C 63 24 116/63 99 09/15/21 22:38 67 28 H 93 09/15/21 19:32 37.0 C 66 24 122/61 88 L
[2021-09-16] MEDS: ACETAMINOPHEN 500 MG TAB PO SCH ×3 (08:31→21:11)
[2021-09-16] MEDS: allopurinoL 100 MG TAB PO SCH ×2 (08:31→21:12)
[2021-09-16] MEDS: METOPROLOL SUCC 25MG EXT REL TAB PO SCH ×2 (08:31→21:11)
[2021-09-16] MEDS: hydrALAZINE TAB 50 MG TAB PO SCH ×2 (08:32→21:11)
[2021-09-16] MEDS: POTASSIUM CHLORIDE PWD 20 MEQ PACK PO SCH ×3 (08:32→21:11)
[2021-09-16] MEDS: FERROUS SULFATE 325 MG TAB PO SCH (08:33)
[2021-09-16] MEDS: FLUTICASONE/VILANTEROL 100/25MCG 14 PUFFS/INHALER INH SCH (08:33)
[2021-09-16] MEDS: CHOLECALCIFEROL 1,000 UNITS 25 MCG TAB PO SCH (08:33)
[2021-09-16] MEDS: CYANOCOBALAMIN 500 MCG TABLET (VITAMIN B-12) PO SCH (08:33)
[2021-09-16] MEDS: RIVAROXABAN 15 MG TAB PO SCH (08:33)
[2021-09-16] MEDS: amLODIPine BESYLATE 5 MG TAB PO SCH (08:33)
[2021-09-16] MEDS: PANTOprazole 40 MG TAB PO SCH (08:34)
[2021-09-16] MEDS: LIDOCAINE 5% 1 PATCH TD SCH (08:34)
[2021-09-16] MEDS: FUROSEMIDE 40 MG TAB PO SCH ×2 (08:35→16:47)
[2021-09-16 09:12] LABS: BUN Creatinine Ratio 24.9 (10-20); Calcium 9.7 mg/dl (8.5-10.1); Creatinine Clr Calc Pharmacy 30.4 ml/min; Est GFR (African American) 47.4 ml/min; Est GFR (Non-African American) 40.9 ml/min; Magnesium 2.5 mg/dl (1.8-2.4); Potassium 3.9 mmol/L (3.5-5.1)
--- NOTE | 2021-09-16 10:58 | Cardiology Progress Note ---
Date of Service September 16, 2021 Assessment & Plan (1) Acute on chronic respiratory failure with hypoxemia: (2) Acute on chronic diastolic CHF (congestive heart failure): (3) COPD (chronic obstructive pulmonary disease): (4) CKD (chronic kidney disease) stage 3, GFR 30-59 ml/min: (5) HTN (hypertension): (6) Hypoxia: (7) Afib: Plan: The patient has slowly and cautiously improved. Her oxygenation is better. Please continue the oral diuretics. Admission and Anticipated Discharge Date Admission Date: September 05, 2021 Subjective The patient is more alert today. No new complaints. Review of Systems Review of Systems: Review of Systems: See HPI for pertinent positives. All other 10 point review of systems are negative. Physical Exam Physical Exam: General: no acute distress and stated age Head: normocephalic, no masses, lesions, tenderness or abnormalities Eyes: conjunctiva are pink and non-injected, sclera clear Neck: supple, no adenopathy, no bruits, normal jugular venous pulse, no hepatojugular reflux Chest: normal shape and normal respiratory effort Lungs: clear to auscultation and percussion Cardiac Exam: - regular rate & rhythm, no murmurs gallops or rubs - normal S1, normal S2 Pulses: 2(+) throughout Abdomen: abdomen soft, non-tender, no abnormal masses and no hepatosplenomegaly Musculoskeletal: no gait disturbance, no joint inflammation, no deforming arthritis Extremities: no edema and no cyanosis Neuro: grossly normal exam Results & Data ([facility]) Vital Signs (Past 12 Hours) Vital Signs Temp Pulse Pulse Pulse Resp BP BP 09/16/21 08:00 69 09/16/21 07:58 36.6 C 73 24 130/66 09/16/21 07:26 70 19 09/16/21 06:38 69 09/16/21 03:35 65 25 H 09/16/21 03:13 36.7 C 69 21 125/70 09/15/21 23:13 36.6 C 63 24 116/63 Pulse Ox 09/16/21 08:00 09/16/21 07:58 89 L 09/16/21 07:26 90 09/16/21 06:38 09/16/21 03:35 95 09/16/21 03:13 95 09/15/21 23:13 99 Laboratory Results Laboratory Results - last 24 hr 11/26/21 08:01 Sodium 143 Potassium 3.9 Chloride 105 Carbon Dioxide 30 Anion Gap 8.0 BUN 30 H Creatinine 1.22 H Est Cr Clr Drug Dosing 30.4 Est GFR ( Amer) 47.4 Est GFR (Non-Af Amer) 40.9 BUN/Creatinine Ratio 24.9 H Glucose 112 H Calcium 9.7 Magnesium 2.5 H Medications Administered Current Inpatient Medications Acetaminophen (Acetaminophen 500 Mg Tab) 500 mg PO TID FLORA Stop: 10/06/21 08:59 Last Admin: 09/16/21 08:31 Dose: 500 mg Documented by: Allopurinol (Allopurinol 100 Mg Tab) 100 mg PO BID FLORA Stop: 10/05/21 21:52 Last Admin: 09/16/21 08:31 Dose: 100 mg Documented by: Amlodipine Besylate (Amlodipine Besylate 5 Mg Tab) 10 mg PO DAILY FLORA Stop: 10/06/21 08:59 Last Admin: 09/16/21 08:33 Dose: 10 mg Documented by: Atorvastatin Calcium (Atorvastatin 10 Mg Tab) 10 mg PO HS FLORA Stop: 10/05/21 21:52 Last Admin: 09/15/21 20:39 Dose: 10 mg Documented by: Bisacodyl (Bisacodyl 10 Mg Supp) 10 mg [place] DAILY PRN PRN Reason: Constipation Stop: 10/05/21 21:52 Cyanocobalamin (Cyanocobalamin 500 Mcg Tablet (Vitamin B-12)) 500 mcg PO QAM FLORA Stop: 10/06/21 08:59 Last Admin: 09/16/21 08:33 Dose: 500 mcg Documented by: Digoxin (Digoxin 0.125 Mg Tab) 0.125 mg PO Q2D@1600 FLORA Stop: 10/06/21 15:59 Last Admin: 09/10/21 16:21 Dose: Not Given Documented by: Ferrous Sulfate (Ferrous Sulfate 325 Mg Tab) 325 mg PO DAILY FLORA Stop: 10/06/21 08:59 Last Admin: 09/16/21 08:33 Dose: 325 mg Documented by: Fluticasone/Vilanterol (Fluticasone/Vilanterol 100/25mcg 14 Puffs/Inhaler) 1 puffs INH DAILY FLORA Stop: 10/08/21 08:59 Last Admin: 09/16/21 08:33 Dose: 1 puffs Documented by: Furosemide (Furosemide 40 Mg Tab) 40 mg PO BID17 FLORA Stop: 10/15/21 16:59 Last Admin: 09/16/21 08:35 Dose: 40 mg Documented by: Hydralazine HCl (Hydralazine Tab 50 Mg Tab) 100 mg PO BID FLORA Stop: 10/05/21 21:52 Last Admin: 09/16/21 08:32 Dose: 100 mg Documented by: Levothyroxine Sodium (Levothyroxine Sodium 75 Mcg Tablet) 75 mcg PO DAILYBB FLORA Stop: 10/06/21 06:29 Last Admin: 09/16/21 05:56 Dose: Not Given Documented by: Lidocaine (Lidocaine 5% 1 Patch) 1 patch TD QAM FLORA Stop: 10/06/21 08:59 Last Admin: 09/16/21 08:34 Dose: 1 patch Documented by: Metoprolol Succinate (Metoprolol Succ 25mg Ext Rel Tab) 25 mg PO BID FLORA Stop: 10/05/21 21:52 Last Admin: 09/16/21 08:31 Dose: 25 mg Documented by: Miscellaneous (Remove Lidoderm Patch) 1 ea N/A DAILY@2100 FLOAR Stop: 10/05/21 21:52 Last Admin: 09/15/21 20:39 Dose: 1 ea Documented by: Pantoprazole Sodium (Pantoprazole 40 Mg Tab) 40 mg PO DAILY FLORA Stop: 10/07/21 08:59 Last Admin: 09/16/21 08:34 Dose: 40 mg Documented by: Potassium Chloride (Potassium Chloride Pwd 20 Meq Pack) 40 meq PO TID FLORA Stop: 10/08/21 13:59 Last Admin: 09/16/21 08:32 Dose: 40 meq Documented by: Rivaroxaban (Rivaroxaban 15 Mg Tab) 15 mg PO DAILY FLORA Stop: 10/06/21 08:59 Last Admin: 09/16/21 08:33 Dose: 15 mg Documented by: Vitamin D (Cholecalciferol 1,000 Units 25 Mcg Tab) 1,000 units PO QAM FLORA Stop: 10/06/21 08:59 Last Admin: 09/16/21 08:33 Dose: 1,000 units Documented by: (1) CKD (chronic kidney disease) stage 3, GFR 30-59 ml/min Chronic kidney disease stage 3 subtype: unspecified whether 3a or 3b Qualified Code(s): N18.30 - Chronic kidney disease, stage 3 unspecified
--- NOTE | 2021-09-16 14:13 | Hospitalist Progress Note ---
Date of Service September 16, 2021 Assessment & Plan (1) Acute on chronic respiratory failure with hypoxemia: Plan: (2) Acute on chronic diastolic CHF (congestive heart failure): (3) Pulmonary hypertension: Plan: Acute CHF exacerbation on admission with pulmonary edema seen on initial CT scan. She is still requiring hi flow oxygen support, however, after significant diuresis (-13L net down since admission 10 days ago, wt also down since admission.) Noted pulmonary HTN on echocardiogram. Will repeat CT scan at this time and rule out PE with contrast as patient was off Xarelto for a short time. Repeat BNP in am, however, this may be high no matter the cause of pulmonary hypertension because of stretch on the atria, not necessarily specific to heart failure. CT without evidence of PE. Persistent central vascular congestion and small bilateral pleural effusions are ongoing. Defer to cardiology to manage diuretics and optimize heart failure. Biofire panel ordered with additional findings of a patchy viral pneumonia that was worsened from initial CT 10 days ago. (4) Lower GI bleed: Plan: Hemoglobin has been stable, GI evaluated, no plan for scope. No plan for scope from GI, Xarelto resumed 09/12. (5) CKD (chronic kidney disease) stage 3, GFR 30-59 ml/min: Plan: At her baseline. Renally dose meds as needed (6) HTN (hypertension): Plan: Controlled, cont current medications. (7) Hypothyroidism: Plan: chronic, stable. Cont home levothyroxine. (8) Afib: Plan: Intermittent, has remained in sinus rhythm during this admission. Cont Xarelto. (9) Weakness: Plan: Physical deconditioning 2/2 prolonged hospitalization. PT/OT (10) DVT prophylaxis: Plan: Xarelto DNR Dispo-uncertain at this time. Remains in PCU DO [facility] Hospitalist Admission and Anticipated Discharge Date Admission Date: September 05, 2021 Subjective 81 yo F with h/o chronic hypoxic respiratory failure on 2LPM of oxygen supplementation presented from [facility] with acute SOB. She was started on IV diuretics for many days as she was thought to be in acute heart failure. Cardiology switched this back to oral, however, she remains on hi flow oxygen support. She appears compensated from a volume standpoint but found to have significant pulmonary hypertension on echo. She does have a h/o Covid pneumonia in Oct 2020 per notes. Denies any acute or worsening SOB Denies CP Eating well Denies swelling No abd pain, F/C/n/v Review of Systems Review of Systems: All systems were reviewed and negative except as indicated in subjective above. Physical Exam Physical Exam: CONSTITUTIONAL: WNWD, vitals as above, generally well- appearing, NAD EYES: normal conjunctivae, no scleral icterus ENT: external ear and nose normal, MMM NECK: trachea midline RESPIRATORY: clear to auscultation bilaterally, no crackles, rales or wheezes, normal respiratory effort. Diminished breath sounds throughout. CARDIOVASCULAR: regular rate and rhythm, S1 and 2 heard without murmurs, gallops or rubs, no JVD, no peripheral edema GASTROINTESTINAL: soft, nontender, ND, no guarding MUSCULOSKELETAL: Generalized weakness without any gross focal deficits. Head is normocephalic and atraumatic SKIN: warm and dry NEUROLOGIC: CN 2-12 grossly intact, normal cognition, normal speech, no tremor. No gross focal deficits. PSYCHIATRIC: alert cooperative and oriented to person, place and time. Results & Data Results & Data ([facility]) Vital Signs (Past 12 Hours) Vital Signs Temp Pulse Pulse Pulse Resp BP BP 09/16/21 11:51 36.8 C 71 21 130/68 09/16/21 11:22 83 20 09/16/21 08:00 69 09/16/21 07:58 36.6 C 73 24 130/66 09/16/21 07:26 70 19 09/16/21 06:38 69 09/16/21 03:35 65 25 H 09/16/21 03:13 36.7 C 69 21 125/70 Pulse Ox 09/16/21 11:51 89 L 09/16/21 11:22 90 09/16/21 08:00 09/16/21 07:58 89 L 09/16/21 07:26 90 09/16/21 06:38 09/16/21 03:35 95 09/16/21 03:13 95 Laboratory Results BMP 09/16/21 08:01 Sodium 143 Potassium 3.9 Chloride 105 Carbon Dioxide 30 BUN 30 H Creatinine 1.22 H Glucose 112 H Calcium 9.7 Medications Administered Current Inpatient Medications Acetaminophen (Acetaminophen 500 Mg Tab) 500 mg PO TID FLORA Stop: 10/06/21 08:59 Last Admin: 09/16/21 13:49 Dose: 500 mg Documented by: Allopurinol (Allopurinol 100 Mg Tab) 100 mg PO BID FLORA Stop: 10/05/21 21:52 Last Admin: 09/16/21 08:31 Dose: 100 mg Documented by: Amlodipine Besylate (Amlodipine Besylate 5 Mg Tab) 10 mg PO DAILY FLORA Stop: 10/06/21 08:59 Last Admin: 09/16/21 08:33 Dose: 10 mg Documented by: Atorvastatin Calcium (Atorvastatin 10 Mg Tab) 10 mg PO HS FLORA Stop: 10/05/21 21:52 Last Admin: 09/15/21 20:39 Dose: 10 mg Documented by: Bisacodyl (Bisacodyl 10 Mg Supp) 10 mg [place] DAILY PRN PRN Reason: Constipation Stop: 10/05/21 21:52 Cyanocobalamin (Cyanocobalamin 500 Mcg Tablet (Vitamin B-12)) 500 mcg PO QAM FLORA Stop: 10/06/21 08:59 Last Admin: 09/16/21 08:33 Dose: 500 mcg Documented by: Digoxin (Digoxin 0.125 Mg Tab) 0.125 mg PO Q2D@1600 FLORA Stop: 10/06/21 15:59 Last Admin: 09/10/21 16:21 Dose: Not Given Documented by: Ferrous Sulfate (Ferrous Sulfate 325 Mg Tab) 325 mg PO DAILY FLORA Stop: 10/06/21 08:59 Last Admin: 09/16/21 08:33 Dose: 325 mg Documented by: Fluticasone/Vilanterol (Fluticasone/Vilanterol 100/25mcg 14 Puffs/Inhaler) 1 puffs INH DAILY FLORA Stop: 10/08/21 08:59 Last Admin: 09/16/21 08:33 Dose: 1 puffs Documented by: Furosemide (Furosemide 40 Mg Tab) 40 mg PO BID17 FLORA Stop: 10/15/21 16:59 Last Admin: 09/16/21 08:35 Dose: 40 mg Documented by: Hydralazine HCl (Hydralazine Tab 50 Mg Tab) 100 mg PO BID FLORA Stop: 10/05/21 21:52 Last Admin: 09/16/21 08:32 Dose: 100 mg Documented by: Levothyroxine Sodium (Levothyroxine Sodium 75 Mcg Tablet) 75 mcg PO DAILYBB FLORA Stop: 10/06/21 06:29 Last Admin: 09/16/21 05:56 Dose: Not Given Documented by: Lidocaine (Lidocaine 5% 1 Patch) 1 patch TD QAM FLORA Stop: 10/06/21 08:59 Last Admin: 09/16/21 08:34 Dose: 1 patch Documented by: Metoprolol Succinate (Metoprolol Succ 25mg Ext Rel Tab) 25 mg PO BID FLORA Stop: 10/05/21 21:52 Last Admin: 09/16/21 08:31 Dose: 25 mg Documented by: Miscellaneous (Remove Lidoderm Patch) 1 ea N/A DAILY@2100 FLORA Stop: 10/05/21 21:52 Last Admin: 09/15/21 20:39 Dose: 1 ea Documented by: Pantoprazole Sodium (Pantoprazole 40 Mg Tab) 40 mg PO DAILY FLORA Stop: 10/07/21 08:59 Last Admin: 09/16/21 08:34 Dose: 40 mg Documented by: Potassium Chloride (Potassium Chloride Pwd 20 Meq Pack) 40 meq PO TID FLORA Stop: 10/08/21 13:59 Last Admin: 09/16/21 13:49 Dose: 40 meq Documented by: Rivaroxaban (Rivaroxaban 15 Mg Tab) 15 mg PO DAILY FLORA Stop: 10/06/21 08:59 Last Admin: 09/16/21 08:33 Dose: 15 mg Documented by: Vitamin D (Cholecalciferol 1,000 Units 25 Mcg Tab) 1,000 units PO QAM FLORA Stop: 10/06/21 08:59 Last Admin: 09/16/21 08:33 Dose: 1,000 units Documented by: (1) CKD (chronic kidney disease) stage 3, GFR 30-59 ml/min Chronic kidney disease stage 3 subtype: unspecified whether 3a or 3b Qualified Code(s): N18.30 - Chronic kidney disease, stage 3 unspecified
[2021-09-16] MEDS ORDERED: OPTIRAY 320 125ml IV ONE (20:02)
--- NOTE | 2021-09-16 20:37 | CT Scan Report ---
CT angio chest PE protocol CLINICAL HISTORY: Increasing shortness of breath and chest tightness. Evaluate for pulmonary embolus. COMPARISON STUDY: CT chest without contrast from 09/11/2021 CT DOSE: 394.59 mGy.cm TECHNIQUE: CT Angio of the chest was performed.followed by image post processing with coronal, and s agittal MIP reformats. Contrast Volume: Optiray 320, 120 ml FINDINGS: Vasculature: There is homogeneous perfusion of the pulmonary vasculature bilaterally. No intraluminal filling defects or evidence for pulmonary embolus is seen. There is evidence for mild persistent central vascular congestion. No peripheral interstitial edema i s seen. Airway: The airway is clear. No endobronchial lesion is identified. Lungs and pleural: Compared to previous examination, increased groundglass opacities are seen bilater ally again characteristic of a viral type pneumonitis. Covid 19 pneumonia should be excluded. Bilater al lower lobe alveolar opacities are also again seen with minimal air bronchograms and small bilatera l pleural effusions. These findings are characteristic of multilobar pneumonia. Mediastinum: There is no evidence for pathologic adenopathy. The heart is again enlarged with coronar y artery calcification present. The thoracic aorta is within normal limits. Atherosclerotic calcifica tion is seen involving the aortic arch and origin of the great vessels. There is no evidence for priscila cardial effusion. Upper abdomen:The adrenal glands are normal bilaterally. There is a moderately large hiatal hernia in retrocardiac space. Osseous structures: There is no acute osseous pathology. Impression: 1. No CTA evidence for pulmonary embolus. 2. There is again evidence of mild central vascular congestion. 3. Increased groundglass opacities within both lungs characteristic of a viral type pneumonitis. Justus y Covid pneumonia should be excluded. 4. Bilateral lower lobe alveolar opacities are again seen with air bronchograms and small bilateral p leural effusions. These findings are also characteristic of multi lobar pneumonia. 5. Cardiomegaly and coronary artery calcifications are again seen. 6. Moderately large hiatal hernia. ACT 112: Negative or not required by law. Electronically signed by: Fredy Sanz M.D. 09/16/2021 8:35 PM
[2021-09-16] MEDS: ATORVASTATIN 10 MG TAB PO SCH (21:11)
[2021-09-16 22:52] LABS: Adenovirus PCR Not Detected (NotDetected); Bordetella parapertussis PCR Not Detected (NotDetected); Bordetella pertussis PCR Not Detected (NotDetected); Chlamydia pneumoniae PCR Not Detected (NotDetected); Coronavirus 229E PCR Not Detected (NotDetected); Coronavirus CoV-2 (COVID19)PCR Not Detected (NotDetected); Coronavirus HKU1 PCR Not Detected (NotDetected); Coronavirus NL63 PCR Not Detected (NotDetected); Coronavirus OC43PCR Not Detected (NotDetected); Human Metapneumovirus PCR Not Detected (NotDetected); Influenza A PCR Not Detected (NotDetected); Influenza B PCR Not Detected (NotDetected); Mycoplasma pneumoniae PCR Not Detected (NotDetected); Parainfluenza Virus 1 PCR Not Detected (NotDetected); Parainfluenza Virus 2 PCR Not Detected (NotDetected); Parainfluenza Virus 3 PCR Not Detected (NotDetected); Parainfluenza Virus 4 PCR Not Detected (NotDetected); Respiratory Syncytial VirusPCR Not Detected (NotDetected); Rhinovirus/Enterovirus PCR Not Detected (NotDetected)
[2021-09-16] MEDS: dexAMETHasone 6 MG in SYRINGE 0 ML IV SCH (23:59)
[2021-09-17] MEDS: LEVOTHYROXINE SODIUM 75 MCG TABLET PO SCH (06:10)
[2021-09-17 09:25] LABS: Hematocrit (blood only) 34.5 % (37-47); Hemoglobin 10.3 g/dL (12.0-16.0); Mean Corpuscular Hemoglobin 25.7 pg (25-34); Mean Corpuscular Hgb Conc 29.9 g/dL (32-36); Platelet Count 223 K/uL (130-400); RDW Coefficient of Variation 17.3 % (11.5-14.5); RDW Standard Deviation 54.3 fL (36.4-46.3); Red Blood Count 4.01 M/uL (4.2-5.4); White Blood Count 9.17 K/uL (4.8-10.8)
[2021-09-17] MEDS: FUROSEMIDE 40 MG TAB PO SCH ×3 (09:41→17:00)
[2021-09-17] MEDS: PANTOprazole 40 MG TAB PO SCH (09:42)
[2021-09-17] MEDS: hydrALAZINE TAB 50 MG TAB PO SCH ×2 (09:42→20:06)
[2021-09-17] MEDS: allopurinoL 100 MG TAB PO SCH ×2 (09:42→20:04)
[2021-09-17] MEDS: CHOLECALCIFEROL 1,000 UNITS 25 MCG TAB PO SCH (09:42)
[2021-09-17] MEDS: CYANOCOBALAMIN 500 MCG TABLET (VITAMIN B-12) PO SCH (09:42)
[2021-09-17] MEDS: RIVAROXABAN 15 MG TAB PO SCH (09:43)
[2021-09-17] MEDS: POTASSIUM CHLORIDE PWD 20 MEQ PACK PO SCH ×3 (09:43→20:05)
[2021-09-17] MEDS: FERROUS SULFATE 325 MG TAB PO SCH (09:43)
[2021-09-17] MEDS: METOPROLOL SUCC 25MG EXT REL TAB PO SCH ×2 (09:44→20:05)
[2021-09-17] MEDS: amLODIPine BESYLATE 5 MG TAB PO SCH (09:44)
[2021-09-17 09:46] LABS: BUN Creatinine Ratio 23.7 (10-20); Calcium 9.5 mg/dl (8.5-10.1); Creatinine Clr Calc Pharmacy 25.5 ml/min; Est GFR (African American) 37.3 ml/min; Est GFR (Non-African American) 32.1 ml/min; Potassium 3.9 mmol/L (3.5-5.1)
[2021-09-17] MEDS: ACETAMINOPHEN 500 MG TAB PO SCH ×3 (09:46→20:04)
[2021-09-17] MEDS: FLUTICASONE/VILANTEROL 100/25MCG 14 PUFFS/INHALER INH SCH (09:52)
[2021-09-17] MEDS: LIDOCAINE 5% 1 PATCH TD SCH (10:10)
--- NOTE | 2021-09-17 15:40 | Hospitalist Progress Note ---
Date of Service September 17, 2021 Assessment & Plan (1) Acute on chronic respiratory failure with hypoxemia: Plan: (2) Acute on chronic diastolic CHF (congestive heart failure): (3) Pulmonary hypertension: Plan: Acute CHF exacerbation on admission with pulmonary edema seen on initial CT scan. She is still requiring hi flow oxygen support, however, after significant diuresis (-13L net down since admission 10 days ago, wt also down since admission.) Noted pulmonary HTN on echocardiogram. Repeat CT scan without evidence of PE Persistent central vascular congestion and small bilateral pleural effusions are ongoing. Defer to cardiology to manage diuretics and optimize heart failure. Biofire panel ordered with additional findings of a patchy viral pneumonia that was worsened from initial CT 10 days ago. Biofire negative Procalcitonine negative Try empiric Abx coverage. CTA Impression: 1. No CTA evidence for pulmonary embolus. 2. There is again evidence of mild central vascular congestion. 3. Increased groundglass opacities within both lungs characteristic of a viral type pneumonitis. Early Covid pneumonia should be excluded. 4. Bilateral lower lobe alveolar opacities are again seen with air bronchograms and small bilateral pleural effusions. These findings are also characteristic of multi lobar pneumonia. 5. Cardiomegaly and coronary artery calcifications are again seen. 6. Moderately large hiatal hernia. (4) Lower GI bleed: Plan: Hemoglobin has been stable, GI evaluated, no plan for scope. No plan for scope from Nayla MAYERSto resumed 09/12. (5) CKD (chronic kidney disease) stage 3, GFR 30-59 ml/min: Plan: At her baseline. Renally dose meds as needed (6) HTN (hypertension): Plan: Controlled, cont current medications. (7) Hypothyroidism: Plan: chronic, stable. Cont home levothyroxine. (8) Afib: Plan: Intermittent, has remained in sinus rhythm during this admission. Cont Xarelto. (9) Weakness: Plan: Physical deconditioning 2/2 prolonged hospitalization. PT/OT (10) DVT prophylaxis: Plan: Xarelto DNR Dispo-uncertain at this time. Remains in PCU Admission and Anticipated Discharge Date Admission Date: September 05, 2021 Subjective 81 yo F with h/o chronic hypoxic respiratory failure on 2LPM of oxygen supplementation presented from [facility] with acute SOB. She was started on IV diuretics for many days as she was thought to be in acute heart failure. Cardiology switched this back to oral, however, she remains on hi flow oxygen support. She appears compensated from a volume standpoint but found to have significant pulmonary hypertension on echo. She does have a h/o Covid pneumonia in Oct 2020 per notes. Denies any acute or worsening SOB Denies CP Eating well Denies swelling No abd pain, F/C/n/v Review of Systems Review of Systems: All systems reviewed & are unremarkable except as noted in Subjective Physical Exam Physical Exam: GENERAL: Alert and oriented x3. NAD, on HF O2 HEENT: NC/AT. EOMI, PERRL. Oral mucosa moist. NECK: No JVD, no neck masses. HEART: S1 and S2 heard. Regular rate and rhythm. No murmur, no gallop. RESPIRATORY: Normal AP diameter. No accessory muscle use. No wheezing, diffuse b/l crackles ABDOMEN: Soft, bowel sounds present, nontender, no distention. Umbilical hernia noted. NEURO: No facial droop. Speech is clear.Moves extremities. EXTREMITIES: trace edema, no erythema seen. Results & Data Results & Data ([facility]) Vital Signs (Past 12 Hours) Vital Signs Temp Pulse Pulse Pulse Resp BP Pulse Ox 09/17/21 15:33 69 20 93 09/17/21 15:09 78 09/17/21 12:51 68 18 93 09/17/21 12:01 36.7 C 80 18 129/67 95 09/17/21 08:54 73 18 90 09/17/21 08:02 67 09/17/21 07:58 36.7 C 66 22 121/72 98 09/17/21 07:53 68 22 98 09/17/21 04:09 36.7 C 67 16 123/65 95 Laboratory Results 09/17/21 09/17/21 09/17/21 Range/Units 09:11 09:11 09:11 WBC 9.17 (4.8-10.8) K/uL RBC 4.01 L (4.2-5.4) M/uL Hgb 10.3 L (12.0-16.0) g/dL Hct 34.5 L (37-47) % MCV 86.0 (80-100) fL MCH 25.7 (25-34) pg MCHC 29.9 L (32-36) g/dL RDW Std Deviation 54.3 H (36.4-46.3) fL RDW Coeff of Sandie 17.3 H (11.5-14.5) % Plt Count 223 (130-400) K/uL MPV 10.0 (7.4-10.4) fL Sodium 140 (136-145) mmol/L Potassium 3.9 (3.5-5.1) mmol/L Chloride 103 (98-107) mmol/L Carbon Dioxide 30 (21-32) mmol/L Anion Gap 8.0 (3-11) BUN 35 H (7-18) mg/dl Creatinine 1.49 H (0.6-1.2) mg/dl Est Cr Clr Drug Dosing 25.5 ml/min Est GFR ( Amer) 37.3 ml/min Est GFR (Non-Af Amer) 32.1 ml/min BUN/Creatinine Ratio 23.7 H (10-20) Glucose 146 H (70-99) mg/dl Calcium 9.5 (8.5-10.1) mg/dl C-Reactive Protein 15.00 H (0-0.29) mg/dl NT-Pro-B Natriuret Pep 3217 H (0-1800) pg/ml Procalcitonin 0.23 (0-0.5) ng/ml Adenovirus (PCR) (NotDetected) B. pertussis DNA (PCR) (NotDetected) B.parapertussis DNA PCR (NotDetected) C. pneumoniae DNA (PCR) (NotDetected) Coronavirus OC43 (PCR) (NotDetected) Coronavirus HKU1 (PCR) (NotDetected) Coronavirus 229E (PCR) (NotDetected) SARS-CoV-2 (PCR) (NotDetected) Coronavirus NL63 (PCR) (NotDetected) Human Metapneumovir PCR (NotDetected) Influenza Type A (PCR) (NotDetected) Influenza Type B (PCR) (NotDetected) M. pneumoniae (PCR) (NotDetected) Parainfluenza 1 (PCR) (NotDetected) Parainfluenza 2 (PCR) (NotDetected) Parainfluenza 3 (PCR) (NotDetected) Parainfluenza 4 (PCR) (NotDetected) RSV (PCR) (NotDetected) Entero/Rhino (PCR) (NotDetected) SARS-CoV-2, RNA, NAAT (NEGATIVE) 09/17/21 09/16/21 Range/Units 06:00 21:45 WBC (4.8-10.8) K/uL RBC (4.2-5.4) M/uL Hgb (12.0-16.0) g/dL Hct (37-47) % MCV (80-100) fL MCH (25-34) pg MCHC (32-36) g/dL RDW Std Deviation (36.4-46.3) fL RDW Coeff of Sandie (11.5-14.5) % Plt Count (130-400) K/uL MPV (7.4-10.4) fL Sodium (136-145) mmol/L Potassium (3.5-5.1) mmol/L Chloride (98-107) mmol/L Carbon Dioxide (21-32) mmol/L Anion Gap (3-11) BUN (7-18) mg/dl Creatinine (0.6-1.2) mg/dl Est Cr Clr Drug Dosing ml/min Est GFR ( Amer) ml/min Est GFR (Non-Af Amer) ml/min BUN/Creatinine Ratio (10-20) Glucose (70-99) mg/dl Calcium (8.5-10.1) mg/dl C-Reactive Protein (0-0.29) mg/dl NT-Pro-B Natriuret Pep (0-1800) pg/ml Procalcitonin (0-0.5) ng/ml Adenovirus (PCR) Not Detected (NotDetected) B. pertussis DNA (PCR) Not Detected (NotDetected) B.parapertussis DNA PCR Not Detected (NotDetected) C. pneumoniae DNA (PCR) Not Detected (NotDetected) Coronavirus OC43 (PCR) Not Detected (NotDetected) Coronavirus HKU1 (PCR) Not Detected (NotDetected) Coronavirus 229E (PCR) Not Detected (NotDetected) SARS-CoV-2 (PCR) Not Detected (NotDetected) Coronavirus NL63 (PCR) Not Detected (NotDetected) Human Metapneumovir PCR Not Detected (NotDetected) Influenza Type A (PCR) Not Detected (NotDetected) Influenza Type B (PCR) Not Detected (NotDetected) M. pneumoniae (PCR) Not Detected (NotDetected) Parainfluenza 1 (PCR) Not Detected (NotDetected) Parainfluenza 2 (PCR) Not Detected (NotDetected) Parainfluenza 3 (PCR) Not Detected (NotDetected) Parainfluenza 4 (PCR) Not Detected (NotDetected) RSV (PCR) Not Detected (NotDetected) Entero/Rhino (PCR) Not Detected (NotDetected) SARS-CoV-2, RNA, NAAT NEGATIVE (NEGATIVE) Medications Administered Current Inpatient Medications Acetaminophen (Acetaminophen 500 Mg Tab) 500 mg PO TID [facility]ORA Stop: 10/06/21 08:59 Last Admin: 09/17/21 14:11 Dose: Not Given Documented by: Allopurinol (Allopurinol 100 Mg Tab) 100 mg PO BID [facility] Stop: 10/05/21 21:52 Last Admin: 09/17/21 09:42 Dose: 100 mg Documented by: Amlodipine Besylate (Amlodipine Besylate 5 Mg Tab) 10 mg PO DAILY [facility] Stop: 10/06/21 08:59 Last Admin: 09/17/21 09:44 Dose: 10 mg Documented by: Atorvastatin Calcium (Atorvastatin 10 Mg Tab) 10 mg PO HS [facility]A Stop: 10/05/21 21:52 Last Admin: 09/16/21 21:11 Dose: 10 mg Documented by: Bisacodyl (Bisacodyl 10 Mg Supp) 10 mg [place] DAILY PRN PRN Reason: Constipation Stop: 10/05/21 21:52 Cyanocobalamin (Cyanocobalamin 500 Mcg Tablet (Vitamin B-12)) 500 mcg PO QAM [facility] Stop: 10/06/21 08:59 Last Admin: 09/17/21 09:42 Dose: 500 mcg Documented by: Digoxin (Digoxin 0.125 Mg Tab) 0.125 mg PO Q2D@1600 [facility] Stop: 10/06/21 15:59 Last Admin: 09/10/21 16:21 Dose: Not Given Documented by: Ferrous Sulfate (Ferrous Sulfate 325 Mg Tab) 325 mg PO DAILY [facility] Stop: 10/06/21 08:59 Last Admin: 09/17/21 09:43 Dose: 325 mg Documented by: Fluticasone/Vilanterol (Fluticasone/Vilanterol 100/25mcg 14 Puffs/Inhaler) 1 puffs INH DAILY [facility]ORA Stop: 10/08/21 08:59 Last Admin: 09/17/21 09:52 Dose: 1 puffs Documented by: Furosemide (Furosemide 40 Mg Tab) 40 mg PO BID17 [facility] Stop: 10/15/21 16:59 Last Admin: 09/17/21 09:41 Dose: 40 mg Documented by: Hydralazine HCl (Hydralazine Tab 50 Mg Tab) 100 mg PO BID [facility]A Stop: 10/05/21 21:52 Last Admin: 09/17/21 09:42 Dose: 100 mg Documented by: Dexamethasone 6 mg/ Syringe 1.5 mls @ 1 mls/min IV Q24H [facility]A Stop: 10/16/21 22:59 Last Admin: 09/16/21 23:59 Dose: 1 mls/min Documented by: Levothyroxine Sodium (Levothyroxine Sodium 75 Mcg Tablet) 75 mcg PO DAILYBB [facility] Stop: 10/06/21 06:29 Last Admin: 09/17/21 06:10 Dose: 75 mcg Documented by: Lidocaine (Lidocaine 5% 1 Patch) 1 patch TD QAM [facility] Stop: 10/06/21 08:59 Last Admin: 09/17/21 10:10 Dose: Not Given Documented by: Metoprolol Succinate (Metoprolol Succ 25mg Ext Rel Tab) 25 mg PO BID [facility]A Stop: 10/05/21 21:52 Last Admin: 09/17/21 09:44 Dose: 25 mg Documented by: Miscellaneous (Remove Lidoderm Patch) 1 ea N/A DAILY@2100 [facility] Stop: 10/05/21 21:52 Last Admin: 09/16/21 21:18 Dose: 1 ea Documented by: Pantoprazole Sodium (Pantoprazole 40 Mg Tab) 40 mg PO DAILY [facility] Stop: 10/07/21 08:59 Last Admin: 09/17/21 09:42 Dose: 40 mg Documented by: Potassium Chloride (Potassium Chloride Pwd 20 Meq Pack) 40 meq PO TID [facility] Stop: 10/08/21 13:59 Last Admin: 09/17/21 14:03 Dose: 40 meq Documented by: Rivaroxaban (Rivaroxaban 15 Mg Tab) 15 mg PO DAILY [facility] Stop: 10/06/21 08:59 Last Admin: 09/17/21 09:43 Dose: 15 mg Documented by: Vitamin D (Cholecalciferol 1,000 Units 25 Mcg Tab) 1,000 units PO QAM [facility] Stop: 10/06/21 08:59 Last Admin: 09/17/21 09:42 Dose: 1,000 units Documented by: (1) CKD (chronic kidney disease) stage 3, GFR 30-59 ml/min Chronic kidney disease stage 3 subtype: unspecified whether 3a or 3b Qualified Code(s): N18.30 - Chronic kidney disease, stage 3 unspecified
[2021-09-17] MEDS: AMOXICILLIN/CLAVULANATE 500 MG TAB PO SCH (17:21)
[2021-09-17] MEDS: ATORVASTATIN 10 MG TAB PO SCH (20:05)
[2021-09-17] MEDS: dexAMETHasone 6 MG in SYRINGE 0 ML IV SCH (22:24)
[2021-09-18] MEDS: LEVOTHYROXINE SODIUM 75 MCG TABLET PO SCH (05:54)
[2021-09-18 07:16] LABS: Hematocrit (blood only) 32.2 % (37-47); Hemoglobin 9.7 g/dL (12.0-16.0); Mean Corpuscular Hemoglobin 25.5 pg (25-34); Mean Corpuscular Hgb Conc 30.1 g/dL (32-36); Mean Corpuscular Volume 84.7 fL (80-100); Mean Platelet Volume 9.4 fL (7.4-10.4); Platelet Count 226 K/uL (130-400); RDW Coefficient of Variation 17.3 % (11.5-14.5); RDW Standard Deviation 53.6 fL (36.4-46.3); White Blood Count 10.36 K/uL (4.8-10.8)
[2021-09-18 07:42] LABS: BUN Creatinine Ratio 31.7 (10-20); Calcium 9.5 mg/dl (8.5-10.1); Creatinine Clr Calc Pharmacy 22.3 ml/min; Est GFR (African American) 31.8 ml/min; Est GFR (Non-African American) 27.4 ml/min; Magnesium 2.5 mg/dl (1.8-2.4); Phosphorus 2.9 mg/dl (2.5-4.9); Potassium 4.6 mmol/L (3.5-5.1)
--- NOTE | 2021-09-18 08:22 | Hospitalist Progress Note ---
Date of Service September 18, 2021 Assessment & Plan (1) Acute on chronic respiratory failure with hypoxemia: Plan: (2) Acute on chronic diastolic CHF (congestive heart failure): (3) Pulmonary hypertension: Plan: Acute CHF exacerbation on admission with pulmonary edema seen on initial CT scan. She is still requiring hi flow oxygen support, however, after significant diuresis (-13L net down since admission 10 days ago, wt also down since admission.) Noted pulmonary HTN on echocardiogram. Repeat CT scan without evidence of PE Persistent central vascular congestion and small bilateral pleural effusions are ongoing. Defer to cardiology to manage diuretics and optimize heart failure. Biofire panel ordered with additional findings of a patchy viral pneumonia that was worsened from initial CT 10 days ago. Biofire negative Procalcitonine negative Trial of empiric Abx coverage to see if any improvement in resp. status. CTA Impression: 1. No CTA evidence for pulmonary embolus. 2. There is again evidence of mild central vascular congestion. 3. Increased groundglass opacities within both lungs characteristic of a viral type pneumonitis. Early Covid pneumonia should be excluded. 4. Bilateral lower lobe alveolar opacities are again seen with air bronchograms and small bilateral pleural effusions. These findings are also characteristic of multi lobar pneumonia. 5. Cardiomegaly and coronary artery calcifications are again seen. 6. Moderately large hiatal hernia. Plan to further discuss w/ pulmonary medicine. (4) Lower GI bleed: Plan: Hemoglobin has been stable, GI evaluated, no plan for scope. No plan for scope from GI, Xarelto resumed 09/12. (5) CKD (chronic kidney disease) stage 3, GFR 30-59 ml/min: Plan: At her baseline. Renally dose meds as needed (6) HTN (hypertension): Plan: Controlled, cont current medications. (7) Hypothyroidism: Plan: chronic, stable. Cont home levothyroxine. (8) Afib: Plan: Intermittent, has remained in sinus rhythm during this admission. Cont Xarelto. (9) Weakness: Plan: Physical deconditioning 2/2 prolonged hospitalization. PT/OT (10) DVT prophylaxis: Plan: Xarelto DNR/ DNI (palliative medicine involved) Dispo-uncertain at this time. Remains in PCU Admission and Anticipated Discharge Date Admission Date: September 05, 2021 Subjective 81 yo F with h/o chronic hypoxic respiratory failure on 2LPM of oxygen supplementation presented from [facility] with acute SOB. She was started on IV diuretics for many days as she was thought to be in acute heart failure. Cardiology switched this back to oral, however, she remains on hi flow oxygen support. She appears compensated from a volume standpoint but found to have significant pulmonary hypertension on echo. She does have a h/o Covid pneumonia in Oct 2020 per notes. Denies any acute or worsening SOB Denies CP No abd pain, F/C/n/v CT chest repeated Biofire negative Started emp. Abx Cr elevated at 1.7 Review of Systems Review of Systems: All systems reviewed & are unremarkable except as noted in Subjective Physical Exam Physical Exam: GENERAL: Alert and oriented x3. NAD, on HF O2 HEENT: NC/AT. EOMI, PERRL. Oral mucosa moist. NECK: No JVD, no neck masses. HEART: S1 and S2 heard. Regular rate and rhythm. No murmur, no gallop. RESPIRATORY: Normal AP diameter. No accessory muscle use. No wheezing, diffuse b/l crackles ABDOMEN: Soft, bowel sounds present, nontender, no distention. Umbilical hernia noted. NEURO: No facial droop. Speech is clear.Moves extremities. EXTREMITIES: trace edema, no erythema seen. Results & Data Results & Data ([facility]) Vital Signs (Past 12 Hours) Vital Signs Temp Pulse Pulse Pulse Resp BP Pulse Ox 09/18/21 08:04 36.9 C 76 19 141/68 H 97 09/18/21 07:47 69 20 96 09/18/21 07:30 62 09/18/21 05:05 36.5 C 67 18 120/68 92 09/18/21 02:27 60 23 93 09/18/21 00:10 36.7 C 59 L 18 123/66 93 09/17/21 22:30 26 H 90 09/17/21 22:00 70 Laboratory Results 09/18/21 09/18/21 09/17/21 Range/Units 06:59 06:59 09:11 WBC 10.36 9.17 (4.8-10.8) K/uL RBC 3.80 L 4.01 L (4.2-5.4) M/uL Hgb 9.7 L 10.3 L (12.0-16.0) g/dL Hct 32.2 L 34.5 L (37-47) % MCV 84.7 86.0 (80-100) fL MCH 25.5 25.7 (25-34) pg MCHC 30.1 L 29.9 L (32-36) g/dL RDW Std Deviation 53.6 H 54.3 H (36.4-46.3) fL RDW Coeff of Sandie 17.3 H 17.3 H (11.5-14.5) % Plt Count 226 223 (130-400) K/uL MPV 9.4 10.0 (7.4-10.4) fL Sodium 137 (136-145) mmol/L Potassium 4.6 D (3.5-5.1) mmol/L Chloride 102 (98-107) mmol/L Carbon Dioxide 30 (21-32) mmol/L Anion Gap 5.0 (3-11) BUN 54 H D (7-18) mg/dl Creatinine 1.70 H (0.6-1.2) mg/dl Est Cr Clr Drug Dosing 22.3 ml/min Est GFR ( Amer) 31.8 ml/min Est GFR (Non-Af Amer) 27.4 ml/min BUN/Creatinine Ratio 31.7 H (10-20) Glucose 175 H (70-99) mg/dl Calcium 9.5 (8.5-10.1) mg/dl Phosphorus 2.9 (2.5-4.9) mg/dl Magnesium 2.5 H (1.8-2.4) mg/dl C-Reactive Protein (0-0.29) mg/dl NT-Pro-B Natriuret Pep (0-1800) pg/ml Procalcitonin (0-0.5) ng/ml 09/17/21 09/17/21 Range/Units 09:11 09:11 WBC (4.8-10.8) K/uL RBC (4.2-5.4) M/uL Hgb (12.0-16.0) g/dL Hct (37-47) % MCV (80-100) fL MCH (25-34) pg MCHC (32-36) g/dL RDW Std Deviation (36.4-46.3) fL RDW Coeff of Sandie (11.5-14.5) % Plt Count (130-400) K/uL MPV (7.4-10.4) fL Sodium 140 (136-145) mmol/L Potassium 3.9 (3.5-5.1) mmol/L Chloride 103 (98-107) mmol/L Carbon Dioxide 30 (21-32) mmol/L Anion Gap 8.0 (3-11) BUN 35 H (7-18) mg/dl Creatinine 1.49 H (0.6-1.2) mg/dl Est Cr Clr Drug Dosing 25.5 ml/min Est GFR ( Amer) 37.3 ml/min Est GFR (Non-Af Amer) 32.1 ml/min BUN/Creatinine Ratio 23.7 H (10-20) Glucose 146 H (70-99) mg/dl Calcium 9.5 (8.5-10.1) mg/dl Phosphorus (2.5-4.9) mg/dl Magnesium (1.8-2.4) mg/dl C-Reactive Protein 15.00 H (0-0.29) mg/dl NT-Pro-B Natriuret Pep 3217 H (0-1800) pg/ml Procalcitonin 0.23 (0-0.5) ng/ml Medications Administered Current Inpatient Medications Acetaminophen (Acetaminophen 500 Mg Tab) 500 mg PO TID [facility] Stop: 10/06/21 08:59 Last Admin: 09/17/21 20:04 Dose: 500 mg Documented by: Allopurinol (Allopurinol 100 Mg Tab) 100 mg PO BID [facility] Stop: 10/05/21 21:52 Last Admin: 09/17/21 20:04 Dose: 100 mg Documented by: Amlodipine Besylate (Amlodipine Besylate 5 Mg Tab) 10 mg PO DAILY [facility] Stop: 10/06/21 08:59 Last Admin: 09/17/21 09:44 Dose: 10 mg Documented by: Amoxicillin/Clavulanate Potassium (Amoxicillin/Clavulanate 500 Mg Tab) 1 tab PO BIDM [facility] Stop: 09/19/21 16:59 Last Admin: 09/17/21 17:21 Dose: 1 tab Documented by: Atorvastatin Calcium (Atorvastatin 10 Mg Tab) 10 mg PO HS [facility] Stop: 10/05/21 21:52 Last Admin: 09/17/21 20:05 Dose: 10 mg Documented by: Bisacodyl (Bisacodyl 10 Mg Supp) 10 mg [place] DAILY PRN PRN Reason: Constipation Stop: 10/05/21 21:52 Cyanocobalamin (Cyanocobalamin 500 Mcg Tablet (Vitamin B-12)) 500 mcg PO QAM [facility] Stop: 10/06/21 08:59 Last Admin: 09/17/21 09:42 Dose: 500 mcg Documented by: Digoxin (Digoxin 0.125 Mg Tab) 0.125 mg PO Q2D@1600 [facility] Stop: 10/06/21 15:59 Last Admin: 09/10/21 16:21 Dose: Not Given Documented by: Ferrous Sulfate (Ferrous Sulfate 325 Mg Tab) 325 mg PO DAILY [facility] Stop: 10/06/21 08:59 Last Admin: 09/17/21 09:43 Dose: 325 mg Documented by: Fluticasone/Vilanterol (Fluticasone/Vilanterol 100/25mcg 14 Puffs/Inhaler) 1 puffs INH DAILY [facility] Stop: 10/08/21 08:59 Last Admin: 09/17/21 09:52 Dose: 1 puffs Documented by: Furosemide (Furosemide 40 Mg Tab) 40 mg PO BID17 [facility] Stop: 10/15/21 16:59 Last Admin: 09/17/21 17:00 Dose: 40 mg Documented by: Hydralazine HCl (Hydralazine Tab 50 Mg Tab) 100 mg PO BID [facility] Stop: 10/05/21 21:52 Last Admin: 09/17/21 20:06 Dose: 100 mg Documented by: Dexamethasone 6 mg/ Syringe 1.5 mls @ 1 mls/min IV Q24H [facility] Stop: 10/16/21 22:59 Last Admin: 09/17/21 22:24 Dose: 1 mls/min Documented by: Levothyroxine Sodium (Levothyroxine Sodium 75 Mcg Tablet) 75 mcg PO DAILYBB [facility] Stop: 10/06/21 06:29 Last Admin: 09/18/21 05:54 Dose: 75 mcg Documented by: Lidocaine (Lidocaine 5% 1 Patch) 1 patch TD QAM [facility] Stop: 10/06/21 08:59 Last Admin: 09/17/21 10:10 Dose: Not Given Documented by: Metoprolol Succinate (Metoprolol Succ 25mg Ext Rel Tab) 25 mg PO BID [facility] Stop: 10/05/21 21:52 Last Admin: 09/17/21 20:05 Dose: 25 mg Documented by: Miscellaneous (Remove Lidoderm Patch) 1 ea N/A DAILY@2100 [facility] Stop: 10/05/21 21:52 Last Admin: 09/17/21 20:06 Dose: 1 ea Documented by: Pantoprazole Sodium (Pantoprazole 40 Mg Tab) 40 mg PO DAILY [facility] Stop: 10/07/21 08:59 Last Admin: 09/17/21 09:42 Dose: 40 mg Documented by: Potassium Chloride (Potassium Chloride Pwd 20 Meq Pack) 40 meq PO TID [facility] Stop: 10/08/21 13:59 Last Admin: 09/17/21 20:05 Dose: 40 meq Documented by: Rivaroxaban (Rivaroxaban 15 Mg Tab) 15 mg PO DAILY [facility] Stop: 10/06/21 08:59 Last Admin: 09/17/21 09:43 Dose: 15 mg Documented by: Vitamin D (Cholecalciferol 1,000 Units 25 Mcg Tab) 1,000 units PO QAM [facility] Stop: 10/06/21 08:59 Last Admin: 09/17/21 09:42 Dose: 1,000 units Documented by: (1) CKD (chronic kidney disease) stage 3, GFR 30-59 ml/min Chronic kidney disease stage 3 subtype: unspecified whether 3a or 3b Qualified Code(s): N18.30 - Chronic kidney disease, stage 3 unspecified
[2021-09-18] MEDS: POTASSIUM CHLORIDE PWD 20 MEQ PACK PO SCH ×3 (09:23→20:21)
[2021-09-18] MEDS: CHOLECALCIFEROL 1,000 UNITS 25 MCG TAB PO SCH (09:23)
[2021-09-18] MEDS: FERROUS SULFATE 325 MG TAB PO SCH (09:23)
[2021-09-18] MEDS: allopurinoL 100 MG TAB PO SCH ×2 (09:23→20:21)
[2021-09-18] MEDS: PANTOprazole 40 MG TAB PO SCH (09:23)
[2021-09-18] MEDS: AMOXICILLIN/CLAVULANATE 500 MG TAB PO SCH ×2 (09:24→17:40)
[2021-09-18] MEDS: hydrALAZINE TAB 50 MG TAB PO SCH ×2 (09:24→20:20)
[2021-09-18] MEDS: CYANOCOBALAMIN 500 MCG TABLET (VITAMIN B-12) PO SCH (09:24)
[2021-09-18] MEDS: FUROSEMIDE 40 MG TAB PO SCH ×2 (09:24→17:40)
[2021-09-18] MEDS: amLODIPine BESYLATE 5 MG TAB PO SCH (09:25)
[2021-09-18] MEDS: METOPROLOL SUCC 25MG EXT REL TAB PO SCH ×2 (09:25→20:20)
[2021-09-18] MEDS: RIVAROXABAN 15 MG TAB PO SCH (09:25)
[2021-09-18] MEDS: LIDOCAINE 5% 1 PATCH TD SCH (09:26)
[2021-09-18] MEDS: ACETAMINOPHEN 500 MG TAB PO SCH ×3 (09:27→20:21)
[2021-09-18] MEDS: FLUTICASONE/VILANTEROL 100/25MCG 14 PUFFS/INHALER INH SCH (09:27)
[2021-09-18] MEDS: ATORVASTATIN 10 MG TAB PO SCH (20:21)
[2021-09-18] MEDS: dexAMETHasone 6 MG in SYRINGE 0 ML IV SCH (22:42)
[2021-09-19] MEDS: LEVOTHYROXINE SODIUM 75 MCG TABLET PO SCH (06:07)
[2021-09-19 06:21] LABS: Hematocrit (blood only) 30.9 % (37-47); Hemoglobin 9.4 g/dL (12.0-16.0); Mean Corpuscular Hemoglobin 25.6 pg (25-34); Mean Corpuscular Hgb Conc 30.4 g/dL (32-36); Mean Corpuscular Volume 84.2 fL (80-100); Mean Platelet Volume 9.9 fL (7.4-10.4); Platelet Count 232 K/uL (130-400); RDW Coefficient of Variation 17.1 % (11.5-14.5); RDW Standard Deviation 53.6 fL (36.4-46.3); Red Blood Count 3.67 M/uL (4.2-5.4); White Blood Count 11.37 K/uL (4.8-10.8)
[2021-09-19 07:05] LABS: BUN Creatinine Ratio 29.6 (10-20); Calcium 9.1 mg/dl (8.5-10.1); Creatinine Clr Calc Pharmacy 15.9 ml/min; Est GFR (Non-African American) 18.2 ml/min; Magnesium 2.3 mg/dl (1.8-2.4); Phosphorus 3.2 mg/dl (2.5-4.9); Potassium 5.6 mmol/L (3.5-5.1)
[2021-09-19] MEDS: hydrALAZINE TAB 50 MG TAB PO SCH ×2 (08:01→20:56)
[2021-09-19] MEDS: LIDOCAINE 5% 1 PATCH TD SCH (08:01)
[2021-09-19] MEDS: CYANOCOBALAMIN 500 MCG TABLET (VITAMIN B-12) PO SCH (08:02)
[2021-09-19] MEDS: allopurinoL 100 MG TAB PO SCH ×2 (08:02→20:56)
[2021-09-19] MEDS: POTASSIUM CHLORIDE PWD 20 MEQ PACK PO SCH (08:02)
[2021-09-19] MEDS: CHOLECALCIFEROL 1,000 UNITS 25 MCG TAB PO SCH (08:02)
[2021-09-19] MEDS: METOPROLOL SUCC 25MG EXT REL TAB PO SCH ×2 (08:02→20:55)
[2021-09-19] MEDS: AMOXICILLIN/CLAVULANATE 500 MG TAB PO SCH (08:03)
[2021-09-19] MEDS: PANTOprazole 40 MG TAB PO SCH (08:03)
[2021-09-19] MEDS: FUROSEMIDE 40 MG TAB PO SCH ×2 (08:03→16:18)
[2021-09-19] MEDS: RIVAROXABAN 15 MG TAB PO SCH (08:04)
[2021-09-19] MEDS: amLODIPine BESYLATE 5 MG TAB PO SCH (08:04)
[2021-09-19] MEDS: FERROUS SULFATE 325 MG TAB PO SCH (08:05)
[2021-09-19] MEDS: FLUTICASONE/VILANTEROL 100/25MCG 14 PUFFS/INHALER INH SCH (08:07)
[2021-09-19] MEDS: ACETAMINOPHEN 500 MG TAB PO SCH ×3 (08:08→20:55)
--- NOTE | 2021-09-19 09:10 | Palliative Care Progress Note ---
Date of Service September 19, 2021 Assessment & Plan (1) Hypoxia: Plan: Diuresis per cardiology. Sats running in low 90s and O2 requirements increasing. (2) Weakness: Plan: with illness and hospitalization. She currently resides at [facility], uncertain that she will able to be discharged based on her overall decline and increased O2 use. Would need to be less than 15L for a safe transfer out of hospital. (3) Palliative care encounter: Plan: I talked with Vaishnavi at her bedside. She was able to talk in complete sentences and said she felt 'good today'. We reviewed her hospitalization course and recognized that while she is not overtly short of breath or anxious, her respiratory drive is declining. We reviewed that she would not want to be intubated and she confirmed that. I did reach out to Jacinto and left a voicemail for him. Palliative will follow along tomorrow. (4) Acute on chronic respiratory failure with hypoxemia: (5) Acute on chronic diastolic CHF (congestive heart failure): (6) Pulmonary hypertension: (7) COPD (chronic obstructive pulmonary disease): Admission and Anticipated Discharge Date Admission Date: September 05, 2021 Subjective Pt seen at her bedside. Pt arousable and able to speak in short sentences. Pt o2 needs continue to increase and now she is on 100% FiO2 on Hi-Flow. See A/p for further details Review of Systems Review of Systems: Pierre Symptom Assessment Scale Pain 0/3 Dyspnea 1/3 Fatigue 2/3 Anorexia 0/3 Drowsiness 0/3 Palliative Performance Score 30% Physical Exam Constitutional: + frail appearing, cooperative and comfortable ENMT: Mouth: + dry oral mucous membranes Respiratory: Auscultation: + rhonchi Cardiovascular: Rate/Rhythm: regular rate and regular rhythm Heart Sounds: normal S1, normal S2 and + murmur Extremities: normal capillary refill and + edema Gastrointestinal (Abdomen): Inspection/Auscultation: abdomen normal to inspection Percussion/Palpation: abdomen soft Skin: + pallor Psychiatric: Orientation: alert and oriented x 3 Insight: + limited insight Results & Data ([facility]) Vital Signs (Past 12 Hours) Vital Signs Temp Pulse Pulse Pulse Resp BP Pulse Ox 09/19/21 08:21 37.0 C 87 18 133/59 L 98 09/19/21 07:45 66 09/19/21 06:41 90 09/19/21 05:35 36.6 C 68 16 137/63 95 09/19/21 00:00 68 09/18/21 23:02 61 24 91 09/18/21 22:47 36.4 C L 66 14 125/73 96 PG Care Time/CCT Total # of Minutes Spent Total Time Spent with Patient: Total time spent is greater than 50% in coordination of care (as documented) at patient's floor/unit and/or counseling patient: 35 minutes with > 50% of that t lynn spent assessing the patient, discussing goals of care with patient, and collaborating with IDT Coding Level of Care Code 34248 Subseq Hosp Care Lvl 3 Diagnoses Hypoxia R09.02 Weakness R53.1 Palliative care encounter Z51.5 Acute on chronic respiratory failure with hypoxemia J96.21 Acute on chronic diastolic CHF (congestive heart failure) I50.33 Pulmonary hypertension I27.20 COPD (chronic obstructive pulmonary disease) J44.9 Time Spent (min) 35
--- NOTE | 2021-09-19 14:20 | Hospitalist Progress Note ---
Date of Service September 19, 2021 Assessment & Plan (1) Acute on chronic respiratory failure with hypoxemia: Plan: (2) Acute on chronic diastolic CHF (congestive heart failure): (3) Pulmonary hypertension: Plan: Acute CHF exacerbation on admission with pulmonary edema seen on initial CT scan. She is still requiring hi flow oxygen support, however, after significant diuresis (-13L net down since admission 10 days ago, wt also down since admission.) Noted pulmonary HTN on echocardiogram. Repeat CT scan without evidence of PE Persistent central vascular congestion and small bilateral pleural effusions are ongoing. Defer to cardiology to manage diuretics and optimize heart failure. Biofire panel ordered with additional findings of a patchy viral pneumonia that was worsened from initial CT 10 days ago. Biofire negative Procalcitonine negative Trial of empiric Abx coverage to see if any improvement in resp. status. CTA Impression: 1. No CTA evidence for pulmonary embolus. 2. There is again evidence of mild central vascular congestion. 3. Increased groundglass opacities within both lungs characteristic of a viral type pneumonitis. Early Covid pneumonia should be excluded. 4. Bilateral lower lobe alveolar opacities are again seen with air bronchograms and small bilateral pleural effusions. These findings are also characteristic of multi lobar pneumonia. 5. Cardiomegaly and coronary artery calcifications are again seen. 6. Moderately large hiatal hernia. Plan to further discuss w/ pulmonary medicine. 09/19 - Pulmonary medicine recommends to start hypertonic saline nebs and chest PT, which was ordered Reviewed their note for further detail (4) Lower GI bleed: Plan: Hemoglobin has been stable, GI evaluated, no plan for scope. No plan for scope from GI, Joyrelto resumed 09/12. (5) CKD (chronic kidney disease) stage 3, GFR 30-59 ml/min: Plan: At her baseline. Renally dose meds as needed (6) HTN (hypertension): Plan: Controlled, cont current medications. (7) Hypothyroidism: Plan: chronic, stable. Cont home levothyroxine. (8) Afib: Plan: Intermittent, has remained in sinus rhythm during this admission. Cont Xarelto. (9) Weakness: Plan: Physical deconditioning 2/2 prolonged hospitalization. PT/OT (10) DVT prophylaxis: Plan: Xarelto DNR/ DNI (palliative medicine involved) Dispo-uncertain at this time. Remains in PCU Admission and Anticipated Discharge Date Admission Date: September 05, 2021 Subjective 81 yo F with h/o chronic hypoxic respiratory failure on 2LPM of oxygen supplementation presented from [facility] with acute SOB. She was started on IV diuretics for many days as she was thought to be in acute heart failure. Cardiology switched this back to oral, however, she remains on hi flow oxygen support. She appears compensated from a volume standpoint but found to have significant pulmonary hypertension on echo. She does have a h/o Covid pneumonia in Oct 2020 per notes. Denies any acute or worsening SOB Denies CP No abd pain, F/C/n/v CT chest repeated Biofire negative Started emp. Abx Cr elevated Overnight patient was actually down to 15 L, however now again desaturating and placed on high flow nasal cannula On high flow nasal cannula however she appears comfortable, watching TV, has no complaints Pulmonary medicine also contacted to re-evaluate, appreciate their input Review of Systems Review of Systems: All systems reviewed & are unremarkable except as noted in Subjective Physical Exam Physical Exam: GENERAL: Alert and oriented x3. NAD, on HF O2 HEENT: NC/AT. EOMI, PERRL. Oral mucosa moist. NECK: No JVD, no neck masses. HEART: S1 and S2 heard. Regular rate and rhythm. No murmur, no gallop. RESPIRATORY: Normal AP diameter. No accessory muscle use. No wheezing, diffuse b/l crackles ABDOMEN: Soft, bowel sounds present, nontender, no distention. Umbilical hernia noted. NEURO: No facial droop. Speech is clear.Moves extremities. EXTREMITIES: trace edema, no erythema seen. Results & Data Results & Data ([facility]) Vital Signs (Past 12 Hours) Vital Signs Temp Pulse Pulse Pulse Resp BP Pulse Ox 09/19/21 12:11 36.8 C 88 18 125/61 97 09/19/21 08:21 37.0 C 87 18 133/59 L 98 09/19/21 07:45 66 09/19/21 06:41 90 09/19/21 05:35 36.6 C 68 16 137/63 95 Laboratory Results 09/19/21 09/19/21 Range/Units 05:45 05:45 WBC 11.37 H (4.8-10.8) K/uL RBC 3.67 L (4.2-5.4) M/uL Hgb 9.4 L (12.0-16.0) g/dL Hct 30.9 L (37-47) % MCV 84.2 (80-100) fL MCH 25.6 (25-34) pg MCHC 30.4 L (32-36) g/dL RDW Std Deviation 53.6 H (36.4-46.3) fL RDW Coeff of Sandie 17.1 H (11.5-14.5) % Plt Count 232 (130-400) K/uL MPV 9.9 (7.4-10.4) fL Sodium 137 (136-145) mmol/L Potassium 5.6 H D (3.5-5.1) mmol/L Chloride 102 (98-107) mmol/L Carbon Dioxide 26 (21-32) mmol/L Anion Gap 9.0 (3-11) BUN 71 H (7-18) mg/dl Creatinine 2.39 H D (0.6-1.2) mg/dl Est Cr Clr Drug Dosing 15.9 ml/min Est GFR ( Amer) 21.0 ml/min Est GFR (Non-Af Amer) 18.2 ml/min BUN/Creatinine Ratio 29.6 H (10-20) Glucose 190 H (70-99) mg/dl Calcium 9.1 (8.5-10.1) mg/dl Phosphorus 3.2 (2.5-4.9) mg/dl Magnesium 2.3 (1.8-2.4) mg/dl Medications Administered Current Inpatient Medications Acetaminophen (Acetaminophen 500 Mg Tab) 500 mg PO TID [facility] Stop: 10/06/21 08:59 Last Admin: 09/19/21 13:09 Dose: 500 mg Documented by: Allopurinol (Allopurinol 100 Mg Tab) 100 mg PO BID [facility] Stop: 10/05/21 21:52 Last Admin: 09/19/21 08:02 Dose: 100 mg Documented by: Amlodipine Besylate (Amlodipine Besylate 5 Mg Tab) 10 mg PO DAILY [facility] Stop: 10/06/21 08:59 Last Admin: 09/19/21 08:04 Dose: 10 mg Documented by: Amoxicillin/Clavulanate Potassium (Amoxicillin/Clavulanate 500 Mg Tab) 1 tab PO BIDM [facility] Stop: 09/19/21 16:59 Last Admin: 09/19/21 08:03 Dose: 1 tab Documented by: Atorvastatin Calcium (Atorvastatin 10 Mg Tab) 10 mg PO HS [facility] Stop: 10/05/21 21:52 Last Admin: 09/18/21 20:21 Dose: 10 mg Documented by: Bisacodyl (Bisacodyl 10 Mg Supp) 10 mg ID DAILY PRN PRN Reason: Constipation Stop: 10/05/21 21:52 Cyanocobalamin (Cyanocobalamin 500 Mcg Tablet (Vitamin B-12)) 500 mcg PO QAM [facility] Stop: 10/06/21 08:59 Last Admin: 09/19/21 08:02 Dose: 500 mcg Documented by: Digoxin (Digoxin 0.125 Mg Tab) 0.125 mg PO Q2D@1600 [facility] Stop: 10/06/21 15:59 Last Admin: 09/10/21 16:21 Dose: Not Given Documented by: Ferrous Sulfate (Ferrous Sulfate 325 Mg Tab) 325 mg PO DAILY [facility] Stop: 10/06/21 08:59 Last Admin: 09/19/21 08:05 Dose: 325 mg Documented by: Fluticasone/Vilanterol (Fluticasone/Vilanterol 100/25mcg 14 Puffs/Inhaler) 1 puffs INH DAILY [facility] Stop: 10/08/21 08:59 Last Admin: 09/19/21 08:07 Dose: 1 puffs Documented by: Furosemide (Furosemide 40 Mg Tab) 40 mg PO BID17 [facility] Stop: 10/15/21 16:59 Last Admin: 09/19/21 08:03 Dose: 40 mg Documented by: Hydralazine HCl (Hydralazine Tab 50 Mg Tab) 100 mg PO BID [facility] Stop: 10/05/21 21:52 Last Admin: 09/19/21 08:01 Dose: 100 mg Documented by: Dexamethasone 6 mg/ Syringe 1.5 mls @ 1 mls/min IV Q24H [facility] Stop: 10/16/21 22:59 Last Admin: 09/18/21 22:42 Dose: 1 mls/min Documented by: Levothyroxine Sodium (Levothyroxine Sodium 75 Mcg Tablet) 75 mcg PO DAILYBB [facility] Stop: 10/06/21 06:29 Last Admin: 09/19/21 06:07 Dose: 75 mcg Documented by: Lidocaine (Lidocaine 5% 1 Patch) 1 patch TD QAM [facility] Stop: 10/06/21 08:59 Last Admin: 09/19/21 08:01 Dose: 1 patch Documented by: Metoprolol Succinate (Metoprolol Succ 25mg Ext Rel Tab) 25 mg PO BID [facility] Stop: 10/05/21 21:52 Last Admin: 09/19/21 08:02 Dose: 25 mg Documented by: Miscellaneous (Remove Lidoderm Patch) 1 ea N/A DAILY@2100 [facility] Stop: 10/05/21 21:52 Last Admin: 09/18/21 20:21 Dose: 1 ea Documented by: Pantoprazole Sodium (Pantoprazole 40 Mg Tab) 40 mg PO DAILY [facility] Stop: 10/07/21 08:59 Last Admin: 09/19/21 08:03 Dose: 40 mg Documented by: Rivaroxaban (Rivaroxaban 15 Mg Tab) 15 mg PO DAILY [facility] Stop: 10/06/21 08:59 Last Admin: 09/19/21 08:04 Dose: 15 mg Documented by: Vitamin D (Cholecalciferol 1,000 Units 25 Mcg Tab) 1,000 units PO QAM [facility] Stop: 10/06/21 08:59 Last Admin: 09/19/21 08:02 Dose: 1,000 units Documented by: (1) CKD (chronic kidney disease) stage 3, GFR 30-59 ml/min Chronic kidney disease stage 3 subtype: unspecified whether 3a or 3b Qualified Code(s): N18.30 - Chronic kidney disease, stage 3 unspecified
--- NOTE | 2021-09-19 18:37 | Communication Note ---
Date of Service: September 19, 2021 I was called by the hospitalist to review the patient's case. I reviewed the chest CTA from 09/16/2021 which was notable for bibasilar atelectasis and small bilateral effusions. Multi lobar groundglass opacities were noted. Echo from 09/06/2021 noted grade 3 diastolic dysfunction and an elevated RVSP. I suspect that the patient's hypoxemia is secondary to the underlying process of atelectasis which is causing intrapulmonary shunt and also secondary to CHF. Recommend starting percussive therapy with vest 3 times daily and enhancing pulmonary clearance with hypertonic saline twice daily. She likely WHO group 2/3 pulmonary hypertension secondary to diastolic heart failure and possibly an element of chronic pulmonary disease. Right heart catheterization will need to be completed to definitively rule out pulmonary arterial hypertension. Unfortunately, her renal function is precluding the ability for further diuresis. Agree with palliative care consultation at this time given her complex comorbidities.
[2021-09-19] MEDS: SODIUM CHLOR 7% 4 ML NEB NEB SCH (20:44)
[2021-09-19] MEDS: ATORVASTATIN 10 MG TAB PO SCH (20:56)
[2021-09-19] MEDS: dexAMETHasone 6 MG in SYRINGE 0 ML IV SCH (22:54)
[2021-09-20] MEDS: LEVOTHYROXINE SODIUM 75 MCG TABLET PO SCH (06:01)
[2021-09-20] MEDS: SODIUM CHLOR 7% 4 ML NEB NEB SCH ×2 (07:25→20:10)
[2021-09-20] MEDS: LIDOCAINE 5% 1 PATCH TD SCH (07:55)
[2021-09-20] MEDS: METOPROLOL SUCC 25MG EXT REL TAB PO SCH ×2 (07:55→21:21)
[2021-09-20] MEDS: CYANOCOBALAMIN 500 MCG TABLET (VITAMIN B-12) PO SCH (07:56)
[2021-09-20] MEDS: FERROUS SULFATE 325 MG TAB PO SCH (07:57)
[2021-09-20] MEDS: FUROSEMIDE 40 MG TAB PO SCH ×2 (07:57→18:26)
[2021-09-20] MEDS: CHOLECALCIFEROL 1,000 UNITS 25 MCG TAB PO SCH (07:57)
[2021-09-20] MEDS: PANTOprazole 40 MG TAB PO SCH (07:57)
[2021-09-20] MEDS: allopurinoL 100 MG TAB PO SCH ×2 (07:57→21:21)
[2021-09-20] MEDS: RIVAROXABAN 15 MG TAB PO SCH (07:58)
[2021-09-20] MEDS: hydrALAZINE TAB 50 MG TAB PO SCH ×2 (07:58→21:21)
[2021-09-20] MEDS: amLODIPine BESYLATE 5 MG TAB PO SCH (07:58)
[2021-09-20] MEDS: FLUTICASONE/VILANTEROL 100/25MCG 14 PUFFS/INHALER INH SCH (08:30)
[2021-09-20] MEDS: ACETAMINOPHEN 500 MG TAB PO SCH ×3 (08:31→21:23)
--- NOTE | 2021-09-20 09:20 | XRay Report ---
XR chest 1V portable CLINICAL HISTORY: hypoxia. Follow-up multifocal airspace opacities COMPARISON STUDY: 09/09/2021 TECHNIQUE: 1 view of the chest FINDINGS: Single frontal view of the chest demonstrates the heart to again be enlarged. Compared to previous ex amination, there is interval worsening of bilateral interstitial and alveolar airspace opacities. The findings are most characteristic of a viral type pneumonitis and probable Covid 19 pneumonia. There is no evidence for pleural effusion. There is no evidence for vascular congestion. There is no acute osseous pathology. IMPRESSION: Interval worsening of bilateral interstitial and alveolar opacities most characteristic o f a viral type pneumonitis and probable Covid 19 pneumonia. ACT 112: Negative or not required by law. Electronically signed by: Fredy Sanz M.D. 09/20/2021 9:18 AM
--- NOTE | 2021-09-20 11:55 | Palliative Care Progress Note ---
Date of Service September 20, 2021 Assessment & Plan (1) Hypoxia: Plan: Diuresis per cardiology. Sats running in low 90s and O2 requirements continue to be high. Pt comfortable and not using accessory muscles for breathing at this time. Roxanol PRN. Will monitor use and effectiveness. (2) Weakness: Plan: Pt increasingly weak. Due to increased O2 needs, would need to be less than 15L for a safe transfer out of hospital back to [facility]. This is proving to be unlikely to occur. (3) Palliative care encounter: Plan: I talked with Vaishnavi at her bedside. She was able to talk in complete sentences and said she felt 'good today', like yesterday. She was watching TV. We reviewed her hospitalization course and recognized that while she is not overtly short of breath or anxious, her respiratory drive is declining. We reviewed that she would not want to be intubated and she confirmed that again. I called her son, Jacinto at [phone] and talked at length. He is realistic about her decline and supports her wish to continue with high Flow. We discussed comfort measures and what that entails, which may be likely in the coming days and/or week. For now, both parties are comfortable with having Roxanol PRN available for air hunger. Communicated with nursing and hospitalist. (4) Acute on chronic respiratory failure with hypoxemia: (5) Acute on chronic diastolic CHF (congestive heart failure): (6) Pulmonary hypertension: (7) COPD (chronic obstructive pulmonary disease): Admission and Anticipated Discharge Date Admission Date: September 05, 2021 Subjective Pt seen at her bedside. Pt arousable and able to speak in short sentences. Pt remains on 100%/40L Hi-flow. See A/P for further details Review of Systems Review of Systems: Meherrin Symptom Assessment Scale Pain 0/3 Dyspnea 1/3 Fatigue 2/3 Anorexia 0/3 Drowsiness 0/3 Palliative Performance Score 30% Physical Exam Constitutional: + frail appearing, cooperative and comfortable ENMT: Mouth: + dry oral mucous membranes Respiratory: Auscultation: + rhonchi Cardiovascular: Rate/Rhythm: regular rate and regular rhythm Heart Sounds: normal S1, normal S2 and + murmur Extremities: normal capillary refill and + edema Gastrointestinal (Abdomen): Inspection/Auscultation: abdomen normal to inspection Percussion/Palpation: abdomen soft Skin: + pallor Psychiatric: Orientation: alert and oriented x 3 Insight: + limited insight Results & Data ([facility]) Vital Signs (Past 12 Hours) Vital Signs Temp Pulse Pulse Pulse Resp BP Pulse Ox 09/20/21 11:01 36.6 C 73 21 129/63 93 09/20/21 09:52 71 09/20/21 07:26 70 20 95 09/20/21 07:02 36.8 C 72 20 127/69 96 09/20/21 03:08 36.6 C 70 24 113/60 95 09/20/21 02:55 72 20 92 09/19/21 23:59 60 PG Care Time/CCT Total # of Minutes Spent Total Time Spent with Patient: Total time spent is greater than 50% in coordination of care (as documented) at patient's floor/unit and/or counseling patient: 35 minutes Coding Level of Care Code 95478 Subseq Hosp Care Lvl 3 Diagnoses Hypoxia R09.02 Weakness R53.1 Palliative care encounter Z51.5 Acute on chronic respiratory failure with hypoxemia J96.21 Acute on chronic diastolic CHF (congestive heart failure) I50.33 Pulmonary hypertension I27.20 COPD (chronic obstructive pulmonary disease) J44.9 Time Spent (min) 35
[2021-09-20] MEDS ORDERED: MoRPHine SULFATE 5 MG/0.25 ML UDP PO PRN (13:28)
--- NOTE | 2021-09-20 13:29 | Pulmonology Progress Note ---
Date of Service September 20, 2021 Assessment & Plan (1) Acute on chronic respiratory failure with hypoxemia: Plan: 81yo female never-smoker with a PMH including chronic hypoxic respiratory failure (home oxygen requirement 2L day and night), afib (on xarelto), HFpEF, CKD, history of multiple skin cancer,s and hypothyroidism presents with progressive SOB. Symptoms are likely multifactorial in etiology including acute CHF exacerbation; however, patient's oxygen requirement continues to worsen despite aggressive diuresis (net -13L since admission). Patient is currently stable on 100%/40L HFNO. Prognosis is guarded. [id number] respiratory failure with hypoxemia, pulmonary hypertension Patient oxygen requirement continues to worsen; currently satting 93-95 on 100%/40L HFNO Overall picture unlikely secondary to CHFe alone; patient is likely near her dry weight given uptrending creatinine and net -13L fluid balance CTA (09/16) negative for PE Bilateral ground-glass opacities suggestive of viral pneumonitis, though bella ness has a history of covid pneumonia (10/2020), is fully vaccinated, and has had multiple negative covid tests (as well as a negative biofire) during this admission Differential broadly includes infection (e.g. CMV), chronic interstitial diseases (e.g. interstitial PNA, eosinophilic PNA), acute alveolar disease (e.g. cardiogenic and/or non-cardiogenic pulmonary edema), and others (e.g. autoimmune conditions, malignancy, drug toxicity, traumatic lung injury); another possibility is post-covid ILD Patient without known exposure to drugs with potential for pulmonary toxicity (e.g. amiodarone, bleomycin) Bronchoscopy would provide some degree of diagnostic clarity, as would cardiac catheterization given pulmonary hypertension on echo (09/06); however, these would be very high-risk, and patient declines invasive procedures Consider autoimmune workup (e.g. ZACKARY) Can also consider obtaining CMV Ig/PCR, though the result would be unlikely to influence management Continue diuresis as tolerated, maintain net negative fluid balance Continue breo, hypertonic saline nebs Repeat CXR in AM Goals of care Patient and family have had ongoing discussions with our palliative team Code status: DNR/DNI (also declines BiPAP); confirmed with patient Patient and family aware that transfer back to [facility] is unlikely, given patient would need to be on <15L for transfer 09/20: morphine PRN air hunger added by palliative care (patient and son both aware and agreeable) Thank you for the opportunity to participate in Vaishnavi's care. Please refer to Dr. Veloz's attestation for further recommendations. Admission and Anticipated Discharge Date Admission Date: September 05, 2021 Supervising Physician Co-Signing Physician Notes Patient discussed with resident physician and hospitalist. Prognosis overall poor. Hypoxia and chest x-ray findings are of unclear etiology, but may be related to infectious/inflammatory/cardiogenic edema. Patient unstable to undergo invasive procedures such as right heart catheterization and bronchoscopy. Agree with palliative measures. Trial of empiric antibiotics reasonable. Would recommend antibiotic coverage with azithromycin or doxycycline. Subjective Patient seen and evaluated at bedside this morning. Today, patient feels "not too bad" and reports she doesn't feel much shortness of breath at this time, which is about the same as yesterday per patient. Denies chest pain, lightheadedness, dizziness, headache, fever, chills, abdominal pain, nausea, vomiting, leg pain, or other symptoms. No additional concerns or questions today. Patient reiterated to me that she is DNR/DNI. Review of Systems Review of Systems: See HPI Physical Exam Physical Exam: Constitutional: tired-appearing, NAD, laying in bed HEENT: MMM, high-flow cannula in place CV: heart sounds distant Resp: breath sounds distant, faint rhonchi heard in right lower lobes, no wheezes/rales appreciated, good air movement, breathing non-labored Neuro: alert, oriented, no focal neurological deficits appreciated Results & Data Results & Data ([facility]) Vital Signs (Past 12 Hours) Vital Signs Temp Pulse Pulse Pulse Resp BP Pulse Ox 09/20/21 11:01 36.6 C 73 21 129/63 93 09/20/21 09:52 71 09/20/21 07:26 70 20 95 09/20/21 07:02 36.8 C 72 20 127/69 96 09/20/21 03:08 36.6 C 70 24 113/60 95 09/20/21 02:55 72 20 92 Resident Activity Tracking Resident Involvement: Resident Care Provided Care Provided: Adult Hospital Medicine
--- NOTE | 2021-09-20 18:28 | Hospitalist Progress Note ---
Date of Service September 20, 2021 Assessment & Plan (1) Acute on chronic respiratory failure with hypoxemia: Plan: (2) Acute on chronic diastolic CHF (congestive heart failure): (3) Pulmonary hypertension: Plan: Acute CHF exacerbation on admission with pulmonary edema seen on initial CT scan. She is still requiring hi flow oxygen support, however, after significant diuresis (-13L net down since admission 10 days ago, wt also down since admission.) Noted pulmonary HTN on echocardiogram. Repeat CT scan without evidence of PE Persistent central vascular congestion and small bilateral pleural effusions are ongoing. Defer to cardiology to manage diuretics and optimize heart failure. Biofire panel ordered with additional findings of a patchy viral pneumonia that was worsened from initial CT 10 days ago. Biofire negative Procalcitonin negative Trial of empiric Abx coverage to see if any improvement in resp. status. CTA Impression: 1. No CTA evidence for pulmonary embolus. 2. There is again evidence of mild central vascular congestion. 3. Increased groundglass opacities within both lungs characteristic of a viral type pneumonitis. Early Covid pneumonia should be excluded. 4. Bilateral lower lobe alveolar opacities are again seen with air bronchograms and small bilateral pleural effusions. These findings are also characteristic of multi lobar pneumonia. 5. Cardiomegaly and coronary artery calcifications are again seen. 6. Moderately large hiatal hernia. 09/19 - asked pulmonary medicine to reevaluate the patient given significant diuresis and progressively worsening respiratory status, appreciate their input - recommends to start hypertonic saline nebs and chest percussion therapy which was ordered -Repeated chest x-ray, and suggestive of viral pneumonitis, though patient has a history of covid pneumonia (10/2020), is fully vaccinated, and has had multiple negative covid tests (as well as a negative biofire) during this admission Differential broadly includes infection (e.g. CMV), chronic interstitial diseases (e.g. interstitial PNA, eosinophilic PNA), acute alveolar disease (e.g. cardiogenic and/or non-cardiogenic pulmonary edema), and others (e.g. autoimmune conditions, malignancy, drug toxicity, traumatic lung injury); another possibility is post-covid ILD Patient without known exposure to drugs with potential for pulmonary toxicity (e.g. amiodarone, bleomycin) Bronchoscopy would provide some degree of diagnostic clarity, as would cardiac catheterization given pulmonary hypertension on echo (09/06); however, these would be very high-risk, and patient declines invasive procedures Consider autoimmune workup (e.g. ZACKARY) Can also consider obtaining CMV Ig/PCR, though the result would be unlikely to influence management Continue diuresis as tolerated, maintain net negative fluid balance Continue breo, hypertonic saline nebs Goals of care Patient has a very poor prognosis, palliative medicine also following Started on morphine as needed for air hunger, this was discussed w/ palliative medicine, patient and her son. (4) Lower GI bleed: Plan: Hemoglobin has been stable, GI evaluated, no plan for scope. No plan for scope from GI, Xarelto resumed 09/12. (5) CKD (chronic kidney disease) stage 3, GFR 30-59 ml/min: Plan: At her baseline. Renally dose meds as needed (6) HTN (hypertension): Plan: Controlled, cont current medications. (7) Hypothyroidism: Plan: chronic, stable. Cont home levothyroxine. (8) Afib: Plan: Intermittent, has remained in sinus rhythm during this admission. Cont Xarelto. (9) Weakness: Plan: Physical deconditioning 2/2 prolonged hospitalization. PT/OT (10) DVT prophylaxis: Plan: Xarelto DNR/ DNI (palliative medicine involved) Dispo-uncertain at this time. Remains in PCU Admission and Anticipated Discharge Date Admission Date: September 05, 2021 Subjective 81 yo F with h/o chronic hypoxic respiratory failure on 2LPM of oxygen supplementation presented from [facility] with acute SOB. She was started on IV diuretics for many days as she was thought to be in acute heart failure. Cardiology switched this back to oral, however, she remains on hi flow oxygen support. She appears compensated from a volume standpoint but found to have significant p ulmonary hypertension on echo. She does have a h/o Covid pneumonia in Oct 2020 per notes. Denies any acute or worsening SOB Denies CP No abd pain, F/C/n/v CT chest repeated Biofire negative Started emp. Abx Cr elevated On high flow nasal cannula however she appears comfortable, watching TV, has no complaints Pulmonary medicine also contacted to re-evaluate, appreciate their input Review of Systems Review of Systems: All systems reviewed & are unremarkable except as noted in Subjective Physical Exam Physical Exam: GENERAL: Alert and oriented x3. NAD, on HF O2 HEENT: NC/AT. EOMI, PERRL. Oral mucosa moist. NECK: No JVD, no neck masses. HEART: S1 and S2 heard. Regular rate and rhythm. No murmur, no gallop. RESPIRATORY: Normal AP diameter. No accessory muscle use. No wheezing, diffuse rhonchi and b/l crackles ABDOMEN: Soft, bowel sounds present, nontender, no distention. Umbilical hernia noted. NEURO: No facial droop. Speech is clear.Moves extremities. EXTREMITIES: trace edema, no erythema seen. Results & Data Results & Data ([facility]) Vital Signs (Past 12 Hours) Vital Signs Temp Pulse Pulse Pulse Resp BP Pulse Ox 09/20/21 15:45 36.8 C 83 22 132/75 90 09/20/21 15:00 75 22 89 L 09/20/21 14:59 70 09/20/21 11:05 69 22 93 09/20/21 11:01 36.6 C 73 21 129/63 93 09/20/21 09:52 71 09/20/21 07:26 70 20 95 09/20/21 07:02 36.8 C 72 20 127/69 96 Medications Administered Current Inpatient Medications Acetaminophen (Acetaminophen 500 Mg Tab) 500 mg PO TID FLORA Stop: 10/06/21 08:59 Last Admin: 09/20/21 15:16 Dose: 500 mg Documented by: Allopurinol (Allopurinol 100 Mg Tab) 100 mg PO BID FLORA Stop: 10/05/21 21:52 Last Admin: 09/20/21 07:57 Dose: 100 mg Documented by: Amlodipine Besylate (Amlodipine Besylate 5 Mg Tab) 10 mg PO DAILY FLORA Stop: 10/06/21 08:59 Last Admin: 09/20/21 07:58 Dose: 10 mg Documented by: Atorvastatin Calcium (Atorvastatin 10 Mg Tab) 10 mg PO HS FLORA Stop: 10/05/21 21:52 Last Admin: 09/19/21 20:56 Dose: 10 mg Documented by: Bisacodyl (Bisacodyl 10 Mg Supp) 10 mg ID DAILY PRN PRN Reason: Constipation Stop: 10/05/21 21:52 Cyanocobalamin (Cyanocobalamin 500 Mcg Tablet (Vitamin B-12)) 500 mcg PO QAM FLORA Stop: 10/06/21 08:59 Last Admin: 09/20/21 07:56 Dose: 500 mcg Documented by: Digoxin (Digoxin 0.125 Mg Tab) 0.125 mg PO Q2D@1600 [facility] Stop: 10/06/21 15:59 Last Admin: 09/10/21 16:21 Dose: Not Given Documented by: Ferrous Sulfate (Ferrous Sulfate 325 Mg Tab) 325 mg PO DAILY FLROA Stop: 10/06/21 08:59 Last Admin: 09/20/21 07:57 Dose: 325 mg Documented by: Fluticasone/Vilanterol (Fluticasone/Vilanterol 100/25mcg 14 Puffs/Inhaler) 1 puffs INH DAILY FLORA Stop: 10/08/21 08:59 Last Admin: 09/20/21 08:30 Dose: 1 puffs Documented by: Furosemide (Furosemide 40 Mg Tab) 40 mg PO BID17 FLORA Stop: 10/15/21 16:59 Last Admin: 09/20/21 18:26 Dose: 40 mg Documented by: Hydralazine HCl (Hydralazine Tab 50 Mg Tab) 100 mg PO BID FLORA Stop: 10/05/21 21:52 Last Admin: 09/20/21 07:58 Dose: 100 mg Documented by: Dexamethasone 6 mg/ Syringe 1.5 mls @ 1 mls/min IV Q24H FLORA Stop: 10/16/21 22:59 Last Admin: 09/19/21 22:54 Dose: 1 mls/min Documented by: Levothyroxine Sodium (Levothyroxine Sodium 75 Mcg Tablet) 75 mcg PO DAILYBB FLORA Stop: 10/06/21 06:29 Last Admin: 09/20/21 06:01 Dose: 75 mcg Documented by: Lidocaine (Lidocaine 5% 1 Patch) 1 patch TD QAM FLORA Stop: 10/06/21 08:59 Last Admin: 09/20/21 07:55 Dose: 1 patch Documented by: Metoprolol Succinate (Metoprolol Succ 25mg Ext Rel Tab) 25 mg PO BID FLORA Stop: 10/05/21 21:52 Last Admin: 09/20/21 07:55 Dose: 25 mg Documented by: Miscellaneous (Remove Lidoderm Patch) 1 ea N/A DAILY@2100 [facility] Stop: 10/05/21 21:52 Last Admin: 09/19/21 20:57 Dose: 1 ea Documented by: Morphine Sulfate (Morphine Sulfate 5 Mg/0.25 Ml Udp) 5 mg PO Q6H PRN PRN Reason: Pain/air hunger Stop: 10/04/21 13:27 Pantoprazole Sodium (Pantoprazole 40 Mg Tab) 40 mg PO DAILY FLORA Stop: 10/07/21 08:59 Last Admin: 09/20/21 07:57 Dose: 40 mg Documented by: Rivaroxaban (Rivaroxaban 15 Mg Tab) 15 mg PO DAILY FLORA Stop: 10/06/21 08:59 Last Admin: 09/20/21 07:58 Dose: 15 mg Documented by: Sodium Chloride (Sodium Chlor 7% 4 Ml Neb) 4 ml NEB BIDR FLORA Stop: 10/19/21 18:59 Last Admin: 09/20/21 07:25 Dose: 4 ml Documented by: Vitamin D (Cholecalciferol 1,000 Units 25 Mcg Tab) 1,000 units PO QAM [facility] Stop: 10/06/21 08:59 Last Admin: 09/20/21 07:57 Dose: 1,000 units Documented by: (1) CKD (chronic kidney disease) stage 3, GFR 30-59 ml/min Chronic kidney disease stage 3 subtype: unspecified whether 3a or 3b Qualified Code(s): N18.30 - Chronic kidney disease, stage 3 unspecified
--- NOTE | 2021-09-20 21:11 | Billing Data ---
Date of Service September 20, 2021 Coding Level of Care Code 43679 Initial Inpt Care Lvl 1
[2021-09-20] MEDS: ATORVASTATIN 10 MG TAB PO SCH (21:21)
[2021-09-20] MEDS: dexAMETHasone 6 MG in SYRINGE 0 ML IV SCH (23:40)
[2021-09-21] MEDS: LEVOTHYROXINE SODIUM 75 MCG TABLET PO SCH (05:58)
[2021-09-21] MEDS: SODIUM CHLOR 7% 4 ML NEB NEB SCH (07:26)
--- NOTE | 2021-09-21 07:40 | Pulmonology Progress Note ---
Date of Service September 21, 2021 Assessment & Plan (1) Acute on chronic respiratory failure with hypoxemia: Plan: 81yo female never-smoker with a PMH including chronic hypoxic respiratory failure (home oxygen requirement 2L day and night), afib (on xarelto), HFpEF, C KD, history of multiple skin cancer,s and hypothyroidism presents with progressive SOB. Symptoms are likely multifactorial in etiology including acute CHF exacerbation; however, patient's oxygen requirement continues to progressively worsen despite aggressive diuresis (net -13L since admission). Patient is currently stable on 100%/40L HFNO. Prognosis is guarded. [id number] respiratory failure with hypoxemia, pulmonary hypertension Oxygen requirement holding steady at this time, currently satting 91-95 on 100%/40L HFNO Overall picture unlikely secondary to CHFe alone; patient is likely near her dry weight given uptrending creatinine and net -13L fluid balance CTA (09/16) negative for PE Bilateral ground-glass opacities suggestive of viral pneumonitis, though patient has a history of covid pneumonia (10/2020), is fully vaccinated, and has had multiple negative covid tests (as well as a negative biofire) during this admission Differential broadly includes infection (e.g. CMV), chronic interstitial diseases (e.g. interstitial PNA, eosinophilic PNA), acute alveolar disease (e.g. cardiogenic and/or non-cardiogenic pulmonary edema), and others (e.g. autoimmune conditions, malignancy, drug toxicity, traumatic lung injury); another possibility is post-covid ILD Patient without known exposure to drugs with potential for pulmonary toxicity (e.g. amiodarone, bleomycin) Bronchoscopy would provide some degree of diagnostic clarity, as would cardiac catheterization given pulmonary hypertension on echo (09/06); however, these would be very high-risk, and patient declines invasive procedures Consider autoimmune workup (e.g. ZACKARY) Can also consider obtaining CMV Ig/PCR, though the result would be unlikely to influence management Continue diuresis as tolerated, maintain net negative fluid balance Continue breo, hypertonic saline nebs Agree with trial of empiric antibiotics; recommend doxycycline or azithromycin 09/21: rCXR without significant interval change Goals of care Patient and family have had ongoing discussions with our palliative team Code status: DNR/DNI (also declines BiPAP); confirmed with patient Patient and family aware that transfer back to [facility] is unlikely, given patient would need to be on <15L for transfer 09/20: morphine PRN air hunger added by palliative care (patient and son both aware and agreeable) Thank you for the opportunity to participate in Vaishnavi's care. Please refer to Dr. Veloz's attestation for further recommendations. Plan: Agree with note as outlined above. Patient and family focusing on comfort measures. Palliative care following. No further interventions or recomm endations from pulmonology at this point. Thank you for the consult. Please call with questions. Admission and Anticipated Discharge Date Admission Date: September 05, 2021 Subjective Patient seen and evaluated at bedside this morning. No acute events overnight. This morning, patient feels "pretty good", about the same as yesterday. No change in breathing, no SOB at this time. Denies CP, cough, abdominal pain, nausea, vomiting, or other new symptoms. Review of Systems Review of Systems: See HPI Physical Exam Physical Exam: Constitutional: frail-appearing, NAD, sitting up in bed, eating breakfast HEENT: high-flow cannula in place CV: heart sounds distant Resp: breath sounds distant, rhonchi heard in right lower lobes, mild end- expiratory wheeze of lower left lobe which improves after cough, no rales appreciated, good air movement, breathing non-labored Skin: ulcerative lesion noted on forehead Neuro: alert, oriented, no focal neurological deficits appreciated Results & Data Results & Data ([facility]) Vital Signs (Past 12 Hours) Vital Signs Temp Pulse Pulse Pulse Resp BP Pulse Ox 09/21/21 07:33 87 20 91 09/21/21 07:05 68 09/21/21 06:44 36.5 C 74 18 118/63 92 09/21/21 03:41 65 22 90 09/21/21 03:03 36.4 C L 65 19 122/62 93 09/21/21 00:51 66 20 91 09/20/21 23:03 37.1 C 73 21 124/58 L 93 Resident Activity Tracking Resident Involvement: Resident Care Provided Care Provided: Adult Hospital Medicine
[2021-09-21 07:59] LABS: Hematocrit (blood only) 29.5 % (37-47); Mean Corpuscular Hemoglobin 25.2 pg (25-34); Mean Corpuscular Hgb Conc 30.5 g/dL (32-36); Mean Corpuscular Volume 82.6 fL (80-100); Nucleated RBC # (auto) 0.04 K/uL (0-0); Nucleated RBC % (auto) 0.3 %; Platelet Count 235 K/uL (130-400); RDW Coefficient of Variation 16.7 % (11.5-14.5); Red Blood Count 3.57 M/uL (4.2-5.4); White Blood Count 11.05 K/uL (4.8-10.8)
[2021-09-21] MEDS ORDERED: AMOXICILLIN/CLAVULANATE 875 MG TAB PO SCH (08:00)
[2021-09-21] MEDS ORDERED: AMOXICILLIN/CLAVULANATE 500 MG TAB PO SCH (08:00)
[2021-09-21 08:40] LABS: BUN Creatinine Ratio 42.8 (10-20); Calcium 9.7 mg/dl (8.5-10.1); Est GFR (African American) 22.3 ml/min; Est GFR (Non-African American) 19.2 ml/min; Magnesium 2.7 mg/dl (1.8-2.4); Phosphorus 4.5 mg/dl (2.5-4.9); Potassium 4.7 mmol/L (3.5-5.1)
[2021-09-21] MEDS: allopurinoL 100 MG TAB PO SCH (09:07)
[2021-09-21] MEDS: PANTOprazole 40 MG TAB PO SCH (09:08)
[2021-09-21] MEDS: FUROSEMIDE 40 MG TAB PO SCH (09:08)
[2021-09-21] MEDS: CHOLECALCIFEROL 1,000 UNITS 25 MCG TAB PO SCH (09:09)
[2021-09-21] MEDS: RIVAROXABAN 15 MG TAB PO SCH (09:10)
[2021-09-21] MEDS: METOPROLOL SUCC 25MG EXT REL TAB PO SCH (09:10)
[2021-09-21] MEDS: CYANOCOBALAMIN 500 MCG TABLET (VITAMIN B-12) PO SCH (09:11)
[2021-09-21] MEDS: hydrALAZINE TAB 50 MG TAB PO SCH (09:11)
[2021-09-21] MEDS: FERROUS SULFATE 325 MG TAB PO SCH (09:11)
[2021-09-21] MEDS: amLODIPine BESYLATE 5 MG TAB PO SCH (09:12)
[2021-09-21] MEDS: LIDOCAINE 5% 1 PATCH TD SCH (09:13)
--- NOTE | 2021-09-21 09:26 | XRay Report ---
XR chest 1V portable HISTORY: Shortness of breath. ?interval change COMPARISON: Chest 09/20/2021. FINDINGS: No pneumothorax. No pleural effusions. The heart is mildly enlarged. Patchy bilateral airsp sarah opacities persist. Diffuse interstitial thickening is also unchanged. Avascular necrosis within t he left humeral head is also unchanged. IMPRESSION: No significant change in the bilateral interstitial/alveolar airspace opacities. ACT 112: Negative or not required by law. Electronically signed by: Lloyd Angulo M.D. 09/21/2021 9:25 AM
--- NOTE | 2021-09-21 09:27 | Palliative Care Progress Note ---
Date of Service September 21, 2021 Assessment & Plan (1) Hypoxia: Plan: patient using more accessory muscle use today for labored breathing. She is still awake and able to talk in complete sentences. She fluctuates between 90- 100% on High Flow and 40L. Saturations hover 95-97. encouraged a dose of Roxanol and discussed with the patient. She was receptive of having a dose of Roxanol. Discussed routine dosing Q6 with PRN access available. Patient and her son agreeable. As patient continues to receive Roxanol, gradually decrease HighFlow with eventual transition to a regular nasal canula. Discussed with nursing. (2) Weakness: Plan: Pt increasingly weak. Due to increased O2 needs, would need to be less than 15L for a safe transfer out of hospital back to [facility]. This is proving to be unlikely to occur. (3) Palliative care encounter: Plan: I talked with Vaishnavi at her bedside. She was able to talk in complete sentences but admits that she is working 'harder to breathe'. We discussed her worsening O2 status and discussed her nearing her dying time and how she would like her dying time to look. She seemed to be confused during our conversation and was not verbalizing understanding of how complex her condition is. I called her son, Jacinto at [phone] and talked at length. He is realistic about her decline and supports scheduling her Roxanol. I was able to clear him and his brother for visitation. All in agreement to discontinue all medications not comfort focused as she was having difficulty swallowing the medications earlier, and she also desaturates. She said that she is a little scared of dying but her jos is important to her. She said she is [employer] and would like a aerial photogrammetrist to offer her last rights. Brittani ACHARYA RN is assisting with reaching out to Father Ronnie to come to the hospital. Communicated with nursing and hospitalist, Dr. Choudhary. Life expectancy is likely days. (4) Acute on chronic respiratory failure with hypoxemia: (5) Acute on chronic diastolic CHF (congestive heart failure): (6) Pulmonary hypertension: (7) COPD (chronic obstructive pulmonary disease): Admission and Anticipated Discharge Date Admission Date: September 05, 2021 Subjective Patient seen and evaluated at bedside this morning. No acute events overnight. This morning, patient feels "pretty good", about the same as yesterday. No change in breathing, no SOB at this time. Denies CP, cough, abdominal pain, nausea, vomiting, or other new symptoms. Review of Systems Review of Systems: [place] Symptom Assessment Scale Pain 0/3 Dyspnea 3/3 Fatigue 2/3 Anorexia 0/3 Drowsiness 0/3 Palliative Performance Score 20% Physical Exam Constitutional: + frail appearing, cooperative and comfortable ENMT: Mouth: + dry oral mucous membranes Respiratory: Auscultation: + rhonchi Cardiovascular: Rate/Rhythm: regular rate and regular rhythm Heart Sounds: normal S1, normal S2 and + murmur Extremities: normal capillary refill and + edema Gastrointestinal (Abdomen): Inspection/Auscultation: abdomen normal to inspection Percussion/Palpation: abdomen soft Skin: + pallor Psychiatric: Orientation: alert and oriented x 3 Insight: + limited insight Results & Data ([facility]) Vital Signs (Past 12 Hours) Vital Signs Temp Pulse Pulse Pulse Resp BP Pulse Ox 09/21/21 07:33 87 20 91 09/21/21 07:05 68 09/21/21 06:44 36.5 C 74 18 118/63 92 09/21/21 03:41 65 22 90 09/21/21 03:03 36.4 C L 65 19 122/62 93 09/21/21 00:51 66 20 91 09/20/21 23:03 37.1 C 73 21 124/58 L 93 PG Care Time/CCT Total # of Minutes Spent Total Time Spent with Patient: Total time spent is greater than 50% in coordination of care (as documented) at patient's floor/unit and/or counseling patient: 45 minutes Coding Level of Care Code 51415 Subseq Hosp Care Lvl 3 Diagnoses Hypoxia R09.02 Weakness R53.1 Palliative care encounter Z51.5 Acute on chronic respiratory failure with hypoxemia J96.21 Acute on chronic diastolic CHF (congestive heart failure) I50.33 Pulmonary hypertension I27.20 COPD (chronic obstructive pulmonary disease) J44.9 Time Spent (min) 45
[2021-09-21] MEDS: FLUTICASONE/VILANTEROL 100/25MCG 14 PUFFS/INHALER INH SCH (09:43)
[2021-09-21] MEDS: ACETAMINOPHEN 500 MG TAB PO SCH (09:43)
--- NOTE | 2021-09-21 10:33 | Hospitalist Progress Note ---
Date of Service September 21, 2021 Assessment & Plan (1) Acute on chronic respiratory failure with hypoxemia: Plan: (2) Acute on chronic diastolic CHF (congestive heart failure): (3) Pulmonary hypertension: Plan: echocardiogram. Repeat CT scan without evidence of PE Per pulm Bilateral ground-glass opacities suggestive of viral pneumonitis, though patient has a history of covid pneumonia (10/2020), is fully vaccinated, and has had multiple negative covid tests (as well as a negative biofire) during this admission Empiric antibiotics have also been trialed. Differential also includes non-infectious causes and post-ILD covid. 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 Defer to palliative care nurse practitioner to manage this transition as she is the main point of contact between the patient and family who were encouraged to come in and visit with the patient, discuss the situation with her. I disucssed the care plan with the palliative WELFARE ADVISER and the primary nurse on the floor. (4) Lower GI bleed: Plan: Hemoglobin has been stable, GI evaluated, no plan for scope. No plan for scope from GI, Xarelto resumed 09/12. (5) Acute on chronic kidney failure: Plan: Likely multifactorial with main insult recent diuresis. (6) HTN (hypertension): Plan: Controlled, cont current medications. (7) Hypothyroidism: Plan: chronic, stable. Cont home levothyroxine. (8) Afib: Plan: Intermittent, has remained in sinus rhythm during this admission. Cont Xarelto. (9) Weakness: Plan: Physical deconditioning 2/2 prolonged hospitalization. 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 If she transitions, will transfer her to the floor. Gayla [facility]oud[facility] Ad[facility] and Anticipated Discharge Date Admission Date: September 05, 2021 Subjective 81 yo F admitted for acute respiratory failure of unclear etiology. She has been significantly diuresed this admission but continues to decline from a breathing standpoint. Today, she is clearly working to breathe on exam. She denies any discomfort, SOB or other issues. I discussed palliative medicine with her today and she reported that she "doesn't really know what I mean. " Even when I said to her she isn't getting any better with all the treatment she has been given, she responded that she doesn't really understand. I explained that the palliative team has been in touch with her children and all are ok with trying some palliative medications. She was somewhat hesitant initially about morphine but then was ok with trying it. She reports being against stopping treatment at this time but admittedly doesn't really understand the full picture and wants to feel better. I encouraged her to speak with her family more about this. Review of Systems Review of Systems: All systems were reviewed and negative except as indicated in subjective above. Physical Exam Physical Exam: CONSTITUTIONAL: WNWD, vitals as above, NAD EYES: normal conjunctivae, no scleral icterus ENT: external ear and nose normal, MMM NECK: trachea midline RESPIRATORY: coarse crackles throughout, poor airflow on auscultation, no rales or wheezes,increased respiratory effort. CARDIOVASCULAR: regular rate and rhythm, S1 and 2 heard without murmurs, gallops or rubs, no JVD, no peripheral edema GASTROINTESTINAL: soft, nontender, ND, no guarding MUSCULOSKELETAL: Generalized weakness without any gross focal deficits. Head is normocephalic and atraumatic SKIN: warm and dry NEUROLOGIC: CN 2-12 grossly intact, normal cognition, normal speech, no tremor. No gross focal deficits. PSYCHIATRIC: alert and cooperative, answers questions appropriately Results & Data Results & Data ([facility]) Vital Signs (Past 12 Hours) Vital Signs Temp Pulse Pulse Pulse Resp BP Pulse Ox 09/21/21 07:33 87 20 91 09/21/21 07:05 68 09/21/21 06:44 36.5 C 74 18 118/63 92 09/21/21 03:41 65 22 90 09/21/21 03:03 36.4 C L 65 19 122/62 93 09/21/21 00:51 66 20 91 09/20/21 23:03 37.1 C 73 21 124/58 L 93 Laboratory Results Short CBC 09/21/21 Range/Units 07:41 WBC 11.05 H (4.8-10.8) K/uL Hgb 9.0 L (12.0-16.0) g/dL Hct 29.5 L (37-47) % Plt Count 235 (130-400) K/uL BMP 09/21/21 07:41 Sodium 138 Potassium 4.7 Chloride 103 Carbon Dioxide 24 BUN 98 H Creatinine 2.28 H Glucose 193 H Calcium 9.7 Diagnostic Findings Chest X-Ray 09/21/21 04:44 XR chest 1V portable HISTORY: Shortness of breath. ?interval change COMPARISON: Chest 09/20/2021. FINDINGS: No pneumothorax. No pleural effusions. The heart is mildly enlarged. Patchy bilateral airspace opacities persist. Diffuse interstitial thickening is also unchanged. Avascular necrosis within the left humeral head is also unchanged. IMPRESSION: No significant change in the bilateral interstitial/alveolar airspace opacities. ACT 112: Negative or not required by law. Electronically signed by: Lloyd Angulo M.D. 09/21/2021 9:25 AM Medications Administered Current Inpatient Medications Morphine Sulfate (Morphine Sulfate 5 Mg/0.25 Ml Udp) 5 mg PO Q6H FLORA Stop: 10/05/21 11:59
[2021-09-21] MEDS: MoRPHine SULFATE 5 MG/0.25 ML UDP PO SCH ×3 (12:06→23:59)
[2021-09-21] MEDS ORDERED: MoRPHine SULFATE 5 MG/0.25 ML UDP PO PRN (12:13)
--- NOTE | 2021-09-21 18:48 | Billing Data ---
Date of Service September 21, 2021 Coding Level of Care Code 54237 Subseq Hosp Care Lvl 1
[2021-09-22] MEDS ORDERED: LORazepam 1 MG/2 ML VIAL IV PRN (00:14)
[2021-09-22] MEDS: MoRPHine SULFATE 4 MG/ML 1 ML CARP\\VIAL IV PRN ×6 (00:34→02:02)
--- NOTE | 2021-09-22 23:08 | Discharge Summary ---
Date of Service September 22, 2021 Admission HPI Per Admitting Provider She is an 81-year-old female with significant past medical history of chronic hypoxic respiratory failure on 2 L of oxygen,Atrial fibrillation on anticoagulation, chronic diastolic CHF, hypertension, hypothyroidism CKD and other medical condition condition as mentioned below apparently was noted to be in low saturation at the [facility] today with some shortness of breath associated with it without any chest pain and or palpitation. She complains to have some leg swelling but denies any abdominal pain nausea or vomiting, any fever and/or chills, any cough or sputum or any shortness of breath at rest. She was noted to have CHF with elevated proBNP with worsening kidney function. She received a dose of Lasix and was admitted to medical telemetry unit for continuation of care Discharge Data Allergies Allergy/AdvReac Type Severity Reaction Status Date / Time quinapril AdvReac Mild H/A Verified 06/21/21 13:19 nifedipine AdvReac Unknown pounding Verified 06/21/21 13:19 headache Consultations 09/05/21 17:05 ED Decision to Admit Stat 09/06/21 15:28 Consult Cardiology Routine 09/07/21 10:08 Consult Pulmonology Routine 09/09/21 10:03 Consult Palliative Care Routine 09/10/21 09:36 Consult Gastroenterology Routine Ordered Studies 09/07/21 08:28 CT chest diagnostic wo con Routine 09/11/21 10:59 CT chest diagnostic wo con Routine 09/16/21 17:28 CT angio chest PE protocol Urgent Hospital Course (1) Acute on chronic respiratory failure with hypoxemia: (2) Acute on chronic diastolic CHF (congestive heart failure): (3) Pulmonary hypertension: echocardiogram. Repeat CT scan without evidence of PE Per pulm Bilateral ground-glass opacities suggestive of viral pneumonitis, though patient has a history of covid pneumonia (10/2020), is fully vaccinated, and has had multiple negative covid tests (as well as a negative biofire) during this admission Empiric antibiotics have also been trialed. Differential also includes non-infectious causes and post-ILD covid. With increased work of breathing and she is failing treatment measures, she is a DNR, will convert her to [employer] at this point per family wishes. Defer to palliative care nurse practitioner to manage this transition as she is the main point of contact between the patient and family who were encouraged to come in and visit with the patient, discuss the situation with her. I disucssed the care plan with the palliative [employer] and the primary nurse on the floor. (4) Lower GI bleed: Hemoglobin has been stable, GI evaluated, no plan for scope. No plan for scope from GI, Xarelto resumed 09/12. (5) Acute on chronic kidney failure: Likely multifactorial with main insult recent diuresis. (6) HTN (hypertension): Controlled, cont current medications. (7) Hypothyroidism: chronic, stable. Cont home levothyroxine. (8) Afib: Intermittent, has remained in sinus rhythm during this admission. Cont Xarelto. (9) Weakness: Physical deconditioning 2/2 prolonged hospitalization. PT/OT (10) DVT prophylaxis: Xarelto DNR/ DNI (palliative medicine involved) Dispo-uncertain at this time, however, per palliative team and family, transition to [employer] seem the best option at this point. If she transitions, will transfer her to the floor. Gayla Choudhary DO [facility] Hospitalist Discharge Plan Discharge Items Patient Disposition: Other Date/Time: 09/22/21 02:12
== END 2021-09-22 02:12 | disposition expired | DRG 291 ==
LOC: ED 15:59 → 2S 18:06 → SUATTDRO 18:06 → 2S 20:44
DX: J44.9 Chronic obstructive pulmonary disease, unspecified; E03.9 Hypothyroidism, unspecified; J98.11 Atelectasis; Z82.49 Family history of ischemic heart disease and other diseases of the circulatory system; Z79.1 Long term (current) use of non-steroidal anti-inflammatories (NSAID); N17.9 Acute kidney failure, unspecified; Z79.01 Long term (current) use of anticoagulants; Z88.8 Allergy status to other drugs, medicaments and biological substances; I27.23 Pulmonary hypertension due to lung diseases and hypoxia; Z86.16 Personal history of COVID-19; Z79.890 Hormone replacement therapy; Z66 Do not resuscitate; Z79.899 Other long term (current) drug therapy; I27.22 Pulmonary hypertension due to left heart disease; I50.33 Acute on chronic diastolic (congestive) heart failure; N18.30 Chronic kidney disease, stage 3 unspecified; I07.1 Rheumatic tricuspid insufficiency; K21.00 Gastro-esophageal reflux disease with esophagitis, without bleeding; E86.0 Dehydration; I13.0 Hypertensive heart and chronic kidney disease with heart failure and stage 1 through stage 4 chronic kidney disease, or unspecified chronic kidney disease; I48.19 Other persistent atrial fibrillation; R53.1 Weakness; Z20.822 Contact with and (suspected) exposure to COVID-19; J96.21 Acute and chronic respiratory failure with hypoxia; Z99.81 Dependence on supplemental oxygen; K92.1 Melena